=== PATIENT | female | born 1955 | race Caucasian/White ===

== ENCOUNTER 2019-02-05 15:05 | Inpatient (IN) | payer MEDICAID ==
[~2019-02-05] VITALS: Ht 157.5 cm; Wt 80.0 kg
[2019-02-05] MEDS ORDERED: DIPHENHYDRAMINE 50 MG INJ IV STA (15:07)
[2019-02-05] MEDS ORDERED: METOCLOPRAMIDE 10 MG INJ IV STA (15:07)
--- NOTE | 2019-02-05 15:13 | ERD ---
ER Documentation Chief Complaint Chief Complaint HPI This 63-year-old female with a history of hypertension who presents for evaluati on of headache. Patient had been seen in her primary clinic today, she has a past medical history of coronary artery disease, she had a drug-eluting stent placed to the left circumflex artery in 2014, when she was seen in clinic earlier today, she received nitroglycerin, and at that point she began having having emesis, and a severe headache. Subsequently 911 was called, and the patient was taken to the emergency department. ROS All systems reviewed and are negative except as per history of present illness. Allergies Allergies: Coded Allergies: iodine (Verified Allergy, Unknown, 02/05/19) PMhx/Soc History of Surgery: Yes Hx Cardiac Disorders: Yes FmHx Family History: diabetes Physical Exam Vitals Vital Signs Date Temp Pulse Resp B/P (MAP) Pulse Ox O2 O2 Flow FiO2 Time Delivery Rate 02/05/19 98.2 71 16 141/81 98 15:29 (101) Physical Exam Const: No acute distress Head: Atraumatic Eyes: Normal Conjunctiva ENT: Normal External Ears, Nose and Mouth. Neck: Full range of motion. No meningismus. Resp: Clear to auscultation bilaterally Cardio: Regular rate and rhythm, no murmurs Abd: Soft, non tender, non distended. Normal bowel sounds Skin: No petechiae or rashes Back: No midline or flank tenderness Ext: No cyanosis, or edema Neur: Awake and alert Psych: Normal Mood and Affect Result Diagram: 02/05/19 1530 02/05/19 1530 Results 24 hrs Laboratory Tests Test 02/05/19 15:30 White Blood Count 8.9 10^3/ul Red Blood Count 4.41 10^6/ul Hemoglobin 12.3 g/dl Hematocrit 36.5 % Mean Corpuscular Volume 82.8 fl Mean Corpuscular Hemoglobin 27.9 pg Mean Corpuscular Hemoglobin Concent 33.7 g/dl Red Cell Distribution Width 13.9 % Platelet Count 278 10^3/UL Mean Platelet Volume 10.1 fl Immature Granulocytes % 0.700 % Neutrophils % 56.6 % Lymphocytes % 31.9 % Monocytes % 6.4 % Eosinophils % 3.7 % Basophils % 0.7 % Nucleated Red Blood Cells % 0.0 /100WBC Immature Granulocytes # 0.060 10^3/ul Neutrophils # 5.0 10^3/ul Lymphocytes # 2.8 10^3/ul Monocytes # 0.6 10^3/ul Eosinophils # 0.3 10^3/ul Basophils # 0.1 10^3/ul Nucleated Red Blood Cells # 0.0 10^3/ul Prothrombin Time 12.8 Sec Prothrombin Time Ratio 1.0 INR International Normalized Ratio 0.95 Sodium Level 138 mmol/L Potassium Level 4.5 mmol/L Chloride Level 103 mmol/L Carbon Dioxide Level 21 mmol/L Anion Gap 14 Blood Urea Nitrogen 20 mg/dl Creatinine 1.11 mg/dl Est Glomerular Filtrat Rate mL/min 50 mL/min Glucose Level 165 mg/dl Calcium Level 9.0 mg/dl Total Bilirubin 0.3 mg/dl Direct Bilirubin 0.00 mg/dl Indirect Bilirubin 0.3 mg/dl Aspartate Amino Transf (AST/SGOT) 45 IU/L Alanine Aminotransferase (ALT/SGPT) 35 IU/L Alkaline Phosphatase 109 IU/L B-Type Natriuretic Peptide 339 PG/ML Total Protein 8.2 g/dl Albumin 4.5 g/dl Globulin 3.70 g/dl Albumin/Globulin Ratio 1.21 Current Medications Medications Dose Sig/Iman Start Time Status Last (Trade) Ordered Route PRN Stop Time Admin Dose Reason Admin 10 mg ONCE STAT 02/05/19 DC 02/05/19 Metoclopramid IV 15:07 02/05/19 15:42 e HCl 15:09 (Reglan) 12.5 mg ONCE STAT 02/05/19 DC 02/05/19 Diphenhydrami IV 15:07 02/05/19 15:42 ne HCl 15:09 (Benadryl) Procedures/MDM This is a 63-year-old female who presents for evaluation of chest pain and headache. #Headache. Patient's initial complaint in clinic has been chest pain, however she experience a headache after being given nitroglycerin, her blood pressure was also noted to be elevated at that time, she had no focal neurologic deficits, and I suspect that a ischemic stroke is much less likely, CT brain was ordered to evaluate for intracranial hemorrhage. #Chest pain. Patient has a strong history of coronary disease, in the field, there is no evidence of acute ischemia, cardiac work-up ordered, 4:41 PM: Patient's chest pain symptoms have improved, she is symptom-free from a headache standpoint, her CT brain was negative. Given his strong cardiac history, she will be admitted for further work-up for chest pain. Accepting Care Team: Current data and ongoing care discussed. Primary: [employer] Consulting: None Outstanding Data: none Departure Diagnosis: Primary Impression: Chest pain Chest pain type: unspecified Qualified Codes: R07.9 - Chest pain, unspecified Additional Impression: Headache Headache type: unspecified Headache chronicity pattern: unspecified pattern Intractability: not intractable Qualified Codes: R51 - Headache Condition: Serious GLORIAISABELA MD Feb 05, 2019 15:13
[2019-02-05] MEDS ORDERED: AMLO-147 PO ×2 (16:47→16:48)
[2019-02-05] MEDS ORDERED: HYDR25TA6 PO (16:47)
[2019-02-05] MEDS ORDERED: ISOS60TA PO (16:48)
[2019-02-05] MEDS ORDERED: ASPI-817 PO (16:48)
[2019-02-05] MEDS ORDERED: ATOR-2 PO (16:49)
[2019-02-05] MEDS ORDERED: LEVO75TA5 PO (16:50)
[2019-02-05] MEDS ORDERED: GABA300C16 PO (16:50)
[2019-02-05] MEDS ORDERED: CLOP75TA19 PO (16:50)
[2019-02-05] MEDS ORDERED: TRAZ-149 PO (16:51)
[2019-02-05] MEDS ORDERED: BENA10TA4 PO (16:51)
[2019-02-05] MEDS ORDERED: SERT-165 PO (16:52)
[2019-02-05] MEDS ORDERED: METO-448 PO (16:52)
[2019-02-05] MEDS ORDERED: DOCU-144 PO (16:52)
[2019-02-05] MEDS ORDERED: INSU100C SQ (16:53)
[2019-02-05] MEDS ORDERED: LANT3I SC (16:54)
[2019-02-05] MEDS ORDERED: NACL 0.9% 3 ML SYG IV SCH (17:00)
[2019-02-05] MEDS ORDERED: ACETAMINOPHEN 325 MG TAB PO PRN (17:00)
[2019-02-05] MEDS ORDERED: morphine 2 MG INJ IV PRN (17:00)
[2019-02-05] MEDS ORDERED: ONDANSETRON 4 MG INJ IV PRN ×2 (17:00)
--- NOTE | 2019-02-05 17:17 | HP ---
Date/Time of Note Date/Time of Note DATE: 02/05/19 TIME: 17:17 Assessment/Plan VTE Prophylaxis Pharmacological prophylaxis: other Assessment/Plan Hospital Course Patient is a female with a past medical history significant for coronary artery disease status post drug-eluting stent in 2014, diabetes mellitus, hypertension, mood disorder, hypothyroidism who presents to [facility] for chest pain. Patient developed chest pain this morning and went to her primary care doctor's office and complained of recurrent chest pain there. Patient was given aspirin, nitroglycerin at the doctor's office and she subsequently developed sudden onset headache. Currently patient is chest pain-free and has very mild headache symptoms but otherwise feels completely normal. Patient of denies any shortness of breath, nausea, vomiting, abdominal pain, bowel or bladder dysfunction, leg pain. Objective Physical exam General: Patient is laying in bed and answers questions appropriately Mentation: Patient is alert and oriented 4, Head: Normocephalic atraumatic Eyes: EOMI, pupils reactive to light Neck: Supple, nontender, midline Respiratory: Clear to auscultation bilaterally Cardiovascular: regular rate, no obvious murmurs Gastrointestinal: non-tender to palpation, bowel sounds heard. 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 Acute onset headache -Very likely secondary to nitroglycerin administration and she developed this shortly after nitroglycerin -PRN pain medication as needed -Very mild Hypertension -Continue home medications Mild acute kidney insufficiency -Very mild, monitor for now, consult nephrology if worsening -This may be patient's baseline Coronary artery disease -Continue home medications Mood disorder -Continue sertraline Hypothyroidism -Continue home medications Sore and itchy throat -Patient states this been going on for 2 weeks, come very mild -Sepsis that lozenges as needed -No overt signs of infection at this time, monitor closely -Chest x-ray negative -Follow-up with primary care physician Diabetes mellitus -Hold p.o. metformin -Insulin while in house Disposition -Continue to trend troponins, cardiology has been consulted for ACS rule out as patient does have significant cardiac history on aspirin and Plavix chronically. Result Diagram: 02/05/19 1530 02/05/19 1530 Results 24hrs Laboratory Tests Test 02/05/19 15:30 White Blood Count 8.9 Red Blood Count 4.41 Hemoglobin 12.3 Hematocrit 36.5 L Mean Corpuscular Volume 82.8 Mean Corpuscular Hemoglobin 27.9 L Mean Corpuscular Hemoglobin Concent 33.7 Red Cell Distribution Width 13.9 Platelet Count 278 Mean Platelet Volume 10.1 Immature Granulocytes % 0.700 H Neutrophils % 56.6 Lymphocytes % 31.9 Monocytes % 6.4 Eosinophils % 3.7 Basophils % 0.7 Nucleated Red Blood Cells % 0.0 Immature Granulocytes # 0.060 H Neutrophils # 5.0 Lymphocytes # 2.8 Monocytes # 0.6 Eosinophils # 0.3 Basophils # 0.1 Nucleated Red Blood Cells # 0.0 Prothrombin Time 12.8 Prothrombin Time Ratio 1.0 INR International Normalized Ratio 0.95 Sodium Level 138 Potassium Level 4.5 Chloride Level 103 Carbon Dioxide Level 21 Anion Gap 14 H Blood Urea Nitrogen 20 Creatinine 1.11 H Est Glomerular Filtrat Rate mL/min 50 L Glucose Level 165 Calcium Level 9.0 Total Bilirubin 0.3 Direct Bilirubin 0.00 Indirect Bilirubin 0.3 Aspartate Amino Transf (AST/SGOT) 45 Alanine Aminotransferase (ALT/SGPT) 35 Alkaline Phosphatase 109 Troponin I < 0.012 B-Type Natriuretic Peptide 339 H Total Protein 8.2 H Albumin 4.5 Globulin 3.70 H Albumin/Globulin Ratio 1.21 HPI/ROS Admit Date/Time Admit Date/Time PMH/Family/Social Past Medical History Medications Current Medications IV Flush (NS 3 ml) 3 ml PER PROTOCOL IV ; Start 02/05/19 at 17:00 Ondansetron HCl (Zofran Inj) 4 mg Q6H PRN IV NAUSEA/VOMITING; Start 02/05/19 at 17:00 Aspirin (Aspirin) 81 mg DAILY PO ; Start 02/06/19 at 09:00 Nitroglycerin (Nitroglycerin (Sl Tab) 0.4 Mg) 1 tab Q5M PRN SL .CHEST PAIN; Start 02/05/19 at 17:00 Acetaminophen (Tylenol Tab) 650 mg Q6H PRN PO .PAIN 1-3 OR TEMP; Start 02/05/19 at 17:00 Acetaminophen/ Hydrocodone Bitart ([place] (5/325)) 1 tab Q6H PRN PO .PAIN 4-6; Start 02/05/19 at 17:00 Morphine Sulfate (morphine) 2 mg Q4H PRN IV .PAIN 7-10; Start 02/05/19 at 17:00 Atorvastatin Calcium (Lipitor) 80 mg HS PO ; Start 02/05/19 at 21:00 Ondansetron HCl (Zofran Inj) 4 mg ER BRIDGE PRN IV NAUSEA/VOMITING; Start 02/05/19 at 17:00; Stop 02/06/19 at 16:59 Acetaminophen (Tylenol Tab) 650 mg ER BRIDGE PRN PO .MILD PAIN 1-3 OR TEMP; Start 02/05/19 at 17:00; Stop 02/06/19 at 16:59 Amlodipine Besylate (Norvasc) 10 mg DAILY PO ; Start 02/06/19 at 09:00; Status UNV Atorvastatin Calcium (Lipitor) 80 mg QHS PO ; Start 02/05/19 at 21:00; Status UNV Benazepril HCl (Lotensin) 10 mg DAILY PO ; Start 02/06/19 at 09:00; Status UNV Clopidogrel Bisulfate (plaVIX) 75 mg DAILY PO ; Start 02/06/19 at 09:00; Status UNV Docusate Sodium (Colace) 100 mg BID PO ; Start 02/05/19 at 21:00; Status UNV Gabapentin (Neurontin) 300 mg QHS PO ; Start 02/05/19 at 21:00; Status UNV Hydrochlorothiazide (Hydrochlorothiazide) 25 mg DAILY PO ; Start 02/06/19 at 09:00; Status UNV Insulin Glargine (Lantus) 17 units BID SC ; Start 02/05/19 at 21:00; Status UNV Isosorbide Mononitrate (Imdur) 60 mg DAILY PO ; Start 02/06/19 at 09:00; Status UNV Levothyroxine Sodium (Synthroid) 75 mcg BEFORE BREAKFAST PO ; Start 02/06/19 at 07:00; Status UNV Metoprolol Tartrate (Lopressor) 25 mg BID PO ; Start 02/05/19 at 21:00; Status UNV Sertraline HCl (Zoloft) 100 mg QAM PO ; Start 02/06/19 at 09:00; Status UNV Trazodone HCl (Desyrel) 50 mg QHS PRN PO insomnia; Start 02/05/19 at 17:30; Status UNV Miscellaneous Information (* Miscellaneous Pharmacy Order) Discontinue current oral sulfonylur... ONCE ONCE XX ; Start 02/05/19 at 17:30; Stop 02/05/19 at 17:31; Status UNV Diagnostic Test (Pha) (Accu-Chek) 1 ea XX ; Start 02/06/19 at 02:00; Status UNV Insulin Aspart (Novolog Insulin Pen) 3 unit WITH MEALS SC ; Start 02/05/19 at 18:00; Status UNV Miscellaneous Information (* Miscellaneous Pharmacy Order) HYPOGLYCEMIA PROTOCOL w... ONCE ONCE XX ; Start 02/05/19 at 17:30; Stop 02/05/19 at 17:31; Status UNV Insulin Aspart (Novolog Insulin Pen) NOVOLOG *MILD* ALGORITHM WITH MEALS BEDTIME SC ; Start 02/05/19 at 18:00; Status UNV Miscellaneous Information (* Miscellaneous Pharmacy Order) Discontinue all previ... ONCE ONCE XX ; Start 02/05/19 at 17:30; Stop 02/05/19 at 17:31; Status UNV Phenol (Cepastat Lozenge) 1 lozenge Q1H PRN MT sore throat; Start 02/05/19 at 17:30; Status UNV Phenol (Cepastat Lozenge) 1 lozenge ONCE ONCE MT ; Start 02/05/19 at 17:30; Stop 02/05/19 at 17:31; Status UNV Coded Allergies: iodine (Verified Allergy, Unknown, 02/05/19) Social History Smoking Status: Never smoker Exam/Review of Systems Vital Signs Vitals Vital Signs Date Temp Pulse Resp B/P (MAP) Pulse Ox O2 O2 Flow FiO2 Time Delivery Rate 02/05/19 98.2 71 16 141/81 98 15:29 (101) ISABELA TORIBIO Feb 05, 2019 17:17
[2019-02-05] MEDS ORDERED: GLUCOSE GEL 15 GRAM TUBE BUCCAL PRN (19:00)
[2019-02-05] MEDS ORDERED: GLUCOSE GEL 15 GRAM TUBE PO PRN ×2 (19:00)
[2019-02-05] MEDS ORDERED: GLUCAGON 1 MG INJ IM PRN (19:00)
[2019-02-05] MEDS ORDERED: DEXTROSE 50% 50 ML SYRINGE IV PRN ×2 (19:00)
[2019-02-05] MEDS: HYDROCODONE/APAP (5/325) TAB PO PRN (19:17)
[2019-02-05] MEDS ORDERED: GABAPENTIN 300 MG CAP PO SCH (21:00)
[2019-02-05] MEDS ORDERED: ATORVASTATIN 80 MG TAB PO SCH (21:00)
[2019-02-05] MEDS ORDERED: CEPASTAT LOZENGE MT ONE (21:00)
[2019-02-05 21:58] VITALS: BP 141/74; PULSE 62; RESP 18
[2019-02-05] MEDS: ATORVASTATIN 80 MG TAB PO SCH (22:30)
[2019-02-05] MEDS: DOCUSATE SODIUM 100 MG CAP PO SCH (22:30)
[2019-02-05] MEDS: METOPROLOL 25 MG TAB PO SCH (22:31)
[2019-02-05] MEDS: INSULIN GLARGINE [LANTus] (100 UNITS/ML) SYG SC SCH (22:40)
[2019-02-05] MEDS: INSULIN ASPART [NOVOLOG] 3 ML PEN SC SCH (22:40)
[2019-02-05 22:43] VITALS: Ht 157.5 cm; Wt 80.0 kg
[2019-02-05 22:45] VITALS: BP 136/63; PULSE 87; RESP 19
[2019-02-05 23:48] VITALS: BP 140/69; PULSE 67; RESP 19
[2019-02-06] MEDS: HYDROCODONE/APAP (5/325) TAB PO PRN ×2 (01:03→09:46)
[2019-02-06] MEDS: ACCU-CHEK XX SCH (02:00)
[2019-02-06 04:10] VITALS: BP 136/68; PULSE 60; RESP 18
[2019-02-06] MEDS: LEVOTHYROXINE 75 MCG TAB PO SCH (06:26)
[2019-02-06] MEDS: ACETAMINOPHEN 325 MG TAB PO PRN ×2 (06:56→20:40)
[2019-02-06 07:47] VITALS: BP 164/75; PULSE 54; RESP 18
[2019-02-06] MEDS: METOPROLOL 25 MG TAB PO SCH ×2 (09:00→20:40)
[2019-02-06] MEDS: INSULIN GLARGINE [LANTus] (100 UNITS/ML) SYG SC SCH ×2 (09:00→21:05)
[2019-02-06] MEDS: BENAZEPRIL 10 MG TAB PO SCH (09:45)
[2019-02-06] MEDS: ISOSORBIDE MONONITRATE(SR)60 MG TAB PO SCH (09:45)
[2019-02-06] MEDS: DOCUSATE SODIUM 100 MG CAP PO SCH ×2 (09:45→20:39)
[2019-02-06] MEDS: AMLODIPINE 10 MG TAB PO SCH (09:45)
[2019-02-06] MEDS: CLOPIDOGREL 75 MG TAB PO SCH (09:47)
[2019-02-06] MEDS: HYDROCHLOROTHIAZIDE 25 MG TAB PO SCH (09:47)
[2019-02-06] MEDS: ASPIRIN 81 MG TAB PO SCH (09:47)
[2019-02-06] MEDS: INSULIN ASPART [NOVOLOG] 3 ML PEN SC SCH ×7 (10:06→21:05)
[2019-02-06 11:20] VITALS: BP 126/70; PULSE 64; RESP 18
[2019-02-06] MEDS ORDERED: DIPHENHYDRAMINE 50 MG INJ IV ONE ×2 (12:08→12:30)
[2019-02-06] MEDS ORDERED: METOCLOPRAMIDE 10 MG INJ IV ONE ×2 (12:08→12:30)
--- NOTE | 2019-02-06 13:20 | RADRPT ---
Echocardiogram Report Patient Name: DANIELA LANEPatient ID: [id number] : 1955 (63y 2m)Study Date: 02/06/2019 7:29:52 AM Gender: FAccession #: [id number] Tech: Roberta Guerra NASH Location: [id number] Ref.Physician: ISABELA TORIBIO Height(Cm): BSA: Weight(Kg): Quality: AdequateOrder Physician: ISABELA TORIBIO Account #: Procedures: Echocardiographic Report: Transthoracic echocardiogram with complete 2D, M-Mode, and doppler examination. Indications: Coronary Artery Disease. Measurements: 2D/M Mode Doppler Measurement Value Normal Range Measurement Value Normal Range LVIDd 2D 3.8 [ 3.8 - 5.2 ] cm AV Peak Kenny 1.0 [ 100.0 - 170.0 ] cm/sec LVIDs 2D 2.4 [ 2.2 - 3.5 ] cm AV Peak PG 4.0 [ 2.0 - 9.0 ] mmHg LVPWd 2D 1.2 [ 0.6 - 0.9 ] cm LVOT Peak Kenny 0.8 [ 70.0 - 110.0 ] cm/sec IVSd 2D 1.3 [ 0.6 - 0.9 ] cm LVOT Peak PG 2.0 [ 2.0 - 6.0 ] mmHg AoR Diam 2D 3.2 [ 2.3 - 3.1 ] cm MV E Peak Kenny 0.4 [ 60.0 - 130.0 ] cm/sec EDV 2D 62.3 [ 46.0 - 106.0 ] ml MV A Peak Kenny 0.5 [ 100.0 - 120.0 ] cm/sec ESV 2D 19.7 [ 14.0 - 42.0 ] ml MV E/A 0.8 [ 0.8 - 1.5 ] ratio EF 2D 68.4 [ 54.0 - 74.0 ] percent MV Decel Time 165 [ 104 - 258 ] msec LA Dimen 2D 3.3 [ 2.7 - 3.8 ] cm MV E/A 0.8 [ 0.8 - 1.5 ] ratio TR Peak Kenny 1.4 [ 100.0 - 280.0 ] cm/sec TR Peak PG 8.0 mmHg RVSP 11.0 [ 10.0 - 36.0 ] mmHg RA Pressure 3.0 mmHg Findings: Left Ventricle: Overall, normal left ventricular systolic function. Not all segments visualized. Normal left ventricular cavity size. Mild concentric left ventricular hypertrophy. Ejection fraction is visually estimated at 60 %. Tissue Doppler/Mitral Doppler indices are consistent with impaired relaxation (Stage I diastolic dysfunction). Right Ventricle: Normal right ventricular size. Normal right ventricular systolic function. Left Atrium: The left atrium is normal in size. Right Atrium: The right atrium is normal in size. Mitral Valve: Normal appearance and function of the mitral valve with trace physiologic regurgitation. Aortic Valve: No significant aortic stenosis or insufficiency. Aortic cusps appear mildly calcified. Tricuspid Valve: Normal appearance and function of the tricuspid valve with trace physiologic regurgitation. Pulmonic Valve: Normal pulmonic valve appearance. Pericardium: Normal pericardium with no significant pericardial effusion. Aorta: Normal aortic root. IVC: Normal size and normal respiratory collapse consistent with normal right atrial pressure. Conclusions: Overall, normal left ventricular systolic function. Not all segments visualized. Normal left ventricular cavity size. Mild concentric left ventricular hypertrophy. Ejection fraction is visually estimated at 60 %. Tissue Doppler/Mitral Doppler indices are consistent with impaired relaxation (Stage I diastolic dysfunction). Normal right ventricular size. Normal right ventricular systolic function. The left atrium is normal in size. The right atrium is normal in size. No significant valvular stenosis or regurgitation seen. Normal pericardium with no significant pericardial effusion. Electronically Signed By: Philipp Mcdonnell 2019-02-06 13:19:52 PDT
--- NOTE | 2019-02-06 13:28 | CONS ---
Assessment/Plan Assessment/Plan Hospital Course (Demo Recall) Atypical chest discomfort CAD with history of PCI Preserved ejection fraction Diabetes Hypertension Dyslipidemia Patient presents with cough causing picking-like sensation in her chest. 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 Patient states that when she coughs, she gets a tingling and picking-like sensation in her chest. Is not chest pressure but feels like little pinches in her chest. With exertion, she denies chest pain but does get fatigue. She denies any shortness of breath. She went to go see her physician yesterday because of the symptoms and was told to come to the emergency room. She has been having a headache since yesterday evening. Review of medical chart, this appears after receiving nitroglycerin, she developed a headache. Denies any chest discomfort currently, shortness of breath, palpitations, chest pressure or dizziness. 12 point review of systems was performed with all pertinent positives and negatives mentioned above and all else is negative Past Medical History Medical History: coronary artery disease, diabetes, high cholesterol, hypertension Home Meds Reported Medications Insulin Glargine* (Lantus*) 100 Unit/Ml Soln, 17 UNIT SC BID, #1 VIAL 02/05/19 Insulin Lispro (Humalog) 100 Unit/1 Ml Cartridge, 5 UNIT SQ BEFORE MEALS, EA 02/05/19 Metoprolol Tartrate* (Lopressor*) 25 Mg Tab, 25 MG PO BID, #60 TAB 02/05/19 Docusate Sodium* (Colace*) 100 Mg Capsule, 100 MG PO BID, #60 CAP 02/05/19 Sertraline Hcl* (Sertraline Hcl*) 100 Mg Tablet, 100 MG PO QAM, #30 TAB 02/05/19 Trazodone Hcl* (Desyrel*) 50 Mg Tab, 50 MG PO QHS, #30 TAB 02/05/19 Benazepril Hcl* (Benazepril Hcl*) 10 Mg Tablet, 10 MG PO DAILY, #30 TAB 02/05/19 Clopidogrel Bisulfate* (Clopidogrel Bisulfate*) 75 Mg Tablet, 75 MG PO DAILY, #30 TAB 02/05/19 Gabapentin* (Gabapentin*) 300 Mg Capsule, 300 MG PO DAILY, #60 CAP 02/05/19 Levothyroxine Sodium* (Levothyroxine Sodium*) 75 Mcg Tablet, 75 MCG PO BEFORE BREAKFAST, #30 TAB 02/05/19 Atorvastatin* (Atorvastatin*) 80 Mg Tablet, 80 MG PO QHS, #30 TAB 02/05/19 Isosorbide Mononitrate* (Isosorbide Mononitrate*) 60 Mg Tab.er.24h, 60 MG PO DAILY, TAB 02/05/19 Aspirin* (Aspirin* EC) 81 Mg Tablet.dr, 81 MG PO DAILY, TAB 02/05/19 Amlodipine Besylate* (Amlodipine Besylate*) 10 Mg Tablet, 10 MG PO DAILY, #30 TAB 02/05/19 Hydrochlorothiazide* (Hydrochlorothiazide*) 25 Mg Tab, 25 MG PO DAILY, #30 TAB 02/05/19 Discontinued Reported Medications Amlodipine Besylate* (Amlodipine Besylate*) 10 Mg Tablet, 10 MG PO DAILY, #30 TAB 02/05/19 Medications Current Medications IV Flush (NS 3 ml) 3 ml PER PROTOCOL IV ; Start 02/05/19 at 17:00 Ondansetron HCl (Zofran Inj) 4 mg Q6H PRN IV NAUSEA/VOMITING; Start 02/05/19 at 17:00 Aspirin (Aspirin) 81 mg DAILY PO Last administered on 02/06/19at 09:47; Admin Dose 81 MG; Start 02/06/19 at 09:00 Nitroglycerin (Nitroglycerin (Sl Tab) 0.4 Mg) 1 tab Q5M PRN SL .CHEST PAIN; Start 02/05/19 at 17:00 Acetaminophen (Tylenol Tab) 650 mg Q6H PRN PO .PAIN 1-3 OR TEMP Last administered on 02/06/19at 06:56; Admin Dose 650 MG; Start 02/05/19 at 17:00 Ondansetron HCl (Zofran Inj) 4 mg ER BRIDGE PRN IV NAUSEA/VOMITING; Start 02/05/19 at 17:00; Stop 02/06/19 at 16:59 Acetaminophen (Tylenol Tab) 650 mg ER BRIDGE PRN PO .MILD PAIN 1-3 OR TEMP; Start 02/05/19 at 17:00; Stop 02/06/19 at 16:59 Amlodipine Besylate (Norvasc) 10 mg DAILY PO Last administered on 02/06/19 09:45; Admin Dose 10 MG; Start 02/06/19 at 09:00 Atorvastatin Calcium (Lipitor) 80 mg QHS PO Last administered on 02/05/19 22:30; Admin Dose 80 MG; Start 02/05/19 at 21:00 Benazepril HCl (Lotensin) 10 mg DAILY PO Last administered on 02/06/19 09:45; Admin Dose 10 MG; Start 02/06/19 at 09:00 Clopidogrel Bisulfate (plaVIX) 75 mg DAILY PO Last administered on 02/06/19 09:47; Admin Dose 75 MG; Start 02/06/19 at 09:00 Docusate Sodium (Colace) 100 mg BID PO Last administered on 02/06/19 09:45; Admin Dose 100 MG; Start 02/05/19 at 21:00 Gabapentin (Neurontin) 300 mg QHS PO Last administered on 02/05/19 22:31; Admin Dose 300 MG; Start 02/05/19 at 21:00 Hydrochlorothiazide (Hydrochlorothiazide) 25 mg DAILY PO Last administered on 02/06/19 09:47; Admin Dose 25 MG; Start 02/06/19 at 09:00 Insulin Glargine (Lantus) 17 units BID SC Last administered on 02/05/19 22:40; Admin Dose 17 UNITS; Start 02/05/19 at 21:00 Isosorbide Mononitrate (Imdur) 60 mg DAILY PO Last administered on 02/06/19 09:45; Admin Dose 60 MG; Start 02/06/19 at 09:00 Levothyroxine Sodium (Synthroid) 75 mcg BEFORE BREAKFAST PO Last administered on 02/06/19 06:26; Admin Dose 75 MCG; Start 02/06/19 at 07:00 Metoprolol Tartrate (Lopressor) 25 mg BID PO ; Start 02/05/19 at 21:00 Sertraline HCl (Zoloft) 100 mg QAM PO ; Start 02/06/19 at 09:00 Trazodone HCl (Desyrel) 50 mg QHS PRN PO insomnia; Start 02/05/19 at 17:30 Diagnostic Test (Pha) (Accu-Chek) 1 ea 02 XX Last administered on 02/06/19at 02:00; Admin Dose 1 EA; Start 02/06/19 at 02:00 Insulin Aspart (Novolog Insulin Pen) 3 unit WITH MEALS SC Last administered on 02/06/19at 10:07; Admin Dose 3 UNIT; Start 02/06/19 at 07:55 Insulin Aspart (Novolog Insulin Pen) NOVOLOG *MILD* ALGORITHM WITH MEALS BEDTIME SC Last administered on 02/06/19at 10:06; Admin Dose 1 UNIT; Start 02/05/19 at 21:00 Phenol (Cepastat Lozenge) 1 lozenge Q1H PRN MT sore throat; Start 02/05/19 at 17:30 Miscellaneous Information 1 ea NOTE XX ; Start 02/05/19 at 19:00 Glucose (Glutose) 15 gm Q15M PRN PO DECREASED GLUCOSE; Start 02/05/19 at 19:00 Glucose (Glutose) 22.5 gm Q15M PRN PO DECREASED GLUCOSE; Start 02/05/19 at 19:00 Dextrose (D50w Syringe) 25 ml Q15M PRN IV DECREASED GLUCOSE; Start 02/05/19 at 19:00 Dextrose (D50w Syringe) 50 ml Q15M PRN IV DECREASED GLUCOSE; Start 02/05/19 at 19:00 Glucagon (Glucagen) 1 mg Q15M PRN IM DECREASED GLUCOSE; Start 02/05/19 at 19:00 Glucose (Glutose) 15 gm Q15M PRN BUCCAL DECREASED GLUCOSE; Start 02/05/19 at 19:00 Acetaminophen/ Butalbital/ Caffeine (Fioricet) 1 tab Q6H PRN PO PAIN; Start 02/06/19 at 12:00 Allergies: Coded Allergies: iodine (Verified Allergy, Unknown, 02/05/19) Past Surgical History Past Surgical Hx: angioplasty, cholecystectomy Social History Smoking Status: Never smoker Exam/Review of Systems Vital Signs Vitals Vital Signs Date Temp Pulse Resp B/P (MAP) Pulse Ox O2 O2 Flow FiO2 Time Delivery Rate 02/06/19 98.7 64 18 126/70 98 Room Air 11:20 (88) Intake and Output 02/05/19 02/05/19 02/06/19 1414:59 22:59 06:59 IntakeIntake Total 2950 ml BalanceBalance 2950 ml Exam Constitutional: alert, oriented, well developed Head: normocephalic Neck: supple Respiratory: clear to auscultation, normal air movement Cardiovascular: regular rate and rhythm, other (S1-S2 heard) Gastrointestinal: soft, non-tender, bowel sounds Extremities: other (No significant edema) Labs Result Diagram: 02/06/19 0308 02/06/19 0308 Results 24hrs Laboratory Tests Test 02/05/19 15:30 02/05/19 21:22 02/05/19 22:27 02/06/19 03:05 White Blood Count 8.9 Red Blood Count 4.41 Hemoglobin 12.3 Hematocrit 36.5 L Mean Corpuscular Volume 82.8 Mean Corpuscular 27.9 L Hemoglobin Mean Corpuscular 33.7 Hemoglobin Concent Red Cell Distribution 13.9 Width Platelet Count 278 Mean Platelet Volume 10.1 Immature Granulocytes % 0.700 H Neutrophils % 56.6 Lymphocytes % 31.9 Monocytes % 6.4 Eosinophils % 3.7 Basophils % 0.7 Nucleated Red Blood 0.0 Cells % Immature Granulocytes # 0.060 H Neutrophils # 5.0 Lymphocytes # 2.8 Monocytes # 0.6 Eosinophils # 0.3 Basophils # 0.1 Nucleated Red Blood 0.0 Cells # Prothrombin Time 12.8 Prothrombin Time Ratio 1.0 INR International 0.95 Normalized Ratio Sodium Level 138 Potassium Level 4.5 Chloride Level 103 Carbon Dioxide Level 21 Anion Gap 14 H Blood Urea Nitrogen 20 Creatinine 1.11 H Est Glomerular Filtrat 50 L Rate mL/min Glucose Level 165 Calcium Level 9.0 Total Bilirubin 0.3 Direct Bilirubin 0.00 Indirect Bilirubin 0.3 Aspartate Amino 45 Transf (AST/SGOT) Alanine 35 Aminotransferase (ALT/SG PT) Alkaline Phosphatase 109 Troponin I < 0.012 < 0.012 B-Type Natriuretic 339 H Peptide Total Protein 8.2 H Albumin 4.5 Globulin 3.70 H Albumin/Globulin Ratio 1.21 Creatine Kinase 53 Creatine Kinase Index 0.8 Creatinine Kinase MB 0.42 (Mass) Bedside Glucose 272 H 187 Test 02/06/19 03:08 02/06/19 08:24 02/06/19 13:07 White Blood Count 7.8 Red Blood Count 4.15 L Hemoglobin 11.3 L Hematocrit 34.8 L Mean Corpuscular Volume 83.9 Mean Corpuscular 27.2 L Hemoglobin Mean Corpuscular 32.5 Hemoglobin Concent Red Cell Distribution 14.1 Width Platelet Count 243 Mean Platelet Volume 10.1 Immature Granulocytes % 0.600 H Neutrophils % 53.7 Lymphocytes % 32.0 Monocytes % 7.8 Eosinophils % 5.0 Basophils % 0.9 Nucleated Red Blood 0.0 Cells % Immature Granulocytes # 0.050 H Neutrophils # 4.2 Lymphocytes # 2.5 Monocytes # 0.6 Eosinophils # 0.4 Basophils # 0.1 Nucleated Red Blood 0.0 Cells # Sodium Level 139 Potassium Level 4.3 Chloride Level 104 Carbon Dioxide Level 25 Anion Gap 10 Blood Urea Nitrogen 19 Creatinine 1.25 H Est Glomerular Filtrat 43 L Rate mL/min Glucose Level 188 Hemoglobin A1c 8.4 H Calcium Level 8.8 Magnesium Level 2.0 Total Bilirubin 0.4 Direct Bilirubin 0.00 Indirect Bilirubin 0.4 Aspartate Amino 31 Transf (AST/SGOT) Alanine 37 Aminotransferase (ALT/SG PT) Alkaline Phosphatase 78 Creatine Kinase 42 Creatine Kinase Index 0.7 Creatinine Kinase MB 0.31 (Mass) Troponin I < 0.012 Total Protein 6.8 # Albumin 3.8 Globulin 3.00 Albumin/Globulin Ratio 1.26 Triglycerides Level 262 H Cholesterol Level 133 LDL Cholesterol, 52 Calculated HDL Cholesterol 29 L Cholesterol/HDL Ratio 4.5 Thyroid Stimulating 8.560 H Hormone (TSH) Bedside Glucose 168 182 Imaging Imaging ECG sinus rhythm at 64 bpm, QRS 96 ms, nonspecific T wave abnormalities ECG from outside facility dated 11/13/2018 also with nonspecific T wave abnormalities as well as ECG from 04/07/2018 Medications Medications Current Medications IV Flush (NS 3 ml) 3 ml PER PROTOCOL IV ; Start 02/05/19 at 17:00 Ondansetron HCl (Zofran Inj) 4 mg Q6H PRN IV NAUSEA/VOMITING; Start 02/05/19 at 17:00 Aspirin (Aspirin) 81 mg DAILY PO Last administered on 02/06/19at 09:47; Admin Dose 81 MG; Start 02/06/19 at 09:00 Nitroglycerin (Nitroglycerin (Sl Tab) 0.4 Mg) 1 tab Q5M PRN SL .CHEST PAIN; Start 02/05/19 at 17:00 Acetaminophen (Tylenol Tab) 650 mg Q6H PRN PO .PAIN 1-3 OR TEMP Last administered on 02/06/19 06:56; Admin Dose 650 MG; Start 02/05/19 at 17:00 Ondansetron HCl (Zofran Inj) 4 mg ER BRIDGE PRN IV NAUSEA/VOMITING; Start 02/05/19 at 17:00; Stop 02/06/19 at 16:59 Acetaminophen (Tylenol Tab) 650 mg ER BRIDGE PRN PO .MILD PAIN 1-3 OR TEMP; Start 02/05/19 at 17:00; Stop 02/06/19 at 16:59 Amlodipine Besylate (Norvasc) 10 mg DAILY PO Last administered on 02/06/19 09:45; Admin Dose 10 MG; Start 02/06/19 at 09:00 Atorvastatin Calcium (Lipitor) 80 mg QHS PO Last administered on 02/05/19 22:30; Admin Dose 80 MG; Start 02/05/19 at 21:00 Benazepril HCl (Lotensin) 10 mg DAILY PO Last administered on 02/06/19 09:45; Admin Dose 10 MG; Start 02/06/19 at 09:00 Clopidogrel Bisulfate (plaVIX) 75 mg DAILY PO Last administered on 02/06/19 09:47; Admin Dose 75 MG; Start 02/06/19 at 09:00 Docusate Sodium (Colace) 100 mg BID PO Last administered on 02/06/19 09:45; Admin Dose 100 MG; Start 02/05/19 at 21:00 Gabapentin (Neurontin) 300 mg QHS PO Last administered on 02/05/19 22:31; Admin Dose 300 MG; Start 02/05/19 at 21:00 Hydrochlorothiazide (Hydrochlorothiazide) 25 mg DAILY PO Last administered on 02/06/19 09:47; Admin Dose 25 MG; Start 02/06/19 at 09:00 Insulin Glargine (Lantus) 17 units BID SC Last administered on 02/05/19 22:40; Admin Dose 17 UNITS; Start 02/05/19 at 21:00 Isosorbide Mononitrate (Imdur) 60 mg DAILY PO Last administered on 02/06/19at 09:45; Admin Dose 60 MG; Start 02/06/19 at 09:00 Levothyroxine Sodium (Synthroid) 75 mcg BEFORE BREAKFAST PO Last administered on 02/06/19at 06:26; Admin Dose 75 MCG; Start 02/06/19 at 07:00 Metoprolol Tartrate (Lopressor) 25 mg BID PO ; Start 02/05/19 at 21:00 Sertraline HCl (Zoloft) 100 mg QAM PO ; Start 02/06/19 at 09:00 Trazodone HCl (Desyrel) 50 mg QHS PRN PO insomnia; Start 02/05/19 at 17:30 Diagnostic Test (Pha) (Accu-Chek) 1 ea 02 XX Last administered on 02/06/19at 02:00; Admin Dose 1 EA; Start 02/06/19 at 02:00 Insulin Aspart (Novolog Insulin Pen) 3 unit WITH MEALS SC Last administered on 02/06/19at 10:07; Admin Dose 3 UNIT; Start 02/06/19 at 07:55 Insulin Aspart (Novolog Insulin Pen) NOVOLOG *MILD* ALGORITHM WITH MEALS BEDTIME SC Last administered on 02/06/19at 10:06; Admin Dose 1 UNIT; Start 02/05 at 21:00 Phenol (Cepastat Lozenge) 1 lozenge Q1H PRN MT sore throat; Start 02/05/19 at 17:30 Miscellaneous Information 1 ea NOTE XX ; Start 02/05/19 at 19:00 Glucose (Glutose) 15 gm Q15M PRN PO DECREASED GLUCOSE; Start 02/05/19 at 19:00 Glucose (Glutose) 22.5 gm Q15M PRN PO DECREASED GLUCOSE; Start 02/05/19 at 19:00 Dextrose (D50w Syringe) 25 ml Q15M PRN IV DECREASED GLUCOSE; Start 02/05/19 at 19:00 Dextrose (D50w Syringe) 50 ml Q15M PRN IV DECREASED GLUCOSE; Start 02/05/19 at 19:00 Glucagon (Glucagen) 1 mg Q15M PRN IM DECREASED GLUCOSE; Start 02/05/19 at 19:00 Glucose (Glutose) 15 gm Q15M PRN BUCCAL DECREASED GLUCOSE; Start 02/05/19 at 19:00 Acetaminophen/ Butalbital/ Caffeine (Fioricet) 1 tab Q6H PRN PO PAIN; Start 02/06/19 at 12:00 Philipp Mcdonnell DO Feb 06, 2019 13:28
[2019-02-06] MEDS: ACET/BUTAL/CAFF TAB PO PRN (14:26)
[2019-02-06 15:31] VITALS: BP 118/65; PULSE 67; RESP 18
[2019-02-06] MEDS: SERTRALINE 100 MG TAB PO SCH (17:51)
[2019-02-06 19:46] VITALS: BP 112/56; PULSE 74; RESP 18
[2019-02-06] MEDS: ATORVASTATIN 80 MG TAB PO SCH (20:39)
[2019-02-06 23:39] VITALS: BP 136/64; PULSE 80; RESP 18
[2019-02-07] VITALS (7 sets, daily range): BP systolic 114–166; BP diastolic 68–90; PULSE 55–68; RESP 18–20
[2019-02-07] MEDS: ACET/BUTAL/CAFF TAB PO PRN ×2 (01:37→10:52)
[2019-02-07] MEDS: ACCU-CHEK XX SCH (02:00)
[2019-02-07] MEDS: LEVOTHYROXINE 75 MCG TAB PO SCH (06:02)
[2019-02-07] MEDS: ACETAMINOPHEN 325 MG TAB PO PRN (07:34)
[2019-02-07] MEDS: INSULIN ASPART [NOVOLOG] 3 ML PEN SC SCH ×7 (08:07→21:00)
[2019-02-07] MEDS: DOCUSATE SODIUM 100 MG CAP PO SCH ×2 (08:11→21:22)
[2019-02-07] MEDS: CLOPIDOGREL 75 MG TAB PO SCH (08:11)
[2019-02-07] MEDS: BENAZEPRIL 10 MG TAB PO SCH (08:11)
[2019-02-07] MEDS: ISOSORBIDE MONONITRATE(SR)60 MG TAB PO SCH (08:11)
[2019-02-07] MEDS: METOPROLOL 25 MG TAB PO SCH ×2 (08:11→21:00)
[2019-02-07] MEDS: SERTRALINE 100 MG TAB PO SCH (08:11)
[2019-02-07] MEDS: ASPIRIN 81 MG TAB PO SCH (08:12)
[2019-02-07] MEDS: AMLODIPINE 10 MG TAB PO SCH (08:12)
[2019-02-07] MEDS: HYDROCHLOROTHIAZIDE 25 MG TAB PO SCH (08:12)
[2019-02-07] MEDS: INSULIN GLARGINE [LANTus] (100 UNITS/ML) SYG SC SCH ×2 (08:19→21:37)
[2019-02-07] MEDS ORDERED: NAPROXEN 500 MG TAB PO SCH (10:00)
[2019-02-07] MEDS ORDERED: DIPHENHYDRAMINE 50 MG INJ IV ONE (11:00)
[2019-02-07] MEDS ORDERED: METOCLOPRAMIDE 10 MG INJ IV ONE (11:00)
[2019-02-07] MEDS: SOD CHLORIDE 0.9% 1,000 ML IV SCH (12:11)
--- NOTE | 2019-02-07 14:20 | PN ---
Date/Time of Note Date/Time of Note DATE: 02/07/19 TIME: 14:16 Objective Vitals Vital Signs Date Temp Pulse Resp B/P (MAP) Pulse Ox O2 O2 Flow FiO2 Time Delivery Rate 02/07/19 98.1 55 19 133/72 96 11:07 (92) 02/07/19 Room Air 03:16 Intake and Output 02/06/19 02/06/19 02/07/19 1515:00 23:00 07:00 IntakeIntake Total 500 ml 900 ml 450 ml BalanceBalance 500 ml 900 ml 450 ml Results Result Diagram: 02/07/19 1012 02/07/19 1012 Medications Medications Current Medications IV Flush (NS 3 ml) 3 ml PER PROTOCOL IV ; Start 02/05/19 at 17:00 Ondansetron HCl (Zofran Inj) 4 mg Q6H PRN IV NAUSEA/VOMITING; Start 02/05/19 at 17:00 Aspirin (Aspirin) 81 mg DAILY PO Last administered on 02/07/19at 08:12; Admin Dose 81 MG; Start 02/06/19 at 09:00 Nitroglycerin (Nitroglycerin (Sl Tab) 0.4 Mg) 1 tab Q5M PRN SL .CHEST PAIN; Start 02/05/19 at 17:00 Acetaminophen (Tylenol Tab) 650 mg Q6H PRN PO .PAIN 1-3 OR TEMP Last ad ministered on 02/07/19at 07:34; Admin Dose 650 MG; Start 02/05/19 at 17:00 Amlodipine Besylate (Norvasc) 10 mg DAILY PO Last administered on 02/07/19at 08:12; Admin Dose 10 MG; Start 02/06/19 at 09:00 Atorvastatin Calcium (Lipitor) 80 mg QHS PO Last administered on 02/06/19at 20:39; Admin Dose 80 MG; Start 02/05/19 at 21:00 Benazepril HCl (Lotensin) 10 mg DAILY PO Last administered on 02/07/19at 08:11; Admin Dose 10 MG; Start 02/06/19 at 09:00 Clopidogrel Bisulfate (plaVIX) 75 mg DAILY PO Last administered on 02/07/19at 08:11; Admin Dose 75 MG; Start 02/06/19 at 09:00 Docusate Sodium (Colace) 100 mg BID PO Last administered on 02/07/19 08:11; Admin Dose 100 MG; Start 02/05/19 at 21:00 Hydrochlorothiazide (Hydrochlorothiazide) 25 mg DAILY PO Last administered on 02/07/19 08:12; Admin Dose 25 MG; Start 02/06/19 at 09:00 Insulin Glargine (Lantus) 17 units BID SC Last administered on 02/07/19 08:19; Admin Dose 17 UNITS; Start 02/05/19 at 21:00 Isosorbide Mononitrate (Imdur) 60 mg DAILY PO Last administered on 02/07/19 08:11; Admin Dose 60 MG; Start 02/06/19 at 09:00 Levothyroxine Sodium (Synthroid) 75 mcg BEFORE BREAKFAST PO Last administered on 02/07/19 06:02; Admin Dose 75 MCG; Start 02/06/19 at 07:00 Metoprolol Tartrate (Lopressor) 25 mg BID PO Last administered on 02/07/19 08:11; Admin Dose 25 MG; Start 02/05/19 at 21:00 Sertraline HCl (Zoloft) 100 mg QAM PO Last administered on 02/07/19 08:11; Admin Dose 100 MG; Start 02/06/19 at 09:00 Trazodone HCl (Desyrel) 50 mg QHS PRN PO insomnia; Start 02/05/19 at 17:30 Diagnostic Test (Pha) (Accu-Chek) 1 ea 02 XX Last administered on 02/06/19 02:00; Admin Dose 1 EA; Start 02/06/19 at 02:00 Insulin Aspart (Novolog Insulin Pen) 3 unit WITH MEALS SC Last administered on 02/07/19 12:23; Admin Dose 3 UNIT; Start 02/06/19 at 07:55 Insulin Aspart (Novolog Insulin Pen) NOVOLOG *MILD* ALGORITHM WITH MEALS BEDTIME SC Last administered on 02/07/19 12:22; Admin Dose 1 UNIT; Start 02/05/19 at 21:00 Phenol (Cepastat Lozenge) 1 lozenge Q1H PRN MT sore throat; Start 02/05/19 at 17:30 Miscellaneous Information 1 ea NOTE XX ; Start 02/05/19 at 19:00 Glucose (Glutose) 15 gm Q15M PRN PO DECREASED GLUCOSE; Start 02/05/19 at 19:00 Glucose (Glutose) 22.5 gm Q15M PRN PO DECREASED GLUCOSE; Start 02/05/19 at 19:00 Dextrose (D50w Syringe) 25 ml Q15M PRN IV DECREASED GLUCOSE; Start 02/05/19 at 19:00 Dextrose (D50w Syringe) 50 ml Q15M PRN IV DECREASED GLUCOSE; Start 02/05/19 at 19:00 Glucagon (Glucagen) 1 mg Q15M PRN IM DECREASED GLUCOSE; Start 02/05/19 at 19:00 Glucose (Glutose) 15 gm Q15M PRN BUCCAL DECREASED GLUCOSE; Start 02/05/19 at 19:00 Acetaminophen/ Butalbital/ Caffeine (Fioricet) 1 tab Q6H PRN PO PAIN Last administered on 02/07/19at 10:52; Admin Dose 1 TAB; Start 02/06/19 at 12:00 Sodium Chloride 1,000 ml @ 50 mls/hr Q20H IV Last administered on 02/07/19at 12:11; Admin Dose 50 MLS/HR; Start 02/07/19 at 11:30; Stop 02/08/19 at 07:29 Morphine Sulfate (morphine) 2 mg Q4H PRN IV SEVERE PAIN LEVEL 7-10; Start 02/07/19 at 11:30 VTE Prophylaxis Risk score (from Nsg)>0 risk: 4 SCD applied (from Nsg): Yes Lines/Catheters IV Catheter Type: Jimenez in Place: No Assessment/Plan Hospital Course Subjective Patient still having intractable headaches Objective Physical exam General: Patient is laying in bed and answers questions appropriately Mentation: Patient is alert and oriented 4, Head: Normocephalic atraumatic Eyes: EOMI, pupils reactive to light Neck: Supple, nontender, midline Respiratory: Clear to auscultation bilaterally Cardiovascular: regular rate, no obvious murmurs Gastrointestinal: non-tender to palpation, bowel sounds heard. 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 Acute onset headache, intermittent -Very likely secondary to nitroglycerin administration and she developed this shortly after nitroglycerin, however patient states that this was actually the original reason she went to her primary care doctor's office and it comes and goes and is extremely severe -We will need to consult neurology as acute intervention has not resolved patient's headache which causing her to severe debilitation including not being able to walk correctly -PRN pain medication as needed Hypertension -Continue home medications Mild acute kidney insufficiency -Very mild, will start some fluids Coronary artery disease -Continue home medications Mood disorder -Continue sertraline Hypothyroidism -Continue home medications Sore and itchy throat -Patient states this been going on for 2 weeks, come very mild, turns out that this began when she started new medication, calling patient's pharmacies, new medication was only gabapentin and hydrochlorothiazide, patient off both medications currently while inpatient -Sepsis that lozenges as needed -No overt signs of infection at this time, monitor closely -Chest x-ray negative -Follow-up with primary care physician Diabetes mellitus -Hold p.o. metformin -Insulin while in house Disposition -Patient's severe headaches are causing severe debility, neurology has been consulted. SIABELA TORIBIO Feb 07, 2019 14:20
[2019-02-07] MEDS: morphine 2 MG INJ IV PRN (19:00)
--- NOTE | 2019-02-07 20:12 | CONSI ---
Assessment/Plan Assessment/Plan Assessment/Plan (Recall) 63 F c/ multiple comorbidities, presents for evaluation of chest pain and other Sx.. Now w/ severe headache, for which neurology is consulted.. The clinical picture is consistent w/ recurrent migraine.. Meningitis is unlikely. Head CT was without obvious acute intracranial pathology. P: Solumedrol 1g iv x 1 Medrol pack is the above is beneficial To consider iv Toradol cautiously, given renal failure Continue iv fluids Reglan prn nausea Other management and supportive care per primary Will follow Consultation Date/Type/Reason Admit Date/Time Type of Consult Neurology Reason for Consultation headache Requesting Provider: ISABELA TORIBIO Date/Time of Note DATE: 02/07/19 TIME: 20:12 Hx of Present Illness 63 F admitted for various medical complaints. Initially noted mild headache.. Then reported severe headache on subsequent hospital days. Currently 10/10, frontal, throbbing, nonradiating.. Headaches for decades...sometimes severe... Some nausea, dry-heaving. Some dizziness... No focal weakness, numbness, or other neuro sx per above Objective Exam Vitals Vital Signs Date Temp Pulse Resp B/P (MAP) Pulse Ox O2 O2 Flow FiO2 Time Delivery Rate 02/07/19 98.1 64 20 132/80 96 19:45 (97) 02/07/19 Room Air 03:16 Intake and Output 02/06/19 02/06/19 02/07/19 1515:00 23:00 07:00 IntakeIntake Total 500 ml 900 ml 450 ml BalanceBalance 500 ml 900 ml 450 ml Exam PE: Gen Appearance: No Apparent Distress HEENT: Normocephalic Cardiovascular: Regular rate Abdomen: Soft Extremities: Dry NE: The patient was alert and oriented. Language was normal. Fund of knowledge was normal. Pupils were equal and reactive to light. There was no afferent pupillary defect. Visual nobles were normal. Funduscopic examination was limited. Extra-ocular movements were full. Ptosis was absent. There was no nystagmus. Facial sensation was normal. Face was symmetric with normal strength. Hearing was intact. Palate movements were normal. Neck strength was normal. There was normal tongue bulk and speed of movement. Tone was normal. Muscle bulk was normal. I did not see fasciculations. Arms and legs were symmetric. Vibration sensation was normal. Temperature and pinprick sensation was normal. Rapid alternating movements were normal. There was no dysmetria. There was no intention tremor. Gait was deferred due to bedrest. Arm and leg reflexes were symmetric. Rao's sign was absent. Plantar responses were flexor. Results Result Diagram: 02/07/19 1012 02/07/19 1012 Results 24hrs Laboratory Tests Test 02/06/19 20:50 02/07/19 03:28 02/07/19 07:38 02/07/19 10:12 Bedside Glucose 197 294 H 168 White Blood Count 7.0 Red Blood Count 4.51 Hemoglobin 12.0 Hematocrit 37.8 Mean Corpuscular Volume 83.8 Mean Corpuscular 26.6 L Hemoglobin Mean Corpuscular 31.7 L Hemoglobin Concent Red Cell Distribution 13.9 Width Platelet Count 260 Mean Platelet Volume 10.5 H Immature Granulocytes % 1.000 H Neutrophils % 59.9 Lymphocytes % 25.0 Monocytes % 6.8 Eosinophils % 6.4 Basophils % 0.9 Nucleated Red Blood 0.0 Cells % Immature Granulocytes # 0.070 H Neutrophils # 4.2 Lymphocytes # 1.8 Monocytes # 0.5 Eosinophils # 0.5 Basophils # 0.1 Nucleated Red Blood 0.0 Cells # Sodium Level 137 Potassium Level 4.5 Chloride Level 101 Carbon Dioxide Level 28 Anion Gap 8 Blood Urea Nitrogen 21 H Creatinine 1.27 H Est Glomerular Filtrat 43 L Rate mL/min Glucose Level 302 H Calcium Level 8.7 Total Bilirubin 0.3 Direct Bilirubin 0.00 Indirect Bilirubin 0.3 Aspartate Amino 35 Transf (AST/SGOT) Alanine 37 Aminotransferase (ALT/SG PT) Alkaline Phosphatase 87 Total Protein 7.3 Albumin 3.9 Globulin 3.40 H Albumin/Globulin Ratio 1.14 Test 02/07/19 12:18 02/07/19 17:15 Bedside Glucose 175 189 Past Medical History reviewed Home Meds Reported Medications Insulin Glargine* (Lantus*) 100 Unit/Ml Soln, 17 UNIT SC BID, #1 VIAL 02/05/19 Insulin Lispro (Humalog) 100 Unit/1 Ml Cartridge, 5 UNIT SQ BEFORE MEALS, EA 02/05/19 Metoprolol Tartrate* (Lopressor*) 25 Mg Tab, 25 MG PO BID, #60 TAB 02/05/19 Docusate Sodium* (Colace*) 100 Mg Capsule, 100 MG PO BID, #60 CAP 02/05/19 Sertraline Hcl* (Sertraline Hcl*) 100 Mg Tablet, 100 MG PO QAM, #30 TAB 02/05/19 Trazodone Hcl* (Desyrel*) 50 Mg Tab, 50 MG PO QHS, #30 TAB 02/05/19 Benazepril Hcl* (Benazepril Hcl*) 10 Mg Tablet, 10 MG PO DAILY, #30 TAB 02/05/19 Clopidogrel Bisulfate* (Clopidogrel Bisulfate*) 75 Mg Tablet, 75 MG PO DAILY, #30 TAB 02/05/19 Gabapentin* (Gabapentin*) 300 Mg Capsule, 300 MG PO DAILY, #60 CAP 02/05/19 Levothyroxine Sodium* (Levothyroxine Sodium*) 75 Mcg Tablet, 75 MCG PO BEFORE BREAKFAST, #30 TAB 02/05/19 Atorvastatin* (Atorvastatin*) 80 Mg Tablet, 80 MG PO QHS, #30 TAB 02/05/19 Isosorbide Mononitrate* (Isosorbide Mononitrate*) 60 Mg Tab.er.24h, 60 MG PO DAILY, TAB 02/05/19 Aspirin* (Aspirin* EC) 81 Mg Tablet.dr, 81 MG PO DAILY, TAB 02/05/19 Amlodipine Besylate* (Amlodipine Besylate*) 10 Mg Tablet, 10 MG PO DAILY, #30 TAB 02/05/19 Hydrochlorothiazide* (Hydrochlorothiazide*) 25 Mg Tab, 25 MG PO DAILY, #30 TAB 02/05/19 Discontinued Reported Medications Amlodipine Besylate* (Amlodipine Besylate*) 10 Mg Tablet, 10 MG PO DAILY, #30 TAB 02/05/19 Medications Current Medications IV Flush (NS 3 ml) 3 ml PER PROTOCOL IV ; Start 02/05/19 at 17:00 Ondansetron HCl (Zofran Inj) 4 mg Q6H PRN IV NAUSEA/VOMITING; Start 02/05/19 at 17:00 Aspirin (Aspirin) 81 mg DAILY PO Last administered on 02/07/19at 08:12; Admin Do se 81 MG; Start 02/06/19 at 09:00 Nitroglycerin (Nitroglycerin (Sl Tab) 0.4 Mg) 1 tab Q5M PRN SL .CHEST PAIN; Start 02/05/19 at 17:00 Acetaminophen (Tylenol Tab) 650 mg Q6H PRN PO .PAIN 1-3 OR TEMP Last administered on 02/07/19 07:34; Admin Dose 650 MG; Start 02/05/19 at 17:00 Amlodipine Besylate (Norvasc) 10 mg DAILY PO Last administered on 02/07/19 08:12; Admin Dose 10 MG; Start 02/06/19 at 09:00 Atorvastatin Calcium (Lipitor) 80 mg QHS PO Last administered on 02/06/19 20:39; Admin Dose 80 MG; Start 02/05/19 at 21:00 Benazepril HCl (Lotensin) 10 mg DAILY PO Last administered on 02/07/19 08:11; Admin Dose 10 MG; Start 02/06/19 at 09:00 Clopidogrel Bisulfate (plaVIX) 75 mg DAILY PO Last administered on 02/07/19 08:11; Admin Dose 75 MG; Start 02/06/19 at 09:00 Docusate Sodium (Colace) 100 mg BID PO Last administered on 02/07/19 08:11; Admin Dose 100 MG; Start 02/05/19 at 21:00 Hydrochlorothiazide (Hydrochlorothiazide) 25 mg DAILY PO Last administered on 02/07/19 08:12; Admin Dose 25 MG; Start 02/06/19 at 09:00 Insulin Glargine (Lantus) 17 units BID SC Last administered on 02/07/19 08:19; Admin Dose 17 UNITS; Start 02/05/19 at 21:00 Isosorbide Mononitrate (Imdur) 60 mg DAILY PO Last administered on 02/07/19 08:11; Admin Dose 60 MG; Start 02/06/19 at 09:00 Levothyroxine Sodium (Synthroid) 75 mcg BEFORE BREAKFAST PO Last administered on 02/07/19 06:02; Admin Dose 75 MCG; Start 02/06/19 at 07:00 Metoprolol Tartrate (Lopressor) 25 mg BID PO Last administered on 02/07/19 08:11; Admin Dose 25 MG; Start 02/05/19 at 21:00 Sertraline HCl (Zoloft) 100 mg QAM PO Last administered on 02/07/19 08:11; Admin Dose 100 MG; Start 02/06/19 at 09:00 Trazodone HCl (Desyrel) 50 mg QHS PRN PO insomnia; Start 02/05/19 at 17:30 Diagnostic Test (Pha) (Accu-Chek) 1 ea 02 XX Last administered on 02/06/19at 02:00; Admin Dose 1 EA; Start 02/06/19 at 02:00 Insulin Aspart (Novolog Insulin Pen) 3 unit WITH MEALS SC Last administered on 02/07/19at 17:36; Admin Dose 3 UNIT; Start 02/06/19 at 07:55 Insulin Aspart (Novolog Insulin Pen) NOVOLOG *MILD* ALGORITHM WITH MEALS BEDTIME SC Last administered on 02/07/19at 17:36; Admin Dose 2 UNIT; Start 02/05/19 at 21:00 Phenol (Cepastat Lozenge) 1 lozenge Q1H PRN MT sore throat; Start 02/05/19 at 17:30 Miscellaneous Information 1 ea NOTE XX ; Start 02/05/19 at 19:00 Glucose (Glutose) 15 gm Q15M PRN PO DECREASED GLUCOSE; Start 02/05/19 at 19:00 Glucose (Glutose) 22.5 gm Q15M PRN PO DECREASED GLUCOSE; Start 02/05/19 at 19:00 Dextrose (D50w Syringe) 25 ml Q15M PRN IV DECREASED GLUCOSE; Start 02/05/19 at 19:00 Dextrose (D50w Syringe) 50 ml Q15M PRN IV DECREASED GLUCOSE; Start 02/05/19 at 19:00 Glucagon (Glucagen) 1 mg Q15M PRN IM DECREASED GLUCOSE; Start 02/05/19 at 19:00 Glucose (Glutose) 15 gm Q15M PRN BUCCAL DECREASED GLUCOSE; Start 02/05/19 at 19:00 Acetaminophen/ Butalbital/ Caffeine (Fioricet) 1 tab Q6H PRN PO PAIN Last administered on 02/07/19at 10:52; Admin Dose 1 TAB; Start 02/06/19 at 12:00 Sodium Chloride 1,000 ml @ 50 mls/hr Q20H IV Last administered on 02/07/19at 12:11; Admin Dose 50 MLS/HR; Start 02/07/19 at 11:30; Stop 02/08/19 at 07:29 Morphine Sulfate (morphine) 2 mg Q4H PRN IV SEVERE PAIN LEVEL 7-10 Last administered on 02/07/19at 19:00; Admin Dose 2 MG; Start 02/07/19 at 11:30 Allergies: Coded Allergies: iodine (Verified Allergy, Unknown, 02/05/19) Past Surgical History Past Surgical Hx: angioplasty, cholecystectomy Social History Smoking Status: Never smoker JOSE FUENTES Feb 07, 2019 20:12
[2019-02-07] MEDS: ATORVASTATIN 80 MG TAB PO SCH (21:22)
[2019-02-08] MEDS: ACCU-CHEK XX SCH (02:00)
[2019-02-08] MEDS: morphine 2 MG INJ IV PRN ×3 (03:23→20:31)
[2019-02-08 03:25] VITALS: BP 127/69; PULSE 66; RESP 21
[2019-02-08] MEDS: LEVOTHYROXINE 75 MCG TAB PO SCH (06:02)
[2019-02-08] MEDS: SOD CHLORIDE 0.9% 1,000 ML IV SCH (06:03)
[2019-02-08 07:16] VITALS: BP 122/80; PULSE 69; RESP 18
[2019-02-08] MEDS: INSULIN ASPART [NOVOLOG] 3 ML PEN SC SCH ×7 (07:55→21:31)
[2019-02-08] MEDS: DOCUSATE SODIUM 100 MG CAP PO SCH ×2 (08:50→21:17)
[2019-02-08] MEDS: SERTRALINE 100 MG TAB PO SCH (08:51)
[2019-02-08] MEDS: CLOPIDOGREL 75 MG TAB PO SCH (08:51)
[2019-02-08] MEDS: METOPROLOL 25 MG TAB PO SCH ×2 (08:51→21:00)
[2019-02-08] MEDS: ASPIRIN 81 MG TAB PO SCH (08:51)
[2019-02-08] MEDS: HYDROCHLOROTHIAZIDE 25 MG TAB PO SCH (08:51)
[2019-02-08] MEDS: AMLODIPINE 10 MG TAB PO SCH (08:51)
[2019-02-08] MEDS: BENAZEPRIL 10 MG TAB PO SCH (08:52)
[2019-02-08] MEDS: ISOSORBIDE MONONITRATE(SR)60 MG TAB PO SCH (08:52)
[2019-02-08] MEDS: INSULIN GLARGINE [LANTus] (100 UNITS/ML) SYG SC SCH ×2 (08:57→21:31)
[2019-02-08 11:01] VITALS: BP 125/63; PULSE 50; RESP 19
[2019-02-08] MEDS: ACETAMINOPHEN 325 MG TAB PO PRN (12:15)
--- NOTE | 2019-02-08 13:23 | PN ---
Date/Time of Note Date/Time of Note DATE: 02/08/19 TIME: 13:22 Objective Vitals Vital Signs Date Temp Pulse Resp B/P (MAP) Pulse Ox O2 O2 Flow FiO2 Time Delivery Rate 02/08/19 98.2 13:00 02/08/19 50 19 125/63 96 11:01 (83) 02/07/19 Room Air 03:16 Intake and Output 02/07/19 02/07/19 02/08/19 1515:00 23:00 07:00 IntakeIntake Total 720 ml 240 ml 960 ml BalanceBalance 720 ml 240 ml 960 ml Results Result Diagram: 02/08/19 0559 02/08/19 0559 Medications Medications Current Medications IV Flush (NS 3 ml) 3 ml PER PROTOCOL IV ; Start 02/05/19 at 17:00 Ondansetron HCl (Zofran Inj) 4 mg Q6H PRN IV NAUSEA/VOMITING; Start 02/05/19 at 17:00 Aspirin (Aspirin) 81 mg DAILY PO Last administered on 02/08/19at 08:51; Admin Dose 81 MG; Start 02/06/19 at 09:00 Nitroglycerin (Nitroglycerin (Sl Tab) 0.4 Mg) 1 tab Q5M PRN SL .CHEST PAIN; Start 02/05/19 at 17:00 Acetaminophen (Tylenol Tab) 650 mg Q6H PRN PO .PAIN 1-3 OR TEMP Last administered on 02/08/19at 12:15; Admin Dose 650 MG; Start 02/05/19 at 17:00 Amlodipine Besylate (Norvasc) 10 mg DAILY PO Last administered on 02/08/19at 08:51; Admin Dose 10 MG; Start 02/06/19 at 09:00 Atorvastatin Calcium (Lipitor) 80 mg QHS PO Last administered on 02/07/19 21:22; Admin Dose 80 MG; Start 02/05/19 at 21:00 Benazepril HCl (Lotensin) 10 mg DAILY PO Last administered on 02/08/19 08:52; Admin Dose 10 MG; Start 02/06/19 at 09:00 Clopidogrel Bisulfate (plaVIX) 75 mg DAILY PO Last administered on 02/08/19 08:51; Admin Dose 75 MG; Start 02/06/19 at 09:00 Docusate Sodium (Colace) 100 mg BID PO Last administered on 02/08/19 08:50; Admin Dose 100 MG; Start 02/05/19 at 21:00 Hydrochlorothiazide (Hydrochlorothiazide) 25 mg DAILY PO Last administered on 02/08/19 08:51; Admin Dose 25 MG; Start 02/06/19 at 09:00 Insulin Glargine (Lantus) 17 units BID SC Last administered on 02/08/19 08:57; Admin Dose 17 UNITS; Start 02/05/19 at 21:00 Isosorbide Mononitrate (Imdur) 60 mg DAILY PO Last administered on 02/08/19 08:52; Admin Dose 60 MG; Start 02/06/19 at 09:00 Levothyroxine Sodium (Synthroid) 75 mcg BEFORE BREAKFAST PO Last administered on 02/08/19 06:02; Admin Dose 75 MCG; Start 02/06/19 at 07:00 Metoprolol Tartrate (Lopressor) 25 mg BID PO Last administered on 02/08/19 08:51; Admin Dose 25 MG; Start 02/05/19 at 21:00 Sertraline HCl (Zoloft) 100 mg QAM PO Last administered on 02/08/19 08:51; Admin Dose 100 MG; Start 02/06/19 at 09:00 Trazodone HCl (Desyrel) 50 mg QHS PRN PO insomnia; Start 02/05/19 at 17:30 Diagnostic Test (Pha) (Accu-Chek) 1 ea 02 XX Last administered on 02/06/19 02:00; Admin Dose 1 EA; Start 02/06/19 at 02:00 Insulin Aspart (Novolog Insulin Pen) 3 unit WITH MEALS SC Last administered on 02/08/19 12:23; Admin Dose 3 UNIT; Start 02/06/19 at 07:55 Insulin Aspart (Novolog Insulin Pen) NOVOLOG *MILD* ALGORITHM WITH MEALS BEDTIME SC Last administered on 02/08/19 12:23; Admin Dose 4 UNIT; Start 02/05/19 at 21:00 Phenol (Cepastat Lozenge) 1 lozenge Q1H PRN MT sore throat; Start 02/05/19 at 17:30 Miscellaneous Information 1 ea NOTE XX ; Start 02/05/19 at 19:00 Glucose (Glutose) 15 gm Q15M PRN PO DECREASED GLUCOSE; Start 02/05/19 at 19:00 Glucose (Glutose) 22.5 gm Q15M PRN PO DECREASED GLUCOSE; Start 02/05/19 at 19:00 Dextrose (D50w Syringe) 25 ml Q15M PRN IV DECREASED GLUCOSE; Start 02/05/19 at 19:00 Dextrose (D50w Syringe) 50 ml Q15M PRN IV DECREASED GLUCOSE; Start 02/05/19 at 19:00 Glucagon (Glucagen) 1 mg Q15M PRN IM DECREASED GLUCOSE; Start 02/05/19 at 19:00 Glucose (Glutose) 15 gm Q15M PRN BUCCAL DECREASED GLUCOSE; Start 02/05/19 at 19:00 Acetaminophen/ Butalbital/ Caffeine (Fioricet) 1 tab Q6H PRN PO PAIN Last administered on 02/07/19at 10:52; Admin Dose 1 TAB; Start 02/06/19 at 12:00 Morphine Sulfate (morphine) 2 mg Q4H PRN IV SEVERE PAIN LEVEL 7-10 Last administered on 02/08/19at 03:23; Admin Dose 2 MG; Start 02/07/19 at 11:30 VTE Prophylaxis Risk score (from Ns)>0 risk: 3 SCD applied (from Ns): Yes Lines/Catheters IV Catheter Type: Jimenez in Place: No Assessment/Plan Hospital Course Subjective Patient still having intractable headaches, but slightly better with more pain medication Objective Physical exam General: Patient is laying in bed and answers questions appropriately Mentation: Patient is alert and oriented 4, Head: Normocephalic atraumatic Eyes: EOMI, pupils reactive to light Neck: Supple, nontender, midline Respiratory: Clear to auscultation bilaterally Cardiovascular: regular rate, no obvious murmurs Gastrointestinal: non-tender to palpation, bowel sounds heard. 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 Acute onset headache, intermittent -Very likely secondary to nitroglycerin administration and she developed this shortly after nitroglycerin, however patient states that this was actually the original reason she went to her primary care doctor's office and it comes and goes and is extremely severe -We will need to consult neurology as acute intervention has not resolved patient's headache which causing her to severe debilitation including not being able to walk correctly -PRN pain medication as needed Hypertension -Continue home medications Mild acute kidney insufficiency -Very mild, will start some fluids Coronary artery disease -Continue home medications Mood disorder -Continue sertraline Hypothyroidism -Continue home medications Sore and itchy throat -Patient states this been going on for 2 weeks, come very mild, turns out that this began when she started new medication, calling patient's pharmacies, new medication was only gabapentin and hydrochlorothiazide, patient off both medications currently while inpatient -Sepsis that lozenges as needed -No overt signs of infection at this time, monitor closely -Chest x-ray negative -Follow-up with primary care physician Diabetes mellitus -Hold p.o. metformin -Insulin while in house Disposition -Patient's severe headaches are causing severe debility, neurology has been consulted. ISABELA TORIBIO Feb 08, 2019 13:23
[2019-02-08 15:23] VITALS: BP 125/75; PULSE 89; RESP 18
[2019-02-08] MEDS ORDERED: METHYLPRED. NA SUCC 1,000 MG in DEXTROSE 5% 50 ML IVPB STA (17:13)
--- NOTE | 2019-02-08 17:56 | CONS ---
Assessment/Plan Assessment/Plan Assessment/Plan (Recall) 63 F c/ multiple comorbidities, presents for evaluation of chest pain and other Sx.. Now w/ severe headache, for which neurology is consulted.. The clinical picture is consistent w/ recurrent migraine.. Meningitis is unlikely. Head CT was without obvious acute intracranial pathology. P: Solumedrol 1g iv x 1 Medrol pack is the above is beneficial To consider iv Toradol cautiously, given renal failure Continue iv fluids Reglan prn nausea Other management and supportive care per primary Will follow Consultation Date/Type/Reason Admit Date/Time Feb 06, 2019 at 15:49 Type of Consult Neurology Reason for Consultation headache Requesting Provider: ISABELA TORIBIO Date/Time of Note DATE: 02/08/19 TIME: 17:55 24 HR Interval Summary Free Text/Dictation Continues acute care Exam/Review of Systems Exam Vitals Vital Signs Date Temp Pulse Resp B/P (MAP) Pulse Ox O2 O2 Flow FiO2 Time Delivery Rate 02/08/19 98.3 89 18 125/75 96 15:23 (92) 02/07/19 Room Air 03:16 Intake and Output 02/07/19 02/07/19 02/08/19 1515:00 23:00 07:00 IntakeIntake Total 720 ml 240 ml 960 ml BalanceBalance 720 ml 240 ml 960 ml Results Result Diagram: 02/08/19 0559 02/08/19 0559 Results 24hrs Laboratory Tests Test 02/07/19 21:20 02/08/19 05:59 02/08/19 07:46 02/08/19 12:11 Bedside Glucose 157 130 272 H White Blood Count 8.2 Red Blood Count 4.49 Hemoglobin 12.1 Hematocrit 37.1 Mean Corpuscular Volume 82.6 Mean Corpuscular 26.9 L Hemoglobin Mean Corpuscular 32.6 Hemoglobin Concent Red Cell Distribution 14.0 Width Platelet Count 244 Mean Platelet Volume 10.4 Immature Granulocytes % 1.100 H Neutrophils % 64.5 Lymphocytes % 22.3 Monocytes % 5.8 Eosinophils % 5.6 Basophils % 0.7 Nucleated Red Blood 0.0 Cells % Immature Granulocytes # 0.090 H Neutrophils # 5.3 Lymphocytes # 1.8 Monocytes # 0.5 Eosinophils # 0.5 Basophils # 0.1 Nucleated Red Blood 0.0 Cells # Sodium Level 141 Potassium Level 3.8 Chloride Level 105 Carbon Dioxide Level 27 Anion Gap 9 Blood Urea Nitrogen 22 H Creatinine 1.22 H Est Glomerular Filtrat 45 L Rate mL/min Glucose Level 143 # Calcium Level 8.6 Phosphorus Level 4.2 Magnesium Level 1.7 Test 02/08/19 17:17 Bedside Glucose 186 Medications Medication Current Medications IV Flush (NS 3 ml) 3 ml PER PROTOCOL IV ; Start 02/05/19 at 17:00 Aspirin (Aspirin) 81 mg DAILY PO Last administered on 02/08/19 08:51; Admin Dose 81 MG; Start 02/06/19 at 09:00 Nitroglycerin (Nitroglycerin (Sl Tab) 0.4 Mg) 1 tab Q5M PRN SL .CHEST PAIN; Start 02/05/19 at 17:00 Acetaminophen (Tylenol Tab) 650 mg Q6H PRN PO .PAIN 1-3 OR TEMP Last administered on 02/08/19 12:15; Admin Dose 650 MG; Start 02/05/19 at 17:00 Amlodipine Besylate (Norvasc) 10 mg DAILY PO Last administered on 02/08/19 08:51; Admin Dose 10 MG; Start 02/06/19 at 09:00 Atorvastatin Calcium (Lipitor) 80 mg QHS PO Last administered on 02/07/19 21:22; Admin Dose 80 MG; Start 02/05/19 at 21:00 Benazepril HCl (Lotensin) 10 mg DAILY PO Last administered on 02/08/19 08:52; Admin Dose 10 MG; Start 02/06/19 at 09:00 Clopidogrel Bisulfate (plaVIX) 75 mg DAILY PO Last administered on 02/08/19 08:51; Admin Dose 75 MG; Start 02/06/19 at 09:00 Docusate Sodium (Colace) 100 mg BID PO Last administered on 02/08/19 08:50; Admin Dose 100 MG; Start 02/05/19 at 21:00 Hydrochlorothiazide (Hydrochlorothiazide) 25 mg DAILY PO Last administered on 02/08/19 08:51; Admin Dose 25 MG; Start 02/06/19 at 09:00 Insulin Glargine (Lantus) 17 units BID SC Last administered on 02/08/19 08:57; Admin Dose 17 UNITS; Start 02/05/19 at 21:00 Isosorbide Mononitrate (Imdur) 60 mg DAILY PO Last administered on 02/08/19 08:52; Admin Dose 60 MG; Start 02/06/19 at 09:00 Levothyroxine Sodium (Synthroid) 75 mcg BEFORE BREAKFAST PO Last administered on 02/08/19 06:02; Admin Dose 75 MCG; Start 02/06/19 at 07:00 Metoprolol Tartrate (Lopressor) 25 mg BID PO Last administered on 02/08/19 08:51; Admin Dose 25 MG; Start 02/05/19 at 21:00 Sertraline HCl (Zoloft) 100 mg QAM PO Last administered on 02/08/19 08:51; Admin Dose 100 MG; Start 02/06/19 at 09:00 Trazodone HCl (Desyrel) 50 mg QHS PRN PO insomnia; Start 02/05/19 at 17:30 Diagnostic Test (Pha) (Accu-Chek) 1 ea 02 XX Last administered on 02/06/19at 02:00; Admin Dose 1 EA; Start 02/06/19 at 02:00 Insulin Aspart (Novolog Insulin Pen) 3 unit WITH MEALS SC Last administered on 02/08/19 17:37; Admin Dose 3 UNIT; Start 02/06/19 at 07:55 Insulin Aspart (Novolog Insulin Pen) NOVOLOG *MILD* ALGORITHM WITH MEALS BEDTIME SC Last administered on 02/08/19 17:37; Admin Dose 2 UNIT; Start 02/05/19 at 21:00 Phenol (Cepastat Lozenge) 1 lozenge Q1H PRN MT sore throat; Start 02/05/19 at 17:30 Miscellaneous Information 1 ea NOTE XX ; Start 02/05/19 at 19:00 Glucose (Glutose) 15 gm Q15M PRN PO DECREASED GLUCOSE; Start 02/05/19 at 19:00 Glucose (Glutose) 22.5 gm Q15M PRN PO DECREASED GLUCOSE; Start 02/05/19 at 19:00 Dextrose (D50w Syringe) 25 ml Q15M PRN IV DECREASED GLUCOSE; Start 02/05/19 at 19:00 Dextrose (D50w Syringe) 50 ml Q15M PRN IV DECREASED GLUCOSE; Start 02/05/19 at 19:00 Glucagon (Glucagen) 1 mg Q15M PRN IM DECREASED GLUCOSE; Start 02/05/19 at 19:00 Glucose (Glutose) 15 gm Q15M PRN BUCCAL DECREASED GLUCOSE; Start 02/05/19 at 19:00 Acetaminophen/ Butalbital/ Caffeine (Fioricet) 1 tab Q6H PRN PO PAIN Last administered on 02/07/19at 10:52; Admin Dose 1 TAB; Start 02/06/19 at 12:00 Morphine Sulfate (morphine) 2 mg Q4H PRN IV SEVERE PAIN LEVEL 7-10 Last administered on 02/08/19at 15:40; Admin Dose 2 MG; Start 02/07/19 at 11:30 Metoclopramide HCl (Reglan) 5 mg Q6 IV ; Start 02/08/19 at 18:00 JOSE FUENTES Feb 08, 2019 17:55
[2019-02-08] MEDS: METOCLOPRAMIDE 10 MG INJ IV SCH (18:00)
--- NOTE | 2019-02-08 18:16 | CONS ---
DATE OF ADMISSION: 02/06/2019 DATE OF CONSULTATION: 02/08/2019 TYPE OF CONSULTATION: Nephrology. REASON FOR CONSULTATION: Acute kidney injury. REQUESTING PHYSICIAN: Dr. Toriboi. HISTORY OF PRESENT ILLNESS: This is a 63-year-old female with a past medical history of cor onary artery disease, history of diabetes, hypertension, history of hypothyroidism, presents to [facility] for chest pain. The patient developed chest pain in the a.m., was brought to [facility] Emergency Room by her primary care physician. The patient was then subsequently admitted for acute coronary syndrome. The patient was admitted to telemetry, was seen by cardiology . The patient had serial troponins which were negative. The patient's chest pain has also improved. In terms of patient's renal history, on admission, the patient had a creatinine of 1.11 . The p atient's creatinine has been fluctuated during hospital course. The patient does admit to having und erlying renal insufficiency, has been told by her primary care physician. She denies any hemoptysis, hematemesis, hematochezia. PAST MEDICAL HISTORY: History of coronary artery disease, history of diabetes, hypertension, hypothy roidism, questionable history of CKD. FAMILY HISTORY: No family history of kidney disease. SOCIAL HISTORY: Does not drink, smoke, or do drugs. MEDICATIONS: The patient's medications have been reviewed, please see list. REVIEW OF SYSTEMS: A 14-point review of systems was conducted. Pertinent positives as stated in HPI , otherwise negative. PHYSICAL EXAMINATION: VITAL SIGNS: Blood pressure is 125/75, respiration 18, pulse 89, temperature 98.3. HEENT: Head is normocephalic. NECK: Supple. HEART: Regular rate. LUNGS: Show diminished breath sounds at the base. ABDOMEN: Soft, nontender to palpation without guarding. EXTREMITIES: Negative for clubbing or cyanosis, no edema. DERMATOLOGIC: No rashes. MUSCULOSKELETAL: No joint effusions. NEUROLOGIC: No focal deficits. MEDICATIONS: The patient's medications have been reviewed. LABORATORY DATA: Have been reviewed. IMAGING STUDIES: Have been reviewed. ASSESSMENT AND PLAN: 1. Nonoliguric acute kidney injury on top of possible chronic kidney disease with unknown baseline c reatinine. Etiology of acute kidney injury is secondary to hemodynamics. Other possibilities such a s tubular injury or interstitial nephritis are considerations. Plan at this point is to do a full ev aluation. We will check UA with microanalysis, check urine electrolytes, calculate FENa, fraction ex cretion of urea. We will check renal ultrasound to evaluate renal parenchyma. We would otherwise co ntinue supportive care, renally dose all meds. 2. Mineral bone disorder, monitor calcium and phosphorus levels. 3. Diabetes. Continue current insulin regimen. 4. Hypertension. Blood pressure is controlled. Defer any XAVI inhibitor or ARB at this time. 5. Chest pain, resolved. Continue to monitor. 6. Headaches, intermittent. Etiology is unclear. Continue to monitor. Follow up with neurology. 7. History of coronary artery disease. Continue medical management. 8. Hypothyroidism. Continue Synthroid. Thank you, Dr. Toribio, for this interesting consult. It will be a pleasure to follow the patient with luis f mason throughout the hospital course. Dictated By: JUAN RUDOLPH DO NR/NTS Conf#: [id number] DID#: [id number] CC: ISABELA TORIBIO MD;*EndCC*
[2019-02-08 19:38] VITALS: BP 127/71; PULSE 56; RESP 21
[2019-02-08] MEDS: ATORVASTATIN 80 MG TAB PO SCH (21:17)
[2019-02-08 23:35] VITALS: BP 131/73; PULSE 57; RESP 22
[2019-02-09] MEDS: METOCLOPRAMIDE 10 MG INJ IV SCH ×4 (00:08→17:04)
[2019-02-09] MEDS: ACCU-CHEK XX SCH (02:00)
[2019-02-09] MEDS ORDERED: INSULIN ASPART [NOVOLOG] 3 ML PEN SC ONE (03:00)
[2019-02-09 03:30] VITALS: BP 121/71; PULSE 59; RESP 18
[2019-02-09] MEDS ORDERED: ACCU-CHEK XX ONE (05:00)
[2019-02-09] MEDS: LEVOTHYROXINE 75 MCG TAB PO SCH (06:12)
[2019-02-09 07:39] VITALS: BP 134/76; PULSE 81; RESP 18
[2019-02-09] MEDS: INSULIN ASPART [NOVOLOG] 3 ML PEN SC SCH ×7 (08:14→20:34)
[2019-02-09] MEDS: INSULIN GLARGINE [LANTus] (100 UNITS/ML) SYG SC SCH ×2 (08:14→20:33)
[2019-02-09] MEDS: ISOSORBIDE MONONITRATE(SR)60 MG TAB PO SCH (08:42)
[2019-02-09] MEDS: ASPIRIN 81 MG TAB PO SCH (08:43)
[2019-02-09] MEDS: BENAZEPRIL 10 MG TAB PO SCH (08:43)
[2019-02-09] MEDS: DOCUSATE SODIUM 100 MG CAP PO SCH ×2 (08:43→20:16)
[2019-02-09] MEDS: SERTRALINE 100 MG TAB PO SCH (08:43)
[2019-02-09] MEDS: AMLODIPINE 10 MG TAB PO SCH (08:43)
[2019-02-09] MEDS: CLOPIDOGREL 75 MG TAB PO SCH (08:43)
[2019-02-09] MEDS: HYDROCHLOROTHIAZIDE 25 MG TAB PO SCH (08:43)
[2019-02-09] MEDS: METOPROLOL 25 MG TAB PO SCH ×2 (08:44→20:16)
--- NOTE | 2019-02-09 09:12 | PN ---
DATE: 02/09/2019 SUBJECTIVE: The patient is stable, no events overnight. No fevers, chills. OBJECTIVE: VITAL SIGNS: Blood pressure is 134/76, pulse 81, respiration 18, temperature 98.4. HEENT: Head is normocephalic. NECK: Supple. HEART: Regular rate. LUNGS: Show diminished breath sounds at the base. ABDOMEN: Soft, nontender to palpation without rebound or guarding. EXTREMITIES: Negative for clubbing, cyanosis, no edema. DERMATOLOGIC: No rashes. MUSCULOSKELETAL: No joint effusion. NEUROLOGIC: No change in exam. MEDICATIONS: The patient's medications have been reviewed. LABORATORY DATA: Has been reviewed. IMAGING STUDIES: Have been reviewed. ASSESSMENT AND PLAN: 1. Nonoliguric acute kidney injury on top of chronic kidney disease with unknown baseline creatinine . Etiology of ROSS is secondary to hemodynamics, XAVI inhibitor effect, diuretics. The patient's maría elena l function continues to slowly decline. Plan at this point is to follow up urinalysis. We will hold XAVI inhibitor, hydrochlorothiazide, and diuretics. Patient's renal ultrasound was reviewed, no evid ence of obstruction. Otherwise, continue supportive care, renally dose all meds, avoid nephrotoxins. 2. Mineral bone disorder. Monitor calcium and phosphorus levels. 3. Diabetes. Continue current insulin regimen. 4. Hypertension. Continue blood pressure regimen. We will hold XAVI inhibitor at this time. 5. Chest pain, resolved. 6. Headache, monitor. Follow up with neurology. 7. History of coronary artery disease. Continue medical management. 8. Hypothyroidism. Continue Synthroid. Dictated By: JUAN SHAFFER/PETR Conf#: [id number] DID#: [id number] CC: ISABELA TORIBIO MD;*EndCC*
[2019-02-09] MEDS: ACET/BUTAL/CAFF TAB PO PRN (10:35)
--- NOTE | 2019-02-09 10:53 | CONS ---
Assessment/Plan Assessment/Plan Assessment/Plan (Daily) Atypical chest discomfort CAD with history of PCI Preserved ejection fraction Diabetes Hypertension Dyslipidemia Patient presents with cough causing picking-like sensation in her chest. 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 at [facility] Consultation Date/Type/Reason Admit Date/Time Feb 06, 2019 at 15:49 Initial Consult Date Type of Consult Cardiology Requesting Provider: ISABELA TORIBIO Date/Time of Note DATE: 02/09/19 TIME: 10:53 24 HR Interval Summary Free Text/Dictation The patient with no cahnge Exam/Review of Systems Vital Signs Vitals Vital Signs Date Temp Pulse Resp B/P (MAP) Pulse Ox O2 O2 Flow FiO2 Time Delivery Rate 02/09/19 98.4 81 18 134/76 97 07:39 (95) 02/07/19 Room Air 03:16 Intake and Output 02/08/19 02/08/19 02/09/19 1515:00 23:00 07:00 IntakeIntake Total 1060 ml 120 ml OutputOutput Total 900 ml BalanceBalance 1060 ml -780 ml Labs Result Diagram: 02/09/19 0648 02/09/19 0648 Results 24hrs Laboratory Tests Test 02/08/19 12:11 02/08/19 17:17 02/08/19 21:12 02/09/19 02:01 Bedside Glucose 272 H 186 226 H 368 H Test 02/09/19 05:02 02/09/19 05:03 02/09/19 06:48 02/09/19 08:05 Bedside Glucose 387 H 352 H 298 H White Blood Count 10.0 # Red Blood Count 4.65 Hemoglobin 12.6 Hematocrit 38.6 Mean Corpuscular Volume 83.0 Mean Corpuscular 27.1 L Hemoglobin Mean Corpuscular 32.6 Hemoglobin Concent Red Cell Distribution 13.8 Width Platelet Count 247 Mean Platelet Volume 10.5 H Immature Granulocytes % 1.600 H Neutrophils % 87.7 H Lymphocytes % 9.8 L Monocytes % 0.6 Eosinophils % 0.1 Basophils % 0.2 Nucleated Red Blood 0.0 Cells % Immature Granulocytes # 0.160 H Neutrophils # 8.7 H Lymphocytes # 1.0 Monocytes # 0.1 L Eosinophils # 0.0 Basophils # 0.0 Nucleated Red Blood 0.0 Cells # Sodium Level 138 Potassium Level 4.2 Chloride Level 104 Carbon Dioxide Level 21 Anion Gap 13 Blood Urea Nitrogen 29 H Creatinine 1.34 H Est Glomerular Filtrat 40 L Rate mL/min Glucose Level 335 #H Calcium Level 8.6 Phosphorus Level 3.9 Magnesium Level 1.8 Medications Medications Current Medications IV Flush (NS 3 ml) 3 ml PER PROTOCOL IV ; Start 02/05/19 at 17:00 Aspirin (Aspirin) 81 mg DAILY PO Last administered on 02/09/19 08:43; Admin Dose 81 MG; Start 02/06/19 at 09:00 Nitroglycerin (Nitroglycerin (Sl Tab) 0.4 Mg) 1 tab Q5M PRN SL .CHEST PAIN; Start 02/05/19 at 17:00 Acetaminophen (Tylenol Tab) 650 mg Q6H PRN PO .PAIN 1-3 OR TEMP Last administered on 02/08/19 12:15; Admin Dose 650 MG; Start 02/05/19 at 17:00 Amlodipine Besylate (Norvasc) 10 mg DAILY PO Last administered on 02/09/19 08:43; Admin Dose 10 MG; Start 02/06/19 at 09:00 Atorvastatin Calcium (Lipitor) 80 mg QHS PO Last administered on 02/08/19 21:17; Admin Dose 80 MG; Start 02/05/19 at 21:00 Benazepril HCl (Lotensin) 10 mg DAILY PO Last administered on 02/09/19 08:43; Admin Dose 10 MG; Start 02/06/19 at 09:00; Status Hold Clopidogrel Bisulfate (plaVIX) 75 mg DAILY PO Last administered on 02/09/19 08 :43; Admin Dose 75 MG; Start 02/06/19 at 09:00 Docusate Sodium (Colace) 100 mg BID PO Last administered on 02/09/19 08:43; Admin Dose 100 MG; Start 02/05/19 at 21:00 Hydrochlorothiazide (Hydrochlorothiazide) 25 mg DAILY PO Last administered on 02/09/19 08:43; Admin Dose 25 MG; Start 02/06/19 at 09:00; Status Hold Insulin Glargine (Lantus) 17 units BID SC Last administered on 02/09/19 08:14; Admin Dose 17 UNITS; Start 02/05/19 at 21:00 Isosorbide Mononitrate (Imdur) 60 mg DAILY PO Last administered on 02/09/19 08:42; Admin Dose 60 MG; Start 02/06/19 at 09:00 Levothyroxine Sodium (Synthroid) 75 mcg BEFORE BREAKFAST PO Last administered on 02/09/19 06:12; Admin Dose 75 MCG; Start 02/06/19 at 07:00 Metoprolol Tartrate (Lopressor) 25 mg BID PO Last administered on 02/09/19 08:44; Admin Dose 25 MG; Start 02/05/19 at 21:00 Sertraline HCl (Zoloft) 100 mg QAM PO Last administered on 02/09/19 08:43; Admin Dose 100 MG; Start 02/06/19 at 09:00 Trazodone HCl (Desyrel) 50 mg QHS PRN PO insomnia; Start 02/05/19 at 17:30 Diagnostic Test (Pha) (Accu-Chek) 1 ea 02 XX Last administered on 02/06/19at 02 :00; Admin Dose 1 EA; Start 02/06/19 at 02:00 Insulin Aspart (Novolog Insulin Pen) 3 unit WITH MEALS SC Last administered on 02/09/19 08:14; Admin Dose 3 UNIT; Start 02/06/19 at 07:55 Insulin Aspart (Novolog Insulin Pen) NOVOLOG *MILD* ALGORITHM WITH MEALS BEDTIME SC Last administered on 02/09/19 08:14; Admin Dose 4 UNIT; Start 02/05/19 at 21:00 Phenol (Cepastat Lozenge) 1 lozenge Q1H PRN MT sore throat; Start 02/05/19 at 17:30 Miscellaneous Information 1 ea NOTE XX ; Start 02/05/19 at 19:00 Glucose (Glutose) 15 gm Q15M PRN PO DECREASED GLUCOSE; Start 02/05/19 at 19:00 Glucose (Glutose) 22.5 gm Q15M PRN PO DECREASED GLUCOSE; Start 02/05/19 at 19:00 Dextrose (D50w Syringe) 25 ml Q15M PRN IV DECREASED GLUCOSE; Start 02/05/19 at 19:00 Dextrose (D50w Syringe) 50 ml Q15M PRN IV DECREASED GLUCOSE; Start 02/05/19 at 19:00 Glucagon (Glucagen) 1 mg Q15M PRN IM DECREASED GLUCOSE; Start 02/05/19 at 19:00 Glucose (Glutose) 15 gm Q15M PRN BUCCAL DECREASED GLUCOSE; Start 02/05/19 at 19:00 Acetaminophen/ Butalbital/ Caffeine (Fioricet) 1 tab Q6H PRN PO PAIN Last administered on 02/09/19at 10:35; Admin Dose 1 TAB; Start 02/06/19 at 12:00 Morphine Sulfate (morphine) 2 mg Q4H PRN IV SEVERE PAIN LEVEL 7-10 Last administered on 02/08/19at 20:31; Admin Dose 2 MG; Start 02/07/19 at 11:30 Metoclopramide HCl (Reglan) 5 mg Q6 IV Last administered on 02/09/19at 06:11; Admin Dose 5 MG; Start 02/08/19 at 18:00 YUE HERNÁNDEZ MD Feb 09, 2019 10:53
[2019-02-09 11:20] VITALS: BP 123/70; PULSE 82; RESP 18
[2019-02-09] MEDS: NITROGLYCERIN (SL) 0.4 MG TAB SL PRN ×2 (11:29→11:35)
--- NOTE | 2019-02-09 12:01 | PN ---
Date/Time of Note Date/Time of Note DATE: 02/09/19 TIME: 11:59 Objective Vitals Vital Signs Date Temp Pulse Resp B/P (MAP) Pulse Ox O2 O2 Flow FiO2 Time Delivery Rate 02/09/19 98.1 82 18 123/70 96 11:20 (87) 02/07/19 Room Air 03:16 Intake and Output 02/08/19 02/08/19 02/09/19 1515:00 23:00 07:00 IntakeIntake Total 1060 ml 120 ml OutputOutput Total 900 ml BalanceBalance 1060 ml -780 ml Results Result Diagram: 02/09/1948 02/09/19 0648 Medications Medications Current Medications IV Flush (NS 3 ml) 3 ml PER PROTOCOL IV ; Start 02/05/19 at 17:00 Aspirin (Aspirin) 81 mg DAILY PO Last administered on 02/09/19 08:43; Admin Dose 81 MG; Start 02/06/19 at 09:00 Nitroglycerin (Nitroglycerin (Sl Tab) 0.4 Mg) 1 tab Q5M PRN SL .CHEST PAIN Last administered on 02/09/19 11:35; Admin Dose 1 TAB; Start 02/05/19 at 17:00 Acetaminophen (Tylenol Tab) 650 mg Q6H PRN PO .PAIN 1-3 OR TEMP Last administered on 02/08/19 12:15; Admin Dose 650 MG; Start 02/05/19 at 17:00 Amlodipine Besylate (Norvasc) 10 mg DAILY PO Last administered on 02/09/19 08:43; Admin Dose 10 MG; Start 02/06/19 at 09:00 Atorvastatin Calcium (Lipitor) 80 mg QHS PO Last administered on 02/08/19 21:17; Admin Dose 80 MG; Start 02/05/19 at 21:00 Benazepril HCl (Lotensin) 10 mg DAILY PO Last administered on 02/09/19 08:43; Admin Dose 10 MG; Start 02/06/19 at 09:00; Status Hold Clopidogrel Bisulfate (plaVIX) 75 mg DAILY PO Last administered on 02/09/19 08:43; Admin Dose 75 MG; Start 02/06/19 at 09:00 Docusate Sodium (Colace) 100 mg BID PO Last administered on 02/09/19 08:43; Admin Dose 100 MG; Start 02/05/19 at 21:00 Hydrochlorothiazide (Hydrochlorothiazide) 25 mg DAILY PO Last administered on 02/09/19 08:43; Admin Dose 25 MG; Start 02/06/19 at 09:00; Status Hold Insulin Glargine (Lantus) 17 units BID SC Last administered on 02/09/19 08:14; Admin Dose 17 UNITS; Start 02/05/19 at 21:00 Isosorbide Mononitrate (Imdur) 60 mg DAILY PO Last administered on 02/09/19 08:42; Admin Dose 60 MG; Start 02/06/19 at 09:00 Levothyroxine Sodium (Synthroid) 75 mcg BEFORE BREAKFAST PO Last administered on 02/09/19 06:12; Admin Dose 75 MCG; Start 02/06/19 at 07:00 Metoprolol Tartrate (Lopressor) 25 mg BID PO Last administered on 02/09/19 08:4 4; Admin Dose 25 MG; Start 02/05/19 at 21:00 Sertraline HCl (Zoloft) 100 mg QAM PO Last administered on 02/09/19 08:43; Admin Dose 100 MG; Start 02/06/19 at 09:00 Trazodone HCl (Desyrel) 50 mg QHS PRN PO insomnia; Start 02/05/19 at 17:30 Diagnostic Test (Pha) (Accu-Chek) 1 ea 02 XX Last administered on 02/06/19at 02:00; Admin Dose 1 EA; Start 02/06/19 at 02:00 Insulin Aspart (Novolog Insulin Pen) 3 unit WITH MEALS SC Last administered on 02/09/19 08:14; Admin Dose 3 UNIT; Start 02/06/19 at 07:55 Insulin Aspart (Novolog Insulin Pen) NOVOLOG *MILD* ALGORITHM WITH MEALS BEDTIME SC Last administered on 02/09/19 08:14; Admin Dose 4 UNIT; Start 02/05/19 at 21:00 Phenol (Cepastat Lozenge) 1 lozenge Q1H PRN MT sore throat; Start 02/05/19 at 17:30 Miscellaneous Information 1 ea NOTE XX ; Start 02/05/19 at 19:00 Glucose (Glutose) 15 gm Q15M PRN PO DECREASED GLUCOSE; Start 02/05/19 at 19:00 Glucose (Glutose) 22.5 gm Q15M PRN PO DECREASED GLUCOSE; Start 02/05/19 at 19:00 Dextrose (D50w Syringe) 25 ml Q15M PRN IV DECREASED GLUCOSE; Start 02/05/19 at 19:00 Dextrose (D50w Syringe) 50 ml Q15M PRN IV DECREASED GLUCOSE; Start 02/05/19 at 19:00 Glucagon (Glucagen) 1 mg Q15M PRN IM DECREASED GLUCOSE; Start 02/05/19 at 19:00 Glucose (Glutose) 15 gm Q15M PRN BUCCAL DECREASED GLUCOSE; Start 02/05/19 at 1 9:00 Acetaminophen/ Butalbital/ Caffeine (Fioricet) 1 tab Q6H PRN PO PAIN Last administered on 02/09/19at 10:35; Admin Dose 1 TAB; Start 02/06/19 at 12:00 Morphine Sulfate (morphine) 2 mg Q4H PRN IV SEVERE PAIN LEVEL 7-10 Last administered on 02/08/19at 20:31; Admin Dose 2 MG; Start 02/07/19 at 11:30 Metoclopramide HCl (Reglan) 5 mg Q6 IV Last administered on 02/09/19at 06:11; Admin Dose 5 MG; Start 02/08/19 at 18:00 VTE Prophylaxis Risk score (from Nsg)>0 risk: 3 SCD applied (from Nsg): Yes Lines/Catheters IV Catheter Type: Jimenez in Place: No Assessment/Plan Hospital Course Subjective Patient still having intermittent intractable headaches, but slightly better with more pain medication. Patient also complaining of the same chest prickling sensation when she was admitted again. Objective Physical exam General: Patient is laying in bed and answers questions appropriately Mentation: Patient is alert and oriented 4, Head: Normocephalic atraumatic Eyes: EOMI, pupils reactive to light Neck: Supple, nontender, midline Respiratory: Clear to auscultation bilaterally Cardiovascular: regular rate, no obvious murmurs Gastrointestinal: non-tender to palpation, bowel sounds heard. Neurological: Moves all extremities spontaneously Skin: No new skin lesions Assessment and plan Chest pain, intermittent, resolving -Cardiology has been consulted, patient does not remember the name of her card cutter helper -Atorvastatin -Continue baby aspirin -Troponin negative -Echocardiogram noted per card cutter helper -EKG noted -Chest pain has resolved -Continue patient's home coronary artery disease medications. -Does not appear to be ischemic in nature Acute onset headache, intermittent -We will need to consult neurology as acute intervention has not resolved patient's headache which causing her to severe debilitation including not being able to walk correctly -1 g Solu-Medrol dose given yesterday, also scheduled Reglan -PRN pain medication as needed Hypertension -Continue home medications Mild acute kidney insufficiency -Very mild, will continue fluids -Nephrology on board, continues to slowly increase Coronary artery disease -Continue home medications Mood disorder -Continue sertraline Hypothyroidism -Continue home medications Sore and itchy throat, resolving -Patient states this been going on for 2 weeks, come very mild, turns out that this began when she started new medication, calling patient's pharmacies, new medication was only gabapentin and hydrochlorothiazide, patient off both medications currently while inpatient -Sepsis that lozenges as needed -No overt signs of infection at this time, monitor closely -Chest x-ray negative -Follow-up with primary care physician Diabetes mellitus -Hold p.o. metformin -Insulin while in house Disposition -Patient's severe headaches are causing severe debility, neurology recommendations appreciated -Nephrology on board to monitor creatinine -Cardiology on board to continue to monitor chest prickling sensation. ISABELA TORIBIO Feb 09, 2019 12:01
[2019-02-09] MEDS: morphine 2 MG INJ IV PRN ×2 (12:17→20:17)
[2019-02-09 14:00] VITALS: BP 133/69; PULSE 79; RESP 18
[2019-02-09 15:55] VITALS: BP 133/69; PULSE 79; RESP 18
[2019-02-09 20:00] VITALS: BP 134/70; PULSE 83; RESP 19
[2019-02-09] MEDS: ATORVASTATIN 80 MG TAB PO SCH (20:16)
[2019-02-10] VITALS (7 sets, daily range): BP systolic 121–148; BP diastolic 58–82; PULSE 52–69; RESP 16–20
[2019-02-10] MEDS: morphine 2 MG INJ IV PRN (00:36)
[2019-02-10] MEDS: METOCLOPRAMIDE 10 MG INJ IV SCH ×2 (01:52→05:50)
[2019-02-10] MEDS: ACCU-CHEK XX SCH (02:00)
[2019-02-10] MEDS: LEVOTHYROXINE 75 MCG TAB PO SCH (05:50)
[2019-02-10] MEDS: INSULIN ASPART [NOVOLOG] 3 ML PEN SC SCH ×7 (07:46→21:39)
--- NOTE | 2019-02-10 07:55 | CONS ---
Assessment/Plan Assessment/Plan Assessment/Plan (Recall) 63 F c/ multiple comorbidities, presents for evaluation of chest pain and other Sx.. Now w/ severe headache, for which neurology is consulted.. The clinical picture is consistent w/ recurrent migraine.. Meningitis is unlikely. Head CT was without obvious acute intracranial pathology. s/p Solumedrol 1vg iv x1, with clinical improvement P: Medrol pack Reglan to prn Other management and supportive care per primary Will follow Consultation Date/Type/Reason Admit Date/Time Feb 06, 2019 at 15:49 Type of Consult Neurology Reason for Consultation headache Requesting Provider: ISABELA TORIBIO Date/Time of Note DATE: 02/10/19 TIME: 07:53 24 HR Interval Summary Free Text/Dictation Headache improving, now 11/14 Exam/Review of Systems Exam Vitals Vital Signs Date Temp Pulse Resp B/P (MAP) Pulse Ox O2 O2 Flow FiO2 Time Delivery Rate 02/10/19 98.2 54 20 143/82 98 Room Air 07:27 (102) Intake and Output 02/09/19 02/09/19 02/10/19 1515:00 23:00 07:00 IntakeIntake Total 240 ml 240 ml 800 ml BalanceBalance 240 ml 240 ml 800 ml Results Result Diagram: 02/09/19 0648 02/09/19 0648 Results 24hrs Laboratory Tests Test 02/09/19 08:05 02/09/19 12:07 02/09/19 12:08 02/09/19 16:52 Bedside Glucose 298 H 391 H 289 H Troponin I < 0.012 Test 02/09/19 20:21 02/10/19 07:39 Bedside Glucose 359 H 288 H Medications Medication Current Medications IV Flush (NS 3 ml) 3 ml PER PROTOCOL IV ; Start 02/05/19 at 17:00 Aspirin (Aspirin) 81 mg DAILY PO Last administered on 02/09/19at 08:43; Admin Dose 81 MG; Start 02/06/19 at 09:00 Nitroglycerin (Nitroglycerin (Sl Tab) 0.4 Mg) 1 tab Q5M PRN SL .CHEST PAIN Last administered on 02/09/19at 11:35; Admin Dose 1 TAB; Start 02/05/19 at 17:00 Acetaminophen (Tylenol Tab) 650 mg Q6H PRN PO .PAIN 1-3 OR TEMP Last administered on 02/08/19 12:15; Admin Dose 650 MG; Start 02/05/19 at 17:00 Amlodipine Besylate (Norvasc) 10 mg DAILY PO Last administered on 02/09/19 08:43; Admin Dose 10 MG; Start 02/06/19 at 09:00 Atorvastatin Calcium (Lipitor) 80 mg QHS PO Last administered on 02/09/19 20:16; Admin Dose 80 MG; Start 02/05/19 at 21:00 Benazepril HCl (Lotensin) 10 mg DAILY PO Last administered on 02/09/19 08:43; Admin Dose 10 MG; Start 02/06/19 at 09:00; Status Hold Clopidogrel Bisulfate (plaVIX) 75 mg DAILY PO Last administered on 02/09/19 08:43; Admin Dose 75 MG; Start 02/06/19 at 09:00 Docusate Sodium (Colace) 100 mg BID PO Last administered on 02/09/19 20:16; Admin Dose 100 MG; Start 02/05/19 at 21:00 Hydrochlorothiazide (Hydrochlorothiazide) 25 mg DAILY PO Last administered on 02/09/19 08:43; Admin Dose 25 MG; Start 02/06/19 at 09:00; Status Hold Insulin Glargine (Lantus) 17 units BID SC Last administered on 02/09/19 20:33; Admin Dose 17 UNITS; Start 02/05/19 at 21:00 Isosorbide Mononitrate (Imdur) 60 mg DAILY PO Last administered on 02/09/19 08:42; Admin Dose 60 MG; Start 02/06/19 at 09:00 Levothyroxine Sodium (Synthroid) 75 mcg BEFORE BREAKFAST PO Last administered on 02/10/19 05:50; Admin Dose 75 MCG; Start 02/06/19 at 07:00 Metoprolol Tartrate (Lopressor) 25 mg BID PO Last administered on 02/09/19 20:16; Admin Dose 25 MG; Start 02/05/19 at 21:00 Sertraline HCl (Zoloft) 100 mg QAM PO Last administered on 02/09/19 08:43; Admin Dose 100 MG; Start 02/06/19 at 09:00 Trazodone HCl (Desyrel) 50 mg QHS PRN PO insomnia; Start 02/05/19 at 17:30 Diagnostic Test (Pha) (Accu-Chek) 1 ea 02 XX Last administered on 02/06/19at 02:00; Admin Dose 1 EA; Start 02/06/19 at 02:00 Insulin Aspart (Novolog Insulin Pen) 3 unit WITH MEALS SC Last administered on 02/10/19at 07:47; Admin Dose 3 UNIT; Start 02/06/19 at 07:55 Insulin Aspart (Novolog Insulin Pen) NOVOLOG *MILD* ALGORITHM WITH MEALS BEDTIME SC Last administered on 02/10/19at 07:46; Admin Dose 4 UNIT; Start 02/05/19 at 21:00 Phenol (Cepastat Lozenge) 1 lozenge Q1H PRN MT sore throat; Start 02/05/19 at 17:30 Miscellaneous Information 1 ea NOTE XX ; Start 02/05/19 at 19:00 Glucose (Glutose) 15 gm Q15M PRN PO DECREASED GLUCOSE; Start 02/05/19 at 19:00 Glucose (Glutose) 22.5 gm Q15M PRN PO DECREASED GLUCOSE; Start 02/05/19 at 19:00 Dextrose (D50w Syringe) 25 ml Q15M PRN IV DECREASED GLUCOSE; Start 02/05/19 at 19:00 Dextrose (D50w Syringe) 50 ml Q15M PRN IV DECREASED GLUCOSE; Start 02/05/19 at 19:00 Glucagon (Glucagen) 1 mg Q15M PRN IM DECREASED GLUCOSE; Start 02/05/19 at 19:00 Glucose (Glutose) 15 gm Q15M PRN BUCCAL DECREASED GLUCOSE; Start 02/05/19 at 19:00 Acetaminophen/ Butalbital/ Caffeine (Fioricet) 1 tab Q6H PRN PO PAIN Last administered on 02/09/19at 10:35; Admin Dose 1 TAB; Start 02/06/19 at 12:00 Morphine Sulfate (morphine) 2 mg Q4H PRN IV SEVERE PAIN LEVEL 7-10 Last administered on 02/10/19at 00:36; Admin Dose 2 MG; Start 02/07/19 at 11:30 Metoclopramide HCl (Reglan) 5 mg Q6 IV Last administered on 02/10/19at 05:50; Admin Dose 5 MG; Start 02/08/19 at 18:00 JOSE FUENTES 7, 2019 07:55
[2019-02-10] MEDS ORDERED: METHYLPREDNISOLONE (MEDROL) DOSE PACK PO SCH (08:00)
[2019-02-10] MEDS ORDERED: METHYLPREDNISOLONE 4 MG TAB PO SCH (08:30)
[2019-02-10] MEDS: INSULIN GLARGINE [LANTus] (100 UNITS/ML) SYG SC SCH ×2 (08:38→21:39)
[2019-02-10] MEDS: DOCUSATE SODIUM 100 MG CAP PO SCH ×2 (08:45→21:00)
[2019-02-10] MEDS: ISOSORBIDE MONONITRATE(SR)60 MG TAB PO SCH (08:46)
[2019-02-10] MEDS: SERTRALINE 100 MG TAB PO SCH (08:46)
[2019-02-10] MEDS: ASPIRIN 81 MG TAB PO SCH (08:46)
[2019-02-10] MEDS: AMLODIPINE 10 MG TAB PO SCH (08:47)
[2019-02-10] MEDS: METOPROLOL 25 MG TAB PO SCH ×2 (08:47→21:23)
[2019-02-10] MEDS: CLOPIDOGREL 75 MG TAB PO SCH (08:47)
--- NOTE | 2019-02-10 08:52 | PN ---
DATE: 02/10/2019 SUBJECTIVE: The patient is stable. No events overnight. OBJECTIVE: VITAL SIGNS: Blood pressure is 143/82, pulse 54, respirations 20, temperature 98.2. HEENT: Head is normocephalic. NECK: Supple. HEART: Regular rate. LUNGS: Show diminished breath sounds at the base. ABDOMEN: Soft, nontender to palpation without rebound or guarding. EXTREMITIES: Negative for clubbing, cyanosis, no edema. DERMATOLOGIC: No rashes. MUSCULOSKELETAL: No joint effusion. NEUROLOGIC: No change in exam. MEDICATIONS: The patient's medications have been reviewed. LABORATORY DATA: Has been reviewed. IMAGING STUDIES: Have been reviewed. ASSESSMENT AND PLAN: 1. Nonoliguric acute kidney injury on top of chronic kidney disease with unknown baseline creatinine . Etiology of ROSS is secondary to hemodynamics. The patient's renal function has been fluctuating. At this point, continue current treatment plan and supportive care and renally dose all meds. Abel nue to hold XAVI inhibitor, hydrochlorothiazide. Monitor renal function closely. 2. Mineral bone disorder. Monitor calcium and phosphorus levels. 3. Hypertension. Continue current blood pressure regimen. Defer holding XAVI inhibitor at this time . 4. Diabetes. Continue current insulin regimen. 5. Chest pain. Continue to monitor. Follow up with Cardiology. 6. Headaches. Continue to monitor. Follow up with neurology. 7. Coronary artery disease. Continue medical management. 8. History of hypothyroidism. Continue Synthroid. Dictated By: JUAN RUDOLPH DO NR/NTS Conf#: [id number] DID#: [id number] CC: ISABELA TORIBIO MD;*End*
--- NOTE | 2019-02-10 13:18 | PN ---
Date/Time of Note Date/Time of Note DATE: 02/10/19 TIME: 13:16 Objective Vitals Vital Signs Date Temp Pulse Resp B/P (MAP) Pulse Ox O2 O2 Flow FiO2 Time Delivery Rate 02/10/19 97.5 60 20 132/72 96 Room Air 11:09 (92) Intake and Output 02/09/19 02/09/19 02/10/19 1515:00 23:00 07:00 IntakeIntake Total 240 ml 240 ml 800 ml BalanceBalance 240 ml 240 ml 800 ml Results Result Diagram: 02/10/19 0752 02/10/19 0752 Medications Medications Current Medications IV Flush (NS 3 ml) 3 ml PER PROTOCOL IV ; Start 02/05/19 at 17:00 Aspirin (Aspirin) 81 mg DAILY PO Last administered on 02/10/19 08:46; Admin Dose 81 MG; Start 02/06/19 at 09:00 Nitroglycerin (Nitroglycerin (Sl Tab) 0.4 Mg) 1 tab Q5M PRN SL .CHEST PAIN Last administered on 02/09/19 11:35; Admin Dose 1 TAB; Start 02/05/19 at 17:00 Acetaminophen (Tylenol Tab) 650 mg Q6H PRN PO .PAIN 1-3 OR TEMP Last administered on 02/08/19 12:15; Admin Dose 650 MG; Start 02/05/19 at 17:00 Amlodipine Besylate (Norvasc) 10 mg DAILY PO Last administered on 02/10/19 08:47; Admin Dose 10 MG; Start 02/06/19 at 09:00 Atorvastatin Calcium (Lipitor) 80 mg QHS PO Last administered on 02/09/19 20:16; Admin Dose 80 MG; Start 02/05/19 at 21:00 Benazepril HCl (Lotensin) 10 mg DAILY PO Last administered on 02/09/19 08:43; Admin Dose 10 MG; Start 02/06/19 at 09:00; Status Hold Clopidogrel Bisulfate (plaVIX) 75 mg DAILY PO Last administered on 02/10/19 08:47; Admin Dose 75 MG; Start 02/06/19 at 09:00 Docusate Sodium (Colace) 100 mg BID PO Last administered on 02/10/19 08:45; Admin Dose 100 MG; Start 02/05/19 at 21:00 Hydrochlorothiazide (Hydrochlorothiazide) 25 mg DAILY PO Last administered on 02/09/19 08:43; Admin Dose 25 MG; Start 02/06/19 at 09:00; Status Hold Isosorbide Mononitrate (Imdur) 60 mg DAILY PO Last administered on 02/10/19 08:46; Admin Dose 60 MG; Start 02/06/19 at 09:00 Levothyroxine Sodium (Synthroid) 75 mcg BEFORE BREAKFAST PO Last administered on 02/10/19at 05:50; Admin Dose 75 MCG; Start 02/06/19 at 07:00 Metoprolol Tartrate (Lopressor) 25 mg BID PO Last administered on 02/10/19 08:47; Admin Dose 25 MG; Start 02/05/19 at 21:00 Sertraline HCl (Zoloft) 100 mg QAM PO Last administered on 02/10/19 08:46; Admin Dose 100 MG; Start 02/06/19 at 09:00 Trazodone HCl (Desyrel) 50 mg QHS PRN PO insomnia; Start 02/05/19 at 17:30 Diagnostic Test (Pha) (Accu-Chek) 1 ea 02 XX Last administered on 02/06/19at 02:00; Admin Dose 1 EA; Start 02/06/19 at 02:00 Phenol (Cepastat Lozenge) 1 lozenge Q1H PRN MT sore throat; Start 02/05/19 at 17:30 Miscellaneous Information 1 ea NOTE XX ; Start 02/05/19 at 19:00 Glucose (Glutose) 15 gm Q15M PRN PO DECREASED GLUCOSE; Start 02/05/19 at 19:00 Glucose (Glutose) 22.5 gm Q15M PRN PO DECREASED GLUCOSE; Start 02/05/19 at 19:00 Dextrose (D50w Syringe) 25 ml Q15M PRN IV DECREASED GLUCOSE; Start 02/05/19 at 19:00 Dextrose (D50w Syringe) 50 ml Q15M PRN IV DECREASED GLUCOSE; Start 02/05/19 at 19:00 Glucagon (Glucagen) 1 mg Q15M PRN IM DECREASED GLUCOSE; Start 02/05/19 at 19:00 Glucose (Glutose) 15 gm Q15M PRN BUCCAL DECREASED GLUCOSE; Start 02/05/19 at 19:00 Acetaminophen/ Butalbital/ Caffeine (Fioricet) 1 tab Q6H PRN PO PAIN Last administered on 02/09/19at 10:35; Admin Dose 1 TAB; Start 02/06/19 at 12:00 Morphine Sulfate (morphine) 2 mg Q4H PRN IV SEVERE PAIN LEVEL 7-10 Last administered on 02/10/19at 00:36; Admin Dose 2 MG; Start 02/07/19 at 11:30 Metoclopramide HCl (Reglan) 5 mg Q6H PRN IV nausea; Start 02/10/19 at 08:00 Methylprednisolone (Medrol Dose Pack) 1 ea STD DOSE PACK PO ; Start 02/10/19 at 08:00 Methylprednisolone (Medrol) 4 mg AC BREAKFAST PO ; Start 02/11/19 at 07:25; Stop 02/15/19 at 07:26 Methylprednisolone (Medrol) 4 mg PC LUNCH PO ; Start 02/11/19 at 12:50; Stop 02/13/19 at 12:51 Methylprednisolone (Medrol) 4 mg PC DINNER PO ; Start 02/11/19 at 18:55; Stop 02/12/19 at 18:56 Methylprednisolone (Medrol) 8 mg HS PO ; Start 02/11/19 at 21:00; Stop 02/11/19 at 21:01 Methylprednisolone (Medrol) 4 mg HS PO ; Start 02/12/19 at 21:00; Stop 02/14/19 at 21:01 Methylprednisolone (Medrol) 24 mg ONCE PO Last administered on 02/10/19at 08:50; Admin Dose 24 MG; Start 02/10/19 at 08:30; Stop 02/10/19 at 23:45 Insulin Aspart (Novolog Insulin Pen) 6 unit WITH MEALS SC ; Start 02/10/19 at 17:55 Insulin Glargine (Lantus) 25 units BID SC ; Start 02/10/19 at 21:00 Insulin Aspart (Novolog Insulin Pen) NOVOLOG *MODERATE* ALGORITHM WITH MEALS BEDTIME SC ; Start 02/10/19 at 17:55 VTE Prophylaxis Risk score (from Nsg)>0 risk: 3 SCD applied (from Nsg): Yes Lines/Catheters IV Catheter Type: Jimenez in Place: No Assessment/Plan Hospital Course Subjective Patient's headache Are improving with steroids however now patient complaining of generalized abdominal pain as well as right upper quadrant pain. Objective Physical exam General: Patient is laying in bed and answers questions appropriately Mentation: Patient is alert and oriented 4, Head: Normocephalic atraumatic Eyes: EOMI, pupils reactive to light Neck: Supple, nontender, midline Respiratory: Clear to auscultation bilaterally Cardiovascular: regular rate, no obvious murmurs Gastrointestinal: non-tender to palpation, bowel sounds heard. Neurological: Moves all extremities spontaneously Skin: No new skin lesions Assessment and plan Generalized abdominal pain with right upper quadrant pain -Possible constipation, patient has not had a bowel movement in a few days, will give laxative -CT abdomen pelvis ordered for right upper quadrant pain, rule out cholecystitis Chest pain, intermittent, resolving -Cardiology has been consulted, patient does not remember the name of her service [employer] caf[employer]ia -Atorvastatin -Continue baby aspirin -Troponin negative -Echocardiogram noted per service attendant caf[employer] -EKG noted -Chest pain has resolved -Continue patient's home coronary artery disease medications. -Does not appear to be ischemic in nature Acute onset headache, intermittent -We will need to consult neurology as acute intervention has not resolved patient's headache which causing her to severe debilitation including not being able to walk correctly -1 g Solu-Medrol dose given, neurology started patient on Medrol Dosepak -PRN pain medication as needed Hypertension -Continue home medications Mild acute kidney insufficiency -Very mild, will continue fluids as needed -Nephrology on board, continues to slowly increase Coronary artery disease -Continue home medications Mood disorder -Continue sertraline Hypothyroidism -Continue home medications Sore and itchy throat, resolving -Patient states this been going on for 2 weeks, come very mild, turns out that this began when she started new medication, calling patient's pharmacies, new medication was only gabapentin and hydrochlorothiazide, patient off both medications currently while inpatient -Sepsis that lozenges as needed -No overt signs of infection at this time, monitor closely -Chest x-ray negative -Follow-up with primary care physician Diabetes mellitus -Hold p.o. metformin -Insulin while in house -Patient extremely hyperglycemic due to 1 g of Solu-Medrol given the other day for headache and will continue to be likely due to Medrol Dosepak, will adjust insulin as appropriate Disposition -Patient's severe headaches are improving, neurology recommendations appreciated -Nephrology on board to monitor creatinine -Follow-up CT abdomen pelvis ISABELA TORIBIO Feb 10, 2019 13:18
[2019-02-10] MEDS ORDERED: SENNA/DOCUSATE NA (8.6MG/50MG) TAB PO PRN (13:30)
[2019-02-10] MEDS ORDERED: POLYETHYLENE GLYCOL 17 GM PACKET PO PRN (13:30)
[2019-02-10] MEDS ORDERED: MAGNESIUM CITRATE 300 ML BTL PO ONE (14:30)
--- NOTE | 2019-02-10 16:03 | RADRPT ---
Vent Rate: 79 bpm RR Interval: 760 msec FL Interval: 219 msec QRS Duration: 100 msec QT Interval: 392 msec QTC Interval: 450 msec P-R-T [place]: 43 - 238 - 6 degrees Sinus rhythm...normal P axis, V-rate 50- 99 Borderline prolonged FL interval...FL >212, V-rate 50- 90 Nonspecific T abnrm, anterolateral leads...T <-0.10mV, I aVL V2-V6 Electronically Signed By: Philipp Mcdonnell
[2019-02-10] MEDS: ATORVASTATIN 80 MG TAB PO SCH (21:23)
[2019-02-10] MEDS: METOCLOPRAMIDE 10 MG INJ IV PRN (21:23)
[2019-02-10] MEDS: CEPASTAT LOZENGE MT PRN (21:23)
[2019-02-10] MEDS: ACET/BUTAL/CAFF TAB PO PRN (21:24)
[2019-02-11] MEDS: ACCU-CHEK XX SCH (02:49)
[2019-02-11 04:34] VITALS: BP 135/79; PULSE 51; RESP 18
[2019-02-11] MEDS: LEVOTHYROXINE 75 MCG TAB PO SCH (06:17)
[2019-02-11 07:23] VITALS: BP 156/82; PULSE 50; RESP 16
[2019-02-11] MEDS: INSULIN ASPART [NOVOLOG] 3 ML PEN SC SCH ×7 (07:55→21:12)
[2019-02-11] MEDS: METHYLPREDNISOLONE 4 MG TAB PO SCH ×3 (07:57→18:08)
[2019-02-11] MEDS: INSULIN GLARGINE [LANTus] (100 UNITS/ML) SYG SC SCH ×2 (08:02→20:49)
[2019-02-11] MEDS: morphine 2 MG INJ IV PRN ×2 (08:09→20:52)
[2019-02-11] MEDS: DOCUSATE SODIUM 100 MG CAP PO SCH ×2 (09:00→20:43)
--- NOTE | 2019-02-11 09:11 | PN ---
DATE: 02/11/2019 SUBJECTIVE: The patient is stable, no events overnight. The patient continues to have headaches. OBJECTIVE: VITAL SIGNS: Blood pressure is 156/82, pulse 50, respirations 15, temperature 97.5. HEENT: Head is normocephalic. NECK: Supple. HEART: Regular rate. LUNGS: Show diminished breath sounds at the base. ABDOMEN: Soft, nontender to palpation without rebound or guarding. EXTREMITIES: Negative for clubbing or cyanosis. No edema. DERMATOLOGIC: No rashes. MUSCULOSKELETAL: No joint effusion. NEUROLOGIC: No change in exam. MEDICATIONS: The patient's medication have been reviewed. LABORATORY DATA: Has been reviewed. IMAGING STUDIES: Have been reviewed. ASSESSMENT AND PLAN: 1. Nonoliguric acute kidney injury on top of chronic kidney disease with unknown baseline creatinine . Etiology of acute kidney injury is secondary to hemodynamics, XAVI inhibitor, diuretics. The patien t's renal function has improved after discontinuing hydrochlorothiazide . Continue to monitor c losely. 2. Mineral bone disorder. Monitor calcium and phosphorus levels. 3. Hypertension. Continue current blood pressure regimen. Continue to hold XAVI inhibitor. 4. Diabetes. Continue current insulin regimen. 5. Chest pain, improved. Follow up with cardiology. 6. Headaches, migraines. Continue to monitor. Follow up with neurology. 7. Coronary artery disease. Continue medical management. 8. History of hypothyroidism. Dictated By: JUAN RUDOLPH DO NR/NTS Conf#: [id number] DID#: [id number] CC: ISABELA TORIBIO MD; ERICK BROWN MD;*End*
[2019-02-11] MEDS: ISOSORBIDE MONONITRATE(SR)60 MG TAB PO SCH (09:22)
[2019-02-11] MEDS: SERTRALINE 100 MG TAB PO SCH (09:22)
[2019-02-11] MEDS: CLOPIDOGREL 75 MG TAB PO SCH (09:22)
[2019-02-11] MEDS: ASPIRIN 81 MG TAB PO SCH (09:22)
[2019-02-11] MEDS: AMLODIPINE 10 MG TAB PO SCH (09:22)
--- NOTE | 2019-02-11 11:18 | CONS ---
Assessment/Plan Assessment/Plan Assessment/Plan (Recall) 63 F c/ multiple comorbidities, presents for evaluation of chest pain and other Sx.. Now w/ severe headache, for which neurology is consulted.. The clinical picture is consistent w/ recurrent migraine.. Meningitis is unlikely. Head CT was without obvious acute intracranial pathology. s/p Solumedrol 1vg iv x1, with clinical improvement P: Medrol pack Continue Reglan prn Other management and supportive care per primary Will follow clinically Consultation Date/Type/Reason Admit Date/Time Feb 06, 2019 at 15:49 Type of Consult Neurology Reason for Consultation headache Requesting Provider: ISABELA TORIBIO Date/Time of Note DATE: 02/11/19 TIME: 11:17 24 HR Interval Summary Free Text/Dictation Continues acute care Exam/Review of Systems Exam Vitals Vital Signs Date Temp Pulse Resp B/P (MAP) Pulse Ox O2 O2 Flow FiO2 Time Delivery Rate 02/11/19 97.5 50 16 156/82 97 Room Air 07:23 (106) Intake and Output 02/10/19 02/10/19 02/11/19 1515:00 23:00 07:00 IntakeIntake Total 240 ml 240 ml 800 ml OutputOutput Total 100 ml BalanceBalance 240 ml 140 ml 800 ml Results Result Diagram: 02/11/1962702/11/19627 Results 24hrs Laboratory Tests Test 02/10/19 12:04 02/10/19 17:35 02/10/19 18:45 02/10/19 21:29 Bedside Glucose 327 H 294 H 195 Urine Color YELLOW Urine Clarity SLIGHTLY CLOUDY A Urine pH 5.0 Urine Specific 1.007 [place] Urine Ketones NEGATIVE Urine Nitrite NEGATIVE Urine Bilirubin NEGATIVE Urine Urobilinogen NEGATIVE Urine Leukocyte TRACE A Esterase Urine Microscopic 0 RBC Urine Microscopic 9 H WBC Urine Squamous FEW Epithelial Cells Urine Bacteria FEW A Urine Hemoglobin NEGATIVE Urine Glucose 3+ H Urine Total NEGATIVE Protein Test 02/11/19 02:46 02/11/19 06:28 02/11/19 07:56 Bedside Glucose 74 81 White Blood Count 12.0 H Red Blood Count 4.56 Hemoglobin 12.3 Hematocrit 38.1 Mean Corpuscular 83.6 Volume Mean Corpuscular 27.0 L Hemoglobin Mean Corpuscular 32.3 Hemoglobin Concent Red Cell 13.7 Distribution Width Platelet Count 276 Mean Platelet 9.9 Volume Immature 1.300 H Granulocytes % Neutrophils % 64.1 Lymphocytes % 26.7 Monocytes % 6.4 Eosinophils % 0.9 Basophils % 0.6 Nucleated Red 0.0 Blood Cells % Immature 0.160 H Granulocytes # Neutrophils # 7.7 H Lymphocytes # 3.2 H Monocytes # 0.8 Eosinophils # 0.1 Basophils # 0.1 Nucleated Red 0.0 Blood Cells # Sodium Level 143 Potassium Level 3.6 Chloride Level 105 Carbon Dioxide 29 Level Anion Gap 9 Blood Urea 30 H Nitrogen Creatinine 0.97 Est Glomerular 58 L Filtrat Rate mL/min Glucose Level 78 # Calcium Level 9.0 Phosphorus Level 3.8 Magnesium Level 2.3 Medications Medication Current Medications IV Flush (NS 3 ml) 3 ml PER PROTOCOL IV ; Start 02/05/19 at 17:00 Aspirin (Aspirin) 81 mg DAILY PO Last administered on 02/11/19 09:22; Admin Dose 81 MG; Start 02/06/19 at 09:00 Nitroglycerin (Nitroglycerin (Sl Tab) 0.4 Mg) 1 tab Q5M PRN SL .CHEST PAIN Last administered on 02/09/19 11:35; Admin Dose 1 TAB; Start 02/05/19 at 17:00 Acetaminophen (Tylenol Tab) 650 mg Q6H PRN PO .PAIN 1-3 OR TEMP Last administered on 02/08/19 12:15; Admin Dose 650 MG; Start 02/05/19 at 17:00 Amlodipine Besylate (Norvasc) 10 mg DAILY PO Last administered on 02/11/19 09:22; Admin Dose 10 MG; Start 02/06/19 at 09:00 Atorvastatin Calcium (Lipitor) 80 mg QHS PO Last administered on 02/10/19 21:23; Admin Dose 80 MG; Start 02/05/19 at 21:00 Benazepril HCl (Lotensin) 10 mg DAILY PO Last administered on 02/09/19 08:43; Admin Dose 10 MG; Start 02/06/19 at 09:00; Status Hold Clopidogrel Bisulfate (plaVIX) 75 mg DAILY PO Last administered on 02/11/19 09:22; Admin Dose 75 MG; Start 02/06/19 at 09:00 Docusate Sodium (Colace) 100 mg BID PO Last administered on 02/10/19 08:45; Admin Dose 100 MG; Start 02/05/19 at 21:00 Hydrochlorothiazide (Hydrochlorothiazide) 25 mg DAILY PO Last administered on 02/09/19 08:43; Admin Dose 25 MG; Start 02/06/19 at 09:00; Status Hold Isosorbide Mononitrate (Imdur) 60 mg DAILY PO Last administered on 02/11/19 09:22; Admin Dose 60 MG; Start 02/06/19 at 09:00 Levothyroxine Sodium (Synthroid) 75 mcg BEFORE BREAKFAST PO Last administered on 02/11/19 06:17; Admin Dose 75 MCG; Start 02/06/19 at 07:00 Metoprolol Tartrate (Lopressor) 25 mg BID PO Last administered on 02/10/19 21:23; Admin Dose 25 MG; Start 02/05/19 at 21:00 Sertraline HCl (Zoloft) 100 mg QAM PO Last administered on 02/11/19 09:22; Admin Dose 100 MG; Start 02/06/19 at 09:00 Trazodone HCl (Desyrel) 50 mg QHS PRN PO insomnia; Start 02/05/19 at 17:30 Diagnostic Test (Pha) (Accu-Chek) 1 ea 02 XX Last administered on 02/11/19 02:49; Admin Dose 1 EA; Start 02/06/19 at 02:00 Phenol (Cepastat Lozenge) 1 lozenge Q1H PRN MT sore throat Last administered on 02/10/19 21:23; Admin Dose 1 LOZENGE; Start 02/05/19 at 17:30 Miscellaneous Information 1 ea NOTE XX ; Start 02/05/19 at 19:00 Glucose (Glutose) 15 gm Q15M PRN PO DECREASED GLUCOSE; Start 02/05/19 at 19:00 Glucose (Glutose) 22.5 gm Q15M PRN PO DECREASED GLUCOSE; Start 02/05/19 at 19:00 Dextrose (D50w Syringe) 25 ml Q15M PRN IV DECREASED GLUCOSE; Start 02/05/19 at 19:00 Dextrose (D50w Syringe) 50 ml Q15M PRN IV DECREASED GLUCOSE; Start 02/05/19 at 19:00 Glucagon (Glucagen) 1 mg Q15M PRN IM DECREASED GLUCOSE; Start 02/05/19 at 19:00 Glucose (Glutose) 15 gm Q15M PRN BUCCAL DECREASED GLUCOSE; Start 02/05/19 at 19:00 Acetaminophen/ Butalbital/ Caffeine (Fioricet) 1 tab Q6H PRN PO PAIN Last administered on 02/10/19 21:24; Admin Dose 1 TAB; Start 02/06/19 at 12:00 Morphine Sulfate (morphine) 2 mg Q4H PRN IV SEVERE PAIN LEVEL 7-10 Last adminis tered on 02/11/19 08:09; Admin Dose 2 MG; Start 02/07/19 at 11:30 Metoclopramide HCl (Reglan) 5 mg Q6H PRN IV nausea Last administered on 02/10/19 21:23; Admin Dose 5 MG; Start 02/10/19 at 08:00 Methylprednisolone (Medrol Dose Pack) 1 ea STD DOSE PACK PO ; Start 02/10/19 at 08:00 Methylprednisolone (Medrol) 4 mg AC BREAKFAST PO Last administered on 02/11/19 07:57; Admin Dose 4 MG; Start 02/11/19 at 07:25; Stop 02/15/19 at 07:26 Methylprednisolone (Medrol) 4 mg PC LUNCH PO ; Start 02/11/19 at 12:50; Stop 02/13/19 at 12:51 Methylprednisolone (Medrol) 4 mg PC DINNER PO ; Start 02/11/19 at 18:55; Stop 02/12/19 at 18:56 Methylprednisolone (Medrol) 8 mg HS PO ; Start 02/11/19 at 21:00; Stop 02/11/19 at 21:01 Methylprednisolone (Medrol) 4 mg HS PO ; Start 02/12/19 at 21:00; Stop 02/14/19 at 21:01 Insulin Aspart (Novolog Insulin Pen) 6 unit WITH MEALS SC Last administered on 02/11/19 08:02; Admin Dose 6 UNIT; Start 02/10/19 at 17:55 Insulin Glargine (Lantus) 25 units BID SC Last administered on 02/11/19 08:02; Admin Dose 25 UNITS; Start 02/10/19 at 21:00 Insulin Aspart (Novolog Insulin Pen) NOVOLOG *MODERATE* ALGORITHM WITH MEALS BEDTIME SC Last administered on 02/10/19at 21:39; Admin Dose 1 UNIT; Start 02/10/19 at 17:55 Senna/Docusate Sodium (Senokot-S) 1 tab DAILY PRN PO constipation; Start 02/10/19 at 13:30 Polyethylene Glycol (Miralax) 17 gm DAILY PRN PO CONSTIPATION; Start 02/10/19 at 13:30 JOSE FUENTES Feb 11, 2019 11:18
[2019-02-11] MEDS: METOPROLOL 25 MG TAB PO SCH ×2 (12:44→20:50)
[2019-02-11 12:53] VITALS: BP 139/75; PULSE 55; RESP 18
[2019-02-11 16:17] VITALS: BP 133/73; PULSE 75; RESP 18
--- NOTE | 2019-02-11 16:23 | PN ---
Date/Time of Note Date/Time of Note DATE: 02/11/19 TIME: 16:16 Assessment/Plan VTE Prophylaxis Risk score (from [facility] [place]0 risk: 3 SCD applied (from [facility] [place]): No SCD contraindicated: other Pharmacological prophylaxis: other Lines/Catheters IV Catheter Type (from [facility]): [place] Urinary Cath still in place: No Assessment/Plan Assessment/Plan 1. Acute chest pain- resolved - Cardiology on board and appreciate recommendations - continue on aspirin and statin - Serial trops negative 2. Acute onset headache, intermittent - Most likely migraine and neurology on board for recommendations - Will continue on Medrol pack and monitor for improvement - PRN reglan 3. Hypertension - Continue home medications 4. Mild acute kidney insufficiency - Resolved - Nephrology on board and appreciate recommendations 5. h/o Coronary artery disease - Continue home medications 6. Mood disorder - Continue sertraline 7. Hypothyroidism - Continue home medications 8. Diabetes mellitus - Hold p.o. metformin - Insulin while in house 9. Disposition - Monitor for improvement in headache and continue medrol dose pack per Neurology recommendations Result Diagram: 02/11/1962702/11/19627 Results 24hrs Laboratory Tests Test 02/10/19 17:35 02/10/19 18:45 02/10/19 21:29 02/11/19 02:46 Bedside Glucose 294 H 195 74 Urine Color YELLOW Urine Clarity SLIGHTLY CLOUDY A Urine pH 5.0 Urine Specific 1.007 [place] Urine Ketones NEGATIVE Urine Nitrite NEGATIVE Urine Bilirubin NEGATIVE Urine Urobilinogen NEGATIVE Urine Leukocyte TRACE A Esterase Urine Microscopic 0 RBC Urine Microscopic 9 H WBC Urine Squamous FEW Epithelial Cells Urine Bacteria FEW A Urine Hemoglobin NEGATIVE Urine Glucose 3+ H Urine Total NEGATIVE Protein Test 02/11/19 06:28 02/11/19 07:56 02/11/19 11:36 White Blood Count 12.0 H Red Blood Count 4.56 Hemoglobin 12.3 Hematocrit 38.1 Mean Corpuscular 83.6 Volume Mean Corpuscular 27.0 L Hemoglobin Mean Corpuscular 32.3 Hemoglobin Concent Red Cell 13.7 Distribution Width Platelet Count 276 Mean Platelet 9.9 Volume Immature 1.300 H Granulocytes % Neutrophils % 64.1 Lymphocytes % 26.7 Monocytes % 6.4 Eosinophils % 0.9 Basophils % 0.6 Nucleated Red 0.0 Blood Cells % Immature 0.160 H Granulocytes # Neutrophils # 7.7 H Lymphocytes # 3.2 H Monocytes # 0.8 Eosinophils # 0.1 Basophils # 0.1 Nucleated Red 0.0 Blood Cells # Sodium Level 143 Potassium Level 3.6 Chloride Level 105 Carbon Dioxide 29 Level Anion Gap 9 Blood Urea 30 H Nitrogen Creatinine 0.97 Est Glomerular 58 L Filtrat Rate mL/min Glucose Level 78 # Calcium Level 9.0 Phosphorus Level 3.8 Magnesium Level 2.3 Bedside Glucose 81 283 H Subjective 24 Hr Interval Summary Free Text/Dictation Patient still with headaches and nausea. Admits to associated photophobia. Also c/o joint pain in LE. Exam/Review of Systems Exam Vitals Vital Signs Date Temp Pulse Resp B/P (MAP) Pulse Ox O2 O2 Flow FiO2 Time Delivery Rate 02/11/19 98.0 55 18 139/75 98 12:53 (96) 02/11/19 Room Air 07:23 Intake and Output 02/10/19 02/10/19 02/11/19 1515:00 23:00 07:00 IntakeIntake Total 240 ml 240 ml 800 ml OutputOutput Total 100 ml BalanceBalance 240 ml 140 ml 800 ml Exam General: Patient is laying in bed and answers questions appropriately. distress due to headache Neck: Supple Respiratory: Clear to auscultation bilaterally. no wheezing or rhonchi Cardiovascular: regular rate and rhythm, no obvious murmurs Gastrointestinal: soft, non-tender to palpation, nondistended, bowel sounds heard. Ext: Moves all extremities spontaneously Skin: No new skin lesions Results Results 24hrs Laboratory Tests Test 02/10/19 17:35 02/10/19 18:45 02/10/19 21:29 02/11/19 02:46 Bedside Glucose 294 H 195 74 Urine Color YELLOW Urine Clarity SLIGHTLY CLOUDY A Urine pH 5.0 Urine Specific 1.007 [place] Urine Ketones NEGATIVE Urine Nitrite NEGATIVE Urine Bilirubin NEGATIVE Urine Urobilinogen NEGATIVE Urine Leukocyte TRACE A Esterase Urine Microscopic 0 RBC Urine Microscopic 9 H WBC Urine Squamous FEW Epithelial Cells Urine Bacteria FEW A Urine Hemoglobin NEGATIVE Urine Glucose 3+ H Urine Total NEGATIVE Protein Test 02/11/19 06:28 02/11/19 07:56 02/11/19 11:36 White Blood Count 12.0 H Red Blood Count 4.56 Hemoglobin 12.3 Hematocrit 38.1 Mean Corpuscular 83.6 Volume Mean Corpuscular 27.0 L Hemoglobin Mean Corpuscular 32.3 Hemoglobin Concent Red Cell 13.7 Distribution Width Platelet Count 276 Mean Platelet 9.9 Volume Immature 1.300 H Granulocytes % Neutrophils % 64.1 Lymphocytes % 26.7 Monocytes % 6.4 Eosinophils % 0.9 Basophils % 0.6 Nucleated Red 0.0 Blood Cells % Immature 0.160 H Granulocytes # Neutrophils # 7.7 H Lymphocytes # 3.2 H Monocytes # 0.8 Eosinophils # 0.1 Basophils # 0.1 Nucleated Red 0.0 Blood Cells # Sodium Level 143 Potassium Level 3.6 Chloride Level 105 Carbon Dioxide 29 Level Anion Gap 9 Blood Urea 30 H Nitrogen Creatinine 0.97 Est Glomerular 58 L Filtrat Rate mL/min Glucose Level 78 # Calcium Level 9.0 Phosphorus Level 3.8 Magnesium Level 2.3 Bedside Glucose 81 283 H Medications Medication Current Medications IV Flush (NS 3 ml) 3 ml PER PROTOCOL IV ; Start 02/05/19 at 17:00 Aspirin (Aspirin) 81 mg DAILY PO Last administered on 02/11/19 09:22; Admin Dose 81 MG; Start 02/06/19 at 09:00 Nitroglycerin (Nitroglycerin (Sl Tab) 0.4 Mg) 1 tab Q5M PRN SL .CHEST PAIN Last administered on 02/09/19 11:35; Admin Dose 1 TAB; Start 02/05/19 at 17:00 Acetaminophen (Tylenol Tab) 650 mg Q6H PRN PO .PAIN 1-3 OR TEMP Last administered on 02/08/19 12:15; Admin Dose 650 MG; Start 02/05/19 at 17:00 Amlodipine Besylate (Norvasc) 10 mg DAILY PO Last administered on 02/11/19 09:22; Admin Dose 10 MG; Start 02/06/19 at 09:00 Atorvastatin Calcium (Lipitor) 80 mg QHS PO Last administered on 02/10/19 21: 23; Admin Dose 80 MG; Start 02/05/19 at 21:00 Benazepril HCl (Lotensin) 10 mg DAILY PO Last administered on 02/09/19 08:43; Admin Dose 10 MG; Start 02/06/19 at 09:00; Status Hold Clopidogrel Bisulfate (plaVIX) 75 mg DAILY PO Last administered on 02/11/19 09:22; Admin Dose 75 MG; Start 02/06/19 at 09:00 Docusate Sodium (Colace) 100 mg BID PO Last administered on 02/10/19 08:45; Admin Dose 100 MG; Start 02/05/19 at 21:00 Hydrochlorothiazide (Hydrochlorothiazide) 25 mg DAILY PO Last administered on 02/09/19 08:43; Admin Dose 25 MG; Start 02/06/19 at 09:00; Status Hold Isosorbide Mononitrate (Imdur) 60 mg DAILY PO Last administered on 02/11/19 09:22; Admin Dose 60 MG; Start 02/06/19 at 09:00 Levothyroxine Sodium (Synthroid) 75 mcg BEFORE BREAKFAST PO Last administered on 02/11/19 06:17; Admin Dose 75 MCG; Start 02/06/19 at 07:00 Metoprolol Tartrate (Lopressor) 25 mg BID PO Last administered on 02/11/19 12:44; Admin Dose 25 MG; Start 02/05/19 at 21:00 Sertraline HCl (Zoloft) 100 mg QAM PO Last administered on 02/11/19 09:22; Admin Dose 100 MG; Start 02/06/19 at 09:00 Trazodone HCl (Desyrel) 50 mg QHS PRN PO insomnia; Start 02/05/19 at 17:30 Diagnostic Test (Pha) (Accu-Chek) 1 ea 02 XX Last administered on 02/11/19 02:49; Admin Dose 1 EA; Start 02/06/19 at 02:00 Phenol (Cepastat Lozenge) 1 lozenge Q1H PRN MT sore throat Last administered on 02/10/19 21:23; Admin Dose 1 LOZENGE; Start 02/05/19 at 17:30 Miscellaneous Information 1 ea NOTE XX ; Start 02/05/19 at 19:00 Glucose (Glutose) 15 gm Q15M PRN PO DECREASED GLUCOSE; Start 02/05/19 at 19:00 Glucose (Glutose) 22.5 gm Q15M PRN PO DECREASED GLUCOSE; Start 02/05/19 at 19:00 Dextrose (D50w Syringe) 25 ml Q15M PRN IV DECREASED GLUCOSE; Start 02/05/19 at 19:00 Dextrose (D50w Syringe) 50 ml Q15M PRN IV DECREASED GLUCOSE; Start 02/05/19 at 19:00 Glucagon (Glucagen) 1 mg Q15M PRN IM DECREASED GLUCOSE; Start 02/05/19 at 19:00 Glucose (Glutose) 15 gm Q15M PRN BUCCAL DECREASED GLUCOSE; Start 02/05/19 at 19:00 Acetaminophen/ Butalbital/ Caffeine (Fioricet) 1 tab Q6H PRN PO PAIN Last administered on 02/10/19 21:24; Admin Dose 1 TAB; Start 02/06/19 at 12:00 Morphine Sulfate (morphine) 2 mg Q4H PRN IV SEVERE PAIN LEVEL 7-10 Last a dministered on 02/11/19 08:09; Admin Dose 2 MG; Start 02/07/19 at 11:30 Metoclopramide HCl (Reglan) 5 mg Q6H PRN IV nausea Last administered on 02/10/19 21:23; Admin Dose 5 MG; Start 02/10/19 at 08:00 Methylprednisolone (Medrol Dose Pack) 1 ea STD DOSE PACK PO ; Start 02/10/19 at 08:00 Methylprednisolone (Medrol) 4 mg AC BREAKFAST PO Last administered on 02/11/19 07:57; Admin Dose 4 MG; Start 02/11/19 at 07:25; Stop 02/15/19 at 07:26 Methylprednisolone (Medrol) 4 mg PC LUNCH PO Last administered on 02/11/19at 12:43; Admin Dose 4 MG; Start 02/11/19 at 12:50; Stop 02/13/19 at 12:51 Methylprednisolone (Medrol) 4 mg PC DINNER PO ; Start 02/11/19 at 18:55; Stop 02/12/19 at 18:56 Methylprednisolone (Medrol) 8 mg HS PO ; Start 02/11/19 at 21:00; Stop 02/11/19 at 21:01 Methylprednisolone (Medrol) 4 mg HS PO ; Start 02/12/19 at 21:00; Stop 02/14/19 at 21:01 Insulin Aspart (Novolog Insulin Pen) 6 unit WITH MEALS SC Last administered on 02/11/19 11:41; Admin Dose 6 UNIT; Start 02/10/19 at 17:55 Insulin Glargine (Lantus) 25 units BID SC Last administered on 02/11/19 08:02; Admin Dose 25 UNITS; Start 02/10/19 at 21:00 Insulin Aspart (Novolog Insulin Pen) NOVOLOG *MODERATE* ALGORITHM WITH MEALS BEDTIME SC Last administered on 02/11/19at 11:41; Admin Dose 8 UNIT; Start 02/10/19 at 17:55 Senna/Docusate Sodium (Senokot-S) 1 tab DAILY PRN PO constipation; Start 02/10/19 at 13:30 Polyethylene Glycol (Miralax) 17 gm DAILY PRN PO CONSTIPATION; Start 02/10/19 at 13:30 ERICK BROWN MD Feb 11, 2019 16:23
[2019-02-11 20:00] VITALS: BP 141/75; PULSE 55; RESP 16
[2019-02-11] MEDS: ATORVASTATIN 80 MG TAB PO SCH (20:43)
[2019-02-11] MEDS ORDERED: METHYLPREDNISOLONE 4 MG TAB PO SCH (21:00)
[2019-02-12] VITALS (7 sets, daily range): BP systolic 142–195; BP diastolic 68–91; PULSE 55–73; RESP 17–23
[2019-02-12] MEDS: morphine 2 MG INJ IV PRN ×4 (00:44→19:40)
[2019-02-12] MEDS: ACCU-CHEK XX SCH (02:00)
[2019-02-12] MEDS: LEVOTHYROXINE 75 MCG TAB PO SCH (06:53)
[2019-02-12] MEDS: METHYLPREDNISOLONE 4 MG TAB PO SCH ×4 (08:21→21:43)
[2019-02-12] MEDS: METOPROLOL 25 MG TAB PO SCH ×2 (08:22→21:44)
--- NOTE | 2019-02-12 08:29 | PN ---
DATE: 02/12/2019 SUBJECTIVE: The patient is stable. Continues to complain about headaches. No other events noted. OBJECTIVE: VITAL SIGNS: Blood pressure is 195/90, respirations 23, pulse 59, temperature 98.0. HEENT: Head is normocephalic. NECK: Supple. HEART: Regular rate. LUNGS: Show diminished breath sounds at the base. ABDOMEN: Soft, nontender to palpation without rebound or guarding. EXTREMITIES: Negative for clubbing, cyanosis, no edema. DERMATOLOGIC: No rashes. MUSCULOSKELETAL: No joint effusion. NEUROLOGIC: No change in exam. MEDICATIONS: Reviewed. LABORATORY DATA: Has been reviewed. ASSESSMENT AND PLAN: 1. Nonoliguric acute kidney injury on top of chronic kidney disease with unknown baseline creatinine . Etiology of acute kidney injury is secondary to hemodynamics. Renal function is improved after ho lding XAVI inhibitor and diuretics. Continue to monitor. 2. Mineral bone disorder. Monitor calcium and phosphorus levels. 3. Hypertension. Blood pressure remains elevated. Continue to control underlying pain. We will st art the patient on a calcium channel carlos. 4. History of coronary artery disease. Continue medical management. 5. Hypothyroidism. Continue Synthroid. 6. Diabetes. Continue current insulin regimen. 7. Migraine headaches. Continue to monitor. Etiology may be secondary to Imdur. Will discuss with primary team about the possibility of discontinuing. Dictated By: JUAN SHAFFER/NTS Conf#: [id number] DID#: [id number] CC: ISABELA TORIBIO MD;*EndCC*
[2019-02-12] MEDS: ASPIRIN 81 MG TAB PO SCH (08:33)
[2019-02-12] MEDS: DOCUSATE SODIUM 100 MG CAP PO SCH ×2 (08:33→21:43)
[2019-02-12] MEDS: CLOPIDOGREL 75 MG TAB PO SCH (08:34)
[2019-02-12] MEDS: AMLODIPINE 10 MG TAB PO SCH (08:34)
[2019-02-12] MEDS: SERTRALINE 100 MG TAB PO SCH (08:34)
[2019-02-12] MEDS: ISOSORBIDE MONONITRATE(SR)60 MG TAB PO SCH (08:34)
[2019-02-12] MEDS: INSULIN ASPART [NOVOLOG] 3 ML PEN SC SCH ×7 (08:37→22:37)
[2019-02-12] MEDS: INSULIN GLARGINE [LANTus] (100 UNITS/ML) SYG SC SCH ×2 (08:39→21:49)
[2019-02-12] MEDS ORDERED: NIFEdipine (XL) 30 MG TAB PO SCH (09:00)
--- NOTE | 2019-02-12 09:27 | CONS ---
Assessment/Plan Assessment/Plan Assessment/Plan (Recall) 63 F c/ multiple comorbidities, presents for evaluation of chest pain and other Sx.. Now w/ severe headache, for which neurology is consulted.. The clinical picture is consistent w/ recurrent migraine.. Meningitis is unlikely. Head CT was without obvious acute intracranial pathology. s/p Solumedrol 1vg iv x1, with clinical improvement P: Medrol pack Continue Reglan prn Limit Fioricet where possible given potential for superimposed medication overuse headaches.. Other management and supportive care per primary Will follow clinically Consultation Date/Type/Reason Admit Date/Time Feb 06, 2019 at 15:49 Type of Consult Neurology Reason for Consultation headache Requesting Provider: ISABELA TORIBIO Date/Time of Note DATE: 02/12/19 TIME: 09:27 24 HR Interval Summary Free Text/Dictation Continues acute care Exam/Review of Systems Exam Vitals Vital Signs Date Temp Pulse Resp B/P (MAP) Pulse Ox O2 O2 Flow FiO2 Time Delivery Rate 02/12/19 98.0 59 23 195/90 96 Room Air 07:36 (125) Intake and Output 02/11/19 02/11/19 02/12/19 1515:00 23:00 07:00 IntakeIntake Total 600 ml 240 ml 550 ml BalanceBalance 600 ml 240 ml 550 ml Results Result Diagram: 02/11/1962702/11/19 0628 Results 24hrs Laboratory Tests Test 02/11/19 11:36 02/11/19 17:23 02/11/19 20:40 02/12/19 03:18 Bedside Glucose 283 H 131 246 H 218 Test 02/12/19 08:18 Bedside Glucose 148 Medications Medication Current Medications IV Flush (NS 3 ml) 3 ml PER PROTOCOL IV ; Start 02/05/19 at 17:00 Aspirin (Aspirin) 81 mg DAILY PO Last administered on 02/12/19at 08:33; Admin Dose 81 MG; Start 02/06/19 at 09:00 Nitroglycerin (Nitroglycerin (Sl Tab) 0.4 Mg) 1 tab Q5M PRN SL .CHEST PAIN Last administered on 02/09/19at 11:35; Admin Dose 1 TAB; Start 02/05/19 at 17:00 Acetaminophen (Tylenol Tab) 650 mg Q6H PRN PO .PAIN 1-3 OR TEMP Last administered on 02/08/19 12:15; Admin Dose 650 MG; Start 02/05/19 at 17:00 Amlodipine Besylate (Norvasc) 10 mg DAILY PO Last administered on 02/12/19 08:34; Admin Dose 10 MG; Start 02/06/19 at 09:00 Atorvastatin Calcium (Lipitor) 80 mg QHS PO Last administered on 02/11/19 20:43; Admin Dose 80 MG; Start 02/05/19 at 21:00 Benazepril HCl (Lotensin) 10 mg DAILY PO Last administered on 02/09/19 08:43; Admin Dose 10 MG; Start 02/06/19 at 09:00; Status Hold Clopidogrel Bisulfate (plaVIX) 75 mg DAILY PO Last administered on 02/12/19 08:34; Admin Dose 75 MG; Start 02/06/19 at 09:00 Docusate Sodium (Colace) 100 mg BID PO Last administered on 02/12/19 08:33; Admin Dose 100 MG; Start 02/05/19 at 21:00 Hydrochlorothiazide (Hydrochlorothiazide) 25 mg DAILY PO Last administered on 02/09/19 08:43; Admin Dose 25 MG; Start 02/06/19 at 09:00; Status Hold Isosorbide Mononitrate (Imdur) 60 mg DAILY PO Last administered on 02/12/19 08:34; Admin Dose 60 MG; Start 02/06/19 at 09:00 Levothyroxine Sodium (Synthroid) 75 mcg BEFORE BREAKFAST PO Last administered on 02/12/19 06:53; Admin Dose 75 MCG; Start 02/06/19 at 07:00 Metoprolol Tartrate (Lopressor) 25 mg BID PO Last administered on 02/11/19 12:44; Admin Dose 25 MG; Start 02/05/19 at 21:00 Sertraline HCl (Zoloft) 100 mg QAM PO Last administered on 02/12/19 08:34; Admin Dose 100 MG; Start 02/06/19 at 09:00 Trazodone HCl (Desyrel) 50 mg QHS PRN PO insomnia; Start 02/05/19 at 17:30 Diagnostic Test (Pha) (Accu-Chek) 1 ea 02 XX Last administered on 02/11/19 02:49; Admin Dose 1 EA; Start 02/06/19 at 02:00 Phenol (Cepastat Lozenge) 1 lozenge Q1H PRN MT sore throat Last administered on 02/10/19at 21:23; Admin Dose 1 LOZENGE; Start 02/05/19 at 17:30 Miscellaneous Information 1 ea NOTE XX ; Start 02/05/19 at 19:00 Glucose (Glutose) 15 gm Q15M PRN PO DECREASED GLUCOSE; Start 02/05/19 at 19:00 Glucose (Glutose) 22.5 gm Q15M PRN PO DECREASED GLUCOSE; Start 02/05/19 at 19:00 Dextrose (D50w Syringe) 25 ml Q15M PRN IV DECREASED GLUCOSE; Start 02/05/19 at 19:00 Dextrose (D50w Syringe) 50 ml Q15M PRN IV DECREASED GLUCOSE; Start 02/05/19 at 19:00 Glucagon (Glucagen) 1 mg Q15M PRN IM DECREASED GLUCOSE; Start 02/05/19 at 19:00 Glucose (Glutose) 15 gm Q15M PRN BUCCAL DECREASED GLUCOSE; Start 02/05/19 at 19:00 Acetaminophen/ Butalbital/ Caffeine (Fioricet) 1 tab Q6H PRN PO PAIN Last administered on 02/10/19at 21:24; Admin Dose 1 TAB; Start 02/06/19 at 12:00 Morphine Sulfate (morphine) 2 mg Q4H PRN IV SEVERE PAIN LEVEL 7-10 Last administered on 02/12/19at 06:55; Admin Dose 2 MG; Start 02/07/19 at 11:30 Metoclopramide HCl (Reglan) 5 mg Q6H PRN IV nausea Last administered on at 21:23; Admin Dose 5 MG; Start 02/10/19 at 08:00 Methylprednisolone (Medrol Dose Pack) 1 ea STD DOSE PACK PO ; Start 02/10/19 at 08:00 Methylprednisolone (Medrol) 4 mg AC BREAKFAST PO Last administered on 02/12/19at 08:21; Admin Dose 4 MG; Start 02/11/19 at 07:25; Stop 02/15/19 at 07:26 Methylprednisolone (Medrol) 4 mg PC LUNCH PO Last administered on 02/11/19at 12:43; Admin Dose 4 MG; Start 02/11/19 at 12:50; Stop 02/13/19 at 12:51 Methylprednisolone (Medrol) 4 mg PC DINNER PO Last administered on 02/11/19 18:08; Admin Dose 4 MG; Start 02/11/19 at 18:55; Stop 02/12/19 at 18:56 Methylprednisolone (Medrol) 4 mg HS PO ; Start 02/12/19 at 21:00; Stop 02/14/19 at 21:01 Insulin Aspart (Novolog Insulin Pen) 6 unit WITH MEALS SC Last administered on 02/12/19at 08:37; Admin Dose 6 UNIT; Start 02/10/19 at 17:55 Insulin Glargine (Lantus) 25 units BID SC Last administered on 02/12/19 08:39; Admin Dose 25 UNITS; Start 02/10/19 at 21:00 Insulin Aspart (Novolog Insulin Pen) NOVOLOG *MODERATE* ALGORITHM WITH MEALS BEDTIME SC Last administered on 02/12/19at 08:43; Admin Dose 2 UNIT; Start 02/10/19 at 17:55 Senna/Docusate Sodium (Senokot-S) 1 tab DAILY PRN PO constipation; Start 02/10/19 at 13:30 Polyethylene Glycol (Miralax) 17 gm DAILY PRN PO CONSTIPATION; Start 02/10/19 at 13:30 Nifedipine (Procardia Xl) 30 mg DAILY PO ; Start 02/12/19 at 09:00 JOSE FUENTES Feb 12, 2019 09:27
[2019-02-12] MEDS ORDERED: LIDOCAINE/MYLANTA 40 ML BTL PO ONE (10:00)
--- NOTE | 2019-02-12 10:44 | PN ---
Date/Time of Note Date/Time of Note DATE: 02/12/19 TIME: 10:43 Assessment/Plan VTE Prophylaxis Risk score (from Nsg)>0 risk: 3 SCD applied (from Ns): No SCD contraindicated: low risk/ambulating Pharmacological prophylaxis: other Lines/Catheters IV Catheter Type (from Nrsg): Saline Lock Urinary Cath still in place: No Assessment/Plan Assessment/Plan 1. Acute chest pain - more GI etiology given describes reflux sx. Will give GI cocktail and added PPI - Cardiology on board and appreciate consultation - continue on aspirin and statin - Serial trops negative 2. Acute onset headache, intermittent - Neurology on board for recommendations and appreciate consultation. Continue Medrol pack and limit Fioricet - may be associated with abdominal pain causing low PO intake - PRN reglan 3. Hypertension - Continue home medications 4. Mild acute kidney insufficiency - Resolved - Nephrology on board and appreciate recommendations 5. h/o Coronary artery disease - Continue home medications 6. Mood disorder - Continue sertraline 7. Hypothyroidism - Continue home medications 8. Diabetes mellitus - Hold p.o. metformin - Insulin while in house 9. GERD - GI cocktail - PPI 10. Disposition - GI medications added for abdominal discomfort. bowel regime given constipation - will downgrade to med/surg - once headache resolves, will d/c home Result Diagram: 02/11/19 0628 02/11/19 0628 Results 24hrs Laboratory Tests Test 02/11/19 11:36 02/11/19 17:23 02/11/19 20:40 02/12/19 03:18 Bedside Glucose 283 H 131 246 H 218 Test 02/12/19 08:18 Bedside Glucose 148 Subjective 24 Hr Interval Summary Free Text/Dictation Patient still with chest discomfort but describing as more reflux symptoms. Also complaining of constipation. Complaining of headaches and wondering if associated with abdominal discomfort. Exam/Review of Systems Exam Vitals Vital Signs Date Temp Pulse Resp B/P (MAP) Pulse Ox O2 O2 Flow FiO2 Time Delivery Rate 02/12/19 55 174/86 09:37 (115) 02/12/19 98.0 23 96 Room Air 07:36 Intake and Output 02/11/19 02/11/19 02/12/19 1515:00 23:00 07:00 IntakeIntake Total 600 ml 240 ml 550 ml BalanceBalance 600 ml 240 ml 550 ml Exam General: Patient is laying in bed and answers questions appropriately. distress due to headache and reflux Neck: Supple Respiratory: Clear to auscultation bilaterally. no wheezing or rhonchi Cardiovascular: regular rate and rhythm, no obvious murmurs Gastrointestinal: soft, non-tender to palpation epigastric area, nondistended, bowel sounds heard. Ext: Moves all extremities spontaneously Skin: No new skin lesions Results Results 24hrs Laboratory Tests Test 02/11/19 11:36 02/11/19 17:23 02/11/19 20:40 02/12/19 03:18 Bedside Glucose 283 H 131 246 H 218 Test 02/12/19 08:18 Bedside Glucose 148 Medications Medication Current Medications IV Flush (NS 3 ml) 3 ml PER PROTOCOL IV ; Start 02/05/19 at 17:00 Aspirin (Aspirin) 81 mg DAILY PO Last administered on 02/12/19 08:33; Admin Dose 81 MG; Start 02/06/19 at 09:00 Nitroglycerin (Nitroglycerin (Sl Tab) 0.4 Mg) 1 tab Q5M PRN SL .CHEST PAIN Last administered on 02/09/19 11:35; Admin Dose 1 TAB; Start 02/05/19 at 17:00 Acetaminophen (Tylenol Tab) 650 mg Q6H PRN PO .PAIN 1-3 OR TEMP Last administered on 02/08/19 12:15; Admin Dose 650 MG; Start 02/05/19 at 17:00 Amlodipine Besylate (Norvasc) 10 mg DAILY PO Last administered on 02/12/19 08:34; Admin Dose 10 MG; Start 02/06/19 at 09:00 Atorvastatin Calcium (Lipitor) 80 mg QHS PO Last administered on 02/11/19 20:43; Admin Dose 80 MG; Start 02/05/19 at 21:00 Benazepril HCl (Lotensin) 10 mg DAILY PO Last administered on 02/09/19 08:43; Admin Dose 10 MG; Start 02/06/19 at 09:00; Status Hold Clopidogrel Bisulfate (plaVIX) 75 mg DAILY PO Last administered on 02/12/19 08:34; Admin Dose 75 MG; Start 02/06/19 at 09:00 Docusate Sodium (Colace) 100 mg BID PO Last administered on 02/12/19 08:33; Admin Dose 100 MG; Start 02/05/19 at 21:00 Hydrochlorothiazide (Hydrochlorothiazide) 25 mg DAILY PO Last administered on 02/09/19 08:43; Admin Dose 25 MG; Start 02/06/19 at 09:00; Status Hold Isosorbide Mononitrate (Imdur) 60 mg DAILY PO Last administered on 02/12/19 08:34; Admin Dose 60 MG; Start 02/06/19 at 09:00 Levothyroxine Sodium (Synthroid) 75 mcg BEFORE BREAKFAST PO Last administered on 02/12/19 06:53; Admin Dose 75 MCG; Start 02/06/19 at 07:00 Metoprolol Tartrate (Lopressor) 25 mg BID PO Last administered on 02/11/19 12:44; Admin Dose 25 MG; Start 02/05/19 at 21:00 Sertraline HCl (Zoloft) 100 mg QAM PO Last administered on 02/12/19 08:34; Admin Dose 100 MG; Start 02/06/19 at 09:00 Trazodone HCl (Desyrel) 50 mg QHS PRN PO insomnia; Start 02/05/19 at 17:30 Diagnostic Test (Pha) (Accu-Chek) 1 ea 02 XX Last administered on 02/11/19 02:49; Admin Dose 1 EA; Start 02/06/19 at 02:00 Phenol (Cepastat Lozenge) 1 lozenge Q1H PRN MT sore throat Last administered on 02/10/19at 21:23; Admin Dose 1 LOZENGE; Start 02/05/19 at 17:30 Miscellaneous Information 1 ea NOTE XX ; Start 02/05/19 at 19:00 Glucose (Glutose) 15 gm Q15M PRN PO DECREASED GLUCOSE; Start 02/05/19 at 19:00 Glucose (Glutose) 22.5 gm Q15M PRN PO DECREASED GLUCOSE; Start 02/05/19 at 19:00 Dextrose (D50w Syringe) 25 ml Q15M PRN IV DECREASED GLUCOSE; Start 02/05/19 at 19:00 Dextrose (D50w Syringe) 50 ml Q15M PRN IV DECREASED GLUCOSE; Start 02/05/19 at 19:00 Glucagon (Glucagen) 1 mg Q15M PRN IM DECREASED GLUCOSE; Start 02/05/19 at 19:00 Glucose (Glutose) 15 gm Q15M PRN BUCCAL DECREASED GLUCOSE; Start 02/05/19 at 19:00 Acetaminophen/ Butalbital/ Caffeine (Fioricet) 1 tab Q6H PRN PO PAIN Last administered on 02/10/19 21:24; Admin Dose 1 TAB; Start 02/06/19 at 12:00 Morphine Sulfate (morphine) 2 mg Q4H PRN IV SEVERE PAIN LEVEL 7-10 Last administered on 02/12/19 06:55; Admin Dose 2 MG; Start 02/07/19 at 11:30 Metoclopramide HCl (Reglan) 5 mg Q6H PRN IV nausea Last administered on 02/10/19 21:23; Admin Dose 5 MG; Start 02/10/19 at 08:00 Methylprednisolone (Medrol Dose Pack) 1 ea STD DOSE PACK PO ; Start 02/10/19 at 08:00 Methylprednisolone (Medrol) 4 mg AC BREAKFAST PO Last administered on 02/12/19 08:21; Admin Dose 4 MG; Start 02/11/19 at 07:25; Stop 02/15/19 at 07:26 Methylprednisolone (Medrol) 4 mg PC LUNCH PO Last administered on 02/11/19 12:43; Admin Dose 4 MG; Start 02/11/19 at 12:50; Stop 02/13/19 at 12:51 Methylprednisolone (Medrol) 4 mg PC DINNER PO Last administered on 02/11/19 18:08; Admin Dose 4 MG; Start 02/11/19 at 18:55; Stop 02/12/19 at 18:56 Methylprednisolone (Medrol) 4 mg HS PO ; Start 02/12/19 at 21:00; Stop 02/14/19 at 21:01 Insulin Aspart (Novolog Insulin Pen) 6 unit WITH MEALS SC Last administered on 02/12/19 08:37; Admin Dose 6 UNIT; Start 02/10/19 at 17:55 Insulin Glargine (Lantus) 25 units BID SC Last administered on 02/12/19 08:39; Admin Dose 25 UNITS; Start 02/10/19 at 21:00 Insulin Aspart (Novolog Insulin Pen) NOVOLOG *MODERATE* ALGORITHM WITH MEALS BEDTIME SC Last administered on 02/12/19 08:43; Admin Dose 2 UNIT; Start 02/10/19 at 17:55 Senna/Docusate Sodium (Senokot-S) 1 tab DAILY PRN PO constipation; Start 02/10/19 at 13:30 Polyethylene Glycol (Miralax) 17 gm DAILY PRN PO CONSTIPATION; Start 02/10/19 at 13:30 Nifedipine (Procardia Xl) 30 mg DAILY PO Last administered on 02/12/19at 09:37; Admin Dose 30 MG; Start 02/12/19 at 09:00 Pantoprazole (Protonix Tab) 40 mg DAILY@06 PO ; Start 02/13/19 at 06:00 Polyethylene Glycol (Miralax) 17 gm DAILY PO ; Start 02/12/19 at 10:00 ERICK BROWN MD Feb 12, 2019 10:43
[2019-02-12] MEDS: POLYETHYLENE GLYCOL 17 GM PACKET PO SCH (11:00)
[2019-02-12] MEDS: ATORVASTATIN 80 MG TAB PO SCH (21:43)
[2019-02-12] MEDS ORDERED: AL HYDROX/MG HYDROX/SIMETH 30 ML CUP PO PRN (22:30)
[2019-02-12] MEDS ORDERED: KETOROLAC 15 MG INJ IV STA (22:38)
[2019-02-12] MEDS: FAMOTIDINE 20 MG TAB PO SCH (23:03)
[2019-02-13] VITALS (7 sets, daily range): BP systolic 126–186; BP diastolic 71–96; PULSE 48–71; RESP 15–20
[2019-02-13] MEDS: LEVOTHYROXINE 75 MCG TAB PO SCH (06:16)
[2019-02-13] MEDS: PANTOPRAZOLE (EC) 40 MG TAB PO SCH (06:16)
[2019-02-13] MEDS: morphine 2 MG INJ IV PRN ×3 (06:17→21:55)
[2019-02-13] MEDS: INSULIN ASPART [NOVOLOG] 3 ML PEN SC SCH ×7 (07:55→21:40)
--- NOTE | 2019-02-13 07:55 | PN ---
DATE: 02/13/2019 SUBJECTIVE: The patient is stable, no events overnight. The patient continues to have headaches. OBJECTIVE: VITAL SIGNS: Blood pressure is 186/96, pulse 48, respirations 16, temperature 97.6. HEENT: Head is normocephalic. NECK: Supple. HEART: Regular rate. LUNGS: Show diminished breath sounds at the base. ABDOMEN: Soft, nontender to palpation without rebound or guarding. EXTREMITIES: Negative for clubbing, cyanosis, no edema. DERMATOLOGIC: No rashes. MUSCULOSKELETAL: No joint effusion. NEUROLOGIC: No change in exam. MEDICATIONS: Reviewed. LABORATORY DATA: Has been reviewed. IMAGING STUDIES: Have been reviewed. ASSESSMENT AND PLAN: 1. Nonoliguric acute kidney injury on top of chronic kidney disease with unknown baseline creatinine . Etiology is secondary to hemodynamics. Renal function is improved. Continue to monitor. 2. Mineral bone disorder. Monitor calcium and phosphorus levels. 3. Hypertension. Blood pressure remains elevated, may be due to underlying pain. Continue current medical management. Patient was started on calcium channel carlos. We will up titrate dose. 4. Hypothyroidism. Continue Synthroid. 5. Migraine headaches. Continue to monitor. May consider discontinuing Imdur as a side effect is h eamondacandido. We will follow up with primary team. 6. Diabetes. Continue current insulin regimen. Dictated By: JUAN SHAFFER/PETR Conf#: [id number] DID#: [id number]
[2019-02-13] MEDS: METHYLPREDNISOLONE 4 MG TAB PO SCH ×3 (08:09→21:26)
[2019-02-13] MEDS: CLOPIDOGREL 75 MG TAB PO SCH (08:10)
[2019-02-13] MEDS: SERTRALINE 100 MG TAB PO SCH (08:10)
[2019-02-13] MEDS: DOCUSATE SODIUM 100 MG CAP PO SCH ×2 (08:11→21:27)
[2019-02-13] MEDS: ISOSORBIDE MONONITRATE(SR)60 MG TAB PO SCH (08:11)
[2019-02-13] MEDS: ASPIRIN 81 MG TAB PO SCH (08:11)
[2019-02-13] MEDS: FAMOTIDINE 20 MG TAB PO SCH (08:11)
[2019-02-13] MEDS: METOPROLOL 25 MG TAB PO SCH ×2 (08:12→21:27)
[2019-02-13] MEDS: INSULIN GLARGINE [LANTus] (100 UNITS/ML) SYG SC SCH ×2 (08:30→21:40)
[2019-02-13] MEDS: POLYETHYLENE GLYCOL 17 GM PACKET PO SCH (08:39)
[2019-02-13] MEDS: NIFEdipine (XL) 30 MG TAB PO SCH ×2 (08:39→21:27)
[2019-02-13] MEDS ORDERED: BISACODYL (EC) 5 MG TAB PO ONE (10:00)
[2019-02-13] MEDS: ACET/BUTAL/CAFF TAB PO PRN (14:00)
--- NOTE | 2019-02-13 15:17 | PN ---
Date/Time of Note Date/Time of Note DATE: 02/06/19 TIME: 15:16 Objective Vitals Vital Signs Date Temp Pulse Resp B/P (MAP) Pulse Ox O2 O2 Flow FiO2 Time Delivery Rate 02/13/19 98.5 66 15 126/71 100 Room Air 13:00 (89) Intake and Output 02/12/19 02/12/19 02/13/19 1515:00 23:00 07:00 IntakeIntake Total 530 ml 120 ml 350 ml OutputOutput Total 800 ml 3 ml BalanceBalance -270 ml 117 ml 350 ml Results Result Diagram: 02/13/1961802/13/19618 Medications Medications Current Medications IV Flush (NS 3 ml) 3 ml PER PROTOCOL IV ; Start 02/05/19 at 17:00 Aspirin (Aspirin) 81 mg DAILY PO Last administered on 02/13/19 08:11; Admin Dose 81 MG; Start 02/06/19 at 09:00 Nitroglycerin (Nitroglycerin (Sl Tab) 0.4 Mg) 1 tab Q5M PRN SL .CHEST PAIN Last administered on 02/09/19 11:35; Admin Dose 1 TAB; Start 02/05/19 at 17:00 Acetaminophen (Tylenol Tab) 650 mg Q6H PRN PO .PAIN 1-3 OR TEMP Last administered on 02/08/19 12:15; Admin Dose 650 MG; Start 02/05/19 at 17:00 Atorvastatin Calcium (Lipitor) 80 mg QHS PO Last administered on 02/12/19 21:43; Admin Dose 80 MG; Start 02/05/19 at 21:00 Benazepril HCl (Lotensin) 10 mg DAILY PO Last administered on 02/09/19 08:43; Admin Dose 10 MG; Start 02/06/19 at 09:00; Status Hold Clopidogrel Bisulfate (plaVIX) 75 mg DAILY PO Last administered on 02/13/19 08:10; Admin Dose 75 MG; Start 02/06/19 at 09:00 Docusate Sodium (Colace) 100 mg BID PO Last administered on 02/13/19 08:11; Admin Dose 100 MG; Start 02/05/19 at 21:00 Hydrochlorothiazide (Hydrochlorothiazide) 25 mg DAILY PO Last administered on 02/09/19 08:43; Admin Dose 25 MG; Start 02/06/19 at 09:00; Status Hold Levothyroxine Sodium (Synthroid) 75 mcg BEFORE BREAKFAST PO Last administered on 02/13/19 06:16; Admin Dose 75 MCG; Start 02/06/19 at 07:00 Metoprolol Tartrate (Lopressor) 25 mg BID PO Last administered on 02/12/19at 21:44; Admin Dose 25 MG; Start 02/05/19 at 21:00 Sertraline HCl (Zoloft) 100 mg QAM PO Last administered on 02/13/19at 08:10; Admin Dose 100 MG; Start 02/06/19 at 09:00 Trazodone HCl (Desyrel) 50 mg QHS PRN PO insomnia; Start 02/05/19 at 17:30 Phenol (Cepastat Lozenge) 1 lozenge Q1H PRN MT sore throat Last administered on 02/10/19 21:23; Admin Dose 1 LOZENGE; Start 02/05/19 at 17:30 Miscellaneous Information 1 ea NOTE XX ; Start 02/05/19 at 19:00 Glucose (Glutose) 15 gm Q15M PRN PO DECREASED GLUCOSE; Start 02/05/19 at 19:00 Glucose (Glutose) 22.5 gm Q15M PRN PO DECREASED GLUCOSE; Start 02/05/19 at 19:00 Dextrose (D50w Syringe) 25 ml Q15M PRN IV DECREASED GLUCOSE; Start 02/05/19 at 19:00 Dextrose (D50w Syringe) 50 ml Q15M PRN IV DECREASED GLUCOSE; Start 02/05/19 at 19:00 Glucagon (Glucagen) 1 mg Q15M PRN IM DECREASED GLUCOSE; Start 02/05/19 at 19:00 Glucose (Glutose) 15 gm Q15M PRN BUCCAL DECREASED GLUCOSE; Start 02/05/19 at 19:00 Acetaminophen/ Butalbital/ Caffeine (Fioricet) 1 tab Q6H PRN PO PAIN Last administered on 02/13/19at 14:00; Admin Dose 1 TAB; Start 02/06/19 at 12:00 Morphine Sulfate (morphine) 2 mg Q4H PRN IV SEVERE PAIN LEVEL 7-10 Last administered on 02/13/19at 11:57; Admin Dose 2 MG; Start 02/07/19 at 11:30 Metoclopramide HCl (Reglan) 5 mg Q6H PRN IV nausea Last administered on 02/10/19 21:23; Admin Dose 5 MG; Start 02/10/19 at 08:00 Methylprednisolone (Medrol Dose Pack) 1 ea STD DOSE PACK PO ; Start 02/10/19 at 08:00 Methylprednisolone (Medrol) 4 mg AC BREAKFAST PO Last administered on 02/13/19 08:09; Admin Dose 4 MG; Start 02/11/19 at 07:25; Stop 02/15/19 at 07:26 Methylprednisolone (Medrol) 4 mg HS PO Last administered on 02/12/19 21:43; Admin Dose 4 MG; Start 02/12/19 at 21:00; Stop 02/14/19 at 21:01 Insulin Aspart (Novolog Insulin Pen) 6 unit WITH MEALS SC Last administered on 02/13/19 12:29; Admin Dose 6 UNIT; Start 02/10/19 at 17:55 Insulin Glargine (Lantus) 25 units BID SC Last administered on 02/13/19 08:30; Admin Dose 25 UNITS; Start 02/10/19 at 21:00 Insulin Aspart (Novolog Insulin Pen) NOVOLOG *MODERATE* ALGORITHM WITH MEALS BEDTIME SC Last administered on 02/13/19 12:26; Admin Dose 2 UNIT; Start 02/10/19 at 17:55 Senna/Docusate Sodium (Senokot-S) 1 tab DAILY PRN PO constipation Last administered on 02/13/19 06:16; Admin Dose 1 TAB; Start 02/10/19 at 13:30 Pantoprazole (Protonix Tab) 40 mg DAILY@06 PO Last administered on 02/13/19 06:16; Admin Dose 40 MG; Start 02/13/19 at 06:00 Polyethylene Glycol (Miralax) 17 gm DAILY PO Last administered on 02/13/19 08:39; Admin Dose 17 GM; Start 02/12/19 at 10:00 Famotidine (Pepcid) 20 mg DAILY PO Last administered on 02/13/19 08:11; Admin Dose 20 MG; Start 02/12/19 at 22:30 Al Hydrox/Mg Hydrox/Simethicone (Mag-Al Plus) 30 ml Q6H PRN PO GASTROINTESTINAL UPSET; Start 7/9/19 at 22:30 Hydralazine HCl (Apresoline) 10 mg Q4H PRN PO ELEVATED BLOOD PRESSURE Last administered on 02/13/19at 04:58; Admin Dose 10 MG; Start 02/13/19 at 04:30 Nifedipine (Procardia Xl) 60 mg BID PO Last administered on 02/13/19at 08:39; Admin Dose 60 MG; Start 02/13/19 at 09:00 VTE Prophylaxis Risk score (from [facility] [place])>0 risk: 3 SCD applied (from [facility] [place]): No SCD contraindication: other Lines/Catheters IV Catheter Type: Jimenez in Place: No Assessment/Plan Hospital Course Subjective Patient still having intractable headaches Objective Physical exam General: Patient is laying in bed and answers questions appropriately Mentation: Patient is alert and oriented 4, Head: Normocephalic atraumatic Eyes: EOMI, pupils reactive to light Neck: Supple, nontender, midline Respiratory: Clear to auscultation bilaterally Cardiovascular: regular rate, no obvious murmurs Gastrointestinal: non-tender to palpation, bowel sounds heard. 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 Acute onset headache, intermittent -Very likely secondary to nitroglycerin administration and she developed this shortly after nitroglycerin, however patient states that this was actually the original reason she went to her primary care doctor's office and it comes and goes and is extremely severe -We will need to consult neurology as acute intervention has not resolved patient's headache which causing her to severe debilitation including not being able to walk correctly -PRN pain medication as needed Hypertension -Continue home medications Mild acute kidney insufficiency -Very mild, will start some fluids Coronary artery disease -Continue home medications Mood disorder -Continue sertraline Hypothyroidism -Continue home medications Sore and itchy throat -Patient states this been going on for 2 weeks, come very mild, turns out that this began when she started new medication, calling patient's pharmacies, new medication was only gabapentin and hydrochlorothiazide, patient off both medications currently while inpatient -Sepsis that lozenges as needed -No overt signs of infection at this time, monitor closely -Chest x-ray negative -Follow-up with primary care physician Diabetes mellitus -Hold p.o. metformin -Insulin while in house Disposition -monitor headache ISABELA TORIBIO Feb 13, 2019 15:17
--- NOTE | 2019-02-13 16:41 | PN ---
Date/Time of Note Date/Time of Note DATE: 02/13/19 TIME: 16:37 Assessment/Plan VTE Prophylaxis Risk score (from Ns)>0 risk: 3 [place] [facility] [place] contraindicated: other Pharmacological prophylaxis: NA/contraindicated Pharm contraindication: low risk/ambulating Lines/Catheters IV C[facility]ter Type (from [facility] Urinary Cath still in place: No Assessment/Plan Assessment/Plan 1. Acute chest pain - ACS ruled out by Cardiology. Most likely more GI related - continue PPI and bowel regime for constipation - Cardiology on board and appreciate consultation - continue on aspirin and statin - Serial trops negative 2. Acute onset headache, intermittent - Will d/c imdur given may cause headache and monitor - Neurology on board for recommendations and appreciate consultation. Continue Medrol pack and limit Fioricet - PRN reglan 3. Hypertension - Continue home medications 4. Mild acute kidney insufficiency - Resolved - Nephrology on board and appreciate recommendations 5. h/o Coronary artery disease - Continue home medications 6. Mood disorder - Continue sertraline 7. Hypothyroidism - Continue home medications 8. Diabetes mellitus - Hold p.o. metformin - Insulin while in house 9. GERD - GI cocktail - PPI 10. Constipation - bowel regime 11. Disposition - Will hold Imdur to determine if contributing to headaches. Patient hesitant to go home if not feeling well since lives alone and afraid of falling Result Diagram: 02/13/1961802/13/19618 Results 24hrs Laboratory Tests Test 02/12/19 17:17 02/12/19 21:42 02/13/19 06:19 02/13/19 08:07 Bedside Glucose 208 332 H 126 White Blood Count 13.1 H Red Blood Count 5.07 Hemoglobin 13.7 Hematocrit 42.7 Mean Corpuscular 84.2 Volume Mean Corpuscular 27.0 L Hemoglobin Mean Corpuscular 32.1 Hemoglobin Concent Red Cell 13.9 Distribution Width Platelet Count 320 Mean Platelet 10.4 Volume Immature 2.000 H Granulocytes % Neutrophils % 69.7 Lymphocytes % 22.6 Monocytes % 4.7 Eosinophils % 0.5 Basophils % 0.5 Nucleated Red 0.0 Blood Cells % Immature 0.260 H Granulocytes # Neutrophils # 9.1 H Lymphocytes # 3.0 H Monocytes # 0.6 Eosinophils # 0.1 Basophils # 0.1 Nucleated Red 0.0 Blood Cells # Sodium Level 140 Potassium Level 4.5 Chloride Level 103 Carbon Dioxide 27 Level Anion Gap 10 Blood Urea 29 H Nitrogen Creatinine 1.08 H Est Glomerular 51 L Filtrat Rate mL/min Glucose Level 146 # Calcium Level 9.0 Phosphorus Level 4.6 Magnesium Level 2.1 Test 02/13/19 08:45 02/13/19 12:19 Lab Scanned Report REFERENCE LAB Bedside Glucose 151 Subjective 24 Hr Interval Summary Free Text/Dictation Patient complaining of chest pressure which she associates with constipation. Did have a BM but states was small. Denies worsening headache this am. Exam/Review of Systems Exam Vitals Vital Signs Date Temp Pulse Resp B/P (MAP) Pulse Ox O2 O2 Flow FiO2 Time Delivery Rate 02/13/19 98.5 66 15 126/71 100 Room Air 13:00 (89) Intake and Output 02/12/19 02/12/19 02/13/19 1515:00 23:00 07:00 IntakeIntake Total 530 ml 120 ml 350 ml OutputOutput Total 800 ml 3 ml BalanceBalance -270 ml 117 ml 350 ml Exam General: Patient is laying in bed and answers questions appropriately. Neck: Supple Respiratory: Clear to auscultation bilaterally. no wheezing or rhonchi Cardiovascular: regular rate and rhythm, no obvious murmurs Gastrointestinal: soft, non-tender to palpation epigastric area, nondistended, bowel sounds heard. Ext: Moves all extremities spontaneously Skin: No new skin lesions Results Results 24hrs Laboratory Tests Test 02/12/19 17:17 02/12/19 21:42 02/13/19 06:19 02/13/19 08:07 Bedside Glucose 208 332 H 126 White Blood Count 13.1 H Red Blood Count 5.07 Hemoglobin 13.7 Hematocrit 42.7 Mean Corpuscular 84.2 Volume Mean Corpuscular 27.0 L Hemoglobin Mean Corpuscular 32.1 Hemoglobin Concent Red Cell 13.9 Distribution Width Platelet Count 320 Mean Platelet 10.4 Volume Immature 2.000 H Granulocytes % Neutrophils % 69.7 Lymphocytes % 22.6 Monocytes % 4.7 Eosinophils % 0.5 Basophils % 0.5 Nucleated Red 0.0 Blood Cells % Immature 0.260 H Granulocytes # Neutrophils # 9.1 H Lymphocytes # 3.0 H Monocytes # 0.6 Eosinophils # 0.1 Basophils # 0.1 Nucleated Red 0.0 Blood Cells # Sodium Level 140 Potassium Level 4.5 Chloride Level 103 Carbon Dioxide 27 Level Anion Gap 10 Blood Urea 29 H Nitrogen Creatinine 1.08 H Est Glomerular 51 L Filtrat Rate mL/min Glucose Level 146 # Calcium Level 9.0 Phosphorus Level 4.6 Magnesium Level 2.1 Test 02/13/19 08:45 02/13/19 12:19 Lab Scanned Report REFERENCE LAB Bedside Glucose 151 Medications Medication Current Medications IV Flush (NS 3 ml) 3 ml PER PROTOCOL IV ; Start 02/05/19 at 17:00 Aspirin (Aspirin) 81 mg DAILY PO Last administered on 02/13/19 08:11; Admin Dose 81 MG; Start 02/06/19 at 09:00 Nitroglycerin (Nitroglycerin (Sl Tab) 0.4 Mg) 1 tab Q5M PRN SL .CHEST PAIN Last administered on 02/09/19 11:35; Admin Dose 1 TAB; Start 02/05/19 at 17:00 Acetaminophen (Tylenol Tab) 650 mg Q6H PRN PO .PAIN 1-3 OR TEMP Last administered on 02/08/19 12:15; Admin Dose 650 MG; Start 02/05/19 at 17:00 Atorvastatin Calcium (Lipitor) 80 mg QHS PO Last administered on 02/12/19 21:43; Admin Dose 80 MG; Start 02/05/19 at 21:00 Benazepril HCl (Lotensin) 10 mg DAILY PO Last administered on 02/09/19 08:43; Admin Dose 10 MG; Start 02/06/19 at 09:00; Status Hold Clopidogrel Bisulfate (plaVIX) 75 mg DAILY PO Last administered on 02/13/19 08:10; Admin Dose 75 MG; Start 02/06/19 at 09:00 Docusate Sodium (Colace) 100 mg BID PO Last administered on 02/13/19 08:11; Admin Dose 100 MG; Start 02/05/19 at 21:00 Hydrochlorothiazide (Hydrochlorothiazide) 25 mg DAILY PO Last administered on 02/09/19 08:43; Admin Dose 25 MG; Start 02/06/19 at 09:00; Status Hold Levothyroxine Sodium (Synthroid) 75 mcg BEFORE BREAKFAST PO Last administered on 02/13/19 06:16; Admin Dose 75 MCG; Start 02/06/19 at 07:00 Metoprolol Tartrate (Lopressor) 25 mg BID PO Last administered on 02/12/19at 21:44; Admin Dose 25 MG; Start 02/05/19 at 21:00 Sertraline HCl (Zoloft) 100 mg QAM PO Last administered on 02/13/19 08:10; Admin Dose 100 MG; Start 02/06/19 at 09:00 Trazodone HCl (Desyrel) 50 mg QHS PRN PO insomnia; Start 02/05/19 at 17:30 Phenol (Cepastat Lozenge) 1 lozenge Q1H PRN MT sore throat Last administered on 02/10/19at 21:23; Admin Dose 1 LOZENGE; Start 02/05/19 at 17:30 Miscellaneous Information 1 ea NOTE XX ; Start 02/05/19 at 19:00 Glucose (Glutose) 15 gm Q15M PRN PO DECREASED GLUCOSE; Start 02/05/19 at 19:00 Glucose (Glutose) 22.5 gm Q15M PRN PO DECREASED GLUCOSE; Start 02/05/19 at 19:00 Dextrose (D50w Syringe) 25 ml Q15M PRN IV DECREASED GLUCOSE; Start 02/05/19 at 19:00 Dextrose (D50w Syringe) 50 ml Q15M PRN IV DECREASED GLUCOSE; Start 02/05/19 at 19:00 Glucagon (Glucagen) 1 mg Q15M PRN IM DECREASED GLUCOSE; Start 02/05/19 at 19:00 Glucose (Glutose) 15 gm Q15M PRN BUCCAL DECREASED GLUCOSE; Start 02/05/19 at 19:00 Acetaminophen/ Butalbital/ Caffeine (Fioricet) 1 tab Q6H PRN PO PAIN Last administered on 02/13/19at 14:00; Admin Dose 1 TAB; Start 02/06/19 at 12:00 Morphine Sulfate (morphine) 2 mg Q4H PRN IV SEVERE PAIN LEVEL 7-10 Last administered on 02/13/19at 11:57; Admin Dose 2 MG; Start 02/07/19 at 11:30 Metoclopramide HCl (Reglan) 5 mg Q6H PRN IV nausea Last administered on 02/10/19at 21:23; Admin Dose 5 MG; Start 02/10/19 at 08:00 Methylprednisolone (Medrol Dose Pack) 1 ea STD DOSE PACK PO ; Start 02/10/19 at 08:00 Methylprednisolone (Medrol) 4 mg AC BREAKFAST PO Last administered on 02/13/19 08:09; Admin Dose 4 MG; Start 02/11/19 at 07:25; Stop 02/15/19 at 07:26 Methylprednisolone (Medrol) 4 mg HS PO Last administered on 02/12/19at 21:43; Admin Dose 4 MG; Start 02/12/19 at 21:00; Stop 02/14/19 at 21:01 Insulin Aspart (Novolog Insulin Pen) 6 unit WITH MEALS SC Last administered on 02/13/19 12:29; Admin Dose 6 UNIT; Start 02/10/19 at 17:55 Insulin Glargine (Lantus) 25 units BID SC Last administered on 02/13/19 08:30; Admin Dose 25 UNITS; Start 02/10/19 at 21:00 Insulin Aspart (Novolog Insulin Pen) NOVOLOG *MODERATE* ALGORITHM WITH MEALS BEDTIME SC Last administered on 02/13/19 12:26; Admin Dose 2 UNIT; Start 02/10/19 at 17:55 Senna/Docusate Sodium (Senokot-S) 1 tab DAILY PRN PO constipation Last administered on 02/13/19 06:16; Admin Dose 1 TAB; Start 02/10/19 at 13:30 Pantoprazole (Protonix Tab) 40 mg DAILY@06 PO Last administered on 02/13/19 06:16; Admin Dose 40 MG; Start 02/13/19 at 06:00 Polyethylene Glycol (Miralax) 17 gm DAILY PO Last administered on 02/13/19 08:39; Admin Dose 17 GM; Start 02/12/19 at 10:00 Famotidine (Pepcid) 20 mg DAILY PO Last administered on 02/13/19 08:11; Admin Dose 20 MG; Start 02/12/19 at 22:30 Al Hydrox/Mg Hydrox/Simethicone (Mag-Al Plus) 30 ml Q6H PRN PO GASTROINTESTINAL UPSET; Start 02/12/19 at 22:30 Hydralazine HCl (Apresoline) 10 mg Q4H PRN PO ELEVATED BLOOD PRESSURE Last administered on 02/13/19 04:58; Admin Dose 10 MG; Start 02/13/19 at 04:30 Nifedipine (Procardia Xl) 60 mg BID PO Last administered on 02/13/19at 08:39; Admin Dose 60 MG; Start 02/13/19 at 09:00 ERICK BROWN MD Feb 13, 2019 16:41
[2019-02-13] MEDS: ATORVASTATIN 80 MG TAB PO SCH (21:26)
[2019-02-13] MEDS: traZODone 50 MG TAB PO PRN (22:15)
[2019-02-14] VITALS (14 sets, daily range): BP systolic 119–188; BP diastolic 70–93; PULSE 52–70; RESP 17–21
[2019-02-14] MEDS: METHYLPREDNISOLONE 4 MG TAB PO SCH ×2 (06:26→21:01)
[2019-02-14] MEDS: LEVOTHYROXINE 75 MCG TAB PO SCH (06:26)
[2019-02-14] MEDS: PANTOPRAZOLE (EC) 40 MG TAB PO SCH (06:26)
[2019-02-14] MEDS: INSULIN ASPART [NOVOLOG] 3 ML PEN SC SCH ×7 (07:55→21:00)
[2019-02-14] MEDS: DOCUSATE SODIUM 100 MG CAP PO SCH (08:11)
[2019-02-14] MEDS: CLOPIDOGREL 75 MG TAB PO SCH (08:11)
[2019-02-14] MEDS: ASPIRIN 81 MG TAB PO SCH (08:11)
[2019-02-14] MEDS: SERTRALINE 100 MG TAB PO SCH (08:11)
[2019-02-14] MEDS: POLYETHYLENE GLYCOL 17 GM PACKET PO SCH (08:11)
[2019-02-14] MEDS: FAMOTIDINE 20 MG TAB PO SCH (08:11)
[2019-02-14] MEDS: METOPROLOL 25 MG TAB PO SCH ×3 (08:12→21:02)
[2019-02-14] MEDS: NIFEdipine (XL) 30 MG TAB PO SCH ×2 (08:12→21:02)
[2019-02-14] MEDS: INSULIN GLARGINE [LANTus] (100 UNITS/ML) SYG SC SCH ×2 (08:23→21:10)
[2019-02-14] MEDS ORDERED: PHENAZOPYRIDINE 100 MG TAB PO PRN (08:30)
[2019-02-14] MEDS: ACET/BUTAL/CAFF TAB PO PRN (08:44)
--- NOTE | 2019-02-14 08:54 | PN ---
DATE: 02/14/2019 SUBJECTIVE: The patient remains stable. No events overnight. OBJECTIVE: VITAL SIGNS: Blood pressure is 141/87, pulse 52, respiration 18, temperature 98.4. HEENT: Head is normocephalic. NECK: Supple. HEART: Regular rate. LUNGS: Show diminished breath sounds at the base. ABDOMEN: Soft, nontender to palpation without rebound or guarding. EXTREMITIES: Negative for clubbing, cyanosis, no edema. DERMATOLOGIC: No rashes. MUSCULOSKELETAL: No joint effusion. NEUROLOGIC: No change in exam. MEDICATIONS: Have been reviewed. LABORATORY DATA: Has been reviewed. IMAGING STUDIES: Have been reviewed. ASSESSMENT AND PLAN: 1. Nonoliguric acute kidney injury on top of chronic kidney disease with unknown baseline creatinine . Etiology is secondary to hemodynamics. Renal function is improved. Continue to monitor. 2. Mineral bone disorder. Monitor calcium and phosphorus levels. 3. Hypertension. Blood pressure is improving. Continue current blood pressure regimen. Continue P rocardia 30 mg b.i.d. Agree with discontinuing Imdur. 4. Migraine headaches. Etiology may be secondary to medication. Continue to monitor. 5. Diabetes. Continue current insulin regimen. Dictated By: JUAN RUDOLPH DO NR/NTS Conf#: [id number] DID#: [id number] CC: ISABELA TORIBIO MD;*End*
[2019-02-14] MEDS: CEFTRIAXONE 1 GM/50 ML (PMX) 50 ML IVPB SCH (09:03)
[2019-02-14] MEDS: morphine 2 MG INJ IV PRN ×2 (09:20→20:39)
[2019-02-14] MEDS: NITROGLYCERIN (SL) 0.4 MG TAB SL PRN ×7 (10:08→20:38)
--- NOTE | 2019-02-14 11:12 | PN ---
Date/Time of Note Date/Time of Note DATE: 02/14/19 TIME: 11:07 Assessment/Plan VTE Prophylaxis Risk score (from Nsg)>0 risk: 3 SCD applied (from Nsg): Yes Pharmacological prophylaxis: other Lines/Catheters IV Catheter Type (from Nrsg): Saline Lock Urinary Cath still in place: No Assessment/Plan Assessment/Plan 1. Acute chest pain - patient still with chest pain this am which may be from holding her Imdur given most probable cause for her headache. Repeat EKG shows no acute changes and trop pending - Cardiology reconsulted for assistance given patient seems to have an intolerance to medications that are assisting with her angina. May possibly need to be started on Ranexa? - continue on aspirin and statin - initial Serial trops negative 2. Acute onset headache, intermittent - improved after imdur d/c but worsened after given Nitro from chest pain - Neurology on board for recommendations and appreciate consultation. Continue Medrol pack and limit Fioricet - PRN reglan 3. Hypertension - Continue home medications. adjusting for better BP control. HR has been running low 4. Mild acute kidney insufficiency - Nephrology on board and appreciate recommendations 5. h/o Coronary artery disease - Continue home medications 6. Mood disorder - Continue sertraline 7. Hypothyroidism - Continue home medications 8. Diabetes mellitus - Hold p.o. metformin - Insulin while in house 9. GERD - PPI 10. Disposition - Cardiology reconsulted for assistance with fpc angina treatment given intolerance to Imdur. Will check trop and monitor for improvement in chest discomfort - hold off on med/surg transfer at this time Result Diagram: 02/14/19 0722 02/14/19 0723 Results 24hrs Laboratory Tests Test 02/13/19 12:19 02/13/19 17:17 02/13/19 21:24 02/13/19 23:46 Bedside Glucose 151 222 H 194 Urine Color STRAW Urine Clarity CLEAR Urine pH 7.0 Urine Specific 1.003 Emerson Urine Ketones NEGATIVE Urine Nitrite NEGATIVE Urine Bilirubin NEGATIVE Urine Urobilinogen NEGATIVE Urine Leukocyte 1+ H Esterase Urine Microscopic 0 RBC Urine Microscopic 7 H WBC Urine Bacteria MODERATE Urine Hemoglobin NEGATIVE Urine Glucose NEGATIVE Urine Total Protein NEGATIVE Test 02/14/19 01:38 02/14/19 07:22 02/14/19 07:23 02/14/19 08:09 Bedside Glucose 129 112 White Blood Count 11.2 H Red Blood Count 4.49 Hemoglobin 12.5 Hematocrit 37.9 Mean Corpuscular 84.4 Volume Mean Corpuscular 27.8 L Hemoglobin Mean Corpuscular 33.0 Hemoglobin Concent Red Cell 13.9 Distribution Width Platelet Count 256 Mean Platelet Volume 10.4 Immature 2.400 H Granulocytes % Neutrophils % 61.6 Lymphocytes % 26.5 Monocytes % 6.4 Eosinophils % 2.2 Basophils % 0.9 Nucleated Red Blood 0.0 Cells % Immature 0.270 H Granulocytes # Neutrophils # 6.9 Lymphocytes # 3.0 H Monocytes # 0.7 Eosinophils # 0.2 Basophils # 0.1 Nucleated Red Blood 0.0 Cells # Sodium Level 142 Potassium Level 4.4 Chloride Level 105 Carbon Dioxide Level 28 Anion Gap 9 Blood Urea Nitrogen 29 H Creatinine 1.13 H Glucose Level 148 Calcium Level 8.6 Phosphorus Level 4.7 Magnesium Level 2.2 Albumin 3.6 Subjective 24 Hr Interval Summary Free Text/Dictation Patient is complaining of left chest discomfort that is radiating to her left shoulder. States has a mild headache and associated shortness of breath. was Ambulating around the room this am without issues. Given nitro which improved her pain but caused headache. Exam/Review of Systems Exam Vitals Vital Signs Date Temp Pulse Resp B/P (MAP) Pulse Ox O2 O2 Flow FiO2 Time Delivery Rate 02/14/19 98.4 52 18 141/87 98 07:16 (105) 02/13/19 Room Air 16:50 Intake and Output 02/13/19 02/13/19 02/14/19 1515:00 23:00 07:00 IntakeIntake Total 300 ml 1180 ml 200 ml BalanceBalance 300 ml 1180 ml 200 ml Exam General: Patient is laying in bed, distress secondary to chest discomfort Neck: Supple Respiratory: Clear to auscultation bilaterally. no wheezing or rhonchi Cardiovascular: regular rate and rhythm, no obvious murmurs Gastrointestinal: soft, non-tender to palpation epigastric area, nondistended, bowel sounds heard. Ext: Moves all extremities spontaneously Skin: No new skin lesions Results Results 24hrs Laboratory Tests Test 02/13/19 12:19 02/13/19 17:17 02/13/19 21:24 02/13/19 23:46 Bedside Glucose 151 222 H 194 Urine Color STRAW Urine Clarity CLEAR Urine pH 7.0 Urine Specific 1.003 Emerson Urine Ketones NEGATIVE Urine Nitrite NEGATIVE Urine Bilirubin NEGATIVE Urine Urobilinogen NEGATIVE Urine Leukocyte 1+ H Esterase Urine Microscopic 0 RBC Urine Microscopic 7 H WBC Urine Bacteria MODERATE Urine Hemoglobin NEGATIVE Urine Glucose NEGATIVE Urine Total Protein NEGATIVE Test 02/14/19 01:38 02/14/19 07:22 02/14/19 07:23 02/14/19 08:09 Bedside Glucose 129 112 White Blood Count 11.2 H Red Blood Count 4.49 Hemoglobin 12.5 Hematocrit 37.9 Mean Corpuscular 84.4 Volume Mean Corpuscular 27.8 L Hemoglobin Mean Corpuscular 33.0 Hemoglobin Concent Red Cell 13.9 Distribution Width Platelet Count 256 Mean Platelet Volume 10.4 Immature 2.400 H Granulocytes % Neutrophils % 61.6 Lymphocytes % 26.5 Monocytes % 6.4 Eosinophils % 2.2 Basophils % 0.9 Nucleated Red Blood 0.0 Cells % Immature 0.270 H Granulocytes # Neutrophils # 6.9 Lymphocytes # 3.0 H Monocytes # 0.7 Eosinophils # 0.2 Basophils # 0.1 Nucleated Red Blood 0.0 Cells # Sodium Level 142 Potassium Level 4.4 Chloride Level 105 Carbon Dioxide Level 28 Anion Gap 9 Blood Urea Nitrogen 29 H Creatinine 1.13 H Glucose Level 148 Calcium Level 8.6 Phosphorus Level 4.7 Magnesium Level 2.2 Albumin 3.6 Medications Medication Current Medications IV Flush (NS 3 ml) 3 ml PER PROTOCOL IV ; Start 02/05/19 at 17:00 Aspirin (Aspirin) 81 mg DAILY PO Last administered on 02/14/19at 08:11; Admin Dose 81 MG; Start 02/06/19 at 09:00 Nitroglycerin (Nitroglycerin (Sl Tab) 0.4 Mg) 1 tab Q5M PRN SL .CHEST PAIN Last administered on 02/14/19at 10:19; Admin Dose 1 TAB; Start 02/05/19 at 17:00 Acetaminophen (Tylenol Tab) 650 mg Q6H PRN PO .PAIN 1-3 OR TEMP Last administered on 02/08/19at 12:15; Admin Dose 650 MG; Start 02/05/19 at 17:00 Atorvastatin Calcium (Lipitor) 80 mg QHS PO Last administered on 02/13/19at 21:26; Admin Dose 80 MG; Start 02/05/19 at 21:00 Benazepril HCl (Lotensin) 10 mg DAILY PO Last administered on 02/09/19 08:43; Admin Dose 10 MG; Start 02/06/19 at 09:00; Status Hold Clopidogrel Bisulfate (plaVIX) 75 mg DAILY PO Last administered on 02/14/19 08:11; Admin Dose 75 MG; Start 02/06/19 at 09:00 Docusate Sodium (Colace) 100 mg BID PO Last administered on 02/14/19 08:11; Admin Dose 100 MG; Start 02/05/19 at 21:00 Hydrochlorothiazide (Hydrochlorothiazide) 25 mg DAILY PO Last administered on 02/09/19 08:43; Admin Dose 25 MG; Start 02/06/19 at 09:00; Status Hold Levothyroxine Sodium (Synthroid) 75 mcg BEFORE BREAKFAST PO Last administered on 02/14/19 06:26; Admin Dose 75 MCG; Start 02/06/19 at 07:00 Sertraline HCl (Zoloft) 100 mg QAM PO Last administered on 02/14/19 08:11; Admin Dose 100 MG; Start 02/06/19 at 09:00 Trazodone HCl (Desyrel) 50 mg QHS PRN PO insomnia Last administered on 02/13/19 22:15; Admin Dose 50 MG; Start 02/05/19 at 17:30 Phenol (Cepastat Lozenge) 1 lozenge Q1H PRN MT sore throat Last administered on 02/10/19 21:23; Admin Dose 1 LOZENGE; Start 02/05/19 at 17:30 Miscellaneous Information 1 ea NOTE XX ; Start 02/05/19 at 19:00 Glucose (Glutose) 15 gm Q15M PRN PO DECREASED GLUCOSE; Start 02/05/19 at 19:00 Glucose (Glutose) 22.5 gm Q15M PRN PO DECREASED GLUCOSE; Start 02/05/19 at 19:00 Dextrose (D50w Syringe) 25 ml Q15M PRN IV DECREASED GLUCOSE; Start 02/05/19 at 19:00 Dextrose (D50w Syringe) 50 ml Q15M PRN IV DECREASED GLUCOSE; Start 02/05/19 at 19:00 Glucagon (Glucagen) 1 mg Q15M PRN IM DECREASED GLUCOSE; Start 02/05/19 at 19:00 Glucose (Glutose) 15 gm Q15M PRN BUCCAL DECREASED GLUCOSE; Start 02/05/19 at 19:00 Acetaminophen/ Butalbital/ Caffeine (Fioricet) 1 tab Q6H PRN PO PAIN Last administered on 02/14/19 08:44; Admin Dose 1 TAB; Start 02/06/19 at 12:00 Morphine Sulfate (morphine) 2 mg Q4H PRN IV SEVERE PAIN LEVEL 7-10 Last administered on 02/14/19 09:20; Admin Dose 2 MG; Start 02/07/19 at 11:30 Metoclopramide HCl (Reglan) 5 mg Q6H PRN IV nausea Last administered on 02/10/19 21:23; Admin Dose 5 MG; Start 02/10/19 at 08:00 Methylprednisolone (Medrol Dose Pack) 1 ea STD DOSE PACK PO ; Start 02/10/19 at 08:00 Methylprednisolone (Medrol) 4 mg AC BREAKFAST PO Last administered on 02/14/19 06:26; Admin Dose 4 MG; Start 02/11/19 at 07:25; Stop 02/15/19 at 07:26 Methylprednisolone (Medrol) 4 mg HS PO Last administered on 02/13/19 21:26; Admin Dose 4 MG; Start 02/12/19 at 21:00; Stop 02/14/19 at 21:01 Insulin Aspart (Novolog Insulin Pen) 6 unit WITH MEALS SC Last administered on 02/14/19 08:23; Admin Dose 6 UNIT; Start 02/10/19 at 17:55 Insulin Glargine (Lantus) 25 units BID SC Last administered on 02/14/19 08:23; Admin Dose 25 UNITS; Start 02/10/19 at 21:00 Insulin Aspart (Novolog Insulin Pen) NOVOLOG *MODERATE* ALGORITHM WITH MEALS BEDTIME SC Last administered on 02/13/19 21:40; Admin Dose 1 UNIT; Start 02/10/19 at 17:55 Senna/Docusate Sodium (Senokot-S) 1 tab DAILY PRN PO constipation Last administered on 02/13/19 06:16; Admin Dose 1 TAB; Start 02/10/19 at 13:30 Pantoprazole (Protonix Tab) 40 mg DAILY@06 PO Last administered on 02/14/19 0 6:26; Admin Dose 40 MG; Start 02/13/19 at 06:00 Polyethylene Glycol (Miralax) 17 gm DAILY PO Last administered on 02/14/19at 08:11; Admin Dose 17 GM; Start 02/12/19 at 10:00 Famotidine (Pepcid) 20 mg DAILY PO Last administered on 02/14/19at 08:11; Admin Dose 20 MG; Start 02/12/19 at 22:30 Al Hydrox/Mg Hydrox/Simethicone (Mag-Al Plus) 30 ml Q6H PRN PO GASTROINTESTINAL UPSET; Start 02/12/19 at 22:30 Hydralazine HCl (Apresoline) 10 mg Q4H PRN PO ELEVATED BLOOD PRESSURE Last administered on 02/13/19at 04:58; Admin Dose 10 MG; Start 02/13/19 at 04:30 Nifedipine (Procardia Xl) 60 mg BID PO Last administered on 02/14/19at 08:12; Admin Dose 60 MG; Start 02/13/19 at 09:00 Diagnostic Test (Pha) (Accu-Chek) 1 ea 02 XX ; Start 02/15/19 at 02:00 Ceftriaxone Sodium 50 ml @ 100 mls/hr Q24H IVPB Last administered on 02/14/19at 09:03; Admin Dose 100 MLS/HR; Start 02/14/19 at 08:30 Phenazopyridine HCl (Pyridium) 100 mg TID PRN PO dysuria; Start 02/14/19 at 08:30 Metoprolol Tartrate (Lopressor) 12.5 mg BID PO ; Start 02/14/19 at 09:00 ERICK BROWN MD Feb 14, 2019 11:12
--- NOTE | 2019-02-14 15:42 | CONS ---
Assessment/Plan Assessment/Plan Assessment/Plan (Recall) 63 F c/ multiple comorbidities, presents for evaluation of chest pain and other Sx.. Now w/ severe headache, for which neurology is consulted.. The clinical picture is consistent w/ recurrent migraine.. Meningitis is unlikely. Head CT was without obvious acute intracranial pathology. s/p Solumedrol 1vg iv x1, with clinical improvement P: Medrol pack Continue Reglan prn Limit Fioricet where possible given potential for superimposed medication overuse headaches.. Other management and supportive care per primary Will follow clinically Consultation Date/Type/Reason Admit Date/Time Feb 06, 2019 at 15:49 Type of Consult Neurology Reason for Consultation headache Requesting Provider: ISABELA TORIBIO Date/Time of Note DATE: 02/14/19 TIME: 15:41 24 HR Interval Summary Free Text/Dictation Continues acute care Notes a "little" headache Exam/Review of Systems Exam Vitals Vital Signs Date Temp Pulse Resp B/P (MAP) Pulse Ox O2 O2 Flow FiO2 Time Delivery Rate 02/14/19 98.3 56 18 139/76 100 11:09 (97) 02/13/19 Room Air 16:50 Intake and Output 02/13/19 02/13/19 02/14/19 1515:00 23:00 07:00 IntakeIntake Total 300 ml 1180 ml 200 ml BalanceBalance 300 ml 1180 ml 200 ml Results Result Diagram: 02/14/19 0722 02/14/19 0723 Results 24hrs Laboratory Tests Test 02/13/19 17:17 02/13/19 21:24 02/13/19 23:46 02/14/19 01:38 Bedside Glucose 222 H 194 129 Urine Color STRAW Urine Clarity CLEAR Urine pH 7.0 Urine Specific 1.003 [place] Urine Ketones NEGATIVE Urine Nitrite NEGATIVE Urine Bilirubin NEGATIVE Urine Urobilinogen NEGATIVE Urine Leukocyte 1+ H Esterase Urine Microscopic 0 RBC Urine Microscopic 7 H WBC Urine Bacteria MODERATE Urine Hemoglobin NEGATIVE Urine Glucose NEGATIVE Urine Total Protein NEGATIVE Test 02/14/19 07:22 02/14/19 07:23 02/14/19 08:09 02/14/19 10:07 White Blood Count 11.2 H Red Blood Count 4.49 Hemoglobin 12.5 Hematocrit 37.9 Mean Corpuscular 84.4 Volume Mean Corpuscular 27.8 L Hemoglobin Mean Corpuscular 33.0 Hemoglobin Concent Red Cell 13.9 Distribution Width Platelet Count 256 Mean Platelet Volume 10.4 Immature 2.400 H Granulocytes % Neutrophils % 61.6 Lymphocytes % 26.5 Monocytes % 6.4 Eosinophils % 2.2 Basophils % 0.9 Nucleated Red Blood 0.0 Cells % Immature 0.270 H Granulocytes # Neutrophils # 6.9 Lymphocytes # 3.0 H Monocytes # 0.7 Eosinophils # 0.2 Basophils # 0.1 Nucleated Red Blood 0.0 Cells # Sodium Level 142 Potassium Level 4.4 Chloride Level 105 Carbon Dioxide Level 28 Anion Gap 9 Blood Urea Nitrogen 29 H Creatinine 1.13 H Glucose Level 148 Calcium Level 8.6 Phosphorus Level 4.7 Magnesium Level 2.2 Albumin 3.6 Bedside Glucose 112 Troponin I < 0.012 Test 02/14/19 12:35 Bedside Glucose 110 Medications Medication Current Medications IV Flush (NS 3 ml) 3 ml PER PROTOCOL IV ; Start 02/05/19 at 17:00 Aspirin (Aspirin) 81 mg DAILY PO Last administered on 02/14/19 08:11; Admin Do se 81 MG; Start 02/06/19 at 09:00 Nitroglycerin (Nitroglycerin (Sl Tab) 0.4 Mg) 1 tab Q5M PRN SL .CHEST PAIN Last administered on 02/14/19 10:19; Admin Dose 1 TAB; Start 02/05/19 at 17:00 Acetaminophen (Tylenol Tab) 650 mg Q6H PRN PO .PAIN 1-3 OR TEMP Last administered on 02/08/19 12:15; Admin Dose 650 MG; Start 02/05/19 at 17:00 Atorvastatin Calcium (Lipitor) 80 mg QHS PO Last administered on 02/13/19 21:26; Admin Dose 80 MG; Start 02/05/19 at 21:00 Benazepril HCl (Lotensin) 10 mg DAILY PO Last administered on 02/09/19 08:43; Admin Dose 10 MG; Start 02/06/19 at 09:00; Status Hold Clopidogrel Bisulfate (plaVIX) 75 mg DAILY PO Last administered on 02/14/19 08:11; Admin Dose 75 MG; Start 02/06/19 at 09:00 Docusate Sodium (Colace) 100 mg BID PO Last administered on 02/14/19 08:11; Admin Dose 100 MG; Start 02/05/19 at 21:00 Hydrochlorothiazide (Hydrochlorothiazide) 25 mg DAILY PO Last administered on 02/09/19 08:43; Admin Dose 25 MG; Start 02/06/19 at 09:00; Status Hold Levothyroxine Sodium (Synthroid) 75 mcg BEFORE BREAKFAST PO Last administered on 02/14/19 06:26; Admin Dose 75 MCG; Start 02/06/19 at 07:00 Sertraline HCl (Zoloft) 100 mg QAM PO Last administered on 02/14/19 08:11; Admin Dose 100 MG; Start 02/06/19 at 09:00 Trazodone HCl (Desyrel) 50 mg QHS PRN PO insomnia Last administered on 02/13/19 22:15; Admin Dose 50 MG; Start 02/05/19 at 17:30 Phenol (Cepastat Lozenge) 1 lozenge Q1H PRN MT sore throat Last administered on 02/10/19 21:23; Admin Dose 1 LOZENGE; Start 02/05/19 at 17:30 Miscellaneous Information 1 ea NOTE XX ; Start 02/05/19 at 19:00 Glucose (Glutose) 15 gm Q15M PRN PO DECREASED GLUCOSE; Start 02/05/19 at 19:00 Glucose (Glutose) 22.5 gm Q15M PRN PO DECREASED GLUCOSE; Start 02/05/19 at 19:00 Dextrose (D50w Syringe) 25 ml Q15M PRN IV DECREASED GLUCOSE; Start 02/05/19 at 19:00 Dextrose (D50w Syringe) 50 ml Q15M PRN IV DECREASED GLUCOSE; Start 02/05/19 at 19:00 Glucagon (Glucagen) 1 mg Q15M PRN IM DECREASED GLUCOSE; Start 02/05/19 at 19:00 Glucose (Glutose) 15 gm Q15M PRN BUCCAL DECREASED GLUCOSE; Start 02/05/19 at 19:00 Acetaminophen/ Butalbital/ Caffeine (Fioricet) 1 tab Q6H PRN PO PAIN Last administered on 02/14/19 08:44; Admin Dose 1 TAB; Start 02/06/19 at 12:00 Morphine Sulfate (morphine) 2 mg Q4H PRN IV SEVERE PAIN LEVEL 7-10 Last ad ministered on 02/14/19 09:20; Admin Dose 2 MG; Start 02/07/19 at 11:30 Metoclopramide HCl (Reglan) 5 mg Q6H PRN IV nausea Last administered on 02/10/19 21:23; Admin Dose 5 MG; Start 02/10/19 at 08:00 Methylprednisolone (Medrol Dose Pack) 1 ea STD DOSE PACK PO ; Start 02/10/19 at 08:00 Methylprednisolone (Medrol) 4 mg AC BREAKFAST PO Last administered on 02/14/19 06:26; Admin Dose 4 MG; Start 02/11/19 at 07:25; Stop 02/15/19 at 07:26 Methylprednisolone (Medrol) 4 mg HS PO Last administered on 02/13/19 21:26; Admin Dose 4 MG; Start 02/12/19 at 21:00; Stop 02/14/19 at 21:01 Insulin Aspart (Novolog Insulin Pen) 6 unit WITH MEALS SC Last administered on 02/14/19 12:45; Admin Dose 6 UNIT; Start 02/10/19 at 17:55 Insulin Glargine (Lantus) 25 units BID SC Last administered on 02/14/19 08:23; Admin Dose 25 UNITS; Start 02/10/19 at 21:00 Insulin Aspart (Novolog Insulin Pen) NOVOLOG *MODERATE* ALGORITHM WITH MEALS BEDTIME SC Last administered on 02/13/19 21:40; Admin Dose 1 UNIT; Start at 17:55 Senna/Docusate Sodium (Senokot-S) 1 tab DAILY PRN PO constipation Last administered on 02/13/19 06:16; Admin Dose 1 TAB; Start 02/10/19 at 13:30 Pantoprazole (Protonix Tab) 40 mg DAILY@06 PO Last administered on 02/14/19 06:26; Admin Dose 40 MG; Start 02/13/19 at 06:00 Polyethylene Glycol (Miralax) 17 gm DAILY PO Last administered on 02/14/19 08:11; Admin Dose 17 GM; Start 02/12/19 at 10:00 Famotidine (Pepcid) 20 mg DAILY PO Last administered on 02/14/19 08:11; Admin Dose 20 MG; Start 02/12/19 at 22:30 Al Hydrox/Mg Hydrox/Simethicone (Mag-Al Plus) 30 ml Q6H PRN PO GASTROINTESTINAL UPSET; Start 02/12/19 at 22:30 Hydralazine HCl (Apresoline) 10 mg Q4H PRN PO ELEVATED BLOOD PRESSURE Last administered on 02/13/19at 04:58; Admin Dose 10 MG; Start 02/13/19 at 04:30 Nifedipine (Procardia Xl) 60 mg BID PO Last administered on 02/14/19at 08:12; Admin Dose 60 MG; Start 02/13/19 at 09:00 Ceftriaxone Sodium 50 ml @ 100 mls/hr Q24H IVPB Last administered on 02/14/19at 09:03; Admin Dose 100 MLS/HR; Start 02/14/19 at 08:30 Phenazopyridine HCl (Pyridium) 100 mg TID PRN PO dysuria; Start 02/14/19 at 08:30 Metoprolol Tartrate (Lopressor) 12.5 mg BID PO ; Start 02/14/19 at 09:00 JOSE FUENTES Feb 14, 2019 15:42
--- NOTE | 2019-02-14 16:10 | CONS ---
Assessment/Plan Assessment/Plan Hospital Course (Demo Recall) Chest discomfort CAD with history of PCI Preserved ejection fraction Diabetes Hypertension Dyslipidemia Patient with chest discomfort this morning, pinching-like, needle and burning. No shortness of breath Initial cardiac enzymes are negative today, will check serial cardiac enzymes Consultation Date/Type/Reason Admit Date/Time Feb 06, 2019 at 15:49 Initial Consult Date Type of Consult Cardiology Requesting Provider: ISABELA TORIBIO Date/Time of Note DATE: 02/14/19 TIME: 16:08 24 HR Interval Summary Free Text/Dictation Patient complains of chest pain today. Pinching-like in sensation, needlelike and sharp and in her shoulder. No shortness of breath. Exam/Review of Systems Vital Signs Vitals Vital Signs Date Temp Pulse Resp B/P (MAP) Pulse Ox O2 O2 Flow FiO2 Time Delivery Rate 02/14/19 98.2 60 18 155/79 95 15:42 (104) 02/13/19 Room Air 16:50 Intake and Output 02/13/19 02/13/19 02/14/19 1515:00 23:00 07:00 IntakeIntake Total 300 ml 1180 ml 200 ml BalanceBalance 300 ml 1180 ml 200 ml Exam Constitutional: alert, oriented (No apparent distress) Head: normocephalic Respiratory: other (Coarse breath sounds bilaterally, no wheezing) Cardiovascular: regular rate and rhythm (S1-S2 heard) Gastrointestinal: soft, non-tender, bowel sounds Extremities: other (No significant edema) Labs Result Diagram: 02/14/19 0722 02/14/19 0723 Results 24hrs Laboratory Tests Test 02/13/19 17:17 02/13/19 21:24 02/13/19 23:46 02/14/19 01:38 Bedside Glucose 222 H 194 129 Urine Color STRAW Urine Clarity CLEAR Urine pH 7.0 Urine Specific 1.003 [place] Urine Ketones NEGATIVE Urine Nitrite NEGATIVE Urine Bilirubin NEGATIVE Urine Urobilinogen NEGATIVE Urine Leukocyte 1+ H Esterase Urine Microscopic 0 RBC Urine Microscopic 7 H WBC Urine Bacteria MODERATE Urine Hemoglobin NEGATIVE Urine Glucose NEGATIVE Urine Total Protein NEGATIVE Test 02/14/19 07:22 02/14/19 07:23 02/14/19 08:09 02/14/19 10:07 White Blood Count 11.2 H Red Blood Count 4.49 Hemoglobin 12.5 Hematocrit 37.9 Mean Corpuscular 84.4 Volume Mean Corpuscular 27.8 L Hemoglobin Mean Corpuscular 33.0 Hemoglobin Concent Red Cell 13.9 Distribution Width Platelet Count 256 Mean Platelet Volume 10.4 Immature 2.400 H Granulocytes % Neutrophils % 61.6 Lymphocytes % 26.5 Monocytes % 6.4 Eosinophils % 2.2 Basophils % 0.9 Nucleated Red Blood 0.0 Cells % Immature 0.270 H Granulocytes # Neutrophils # 6.9 Lymphocytes # 3.0 H Monocytes # 0.7 Eosinophils # 0.2 Basophils # 0.1 Nucleated Red Blood 0.0 Cells # Sodium Level 142 Potassium Level 4.4 Chloride Level 105 Carbon Dioxide Level 28 Anion Gap 9 Blood Urea Nitrogen 29 H Creatinine 1.13 H Glucose Level 148 Calcium Level 8.6 Phosphorus Level 4.7 Magnesium Level 2.2 Albumin 3.6 Bedside Glucose 112 Troponin I < 0.012 Test 02/14/19 12:35 Bedside Glucose 110 Medications Medications Current Medications IV Flush (NS 3 ml) 3 ml PER PROTOCOL IV ; Start 02/05/19 at 17:00 Aspirin (Aspirin) 81 mg DAILY PO Last administered on 02/14/19 08:11; Admin Dose 81 MG; Start 02/06/19 at 09:00 Nitroglycerin (Nitroglycerin (Sl Tab) 0.4 Mg) 1 tab Q5M PRN SL .CHEST PAIN Last administered on 02/14/19 10:19; Admin Dose 1 TAB; Start 02/05/19 at 17:00 Acetaminophen (Tylenol Tab) 650 mg Q6H PRN PO .PAIN 1-3 OR TEMP Last administered on 02/08/19 12:15; Admin Dose 650 MG; Start 02/05/19 at 17:00 Atorvastatin Calcium (Lipitor) 80 mg QHS PO Last administered on 02/13/19 21:26; Admin Dose 80 MG; Start 02/05/19 at 21:00 Benazepril HCl (Lotensin) 10 mg DAILY PO Last administered on 02/09/19 08:43; A dmin Dose 10 MG; Start 02/06/19 at 09:00; Status Hold Clopidogrel Bisulfate (plaVIX) 75 mg DAILY PO Last administered on 02/14/19 08:11; Admin Dose 75 MG; Start 02/06/19 at 09:00 Docusate Sodium (Colace) 100 mg BID PO Last administered on 02/14/19 08:11; Admin Dose 100 MG; Start 02/05/19 at 21:00 Hydrochlorothiazide (Hydrochlorothiazide) 25 mg DAILY PO Last administered on 02/09/19 08:43; Admin Dose 25 MG; Start 02/06/19 at 09:00; Status Hold Levothyroxine Sodium (Synthroid) 75 mcg BEFORE BREAKFAST PO Last administered on 02/14/19 06:26; Admin Dose 75 MCG; Start 02/06/19 at 07:00 Sertraline HCl (Zoloft) 100 mg QAM PO Last administered on 02/14/19 08:11; Admin Dose 100 MG; Start 02/06/19 at 09:00 Trazodone HCl (Desyrel) 50 mg QHS PRN PO insomnia Last administered on 02/13/19 22:15; Admin Dose 50 MG; Start 02/05/19 at 17:30 Phenol (Cepastat Lozenge) 1 lozenge Q1H PRN MT sore throat Last administered on 02/10/19 21:23; Admin Dose 1 LOZENGE; Start 02/05/19 at 17:30 Miscellaneous Information 1 ea NOTE XX ; Start 02/05/19 at 19:00 Glucose (Glutose) 15 gm Q15M PRN PO DECREASED GLUCOSE; Start 02/05/19 at 19:00 Glucose (Glutose) 22.5 gm Q15M PRN PO DECREASED GLUCOSE; Start 02/05/19 at 19:00 Dextrose (D50w Syringe) 25 ml Q15M PRN IV DECREASED GLUCOSE; Start 02/05/19 at 19:00 Dextrose (D50w Syringe) 50 ml Q15M PRN IV DECREASED GLUCOSE; Start 02/05/19 at 19:00 Glucagon (Glucagen) 1 mg Q15M PRN IM DECREASED GLUCOSE; Start 02/05/19 at 19:00 Glucose (Glutose) 15 gm Q15M PRN BUCCAL DECREASED GLUCOSE; Start 02/05/19 at 19:00 Acetaminophen/ Butalbital/ Caffeine (Fioricet) 1 tab Q6H PRN PO PAIN Last administered on 02/14/19 08:44; Admin Dose 1 TAB; Start 02/06/19 at 12:00 Morphine Sulfate (morphine) 2 mg Q4H PRN IV SEVERE PAIN LEVEL 7-10 Last administered on 02/14/19 09:20; Admin Dose 2 MG; Start 02/07/19 at 11:30 Metoclopramide HCl (Reglan) 5 mg Q6H PRN IV nausea Last administered on 02/10/19 21:23; Admin Dose 5 MG; Start 02/10/19 at 08:00 Methylprednisolone (Medrol Dose Pack) 1 ea STD DOSE PACK PO ; Start 02/10/19 at 08:00 Methylprednisolone (Medrol) 4 mg AC BREAKFAST PO Last administered on 02/14/19 06:26; Admin Dose 4 MG; Start 02/11/19 at 07:25; Stop 02/15/19 at 07:26 Methylprednisolone (Medrol) 4 mg HS PO Last administered on 02/13/19 21:26; Admin Dose 4 MG; Start 02/12/19 at 21:00; Stop 02/14/19 at 21:01 Insulin Aspart (Novolog Insulin Pen) 6 unit WITH MEALS SC Last administered on 02/14/19 12:45; Admin Dose 6 UNIT; Start 02/10/19 at 17:55 Insulin Glargine (Lantus) 25 units BID SC Last administered on 02/14/19 08:23; Admin Dose 25 UNITS; Start 02/10/19 at 21:00 Insulin Aspart (Novolog Insulin Pen) NOVOLOG *MODERATE* ALGORITHM WITH MEALS BEDTIME SC Last administered on 02/13/19 21:40; Admin Dose 1 UNIT; Start 02/10/19 at 17:55 Senna/Docusate Sodium (Senokot-S) 1 tab DAILY PRN PO constipation Last administered on 02/13/19 06:16; Admin Dose 1 TAB; Start 02/10/19 at 13:30 Pantoprazole (Protonix Tab) 40 mg DAILY@06 PO Last administered on 02/14/19 06:26; Admin Dose 40 MG; Start 02/13/19 at 06:00 Polyethylene Glycol (Miralax) 17 gm DAILY PO Last administered on 02/14/19 08:11; Admin Dose 17 GM; Start 02/12/19 at 10:00 Famotidine (Pepcid) 20 mg DAILY PO Last administered on 02/14/19 08:11; Admin Dose 20 MG; Start 02/12/19 at 22:30 Al Hydrox/Mg Hydrox/Simethicone (Mag-Al Plus) 30 ml Q6H PRN PO GASTROINTESTINAL UPSET; Start 02/12/19 at 22:30 Hydralazine HCl (Apresoline) 10 mg Q4H PRN PO ELEVATED BLOOD PRESSURE Last administered on 02/13/19at 04:58; Admin Dose 10 MG; Start 02/13/19 at 04:30 Nifedipine (Procardia Xl) 60 mg BID PO Last administered on 02/14/19at 08:12; Admin Dose 60 MG; Start 02/13/19 at 09:00 Ceftriaxone Sodium 50 ml @ 100 mls/hr Q24H IVPB Last administered on 02/14/19at 09:03; Admin Dose 100 MLS/HR; Start 02/14/19 at 08:30 Phenazopyridine HCl (Pyridium) 100 mg TID PRN PO dysuria; Start 02/14/19 at 08:30 Metoprolol Tartrate (Lopressor) 12.5 mg BID PO ; Start 02/14/19 at 09:00 Philipp Mcdonnell DO Feb 14, 2019 16:10
--- NOTE | 2019-02-14 19:14 | RADRPT ---
Vent Rate: 58 bpm RR Interval: 1036 msec MD Interval: 202 msec QRS Duration: 97 msec QT Interval: 437 msec QTC Interval: 429 msec P-R-T [place]: 44 - -59 - 98 degrees Sinus rhythm...normal P axis, V-rate 50- 99 LAD, consider left anterior fascicular block...axis(240,-40), S>R II III aVF Nonspecific T abnrm, anterolateral leads...T <-0.10mV, I aVL V2-V6 Electronically Signed By: Mihir Payne
[2019-02-14] MEDS: ATORVASTATIN 80 MG TAB PO SCH (21:02)
[2019-02-14] MEDS: SENNA/DOCUSATE NA (8.6MG/50MG) TAB PO SCH (21:03)
[2019-02-14] MEDS: traZODone 50 MG TAB PO PRN (22:26)
[2019-02-15] MEDS ORDERED: ACCU-CHEK XX SCH (02:00)
[2019-02-15 03:44] VITALS: BP 140/87; PULSE 57; RESP 18
[2019-02-15] MEDS: METHYLPREDNISOLONE 4 MG TAB PO SCH (06:27)
[2019-02-15] MEDS: LEVOTHYROXINE 75 MCG TAB PO SCH (06:28)
[2019-02-15] MEDS: PANTOPRAZOLE (EC) 40 MG TAB PO SCH ×2 (06:28→17:08)
[2019-02-15 07:13] VITALS: BP 133/77; PULSE 59; RESP 18
[2019-02-15] MEDS: INSULIN ASPART [NOVOLOG] 3 ML PEN SC SCH ×3 (07:40→17:24)
[2019-02-15] MEDS: Insulin NOVOLOG SS MODERATE Algorithm(NPO/TPN/ENTERAL FEEDS) SC SCH ×4 (07:41→20:28)
[2019-02-15] MEDS: SERTRALINE 100 MG TAB PO SCH (08:07)
[2019-02-15] MEDS: ASPIRIN 81 MG TAB PO SCH (08:07)
[2019-02-15] MEDS: CLOPIDOGREL 75 MG TAB PO SCH (08:07)
[2019-02-15] MEDS: NIFEdipine (XL) 30 MG TAB PO SCH ×2 (08:08→20:28)
[2019-02-15] MEDS: METOPROLOL 25 MG TAB PO SCH ×2 (08:08→20:28)
[2019-02-15] MEDS: FAMOTIDINE 20 MG TAB PO SCH (08:09)
[2019-02-15] MEDS: POLYETHYLENE GLYCOL 17 GM PACKET PO SCH (08:09)
[2019-02-15] MEDS: SENNA/DOCUSATE NA (8.6MG/50MG) TAB PO SCH ×2 (08:09→20:27)
[2019-02-15] MEDS: INSULIN GLARGINE [LANTus] (100 UNITS/ML) SYG SC SCH ×2 (08:10→21:18)
[2019-02-15] MEDS: CEFTRIAXONE 1 GM/50 ML (PMX) 50 ML IVPB SCH (08:11)
[2019-02-15] MEDS ORDERED: INSULIN ASPART [NOVOLOG] 3 ML PEN SC SCH (09:00)
[2019-02-15] MEDS ORDERED: REGADENOSON 0.4 MG/5 ML SYG ONE (09:39)
--- NOTE | 2019-02-15 10:09 | PN ---
DATE: 02/15/2019 SUBJECTIVE: The patient is complaining about chest pain. The patient's headaches have improved. Th e patient is pending stress test this morning. No other events noted. OBJECTIVE: VITAL SIGNS: Blood pressure is 133/77, respiration 18, pulse 59, temperature 98.2. HEENT: Head is normocephalic. NECK: Supple. HEART: Regular rate. LUNGS: Show diminished breath sounds at the base. ABDOMEN: Soft, nontender to palpation without rebound or guarding. EXTREMITIES: Negative for clubbing, cyanosis, no edema. DERMATOLOGIC: No rashes. MUSCULOSKELETAL: No joint effusion. NEUROLOGIC: No change in exam. MEDICATIONS: Reviewed. LABORATORY DATA: Have been reviewed. IMAGING STUDIES: Have been reviewed. ASSESSMENT AND PLAN: 1. Nonoliguric acute kidney injury on top of chronic kidney disease, unknown baseline creatinine. E tiology is secondary to hemodynamics. Renal function is improving. Continue current treatment plans , supportive care, renally dose all medicines. 2. Mineral bone disorder. Monitor calcium and phosphorus levels. 3. Hypertension. Continue current blood pressure regimen. 4. Chest pain. The patient is pending stress test per cardiology. Continue morphine. Two nitrogly cerin as needed. 5. Migraine headaches, improved, possibly due to underlying Imdur. 6. Diabetes. Continue current insulin regimen. Dictated By: JUAN RUDOLPH DO NR/NTS Conf#: [id number] DID#: [id number] CC: ISABELA TORIBIO MD;*EndCC*
[2019-02-15 11:11] VITALS: BP 130/65; PULSE 61; RESP 18
--- NOTE | 2019-02-15 12:36 | CONS ---
Assessment/Plan Assessment/Plan Hospital Course (Demo Recall) Atypical chest discomfort Normal nuclear cardiac perfusion study 02/15/2019 CAD with history of PCI Preserved ejection fraction Diabetes Hypertension Dyslipidemia Patient with intermittent chest discomfort which is tingling-like, burning and at times pinching-like. Given her history of CAD, she underwent nuclear cardiac perfusion study today with no evidence of ischemia. Serial cardiac enzymes remain negative. Her symptoms do not appear cardiac in etiology. No further inpatient cardiac work-up needed at the current time. DC planning Consultation Date/Type/Reason Admit Date/Time Feb 06, 2019 at 15:49 Initial Consult Date Type of Consult Cardiology Requesting Provider: ISBAELA TORIBIO Date/Time of Note DATE: 02/15/19 TIME: 12:34 24 HR Interval Summary Free Text/Dictation Intermittent chest pain with arm movements, tingling-like sensation and burning. Very anxious Exam/Review of Systems Vital Signs Vitals Vital Signs Date Temp Pulse Resp B/P (MAP) Pulse Ox O2 O2 Flow FiO2 Time Delivery Rate 02/15/19 98.2 61 18 130/65 97 Room Air 11:11 (86) 02/14/19 2.0 16:45 Intake and Output 02/14/19 02/14/19 02/15/19 1515:00 23:00 07:00 IntakeIntake Total 50 ml 800 ml 300 ml BalanceBalance 50 ml 800 ml 300 ml Exam Constitutional: alert, oriented (Anxious) Head: normocephalic Respiratory: clear to auscultation, normal air movement Cardiovascular: regular rate and rhythm (S1-S2 heard) Gastrointestinal: soft, non-tender, bowel sounds Extremities: other (No edema) Labs Result Diagram: 02/15/19 0737 02/15/19 0737 Results 24hrs Laboratory Tests Test 02/14/19 12:35 02/14/19 17:51 02/14/19 18:11 02/14/19 21:04 Bedside Glucose 110 115 150 Creatine Kinase 21 L Creatine Kinase 1.0 Index Creatinine Kinase MB < 0.22 (Mass) Troponin I < 0.012 Test 02/15/19 06:06 02/15/19 07:37 02/15/19 07:38 02/15/19 09:20 Bedside Glucose 170 135 119 White Blood Count 10.3 Red Blood Count 4.82 Hemoglobin 13.0 Hematocrit 40.7 Mean Corpuscular 84.4 Volume Mean Corpuscular 27.0 L Hemoglobin Mean Corpuscular 31.9 L Hemoglobin Concent Red Cell 14.1 Distribution Width Platelet Count 259 Mean Platelet Volume 10.4 Immature 2.700 H Granulocytes % Neutrophils % 61.8 Lymphocytes % 23.8 Monocytes % 6.7 Eosinophils % 4.2 Basophils % 0.8 Nucleated Red Blood 0.0 Cells % Immature 0.280 H Granulocytes # Neutrophils # 6.4 Lymphocytes # 2.5 Monocytes # 0.7 Eosinophils # 0.4 Basophils # 0.1 Nucleated Red Blood 0.0 Cells # Sodium Level 141 Potassium Level 4.5 Chloride Level 103 Carbon Dioxide Level 27 Anion Gap 11 Blood Urea Nitrogen 26 H Creatinine 1.03 H Glucose Level 136 Calcium Level 8.3 L Phosphorus Level 5.0 H Magnesium Level 2.0 Albumin 3.7 Test 02/15/19 11:31 Bedside Glucose 127 Medications Medications Current Medications IV Flush (NS 3 ml) 3 ml PER PROTOCOL IV ; Start 02/05/19 at 17:00 Aspirin (Aspirin) 81 mg DAILY PO Last administered on 02/15/19 08:07; Admin Dose 81 MG; Start 02/06/19 at 09:00 Nitroglycerin (Nitroglycerin (Sl Tab) 0.4 Mg) 1 tab Q5M PRN SL .CHEST PAIN Last administered on 02/14/19 20:38; Admin Dose 1 TAB; Start 02/05/19 at 17:00 Acetaminophen (Tylenol Tab) 650 mg Q6H PRN PO .PAIN 1-3 OR TEMP Last administered on 02/08/19 12:15; Admin Dose 650 MG; Start 02/05/19 at 17:00 Atorvastatin Calcium (Lipitor) 80 mg QHS PO Last administered on 02/14/19 21:02; Admin Dose 80 MG; Start 02/05/19 at 21:00 Benazepril HCl (Lotensin) 10 mg DAILY PO Last administered on 02/09/19 08:43; Admin Dose 10 MG; Start 02/06/19 at 09:00; Status Hold Clopidogrel Bisulfate (plaVIX) 75 mg DAILY PO Last administered on 02/15/19 08:07; Admin Dose 75 MG; Start 02/06/19 at 09:00 Hydrochlorothiazide (Hydrochlorothiazide) 25 mg DAILY PO Last administered on 02/09/19 08:43; Admin Dose 25 MG; Start 02/06/19 at 09:00; Status Hold Levothyroxine Sodium (Synthroid) 75 mcg BEFORE BREAKFAST PO Last administered on 02/15/19 06:28; Admin Dose 75 MCG; Start 02/06/19 at 07:00 Sertraline HCl (Zoloft) 100 mg QAM PO Last administered on 02/15/19 08:07; Admin Dose 100 MG; Start 02/06/19 at 09:00 Trazodone HCl (Desyrel) 50 mg QHS PRN PO insomnia Last administered on 02/14/19 t 22:26; Admin Dose 50 MG; Start 02/05/19 at 17:30 Phenol (Cepastat Lozenge) 1 lozenge Q1H PRN MT sore throat Last administered on 02/10/19 21:23; Admin Dose 1 LOZENGE; Start 02/05/19 at 17:30 Miscellaneous Information 1 ea NOTE XX ; Start 02/05/19 at 19:00 Glucose (Glutose) 15 gm Q15M PRN PO DECREASED GLUCOSE; Start 02/05/19 at 19:00 Glucose (Glutose) 22.5 gm Q15M PRN PO DECREASED GLUCOSE; Start 02/05/19 at 19:00 Dextrose (D50w Syringe) 25 ml Q15M PRN IV DECREASED GLUCOSE; Start 02/05/19 at 19:00 Dextrose (D50w Syringe) 50 ml Q15M PRN IV DECREASED GLUCOSE; Start 02/05/19 at 19:00 Glucagon (Glucagen) 1 mg Q15M PRN IM DECREASED GLUCOSE; Start 02/05/19 at 19:00 Glucose (Glutose) 15 gm Q15M PRN BUCCAL DECREASED GLUCOSE; Start 02/05/19 at 19:00 Acetaminophen/ Butalbital/ Caffeine (Fioricet) 1 tab Q6H PRN PO PAIN Last administered on 02/14/19 08:44; Admin Dose 1 TAB; Start 02/06/19 at 12:00 Morphine Sulfate (morphine) 2 mg Q4H PRN IV SEVERE PAIN LEVEL 7-10 Last administered on 02/14/19 20:39; Admin Dose 2 MG; Start 02/07/19 at 11:30 Metoclopramide HCl (Reglan) 5 mg Q6H PRN IV nausea Last administered on 02/10/19 21:23; Admin Dose 5 MG; Start 02/10/19 at 08:00 Methylprednisolone (Medrol Dose Pack) 1 ea STD DOSE PACK PO ; Start 02/10/19 at 08:00 Insulin Aspart (Novolog Insulin Pen) 6 unit WITH MEALS SC Last administered on 02/14/19 18:05; Admin Dose 6 UNIT; Start 02/10/19 at 17:55 Insulin Glargine (Lantus) 25 units BID SC Last administered on 02/15/19 08:10; Admin Dose 25 UNITS; Start 02/10/19 at 21:00 Pantoprazole (Protonix Tab) 40 mg DAILY@06 PO Last administered on 02/15/19 06:28; Admin Dose 40 MG; Start 02/13/19 at 06:00 Polyethylene Glycol (Miralax) 17 gm DAILY PO Last administered on 02/15/19 08:09; Admin Dose 17 GM; Start 02/12/19 at 10:00 Famotidine (Pepcid) 20 mg DAILY PO Last administered on 02/15/19 08:09; Admin Dose 20 MG; Start 02/12/19 at 22:30 Al Hydrox/Mg Hydrox/Simethicone (Mag-Al Plus) 30 ml Q6H PRN PO GASTROINTESTINAL UPSET; Start 02/12/19 at 22:30 Hydralazine HCl (Apresoline) 10 mg Q4H PRN PO ELEVATED BLOOD PRESSURE Last administered on 02/13/19 04:58; Admin Dose 10 MG; Start 02/13/19 at 04:30 Nifedipine (Procardia Xl) 60 mg BID PO Last administered on 02/14/19 21:02; Admin Dose 60 MG; Start 02/13/19 at 09:00 Ceftriaxone Sodium 50 ml @ 100 mls/hr Q24H IVPB Last administered on 02/15/19 08:11; Admin Dose 100 MLS/HR; Start 02/14/19 at 08:30 Phenazopyridine HCl (Pyridium) 100 mg TID PRN PO dysuria; Start 02/14/19 at 08:30 Metoprolol Tartrate (Lopressor) 12.5 mg BID PO Last administered on 02/14/19 21:02; Admin Dose 12.5 MG; Start 02/14/19 at 09:00 Senna/Docusate Sodium (Senokot-S) 1 tab BID PO Last administered on 02/15/19at 0 8:09; Admin Dose 1 TAB; Start 02/14/19 at 21:00 Insulin Aspart (Novolog Insulin Pen) (Adult SC Insulin - Moder... Q4 SC ; Start 02/15/19 at 09:00 Philipp Mcdonnell DO Feb 15, 2019 12:36
[2019-02-15] MEDS ORDERED: MEROPENEM 500MG/50 ML (PMX) 50 ML IVPB SCH (13:00)
--- NOTE | 2019-02-15 13:40 | PN ---
Date/Time of Note Date/Time of Note DATE: 02/15/19 TIME: 13:32 Assessment/Plan VTE Prophylaxis Risk score (from Ns)>0 risk: 4 SCD applied (from [facility]): No SCD contraindicated: low risk/ambulating Pharmacological prophylaxis: NA/contraindicated, other Pharm contraindication: low risk/ambulating Lines/Catheters IV C[facility]ter Type (from [facility] Saline Lock Urinary Cath still in place: No Assessment/Plan Assessment/Plan 1. Acute chest pain - Stress test this am is negative for acute ischemia - Cardiology consulted and appreciate recommendations. ACS ruled out and most likely GI etiology - continue on aspirin and statin - Serial trops negative 2. ESBL UTI - ID consulted for antibiotic recommendations - Meropenem started and Rocephin d/c 3. Acute onset headache, intermittent- improved - Neurology on board for recommendations and appreciate consultation. Continue Medrol pack and limit Fioricet - PRN reglan 4. Hypertension - Continue home medications. adjusting for better BP control 5. Mild acute kidney insufficiency- improving - Nephrology on board and appreciate recommendations 6. Mood disorder - Continue sertraline 7. Hypothyroidism - Continue home medications 8. Diabetes mellitus - Hold p.o. metformin - Insulin while in house 9. GERD - PPI 10. Disposition - ID consulted given patient has ESBL UTI. Will isolate and start on Meropenem. Discussed with patient she will need to continue 7 days of IV antibiotics Result Diagram: 02/15/19 0737 02/15/19 0737 Results 24hrs Laboratory Tests Test 02/14/19 17:51 02/14/19 18:11 02/14/19 21:04 02/15/19 06:06 Bedside Glucose 115 150 170 Creatine Kinase 21 L Creatine Kinase 1.0 Index Creatinine Kinase MB < 0.22 (Mass) Troponin I < 0.012 Test 02/15/19 07:37 02/15/19 07:38 02/15/19 09:20 02/15/19 11:31 White Blood Count 10.3 Red Blood Count 4.82 Hemoglobin 13.0 Hematocrit 40.7 Mean Corpuscular 84.4 Volume Mean Corpuscular 27.0 L Hemoglobin Mean Corpuscular 31.9 L Hemoglobin Concent Red Cell 14.1 Distribution Width Platelet Count 259 Mean Platelet Volume 10.4 Immature 2.700 H Granulocytes % Neutrophils % 61.8 Lymphocytes % 23.8 Monocytes % 6.7 Eosinophils % 4.2 Basophils % 0.8 Nucleated Red Blood 0.0 Cells % Immature 0.280 H Granulocytes # Neutrophils # 6.4 Lymphocytes # 2.5 Monocytes # 0.7 Eosinophils # 0.4 Basophils # 0.1 Nucleated Red Blood 0.0 Cells # Sodium Level 141 Potassium Level 4.5 Chloride Level 103 Carbon Dioxide Level 27 Anion Gap 11 Blood Urea Nitrogen 26 H Creatinine 1.03 H Glucose Level 136 Calcium Level 8.3 L Phosphorus Level 5.0 H Magnesium Level 2.0 Albumin 3.7 Bedside Glucose 135 119 127 Subjective 24 Hr Interval Summary Free Text/Dictation Patient still with chest discomfort and states she is concerned. Discussed stress test was negative. She is complaining of dysuria as well. Exam/Review of Systems Exam Vitals Vital Signs Date Temp Pulse Resp B/P (MAP) Pulse Ox O2 O2 Flow FiO2 Time Delivery Rate 02/15/19 98.2 61 18 130/65 97 Room Air 11:11 (86) 02/14/19 2.0 16:45 Intake and Output 02/14/19 02/14/19 02/15/19 1515:00 23:00 07:00 IntakeIntake Total 50 ml 800 ml 300 ml BalanceBalance 50 ml 800 ml 300 ml Exam General: Patient is laying in bed, concerned over pain in chest and bladder Neck: Supple Respiratory: Clear to auscultation bilaterally. no wheezing or rhonchi Cardiovascular: regular rate and rhythm, no obvious murmurs Gastrointestinal: soft, non-tender to palpation epigastric area, nondistended, bowel sounds heard. Ext: Moves all extremities spontaneously Skin: No new skin lesions Results Results 24hrs Laboratory Tests Test 02/14/19 17:51 02/14/19 18:11 02/14/19 21:04 02/15/19 06:06 Bedside Glucose 115 150 170 Creatine Kinase 21 L Creatine Kinase 1.0 Index Creatinine Kinase MB < 0.22 (Mass) Troponin I < 0.012 Test 02/15/19 07:37 02/15/19 07:38 02/15/19 09:20 02/15/19 11:31 White Blood Count 10.3 Red Blood Count 4.82 Hemoglobin 13.0 Hematocrit 40.7 Mean Corpuscular 84.4 Volume Mean Corpuscular 27.0 L Hemoglobin Mean Corpuscular 31.9 L Hemoglobin Concent Red Cell 14.1 Distribution Width Platelet Count 259 Mean Platelet Volume 10.4 Immature 2.700 H Granulocytes % Neutrophils % 61.8 Lymphocytes % 23.8 Monocytes % 6.7 Eosinophils % 4.2 Basophils % 0.8 Nucleated Red Blood 0.0 Cells % Immature 0.280 H Granulocytes # Neutrophils # 6.4 Lymphocytes # 2.5 Monocytes # 0.7 Eosinophils # 0.4 Basophils # 0.1 Nucleated Red Blood 0.0 Cells # Sodium Level 141 Potassium Level 4.5 Chloride Level 103 Carbon Dioxide Level 27 Anion Gap 11 Blood Urea Nitrogen 26 H Creatinine 1.03 H Glucose Level 136 Calcium Level 8.3 L Phosphorus Level 5.0 H Magnesium Level 2.0 Albumin 3.7 Bedside Glucose 135 119 127 Medications Medication Current Medications IV Flush (NS 3 ml) 3 ml PER PROTOCOL IV ; Start 02/05/19 at 17:00 Aspirin (Aspirin) 81 mg DAILY PO Last administered on 02/15/19 08:07; Admin Dose 81 MG; Start 02/06/19 at 09:00 Nitroglycerin (Nitroglycerin (Sl Tab) 0.4 Mg) 1 tab Q5M PRN SL .CHEST PAIN Last administered on 02/14/19 20:38; Admin Dose 1 TAB; Start 02/05/19 at 17:00 Acetaminophen (Tylenol Tab) 650 mg Q6H PRN PO .PAIN 1-3 OR TEMP Last administered on 02/08/19 12:15; Admin Dose 650 MG; Start 02/05/19 at 17:00 Atorvastatin Calcium (Lipitor) 80 mg QHS PO Last administered on 02/14/19 21:02; Admin Dose 80 MG; Start 02/05/19 at 21:00 Benazepril HCl (Lotensin) 10 mg DAILY PO Last administered on 02/09/19 08:43; Admin Dose 10 MG; Start 02/06/19 at 09:00; Status Hold Clopidogrel Bisulfate (plaVIX) 75 mg DAILY PO Last administered on 02/15/19 08:07; Admin Dose 75 MG; Start 02/06/19 at 09:00 Hydrochlorothiazide (Hydrochlorothiazide) 25 mg DAILY PO Last administered on 02/09/19 08:43; Admin Dose 25 MG; Start 02/06/19 at 09:00; Status Hold Levothyroxine Sodium (Synthroid) 75 mcg BEFORE BREAKFAST PO Last administered on 02/15/19 06:28; Admin Dose 75 MCG; Start 02/06/19 at 07:00 Sertraline HCl (Zoloft) 100 mg QAM PO Last administered on 02/15/19 08:07; Admin Dose 100 MG; Start 02/06/19 at 09:00 Trazodone HCl (Desyrel) 50 mg QHS PRN PO insomnia Last administered on 02/14/19 22:26; Admin Dose 50 MG; Start 02/05/19 at 17:30 Phenol (Cepastat Lozenge) 1 lozenge Q1H PRN MT sore throat Last administered on 02/10/19 21:23; Admin Dose 1 LOZENGE; Start 02/05/19 at 17:30 Miscellaneous Information 1 ea NOTE XX ; Start 02/05/19 at 19:00 Glucose (Glutose) 15 gm Q15M PRN PO DECREASED GLUCOSE; Start 02/05/19 at 19:00 Glucose (Glutose) 22.5 gm Q15M PRN PO DECREASED GLUCOSE; Start 02/05/19 at 19:00 Dextrose (D50w Syringe) 25 ml Q15M PRN IV DECREASED GLUCOSE; Start 02/05/19 at 19:00 Dextrose (D50w Syringe) 50 ml Q15M PRN IV DECREASED GLUCOSE; Start 02/05/19 at 19:00 Glucagon (Glucagen) 1 mg Q15M PRN IM DECREASED GLUCOSE; Start 02/05/19 at 19:00 Glucose (Glutose) 15 gm Q15M PRN BUCCAL DECREASED GLUCOSE; Start 02/05/19 at 19:00 Acetaminophen/ Butalbital/ Caffeine (Fioricet) 1 tab Q6H PRN PO PAIN Last administered on 02/14/19 08:44; Admin Dose 1 TAB; Start 02/06/19 at 12:00 Morphine Sulfate (morphine) 2 mg Q4H PRN IV SEVERE PAIN LEVEL 7-10 Last adm inistered on 02/14/19 20:39; Admin Dose 2 MG; Start 02/07/19 at 11:30 Metoclopramide HCl (Reglan) 5 mg Q6H PRN IV nausea Last administered on 02/10/19 21:23; Admin Dose 5 MG; Start 02/10/19 at 08:00 Methylprednisolone (Medrol Dose Pack) 1 ea STD DOSE PACK PO ; Start 02/10/19 at 08:00 Insulin Aspart (Novolog Insulin Pen) 6 unit WITH MEALS SC Last administered on 02/14/19at 18:05; Admin Dose 6 UNIT; Start 02/10/19 at 17:55 Insulin Glargine (Lantus) 25 units BID SC Last administered on 02/15/19at 08:10; Admin Dose 25 UNITS; Start 02/10/19 at 21:00 Polyethylene Glycol (Miralax) 17 gm DAILY PO Last administered on 02/15/19at 08:09; Admin Dose 17 GM; Start 02/12/19 at 10:00 Al Hydrox/Mg Hydrox/Simethicone (Mag-Al Plus) 30 ml Q6H PRN PO GASTROINTESTINAL UPSET; Start 02/12/19 at 22:30 Hydralazine HCl (Apresoline) 10 mg Q4H PRN PO ELEVATED BLOOD PRESSURE Last administered on 02/13/19at 04:58; Admin Dose 10 MG; Start 02/13/19 at 04:30 Nifedipine (Procardia Xl) 60 mg BID PO Last administered on 02/14/19at 21:02; Admin Dose 60 MG; Start 02/13/19 at 09:00 Phenazopyridine HCl (Pyridium) 100 mg TID PRN PO dysuria; Start 02/14/19 at 08:30 Metoprolol Tartrate (Lopressor) 12.5 mg BID PO Last administered on 02/14/19at 21:02; Admin Dose 12.5 MG; Start 02/14/19 at 09:00 Senna/Docusate Sodium (Senokot-S) 1 tab BID PO Last administered on 02/15/19at 08:09; Admin Dose 1 TAB; Start 02/14/19 at 21:00 Insulin Aspart (Novolog Insulin Pen) (Adult SC Insulin - Moder... Q4 SC ; Start 02/15/19 at 09:00 Meropenem/Sodium Chloride 50 ml @ 100 mls/hr Q12H IVPB ; Start 02/15/19 at 13:00 Pantoprazole (Protonix Tab) 40 mg BID PO ; Start 02/15/19 at 21:00; Status UNV Phenazopyridine HCl (Pyridium) 100 mg TID PO ; Start 02/15/19 at 13:30; Status UNV Sucralfate (Carafate) 1 gm Q6 PO ; Start 02/15/19 at 13:30; Status UNV ERICK BROWN MD Feb 15, 2019 13:39
[2019-02-15] MEDS: SUCRALFATE 1 GM TAB PO SCH ×2 (13:59→17:08)
[2019-02-15] MEDS: PHENAZOPYRIDINE 100 MG TAB PO SCH ×2 (13:59→17:08)
[2019-02-15] MEDS: MEROPENEM 1 GM/50ML(PMX) 50 ML IVPB SCH (14:00)
[2019-02-15 15:09] VITALS: BP 159/78; PULSE 58
[2019-02-15] MEDS: morphine 2 MG INJ IV PRN ×2 (15:28→20:27)
[2019-02-15 19:56] VITALS: BP 155/86; PULSE 75; RESP 16
[2019-02-15] MEDS: ATORVASTATIN 80 MG TAB PO SCH (20:27)
--- NOTE | 2019-02-15 21:50 | CONS ---
DATE OF ADMISSION: 02/06/2019 DATE OF CONSULTATION: 02/15/2019 TYPE OF CONSULTATION: Infectious disease REASON FOR CONSULTATION: Antibiotic management. HISTORY OF PRESENT ILLNESS: Aliza Martin is a 63-year-old female, admitted on 02/05/2019 with a his tory of hypertension and complaints of headaches. She has a history of coronary artery disease and h as had a drug-eluting stent placed to the left circumflex artery in 2014. She was seen in clinic [facility]. She received nitroglycerin and began having emesis and severe headaches, 911 was called, and she was taken to the emergency room. PAST MEDICAL HISTORY: Positive for cardiac disorders. FAMILY HISTORY: Positive for diabetes. SOCIAL HISTORY: She does not smoke, drink or abuse drugs. ALLERGIES: IODINE. MEDICATIONS: Per chart. REVIEW OF SYSTEMS: Noncontributory. PHYSICAL EXAMINATION: GENERAL: The patient is a well-developed, well-nourished female in no acute distress. VITAL SIGNS: Stable. She is afebrile. SKIN: Without generalized rash. HEENT: Within normal limits. NECK: Supple. LYMPH NODES: None palpable. CHEST: Decreased breath sounds at the bases. HEART: Without murmur or gallop. ABDOMEN: Soft, nontender, nondistended, without organosplenomegaly or masses. EXTREMITIES: Without cyanosis, clubbing, or edema. RECTAL AND GENITAL: Deferred. NEUROLOGIC: No focal neurological abnormalities. ANCILLARY LABORATORY DATA: White count 8.9, H and H of 12.3 and 36.5, platelet count 278,000. BUN a nd creatinine 20/1.1. Glucose of 165. She had 57% neutrophils along with a white count of 8.[address] scan of the brain was negative. She was admitted for further workup of chest pain. A chest x-ra y was negative, no acute pulmonary infiltrates. CT scan of the brain as noted, no acute changes. Re nal ultrasound unremarkable. CT scan of the abdomen and pelvis: No mass, adenopathy, or acute infla mmatory process, status post cholecystectomy, mild dilatation of the common bile duct measuring 8 mm, likely due to post-cholecystectomy state, atrophic bilateral kidneys, nonspecific bilateral perineph lakeisha fat stranding, likely chronic, no hydronephrosis, normal appendix, mild lower lung bronchiectasis . She had a SPECT CT scan on the which was negative and her ejection fraction was 75%. HOSPITAL COURSE: The patient was seen by Dr. Mcdonnell for cardiology and Dr. Gaspar for neurology. The re were no significant neurological deficits that were entertained. She has had headaches for decade s, sometimes severe. Her urine on the grew out E. coli ESBL, intermediate to cefepime, sensitiv e to Zosyn and to meropenem. She was begun on meropenem 1 gram q.12. Rocephin was discontinued. Cu rrently stable. I will dictate my findings to the hospitalist. Dictated By: ANDREINA SUMMERS MD, JD/NTS Conf#: [id number] DID#: [id number]
[2019-02-15] MEDS: traZODone 50 MG TAB PO PRN (22:34)
[2019-02-16 00:03] VITALS: BP 126/69; PULSE 53; RESP 18
[2019-02-16] MEDS: MEROPENEM 1 GM/50ML(PMX) 50 ML IVPB SCH ×2 (00:22→13:12)
[2019-02-16] MEDS: SUCRALFATE 1 GM TAB PO SCH ×5 (00:22→23:22)
[2019-02-16 04:38] VITALS: BP 136/68; PULSE 56; RESP 16
[2019-02-16] MEDS: LEVOTHYROXINE 75 MCG TAB PO SCH (06:21)
[2019-02-16] MEDS: PANTOPRAZOLE (EC) 40 MG TAB PO SCH ×2 (06:21→18:00)
[2019-02-16] MEDS: morphine 2 MG INJ IV PRN ×4 (06:25→23:22)
--- NOTE | 2019-02-16 06:39 | CONS ---
Consult Date/Type/Reason Admit Date/Time Feb 06, 2019 at 15:49 Initial Consult Date Requesting Provider: ISABELA TORIBIO Date/Time of Note DATE: 02/16/19 TIME: 06:26 Subjective continues good uo. The patient's headaches have improved. The patient is sp stress test OBJECTIVE: HEENT: Head is normocephalic. NECK: Supple. HEART: Regular rate. LUNGS: Show diminished breath sounds at the base. ABDOMEN: Soft, nontender to palpation without rebound or guarding. EXTREMITIES: Negative for clubbing, cyanosis, no edema. DERMATOLOGIC: No rashes. MUSCULOSKELETAL: No joint effusion. NEUROLOGIC: No change in exam. MEDICATIONS: Reviewed. Objective Vitals Vital Signs Date Temp Pulse Resp B/P (MAP) Pulse Ox O2 O2 Flow FiO2 Time Delivery Rate 02/16/19 97.9 56 16 136/68 93 Room Air 04:38 (90) 02/14/19 2.0 16:45 Intake and Output 02/15/19 02/15/19 02/16/19 1414:59 22:59 06:59 IntakeIntake Total 410 ml 340 ml 530 ml BalanceBalance 410 ml 340 ml 530 ml Results/Medications Result Diagram: 02/15/19 0737 02/15/19 0737 Results 24 hrs Laboratory Tests Test 02/15/19 07:37 02/15/19 07:38 02/15/19 09:20 02/15/19 11:31 White Blood Count 10.3 Red Blood Count 4.82 Hemoglobin 13.0 Hematocrit 40.7 Mean Corpuscular 84.4 Volume Mean Corpuscular 27.0 L Hemoglobin Mean Corpuscular 31.9 L Hemoglobin Concent Red Cell 14.1 Distribution Width Platelet Count 259 Mean Platelet Volume 10.4 Immature 2.700 H Granulocytes % Neutrophils % 61.8 Lymphocytes % 23.8 Monocytes % 6.7 Eosinophils % 4.2 Basophils % 0.8 Nucleated Red Blood 0.0 Cells % Immature 0.280 H Granulocytes # Neutrophils # 6.4 Lymphocytes # 2.5 Monocytes # 0.7 Eosinophils # 0.4 Basophils # 0.1 Nucleated Red Blood 0.0 Cells # Sodium Level 141 Potassium Level 4.5 Chloride Level 103 Carbon Dioxide Level 27 Anion Gap 11 Blood Urea Nitrogen 26 H Creatinine 1.03 H Glucose Level 136 Calcium Level 8.3 L Phosphorus Level 5.0 H Magnesium Level 2.0 Albumin 3.7 Bedside Glucose 135 119 127 Home Meds Reported Medications Insulin Glargine* (Lantus*) 100 Unit/Ml Soln, 17 UNIT SC BID, #1 VIAL 02/05/19 Insulin Lispro (Humalog) 100 Unit/1 Ml Cartridge, 5 UNIT SQ BEFORE MEALS, EA 02/05/19 Metoprolol Tartrate* (Lopressor*) 25 Mg Tab, 25 MG PO BID, #60 TAB 02/05/19 Docusate Sodium* (Colace*) 100 Mg Capsule, 100 MG PO BID, #60 CAP 02/05/19 Sertraline Hcl* (Sertraline Hcl*) 100 Mg Tablet, 100 MG PO QAM, #30 TAB 02/05/19 Trazodone Hcl* (Desyrel*) 50 Mg Tab, 50 MG PO QHS, #30 TAB 02/05/19 Benazepril Hcl* (Benazepril Hcl*) 10 Mg Tablet, 10 MG PO DAILY, #30 TAB 02/05/19 Clopidogrel Bisulfate* (Clopidogrel Bisulfate*) 75 Mg Tablet, 75 MG PO DAILY, #30 TAB 02/05/19 Gabapentin* (Gabapentin*) 300 Mg Capsule, 300 MG PO DAILY, #60 CAP 02/05/19 Levothyroxine Sodium* (Levothyroxine Sodium*) 75 Mcg Tablet, 75 MCG PO BEFORE BREAKFAST, #30 TAB 02/05/19 Atorvastatin* (Atorvastatin*) 80 Mg Tablet, 80 MG PO QHS, #30 TAB 02/05/19 Isosorbide Mononitrate* (Isosorbide Mononitrate*) 60 Mg Tab.er.24h, 60 MG PO DAILY, TAB 02/05/19 Aspirin* (Aspirin* EC) 81 Mg Tablet.dr, 81 MG PO DAILY, TAB 02/05/19 Amlodipine Besylate* (Amlodipine Besylate*) 10 Mg Tablet, 10 MG PO DAILY, #30 TAB 02/05/19 Hydrochlorothiazide* (Hydrochlorothiazide*) 25 Mg Tab, 25 MG PO DAILY, #30 TAB 02/05/19 Medications Current Medications IV Flush (NS 3 ml) 3 ml PER PROTOCOL IV ; Start 02/05/19 at 17:00 Aspirin (Aspirin) 81 mg DAILY PO Last administered on 02/15/19at 08:07; Admin Dose 81 MG; Start 02/06/19 at 09:00 Nitroglycerin (Nitroglycerin (Sl Tab) 0.4 Mg) 1 tab Q5M PRN SL .CHEST PAIN Last administered on 02/14/19 20:38; Admin Dose 1 TAB; Start 02/05/19 at 17:00 Acetaminophen (Tylenol Tab) 650 mg Q6H PRN PO .PAIN 1-3 OR TEMP Last administered on 02/08/19 12:15; Admin Dose 650 MG; Start 02/05/19 at 17:00 Atorvastatin Calcium (Lipitor) 80 mg QHS PO Last administered on 02/15/19 20:27; Admin Dose 80 MG; Start 02/05/19 at 21:00 Benazepril HCl (Lotensin) 10 mg DAILY PO Last administered on 02/09/19 08:43; Admin Dose 10 MG; Start 02/06/19 at 09:00; Status Hold Clopidogrel Bisulfate (plaVIX) 75 mg DAILY PO Last administered on 02/15/19 08:07; Admin Dose 75 MG; Start 02/06/19 at 09:00 Hydrochlorothiazide (Hydrochlorothiazide) 25 mg DAILY PO Last administered on 02/09/19 08:43; Admin Dose 25 MG; Start 02/06/19 at 09:00; Status Hold Levothyroxine Sodium (Synthroid) 75 mcg BEFORE BREAKFAST PO Last administered on 02/16/19 06:21; Admin Dose 75 MCG; Start 02/06/19 at 07:00 Sertraline HCl (Zoloft) 100 mg QAM PO Last administered on 02/15/19 08:07; Admin Dose 100 MG; Start 02/06/19 at 09:00 Trazodone HCl (Desyrel) 50 mg QHS PRN PO insomnia Last administered on 02/15/19 22:34; Admin Dose 50 MG; Start 02/05/19 at 17:30 Phenol (Cepastat Lozenge) 1 lozenge Q1H PRN MT sore throat Last administered on 02/10/19 21:23; Admin Dose 1 LOZENGE; Start 02/05/19 at 17:30 Miscellaneous Information 1 ea NOTE XX ; Start 02/05/19 at 19:00 Glucose (Glutose) 15 gm Q15M PRN PO DECREASED GLUCOSE; Start 02/05/19 at 19:00 Glucose (Glutose) 22.5 gm Q15M PRN PO DECREASED GLUCOSE; Start 02/05/19 at 19:00 Dextrose (D50w Syringe) 25 ml Q15M PRN IV DECREASED GLUCOSE; Start 02/05/19 at 19:00 Dextrose (D50w Syringe) 50 ml Q15M PRN IV DECREASED GLUCOSE; Start 02/05/19 at 19:00 Glucagon (Glucagen) 1 mg Q15M PRN IM DECREASED GLUCOSE; Start 02/05/19 at 19:00 Glucose (Glutose) 15 gm Q15M PRN BUCCAL DECREASED GLUCOSE; Start 02/05/19 at 19:00 Acetaminophen/ Butalbital/ Caffeine (Fioricet) 1 tab Q6H PRN PO PAIN Last ad ministered on 02/14/19at 08:44; Admin Dose 1 TAB; Start 02/06/19 at 12:00 Morphine Sulfate (morphine) 2 mg Q4H PRN IV SEVERE PAIN LEVEL 7-10 Last administered on 02/16/19at 06:25; Admin Dose 2 MG; Start 02/07/19 at 11:30 Metoclopramide HCl (Reglan) 5 mg Q6H PRN IV nausea Last administered on 02/10/19at 21:23; Admin Dose 5 MG; Start 02/10/19 at 08:00 Methylprednisolone (Medrol Dose Pack) 1 ea STD DOSE PACK PO ; Start 02/10/19 at 08:00 Insulin Aspart (Novolog Insulin Pen) 6 unit WITH MEALS SC Last administered on 02/15/19at 17:24; Admin Dose 6 UNIT; Start 02/10/19 at 17:55 Insulin Glargine (Lantus) 25 units BID SC Last administered on 02/15/19at 21:18; Admin Dose 25 UNITS; Start 02/10/19 at 21:00 Polyethylene Glycol (Miralax) 17 gm DAILY PO Last administered on 02/15/19 08:09; Admin Dose 17 GM; Start 02/12/19 at 10:00 Al Hydrox/Mg Hydrox/Simethicone (Mag-Al Plus) 30 ml Q6H PRN PO GASTROINTESTINAL UPSET; Start 02/12/19 at 22:30 Hydralazine HCl (Apresoline) 10 mg Q4H PRN PO ELEVATED BLOOD PRESSURE Last administered on 02/13/19at 04:58; Admin Dose 10 MG; Start 02/13/19 at 04:30 Nifedipine (Procardia Xl) 60 mg BID PO Last administered on 02/15/19 20:28; Admin Dose 60 MG; Start 02/13/19 at 09:00 Metoprolol Tartrate (Lopressor) 12.5 mg BID PO Last administered on 02/15/19 20:28; Admin Dose 12.5 MG; Start 02/14/19 at 09:00 Senna/Docusate Sodium (Senokot-S) 1 tab BID PO Last administered on 02/15/19 20:27; Admin Dose 1 TAB; Start 02/14/19 at 21:00 Meropenem/Sodium Chloride 50 ml @ 100 mls/hr Q12H IVPB Last administered on 02/16/19 00:22; Admin Dose 100 MLS/HR; Start 02/15/19 at 13:00 Pantoprazole (Protonix Tab) 40 mg BID@0600,1800 PO Last administered on 02/16/19 06:21; Admin Dose 40 MG; Start 02/15/19 at 18:00 Phenazopyridine HCl (Pyridium) 100 mg WITH MEALS PO Last administered on 02/15/19 17:08; Admin Dose 100 MG; Start 02/15/19 at 13:30 Sucralfate (Carafate) 1 gm Q6 PO Last administered on 02/16/19 06:21; Admin Dose 1 GM; Start 02/15/19 at 13:30 Insulin Aspart (Novolog Insulin Pen) (Adult SC Insulin - Moder... WITH MEALS BEDTIME SC ; Start 02/16/19 at 07:55 Assessment/Plan Hospital Course (Demo Recall) 1. Nonoliguric acute kidney injury on top of chronic kidney disease, unknown baseline creatinine. Etiology is secondary to hemodynamics. Renal function is improving. Continue current treatment plans, supportive care, renally dose all medicines. 2. Mineral bone disorder. Monitor calcium and phosphorus levels. 3. Hypertension. Continue current blood pressure regimen. 4. Chest pain. The patient is sp stress test per cardiology. Continue morphine. 5. Migraine headaches, improved, possibly due to underlying Imdur. 6. Diabetes. Continue current insulin regimen. JUAN RUDOLPH DO Feb 16, 2019 06:36
[2019-02-16] MEDS ORDERED: INSULIN ASPART [NOVOLOG] 3 ML PEN SC SCH (07:25)
[2019-02-16 07:35] VITALS: BP 146/81; PULSE 55; RESP 18
[2019-02-16] MEDS: INSULIN ASPART [NOVOLOG] 3 ML PEN SC SCH ×3 (07:55→17:55)
[2019-02-16] MEDS: Insulin NOVOLOG SS MODERATE Algorithm (SS with meals and bedtime) SC SCH ×4 (07:55→20:22)
[2019-02-16] MEDS: POLYETHYLENE GLYCOL 17 GM PACKET PO SCH (09:00)
[2019-02-16] MEDS: CLOPIDOGREL 75 MG TAB PO SCH (09:00)
[2019-02-16] MEDS: NIFEdipine (XL) 30 MG TAB PO SCH ×2 (10:29→20:21)
[2019-02-16] MEDS: SERTRALINE 100 MG TAB PO SCH (10:30)
[2019-02-16] MEDS: PHENAZOPYRIDINE 100 MG TAB PO SCH ×3 (10:30→17:52)
[2019-02-16] MEDS: ASPIRIN 81 MG TAB PO SCH (10:30)
[2019-02-16] MEDS: SENNA/DOCUSATE NA (8.6MG/50MG) TAB PO SCH ×2 (10:30→20:20)
[2019-02-16] MEDS: METOPROLOL 25 MG TAB PO SCH ×2 (10:31→20:21)
[2019-02-16] MEDS: INSULIN GLARGINE [LANTus] (100 UNITS/ML) SYG SC SCH ×2 (10:33→20:34)
[2019-02-16 11:41] VITALS: BP 132/71; PULSE 60; RESP 18
[2019-02-16] MEDS: APIXABAN 5 MG TABLET PO SCH ×2 (13:00→20:19)
--- NOTE | 2019-02-16 14:06 | CONS ---
Assessment/Plan Assessment/Plan Hospital Course (Demo Recall) Patient is alert looks comfortable complaining of dysuria and bilateral flank pain no fevers WBC 10.7 platelets 238 no shift no bands BUN 25 creatinine 1.32 Microbiology: Urine culture grew E. coli ESBL Antimicrobials: Patient remains on meropenem Physical examination: Well-developed obese elderly woman who is alert in no distress. Head atraumatic normocephalic sclera nonicteric vehicle mucosa dry neck is supple chest rise symmetrical breath sounds clear heart: S1-S2 abdomen obese soft patient has tenderness over suprapubic area on palpation and bilateral CVA tenderness. Bowel sounds present. Extremities without cyanosis Assessment: 1. E. coli ESBL UTI 2. Diabetes 3. Hypertension 4. Obesity 5. Acute kidney insufficiency Plan: Patient remains stable, continue present care and antibiotics, await for clinical improvement Consultation Date/Type/Reason Admit Date/Time Feb 06, 2019 at 15:49 Initial Consult Date Type of Consult id Requesting Provider: ISABELA TORIBIO Date/Time of Note DATE: 02/16/19 TIME: 14:05 Exam/Review of Systems Exam Vitals Vital Signs Date Temp Pulse Resp B/P (MAP) Pulse Ox O2 O2 Flow FiO2 Time Delivery Rate 02/16/19 98.0 60 18 132/71 97 Room Air 11:41 (91) 02/14/19 2.0 16:45 Intake and Output 02/15/19 02/15/19 02/16/19 1515:00 23:00 07:00 IntakeIntake Total 410 ml 340 ml 530 ml BalanceBalance 410 ml 340 ml 530 ml Results Result Diagram: 02/16/19 0617 02/16/19 0617 Results 24hrs Laboratory Tests Test 02/16/19 06:17 02/16/19 08:03 02/16/19 13:04 White Blood Count 10.7 Red Blood Count 4.56 Hemoglobin 12.6 Hematocrit 38.6 Mean Corpuscular Volume 84.6 Mean Corpuscular Hemoglobin 27.6 L Mean Corpuscular Hemoglobin Concent 32.6 Red Cell Distribution Width 14.0 Platelet Count 238 Mean Platelet Volume 10.0 Immature Granulocytes % 3.300 H Neutrophils % 58.9 Lymphocytes % 25.9 Monocytes % 6.4 Eosinophils % 4.7 Basophils % 0.8 Nucleated Red Blood Cells % 0.0 Immature Granulocytes # 0.350 H Neutrophils # 6.3 Lymphocytes # 2.8 Monocytes # 0.7 Eosinophils # 0.5 Basophils # 0.1 Nucleated Red Blood Cells # 0.0 Sodium Level 140 Potassium Level 4.1 Chloride Level 103 Carbon Dioxide Level 30 Anion Gap 7 Blood Urea Nitrogen 25 H Creatinine 1.32 H Glucose Level 111 Calcium Level 8.7 Phosphorus Level 4.7 Magnesium Level 1.9 Albumin 3.6 Bedside Glucose 81 182 Medications Medication Current Medications IV Flush (NS 3 ml) 3 ml PER PROTOCOL IV ; Start 02/05/19 at 17:00 Aspirin (Aspirin) 81 mg DAILY PO Last administered on 02/16/19 10:30; Admin Dose 81 MG; Start 02/06/19 at 09:00 Nitroglycerin (Nitroglycerin (Sl Tab) 0.4 Mg) 1 tab Q5M PRN SL .CHEST PAIN Last administered on 02/14/19 20:38; Admin Dose 1 TAB; Start 02/05/19 at 17:00 Acetaminophen (Tylenol Tab) 650 mg Q6H PRN PO .PAIN 1-3 OR TEMP Last administered on 02/08/19 12:15; Admin Dose 650 MG; Start 02/05/19 at 17:00 Atorvastatin Calcium (Lipitor) 80 mg QHS PO Last administered on 02/15/19 20:27; Admin Dose 80 MG; Start 02/05/19 at 21:00 Benazepril HCl (Lotensin) 10 mg DAILY PO Last administered on 02/09/19 08:43; Admin Dose 10 MG; Start 02/06/19 at 09:00; Status Hold Clopidogrel Bisulfate (plaVIX) 75 mg DAILY PO Last administered on 02/16/19 09:00; Admin Dose 75 MG; Start 02/06/19 at 09:00 Hydrochlorothiazide (Hydrochlorothiazide) 25 mg DAILY PO Last administered on 02/09/19 08:43; Admin Dose 25 MG; Start 02/06/19 at 09:00; Status Hold Levothyroxine Sodium (Synthroid) 75 mcg BEFORE BREAKFAST PO Last administered on 02/16/19 06:21; Admin Dose 75 MCG; Start 02/06/19 at 07:00 Sertraline HCl (Zoloft) 100 mg QAM PO Last administered on 02/16/19 10:30; Admin Dose 100 MG; Start 02/06/19 at 09:00 Trazodone HCl (Desyrel) 50 mg QHS PRN PO insomnia Last administered on 02/15/19at 22:34; Admin Dose 50 MG; Start 02/05/19 at 17:30 Phenol (Cepastat Lozenge) 1 lozenge Q1H PRN MT sore throat Last administered on 02/10/19at 21:23; Admin Dose 1 LOZENGE; Start 02/05/19 at 17:30 Miscellaneous Information 1 ea NOTE XX ; Start 02/05/19 at 19:00 Glucose (Glutose) 15 gm Q15M PRN PO DECREASED GLUCOSE; Start 02/05/19 at 19:00 Glucose (Glutose) 22.5 gm Q15M PRN PO DECREASED GLUCOSE; Start 02/05/19 at 19:00 Dextrose (D50w Syringe) 25 ml Q15M PRN IV DECREASED GLUCOSE; Start 02/05/19 at 19:00 Dextrose (D50w Syringe) 50 ml Q15M PRN IV DECREASED GLUCOSE; Start 02/05/19 at 19:00 Glucagon (Glucagen) 1 mg Q15M PRN IM DECREASED GLUCOSE; Start 02/05/19 at 19:00 Glucose (Glutose) 15 gm Q15M PRN BUCCAL DECREASED GLUCOSE; Start 02/05/19 at 19:00 Acetaminophen/ Butalbital/ Caffeine (Fioricet) 1 tab Q6H PRN PO PAIN Last administered on 02/14/19at 08:44; Admin Dose 1 TAB; Start 02/06/19 at 12:00 Morphine Sulfate (morphine) 2 mg Q4H PRN IV SEVERE PAIN LEVEL 7-10 Last administered on 02/16/19at 10:40; Admin Dose 2 MG; Start 02/07/19 at 11:30 Metoclopramide HCl (Reglan) 5 mg Q6H PRN IV nausea Last administered on 02/10/19 at 21:23; Admin Dose 5 MG; Start 02/10/19 at 08:00 Methylprednisolone (Medrol Dose Pack) 1 ea STD DOSE PACK PO ; Start 02/10/19 at 08:00 Insulin Aspart (Novolog Insulin Pen) 6 unit WITH MEALS SC Last administered on 02/15/19at 17:24; Admin Dose 6 UNIT; Start 02/10/19 at 17:55 Insulin Glargine (Lantus) 25 units BID SC Last administered on 02/16/19 10:33; Admin Dose 25 UNITS; Start 02/10/19 at 21:00 Polyethylene Glycol (Miralax) 17 gm DAILY PO Last administered on 02/16/19 09:00; Admin Dose 17 GM; Start 02/12/19 at 10:00 Al Hydrox/Mg Hydrox/Simethicone (Mag-Al Plus) 30 ml Q6H PRN PO GASTROINTESTINAL UPSET; Start 02/12/19 at 22:30 Hydralazine HCl (Apresoline) 10 mg Q4H PRN PO ELEVATED BLOOD PRESSURE Last administered on 02/13/19 04:58; Admin Dose 10 MG; Start 02/13/19 at 04:30 Nifedipine (Procardia Xl) 60 mg BID PO Last administered on 02/16/19 10:29; Admin Dose 30 MG; Start 02/13/19 at 09:00 Metoprolol Tartrate (Lopressor) 12.5 mg BID PO Last administered on 02/16/19 10:31; Admin Dose 12.5 MG; Start 02/14/19 at 09:00 Senna/Docusate Sodium (Senokot-S) 1 tab BID PO Last administered on 02/16/19 10:30; Admin Dose 1 TAB; Start 02/14/19 at 21:00 Meropenem/Sodium Chloride 50 ml @ 100 mls/hr Q12H IVPB Last administered on 02/16/19 13:12; Admin Dose 100 MLS/HR; Start 02/15/19 at 13:00 Pantoprazole (Protonix Tab) 40 mg BID@0600,1800 PO Last administered on 02/16/19 06:21; Admin Dose 40 MG; Start 02/15/19 at 18:00 Phenazopyridine HCl (Pyridium) 100 mg WITH MEALS PO Last administered on 02/16/19 13:13; Admin Dose 100 MG; Start 02/15/19 at 13:30 Sucralfate (Carafate) 1 gm Q6 PO Last administered on 02/16/19 13:13; Admin Dose 1 GM; Start 02/15/19 at 13:30 Insulin Aspart (Novolog Insulin Pen) (Adult SC Insulin - Moder... WITH MEALS BEDTIME SC ; Start 02/16/19 at 07:55 Apixaban (Eliquis) 10 mg BID PO ; Start 02/16/19 at 13:00; Stop 02/23/19 at 12:59 Apixaban (Eliquis) 5 mg BID PO ; Start 02/23/19 at 21:00 MARY MUÑOZ NP Feb 16, 2019 14:06
[2019-02-16 15:12] VITALS: BP 135/74; PULSE 51; PULSE 78; RESP 18
--- NOTE | 2019-02-16 16:27 | PN ---
Date/Time of Note Date/Time of Note DATE: 02/16/19 TIME: 16:19 Assessment/Plan VTE Prophylaxis Risk score (from Ns)>0 risk: 4 SCD applied (from Ns): Yes Pharmacological prophylaxis: NA/contraindicated Pharm contraindication: low risk/ambulating Lines/Catheters IV [facility]from [facility] Urinary Cath still in place: No Assessment/Plan Assessment/Plan 1. Acute chest pain- stable - noncardiac. stress test, EKG, and negative trops - Cardiology consulted and appreciate recommendations. - continue on aspirin and statin 2. ESBL UTI - ID consultation appreciated and will continue on current antibiotics - pyridium on board for dysuria 3. Acute onset headache, intermittent- improved - Neurology on board for recommendations and appreciate consultation. - PRN reglan 4. Acute DVT - will start on Eliquis - seen on US 5. Mild acute kidney insufficiency- - Nephrology on board and appreciate recommendations 6. Mood disorder - Continue sertraline 7. Hypothyroidism - Continue home medications 8. Diabetes mellitus - Hold p.o. metformin - Insulin while in house 9. GERD - PPI 10. Hypertension - Continue home medications. adjusting for better BP control 11. Disposition - Eliquis started for DVT LLE. continue IV antibiotics and monitor for improvement of dysuria Result Diagram: 02/16/19 0617 02/16/19 0617 Results 24hrs Laboratory Tests Test 02/16/19 06:17 02/16/19 08:03 02/16/19 13:04 White Blood Count 10.7 Red Blood Count 4.56 Hemoglobin 12.6 Hematocrit 38.6 Mean Corpuscular Volume 84.6 Mean Corpuscular Hemoglobin 27.6 L Mean Corpuscular Hemoglobin Concent 32.6 Red Cell Distribution Width 14.0 Platelet Count 238 Mean Platelet Volume 10.0 Immature Granulocytes % 3.300 H Neutrophils % 58.9 Lymphocytes % 25.9 Monocytes % 6.4 Eosinophils % 4.7 Basophils % 0.8 Nucleated Red Blood Cells % 0.0 Immature Granulocytes # 0.350 H Neutrophils # 6.3 Lymphocytes # 2.8 Monocytes # 0.7 Eosinophils # 0.5 Basophils # 0.1 Nucleated Red Blood Cells # 0.0 Sodium Level 140 Potassium Level 4.1 Chloride Level 103 Carbon Dioxide Level 30 Anion Gap 7 Blood Urea Nitrogen 25 H Creatinine 1.32 H Glucose Level 111 Calcium Level 8.7 Phosphorus Level 4.7 Magnesium Level 1.9 Albumin 3.6 Bedside Glucose 81 182 Subjective 24 Hr Interval Summary Free Text/Dictation Patient still with dysuria and states chest pain and headache are present but stable. Exam/Review of Systems Exam Vitals Vital Signs Date Temp Pulse Resp B/P (MAP) Pulse Ox O2 O2 Flow FiO2 Time Delivery Rate 02/16/19 98.2 51 18 135/74 97 Room Air 15:12 (94) 02/14/19 2.0 16:45 Intake and Output 02/15/19 02/15/19 02/16/19 1515:00 23:00 07:00 IntakeIntake Total 410 ml 340 ml 530 ml BalanceBalance 410 ml 340 ml 530 ml Exam General: Patient is laying in bed, distress secondary to suprapubic pain Neck: Supple Respiratory: Clear to auscultation bilaterally. no wheezing or rhonchi Cardiovascular: regular rate and rhythm, no obvious murmurs Gastrointestinal: soft, non-tender to palpation epigastric area, tenderness suprapubic area, nondistended, bowel sounds heard. Ext: Moves all extremities spontaneously Skin: No new skin lesions Results Results 24hrs Laboratory Tests Test 02/16/19 06:17 02/16/19 08:03 02/16/19 13:04 White Blood Count 10.7 Red Blood Count 4.56 Hemoglobin 12.6 Hematocrit 38.6 Mean Corpuscular Volume 84.6 Mean Corpuscular Hemoglobin 27.6 L Mean Corpuscular Hemoglobin Concent 32.6 Red Cell Distribution Width 14.0 Platelet Count 238 Mean Platelet Volume 10.0 Immature Granulocytes % 3.300 H Neutrophils % 58.9 Lymphocytes % 25.9 Monocytes % 6.4 Eosinophils % 4.7 Basophils % 0.8 Nucleated Red Blood Cells % 0.0 Immature Granulocytes # 0.350 H Neutrophils # 6.3 Lymphocytes # 2.8 Monocytes # 0.7 Eosinophils # 0.5 Basophils # 0.1 Nucleated Red Blood Cells # 0.0 Sodium Level 140 Potassium Level 4.1 Chloride Level 103 Carbon Dioxide Level 30 Anion Gap 7 Blood Urea Nitrogen 25 H Creatinine 1.32 H Glucose Level 111 Calcium Level 8.7 Phosphorus Level 4.7 Magnesium Level 1.9 Albumin 3.6 Bedside Glucose 81 182 Medications Medication Current Medications IV Flush (NS 3 ml) 3 ml PER PROTOCOL IV ; Start 02/05/19 at 17:00 Aspirin (Aspirin) 81 mg DAILY PO Last administered on 02/16/19 10:30; Admin Dose 81 MG; Start 02/06/19 at 09:00 Nitroglycerin (Nitroglycerin (Sl Tab) 0.4 Mg) 1 tab Q5M PRN SL .CHEST PAIN Last administered on 02/14/19 20:38; Admin Dose 1 TAB; Start 02/05/19 at 17:00 Acetaminophen (Tylenol Tab) 650 mg Q6H PRN PO .PAIN 1-3 OR TEMP Last administered on 02/08/19 12:15; Admin Dose 650 MG; Start 02/05/19 at 17:00 Atorvastatin Calcium (Lipitor) 80 mg QHS PO Last administered on 02/15/19 20:27; Admin Dose 80 MG; Start 02/05/19 at 21:00 Benazepril HCl (Lotensin) 10 mg DAILY PO Last administered on 02/09/19 08:43; Admin Dose 10 MG; Start 02/06/19 at 09:00; Status Hold Clopidogrel Bisulfate (plaVIX) 75 mg DAILY PO Last administered on 02/16/19 09:00; Admin Dose 75 MG; Start 02/06/19 at 09:00 Hydrochlorothiazide (Hydrochlorothiazide) 25 mg DAILY PO Last administered on 02/09/19 08:43; Admin Dose 25 MG; Start 02/06/19 at 09:00; Status Hold Levothyroxine Sodium (Synthroid) 75 mcg BEFORE BREAKFAST PO Last administered on 02/16/19 06:21; Admin Dose 75 MCG; Start 02/06/19 at 07:00 Sertraline HCl (Zoloft) 100 mg QAM PO Last administered on 02/16/19 10:30; Admin Dose 100 MG; Start 02/06/19 at 09:00 Trazodone HCl (Desyrel) 50 mg QHS PRN PO insomnia Last administered on 02/15/19 22:34; Admin Dose 50 MG; Start 02/05/19 at 17:30 Phenol (Cepastat Lozenge) 1 lozenge Q1H PRN MT sore throat Last administered on 02/10/19 21:23; Admin Dose 1 LOZENGE; Start 02/05/19 at 17:30 Miscellaneous Information 1 ea NOTE XX ; Start 02/05/19 at 19:00 Glucose (Glutose) 15 gm Q15M PRN PO DECREASED GLUCOSE; Start 02/05/19 at 19:00 Glucose (Glutose) 22.5 gm Q15M PRN PO DECREASED GLUCOSE; Start 02/05/19 at 19:00 Dextrose (D50w Syringe) 25 ml Q15M PRN IV DECREASED GLUCOSE; Start 02/05/19 at 19:00 Dextrose (D50w Syringe) 50 ml Q15M PRN IV DECREASED GLUCOSE; Start 02/05/19 at 19:00 Glucagon (Glucagen) 1 mg Q15M PRN IM DECREASED GLUCOSE; Start 02/05/19 at 19:00 Glucose (Glutose) 15 gm Q15M PRN BUCCAL DECREASED GLUCOSE; Start 02/05/19 at 19:00 Acetaminophen/ Butalbital/ Caffeine (Fioricet) 1 tab Q6H PRN PO PAIN Last administered on 02/14/19at 08:44; Admin Dose 1 TAB; Start 02/06/19 at 12:00 Morphine Sulfate (morphine) 2 mg Q4H PRN IV SEVERE PAIN LEVEL 7-10 Last administered on 02/16/19at 10:40; Admin Dose 2 MG; Start 02/07/19 at 11:30 Metoclopramide HCl (Reglan) 5 mg Q6H PRN IV nausea Last administered on 02/10/19at 21:23; Admin Dose 5 MG; Start 02/10/19 at 08:00 Methylprednisolone (Medrol Dose Pack) 1 ea STD DOSE PACK PO ; Start 02/10/19 at 08:00 Insulin Aspart (Novolog Insulin Pen) 6 unit WITH MEALS SC Last administered on 02/15/19at 17:24; Admin Dose 6 UNIT; Start 02/10/19 at 17:55 Insulin Glargine (Lantus) 25 units BID SC Last administered on 02/16/19at 10:33; Admin Dose 25 UNITS; Start 02/10/19 at 21:00 Polyethylene Glycol (Miralax) 17 gm DAILY PO Last administered on 02/16/19at 09:00; Admin Dose 17 GM; Start 02/12/19 at 10:00 Al Hydrox/Mg Hydrox/Simethicone (Mag-Al Plus) 30 ml Q6H PRN PO GASTROINTESTINAL UPSET; Start 02/12/19 at 22:30 Hydralazine HCl (Apresoline) 10 mg Q4H PRN PO ELEVATED BLOOD PRESSURE Last administered on 02/13/19 04:58; Admin Dose 10 MG; Start 02/13/19 at 04:30 Nifedipine (Procardia Xl) 60 mg BID PO Last administered on 02/16/19 10:29; Admin Dose 30 MG; Start 02/13/19 at 09:00 Metoprolol Tartrate (Lopressor) 12.5 mg BID PO Last administered on 02/16/19 10:31; Admin Dose 12.5 MG; Start 02/14/19 at 09:00 Senna/Docusate Sodium (Senokot-S) 1 tab BID PO Last administered on 02/16/19 10:30; Admin Dose 1 TAB; Start 02/14/19 at 21:00 Meropenem/Sodium Chloride 50 ml @ 100 mls/hr Q12H IVPB Last administered on 02/16/19 13:12; Admin Dose 100 MLS/HR; Start 02/15/19 at 13:00 Pantoprazole (Protonix Tab) 40 mg BID@0600,1800 PO Last administered on 02/16/19 06:21; Admin Dose 40 MG; Start 02/15/19 at 18:00 Phenazopyridine HCl (Pyridium) 100 mg WITH MEALS PO Last administered on 02/16/19 13:13; Admin Dose 100 MG; Start 02/15/19 at 13:30 Sucralfate (Carafate) 1 gm Q6 PO Last administered on 02/16/19 13:13; Admin Dose 1 GM; Start 02/15/19 at 13:30 Insulin Aspart (Novolog Insulin Pen) (Adult SC Insulin - Moder... WITH MEALS BEDTIME SC ; Start 02/16/19 at 07:55 Apixaban (Eliquis) 10 mg BID PO Last administered on 02/16/19 13:00; Admin Dose 10 MG; Start 02/16/19 at 13:00; Stop 02/23/19 at 12:59 Apixaban (Eliquis) 5 mg BID PO ; Start 02/23/19 at 21:00 ERICK BROWN MD Feb 16, 2019 16:26
[2019-02-16 20:00] VITALS: BP 136/66; PULSE 63; RESP 18
[2019-02-16] MEDS: ATORVASTATIN 80 MG TAB PO SCH (20:19)
[2019-02-17] VITALS: BP 132/68; PULSE 56; RESP 18
[2019-02-17] MEDS: MEROPENEM 1 GM/50ML(PMX) 50 ML IVPB SCH ×2 (01:38→12:22)
[2019-02-17 04:00] VITALS: BP 134/69; PULSE 66; RESP 18
[2019-02-17] MEDS: NITROGLYCERIN (SL) 0.4 MG TAB SL PRN ×2 (05:56→06:02)
[2019-02-17] MEDS: morphine 2 MG INJ IV PRN ×2 (06:11→16:00)
[2019-02-17] MEDS: PANTOPRAZOLE (EC) 40 MG TAB PO SCH ×2 (06:32→17:22)
[2019-02-17] MEDS: SUCRALFATE 1 GM TAB PO SCH ×3 (06:32→17:21)
[2019-02-17] MEDS: LEVOTHYROXINE 75 MCG TAB PO SCH (06:32)
--- NOTE | 2019-02-17 06:50 | CONS ---
Consult Date/Type/Reason Admit Date/Time Feb 06, 2019 at 15:49 Initial Consult Date Requesting Provider: ISABELA TORIBIO Date/Time of Note DATE: 02/17/19 TIME: 06:46 Subjective continues good uo. The patient's headaches are manageable. OBJECTIVE: HEENT: Head is normocephalic. NECK: Supple. HEART: Regular rate. LUNGS: Show diminished breath sounds at the base. ABDOMEN: Soft, nontender to palpation without rebound or guarding. EXTREMITIES: Negative for clubbing, cyanosis, no edema. DERMATOLOGIC: No rashes. MUSCULOSKELETAL: No joint effusion. NEUROLOGIC: No change in exam. MEDICATIONS: Reviewed. Objective Vitals Vital Signs Date Temp Pulse Resp B/P (MAP) Pulse Ox O2 O2 Flow FiO2 Time Delivery Rate 02/17/19 98.0 66 18 134/69 96 04:00 (90) 02/16/19 Room Air 15:12 02/14/19 2.0 16:45 Intake and Output 02/16/19 02/16/19 02/17/19 1515:00 23:00 07:00 IntakeIntake Total 1560 ml 830 ml OutputOutput Total 1380 ml 200 ml BalanceBalance 1560 ml -550 ml -200 ml Results/Medications Result Diagram: 02/16/19 0617 02/16/19 0617 Results 24 hrs Laboratory Tests Test 02/16/19 08:03 02/16/19 13:04 02/16/19 17:45 02/16/19 20:16 Bedside Glucose 81 182 125 163 Home Meds Reported Medications Insulin Glargine* (Lantus*) 100 Unit/Ml Soln, 17 UNIT SC BID, #1 VIAL 02/05/19 Insulin Lispro (Humalog) 100 Unit/1 Ml Cartridge, 5 UNIT SQ BEFORE MEALS, EA 02/05/19 Metoprolol Tartrate* (Lopressor*) 25 Mg Tab, 25 MG PO BID, #60 TAB 02/05/19 Docusate Sodium* (Colace*) 100 Mg Capsule, 100 MG PO BID, #60 CAP 02/05/19 Sertraline Hcl* (Sertraline Hcl*) 100 Mg Tablet, 100 MG PO QAM, #30 TAB 02/05/19 Trazodone Hcl* (Desyrel*) 50 Mg Tab, 50 MG PO QHS, #30 TAB 02/05/19 Benazepril Hcl* (Benazepril Hcl*) 10 Mg Tablet, 10 MG PO DAILY, #30 TAB 02/05/19 Clopidogrel Bisulfate* (Clopidogrel Bisulfate*) 75 Mg Tablet, 75 MG PO DAILY, #30 TAB 02/05/19 Gabapentin* (Gabapentin*) 300 Mg Capsule, 300 MG PO DAILY, #60 CAP 02/05/19 Levothyroxine Sodium* (Levothyroxine Sodium*) 75 Mcg Tablet, 75 MCG PO BEFORE BREAKFAST, #30 TAB 02/05/19 Atorvastatin* (Atorvastatin*) 80 Mg Tablet, 80 MG PO QHS, #30 TAB 02/05/19 Isosorbide Mononitrate* (Isosorbide Mononitrate*) 60 Mg Tab.er.24h, 60 MG PO DAILY, TAB 02/05/19 Aspirin* (Aspirin* EC) 81 Mg Tablet.dr, 81 MG PO DAILY, TAB 02/05/19 Amlodipine Besylate* (Amlodipine Besylate*) 10 Mg Tablet, 10 MG PO DAILY, #30 TAB 02/05/19 Hydrochlorothiazide* (Hydrochlorothiazide*) 25 Mg Tab, 25 MG PO DAILY, #30 TAB 02/05/19 Medications Current Medications IV Flush (NS 3 ml) 3 ml PER PROTOCOL IV ; Start 02/05/19 at 17:00 Aspirin (Aspirin) 81 mg DAILY PO Last administered on 02/16/19at 10:30; Admin Dose 81 MG; Start 02/06/19 at 09:00 Nitroglycerin (Nitroglycerin (Sl Tab) 0.4 Mg) 1 tab Q5M PRN SL .CHEST PAIN Last administered on 02/17/19at 06:02; Admin Dose 1 TAB; Start 02/05/19 at 17:00 Acetaminophen (Tylenol Tab) 650 mg Q6H PRN PO .PAIN 1-3 OR TEMP Last administered on 02/08/19at 12:15; Admin Dose 650 MG; Start 02/05/19 at 17:00 Atorvastatin Calcium (Lipitor) 80 mg QHS PO Last administered on 02/16/19at 20:19; Admin Dose 80 MG; Start 02/05/19 at 21:00 Benazepril HCl (Lotensin) 10 mg DAILY PO Last administered on 02/09/19at 08:43; Admin Dose 10 MG; Start 02/06/19 at 09:00; Status Hold Clopidogrel Bisulfate (plaVIX) 75 mg DAILY PO Last administered on 02/16/19 09:00; Admin Dose 75 MG; Start 02/06/19 at 09:00 Hydrochlorothiazide (Hydrochlorothiazide) 25 mg DAILY PO Last administered on 02/09/19 08:43; Admin Dose 25 MG; Start 02/06/19 at 09:00; Status Hold Levothyroxine Sodium (Synthroid) 75 mcg BEFORE BREAKFAST PO Last administered on 02/17/19 06:32; Admin Dose 75 MCG; Start 02/06/19 at 07:00 Sertraline HCl (Zoloft) 100 mg QAM PO Last administered on 02/16/19 10:30; Admin Dose 100 MG; Start 02/06/19 at 09:00 Trazodone HCl (Desyrel) 50 mg QHS PRN PO insomnia Last administered on 02/15/19 22:34; Admin Dose 50 MG; Start 02/05/19 at 17:30 Phenol (Cepastat Lozenge) 1 lozenge Q1H PRN MT sore throat Last administered on 02/10/19 21:23; Admin Dose 1 LOZENGE; Start 02/05/19 at 17:30 Miscellaneous Information 1 ea NOTE XX ; Start 02/05/19 at 19:00 Glucose (Glutose) 15 gm Q15M PRN PO DECREASED GLUCOSE; Start 02/05/19 at 19:00 Glucose (Glutose) 22.5 gm Q15M PRN PO DECREASED GLUCOSE; Start 02/05/19 at 19:00 Dextrose (D50w Syringe) 25 ml Q15M PRN IV DECREASED GLUCOSE; Start 02/05/19 at 19:00 Dextrose (D50w Syringe) 50 ml Q15M PRN IV DECREASED GLUCOSE; Start 02/05/19 at 19:00 Glucagon (Glucagen) 1 mg Q15M PRN IM DECREASED GLUCOSE; Start 02/05/19 at 19:00 Glucose (Glutose) 15 gm Q15M PRN BUCCAL DECREASED GLUCOSE; Start 02/05/19 at 19:00 Acetaminophen/ Butalbital/ Caffeine (Fioricet) 1 tab Q6H PRN PO PAIN Last administered on 02/14/19 08:44; Admin Dose 1 TAB; Start 02/06/19 at 12:00 Morphine Sulfate (morphine) 2 mg Q4H PRN IV SEVERE PAIN LEVEL 7-10 Last administered on 02/17/19 06:11; Admin Dose 2 MG; Start 02/07/19 at 11:30 Metoclopramide HCl (Reglan) 5 mg Q6H PRN IV nausea Last administered on 02/10/19 21:23; Admin Dose 5 MG; Start 02/10/19 at 08:00 Methylprednisolone (Medrol Dose Pack) 1 ea STD DOSE PACK PO ; Start 02/10/19 at 08:00 Insulin Aspart (Novolog Insulin Pen) 6 unit WITH MEALS SC Last administered on 02/15/19 17:24; Admin Dose 6 UNIT; Start 02/10/19 at 17:55 Insulin Glargine (Lantus) 25 units BID SC Last administered on 02/16/19 20:34; Admin Dose 25 UNITS; Start 02/10/19 at 21:00 Polyethylene Glycol (Miralax) 17 gm DAILY PO Last administered on 02/16/19 09:00; Admin Dose 17 GM; Start 02/12/19 at 10:00 Al Hydrox/Mg Hydrox/Simethicone (Mag-Al Plus) 30 ml Q6H PRN PO GASTROINTESTINAL UPSET; Start 02/12/19 at 22:30 Hydralazine HCl (Apresoline) 10 mg Q4H PRN PO ELEVATED BLOOD PRESSURE Last admi nistered on 02/13/19 04:58; Admin Dose 10 MG; Start 02/13/19 at 04:30 Nifedipine (Procardia Xl) 60 mg BID PO Last administered on 02/16/19 20:21; Admin Dose 60 MG; Start 02/13/19 at 09:00 Metoprolol Tartrate (Lopressor) 12.5 mg BID PO Last administered on 02/16/19 10:31; Admin Dose 12.5 MG; Start 02/14/19 at 09:00 Senna/Docusate Sodium (Senokot-S) 1 tab BID PO Last administered on 02/16/19 20:20; Admin Dose 1 TAB; Start 02/14/19 at 21:00 Meropenem/Sodium Chloride 50 ml @ 100 mls/hr Q12H IVPB Last administered on 02/17/19 01:38; Admin Dose 100 MLS/HR; Start 02/15/19 at 13:00 Pantoprazole (Protonix Tab) 40 mg BID@0600,1800 PO Last administered on 02/17/19at 06:32; Admin Dose 40 MG; Start 02/15/19 at 18:00 Phenazopyridine HCl (Pyridium) 100 mg WITH MEALS PO Last administered on at 17:52; Admin Dose 100 MG; Start 02/15/19 at 13:30 Sucralfate (Carafate) 1 gm Q6 PO Last administered on 02/17/19at 06:32; Admin Dose 1 GM; Start 02/15/19 at 13:30 Insulin Aspart (Novolog Insulin Pen) (Adult SC Insulin - Moder... WITH MEALS BEDTIME SC ; Start 02/16/19 at 07:55 Apixaban (Eliquis) 10 mg BID PO Last administered on 02/16/19at 20:19; Admin Dose 10 MG; Start 02/16/19 at 13:00; Stop 02/23/19 at 12:59 Apixaban (Eliquis) 5 mg BID PO ; Start 02/23/19 at 21:00 Assessment/Plan Hospital Course (Demo Recall) 1. Nonoliguric acute kidney injury on top of chronic kidney disease, unknown baseline creatinine. Etiology is secondary to hemodynamics. Renal function is worsening today with unknown significance. continue monitoring. Continue current treatment plans, supportive care, renally dose all medicines. 2. Mineral bone disorder. Monitor calcium and phosphorus levels. 3. Hypertension. Continue current blood pressure regimen.If cr worsens, may need to hold benazepril. 4. Chest pain. The patient is sp stress test per cardiology. Continue morphine. 5. Migraine headaches, stab;e. possibly due to underlying Imdur. 6. Diabetes. Continue current insulin regimen. 7. ESBL Ecoli UTI- on abx. JUAN RUDOLPH DO Feb 17, 2019 06:50
[2019-02-17 07:27] VITALS: BP 125/72; PULSE 70; RESP 18
[2019-02-17] MEDS: Insulin NOVOLOG SS MODERATE Algorithm (SS with meals and bedtime) SC SCH ×4 (07:48→21:00)
[2019-02-17] MEDS: PHENAZOPYRIDINE 100 MG TAB PO SCH ×3 (07:51→17:21)
[2019-02-17] MEDS: CLOPIDOGREL 75 MG TAB PO SCH (08:10)
[2019-02-17] MEDS: SENNA/DOCUSATE NA (8.6MG/50MG) TAB PO SCH ×2 (08:10→21:33)
[2019-02-17] MEDS: ASPIRIN 81 MG TAB PO SCH (08:10)
[2019-02-17] MEDS: METOPROLOL 25 MG TAB PO SCH ×2 (08:12→21:35)
[2019-02-17] MEDS: SERTRALINE 100 MG TAB PO SCH (08:27)
[2019-02-17] MEDS: APIXABAN 5 MG TABLET PO SCH ×2 (08:27→21:34)
[2019-02-17] MEDS: POLYETHYLENE GLYCOL 17 GM PACKET PO SCH (08:28)
[2019-02-17] MEDS: INSULIN GLARGINE [LANTus] (100 UNITS/ML) SYG SC SCH ×2 (08:52→21:33)
[2019-02-17] MEDS: INSULIN ASPART [NOVOLOG] 3 ML PEN SC SCH ×3 (08:52→18:02)
[2019-02-17] MEDS: NIFEdipine (XL) 60 MG TAB PO SCH ×2 (09:52→21:34)
[2019-02-17 11:10] VITALS: BP 134/70; PULSE 61; RESP 18
--- NOTE | 2019-02-17 11:28 | PN ---
Date/Time of Note Date/Time of Note DATE: 02/17/19 TIME: 11:24 Assessment/Plan VTE Prophylaxis Risk score (from Nsg)>0 risk: 4 SCD applied (from Ns): No SCD contraindicated: DVT Pharmacological prophylaxis: apixaban Lines/Catheters IV Catheter Type (from Nrsg): Saline Lock Urinary Cath still in place: No Assessment/Plan Assessment/Plan 1. Acute chest pain- stable - still with epigastric pressure but non cardiac - negative stress test, EKG, and negative trops - Cardiology consultation appreciated - continue on aspirin and statin 2. ESBL UTI - ID consultation appreciated and will continue on current antibiotics - pyridium on board for dysuria 3. Acute onset headache, intermittent- improved - Neurology on board for recommendations and appreciate consultation. - PRN reglan 4. Acute DVT - on Eliquis and will ask CM regarding coverage - seen on US 5. Mild acute kidney insufficiency - Nephrology on board and appreciate recommendations 6. Mood disorder - Continue sertraline 7. Hypothyroidism - Continue home medications 8. Diabetes mellitus - Hold p.o. metformin - Insulin while in house 9. GERD - PPI 10. Hypertension - Continue home medications. adjusting for better BP control 11. Disposition - When dysuria and LLE pain improves, will d/c home - Will consult CM to determine cost for Eliquis Result Diagram: 02/16/19 0617 02/16/19 0617 Results 24hrs Laboratory Tests Test 02/16/19 13:04 02/16/19 17:45 02/16/19 20:16 02/17/19 07:46 Bedside Glucose 182 125 163 83 Subjective 24 Hr Interval Summary Free Text/Dictation Patient still with dysuria but states feeling better. Pain in left calf is improving as well. Requesting to shower. Exam/Review of Systems Exam Vitals Vital Signs Date Temp Pulse Resp B/P (MAP) Pulse Ox O2 O2 Flow FiO2 Time Delivery Rate 02/17/19 98.2 61 18 134/70 98 Room Air 11:10 (91) 02/14/19 2.0 16:45 Intake and Output 02/16/19 02/16/19 02/17/19 1515:00 23:00 07:00 IntakeIntake Total 1560 ml 830 ml 500 ml OutputOutput Total 1380 ml 1200 ml BalanceBalance 1560 ml -550 ml -700 ml Exam General: Patient is laying in bed, mild distress due to bladder discomfort Neck: Supple Respiratory: Clear to auscultation bilaterally. no wheezing or rhonchi Cardiovascular: regular rate and rhythm, no obvious murmurs Gastrointestinal: soft, non-tender to palpation epigastric area, mild tenderness suprapubic area, nondistended, bowel sounds heard. Ext: Moves all extremities spontaneously Skin: No new skin lesions Results Results 24hrs Laboratory Tests Test 02/16/19 13:04 02/16/19 17:45 02/16/19 20:16 02/17/19 07:46 Bedside Glucose 182 125 163 83 Medications Medication Current Medications IV Flush (NS 3 ml) 3 ml PER PROTOCOL IV ; Start 02/05/19 at 17:00 Aspirin (Aspirin) 81 mg DAILY PO Last administered on 02/17/19 08:10; Admin Dose 81 MG; Start 02/06/19 at 09:00 Nitroglycerin (Nitroglycerin (Sl Tab) 0.4 Mg) 1 tab Q5M PRN SL .CHEST PAIN Last administered on 02/17/19 06:02; Admin Dose 1 TAB; Start 02/05/19 at 17:00 Acetaminophen (Tylenol Tab) 650 mg Q6H PRN PO .PAIN 1-3 OR TEMP Last administered on 02/08/19 12:15; Admin Dose 650 MG; Start 02/05/19 at 17:00 Atorvastatin Calcium (Lipitor) 80 mg QHS PO Last administered on 02/16/19 20:19; Admin Dose 80 MG; Start 02/05/19 at 21:00 Benazepril HCl (Lotensin) 10 mg DAILY PO Last administered on 02/09/19 08:43; Admin Dose 10 MG; Start 02/06/19 at 09:00; Status Hold Clopidogrel Bisulfate (plaVIX) 75 mg DAILY PO Last administered on 02/17/19 08:10; Admin Dose 75 MG; Start 02/06/19 at 09:00 Hydrochlorothiazide (Hydrochlorothiazide) 25 mg DAILY PO Last administered on 02/09/19 08:43; Admin Dose 25 MG; Start 02/06/19 at 09:00; Status Hold Levothyroxine Sodium (Synthroid) 75 mcg BEFORE BREAKFAST PO Last administered on 02/17/19 06:32; Admin Dose 75 MCG; Start 02/06/19 at 07:00 Sertraline HCl (Zoloft) 100 mg QAM PO Last administered on 02/17/19 08:27; Admin Dose 100 MG; Start 02/06/19 at 09:00 Trazodone HCl (Desyrel) 50 mg QHS PRN PO insomnia Last administered on 22:34; Admin Dose 50 MG; Start 02/05/19 at 17:30 Phenol (Cepastat Lozenge) 1 lozenge Q1H PRN MT sore throat Last administered on 02/10/19 21:23; Admin Dose 1 LOZENGE; Start 02/05/19 at 17:30 Miscellaneous Information 1 ea NOTE XX ; Start 02/05/19 at 19:00 Glucose (Glutose) 15 gm Q15M PRN PO DECREASED GLUCOSE; Start 02/05/19 at 19:00 Glucose (Glutose) 22.5 gm Q15M PRN PO DECREASED GLUCOSE; Start 02/05/19 at 19:00 Dextrose (D50w Syringe) 25 ml Q15M PRN IV DECREASED GLUCOSE; Start 02/05/19 at 19:00 Dextrose (D50w Syringe) 50 ml Q15M PRN IV DECREASED GLUCOSE; Start 02/05/19 at 19:00 Glucagon (Glucagen) 1 mg Q15M PRN IM DECREASED GLUCOSE; Start 02/05/19 at 19:00 Glucose (Glutose) 15 gm Q15M PRN BUCCAL DECREASED GLUCOSE; Start 02/05/19 at 19:00 Acetaminophen/ Butalbital/ Caffeine (Fioricet) 1 tab Q6H PRN PO PAIN Last administered on 02/14/19at 08:44; Admin Dose 1 TAB; Start 02/06/19 at 12:00 Morphine Sulfate (morphine) 2 mg Q4H PRN IV SEVERE PAIN LEVEL 7-10 Last administered on 02/17/19 06:11; Admin Dose 2 MG; Start 02/07/19 at 11:30 Metoclopramide HCl (Reglan) 5 mg Q6H PRN IV nausea Last administered on 02/10/19 21:23; Admin Dose 5 MG; Start 02/10/19 at 08:00 Methylprednisolone (Medrol Dose Pack) 1 ea STD DOSE PACK PO ; Start 02/10/19 at 08:00 Insulin Aspart (Novolog Insulin Pen) 6 unit WITH MEALS SC Last administered on 02/17/19 08:52; Admin Dose 6 UNIT; Start 02/10/19 at 17:55 Insulin Glargine (Lantus) 25 units BID SC Last administered on 02/17/19 08:52; Admin Dose 25 UNITS; Start 02/10/19 at 21:00 Polyethylene Glycol (Miralax) 17 gm DAILY PO Last administered on 02/17/19 08:28; Admin Dose 17 GM; Start 02/12/19 at 10:00 Al Hydrox/Mg Hydrox/Simethicone (Mag-Al Plus) 30 ml Q6H PRN PO GASTROINTESTINAL UPSET; Start 02/12/19 at 22:30 Hydralazine HCl (Apresoline) 10 mg Q4H PRN PO ELEVATED BLOOD PRESSURE Last administered on 02/13/19 04:58; Admin Dose 10 MG; Start 02/13/19 at 04:30 Metoprolol Tartrate (Lopressor) 12.5 mg BID PO Last administered on 02/17/19 08:12; Admin Dose 12.5 MG; Start 02/14/19 at 09:00 Senna/Docusate Sodium (Senokot-S) 1 tab BID PO Last administered on 02/17/19 08:10; Admin Dose 1 TAB; Start 02/14/19 at 21:00 Meropenem/Sodium Chloride 50 ml @ 100 mls/hr Q12H IVPB Last administered on 02/17/19 01:38; Admin Dose 100 MLS/HR; Start 02/15/19 at 13:00 Pantoprazole (Protonix Tab) 40 mg BID@0600,1800 PO Last administered on 02/17/19 06:32; Admin Dose 40 MG; Start 02/15/19 at 18:00 Phenazopyridine HCl (Pyridium) 100 mg WITH MEALS PO Last administered on 02/17/19 07:51; Admin Dose 100 MG; Start 02/15/19 at 13:30 Sucralfate (Carafate) 1 gm Q6 PO Last administered on 02/17/19 06:32; Admin Dose 1 GM; Start 02/15/19 at 13:30 Insulin Aspart (Novolog Insulin Pen) (Adult SC Insulin - Moder... WITH MEALS BEDTIME SC ; Start 02/16/19 at 07:55 Apixaban (Eliquis) 10 mg BID PO Last administered on 02/17/19at 08:27; Admin Dose 10 MG; Start 02/16/19 at 13:00; Stop 02/23/19 at 12:59 Apixaban (Eliquis) 5 mg BID PO ; Start 02/23/19 at 21:00 Nifedipine (Procardia Xl) 60 mg BID PO Last administered on 02/17/19at 09:52; Admin Dose 60 MG; Start 02/17/19 at 09:00 ERICK BROWN MD Feb 17, 2019 11:28
[2019-02-17] MEDS ORDERED: APIX5TAB PO (11:31)
--- NOTE | 2019-02-17 13:35 | CONS ---
Consultation Date/Type/Reason Admit Date/Time Feb 06, 2019 at 15:49 Initial Consult Date Type of Consult SUBJECTIVE: Patient is awake,alert, looks comfortable. Still complaining of dysuria and bilateral flank pain, but getting better. No fevers VS: stable T: 98.2 LABS: Reviewed. Microbiology: Urine culture grew E. coli ESBL Antimicrobials: Patient remains on meropenem Physical examination: GEN: Well-developed obese elderly woman who is alert in no distress. HENT: Head atraumatic normocephalic sclera nonicteric vehicle mucosa dry ;neck is supple PULM: chest rise symmetrical breath sounds clear Heart: S1-S2 Abdomen: obese, soft, patient has tenderness over suprapubic area on palpation and bilateral CVA tenderness. Bowel sounds present. Extremities without cyanosis Assessment: 1. E. coli ESBL UTI 2. Diabetes 3. Hypertension 4. Obesity 5. Acute kidney insufficiency Plan: Patient remains stable. Continue current antibiotics and anticoagulation therapy. Requesting Provider: ISABELA TORIBIO Date/Time of Note DATE: 02/17/19 TIME: 13:32 Exam/Review of Systems Exam Vitals Vital Signs Date Temp Pulse Resp B/P (MAP) Pulse Ox O2 O2 Flow FiO2 Time Delivery Rate 02/17/19 98.2 61 18 134/70 98 Room Air 11:10 (91) 02/14/19 2.0 16:45 Intake and Output 02/16/19 02/16/19 02/17/19 1515:00 23:00 07:00 IntakeIntake Total 1560 ml 830 ml 500 ml OutputOutput Total 1380 ml 1200 ml BalanceBalance 1560 ml -550 ml -700 ml Results Result Diagram: 02/16/19 0617 02/16/19 0617 Results 24hrs Laboratory Tests Test 02/16/19 17:45 02/16/19 20:16 02/17/19 07:46 02/17/19 11:28 Bedside Glucose 125 163 83 142 Medications Medication Current Medications IV Flush (NS 3 ml) 3 ml PER PROTOCOL IV ; Start 02/05/19 at 17:00 Aspirin (Aspirin) 81 mg DAILY PO Last administered on 02/17/19at 08:10; Admin Dose 81 MG; Start 02/06/19 at 09:00 Nitroglycerin (Nitroglycerin (Sl Tab) 0.4 Mg) 1 tab Q5M PRN SL .CHEST PAIN Last administered on 02/17/19 06:02; Admin Dose 1 TAB; Start 02/05/19 at 17:00 Acetaminophen (Tylenol Tab) 650 mg Q6H PRN PO .PAIN 1-3 OR TEMP Last administered on 02/08/19 12:15; Admin Dose 650 MG; Start 02/05/19 at 17:00 Atorvastatin Calcium (Lipitor) 80 mg QHS PO Last administered on 02/16/19 20:19; Admin Dose 80 MG; Start 02/05/19 at 21:00 Benazepril HCl (Lotensin) 10 mg DAILY PO Last administered on 02/09/19 08:43; Admin Dose 10 MG; Start 02/06/19 at 09:00; Status Hold Clopidogrel Bisulfate (plaVIX) 75 mg DAILY PO Last administered on 02/17/19 08:10; Admin Dose 75 MG; Start 02/06/19 at 09:00 Hydrochlorothiazide (Hydrochlorothiazide) 25 mg DAILY PO Last administered on 02/09/19 08:43; Admin Dose 25 MG; Start 02/06/19 at 09:00; Status Hold Levothyroxine Sodium (Synthroid) 75 mcg BEFORE BREAKFAST PO Last administered on 02/17/19 06:32; Admin Dose 75 MCG; Start 02/06/19 at 07:00 Sertraline HCl (Zoloft) 100 mg QAM PO Last administered on 02/17/19 08:27; Admin Dose 100 MG; Start 02/06/19 at 09:00 Trazodone HCl (Desyrel) 50 mg QHS PRN PO insomnia Last administered on 02/15/19 22:34; Admin Dose 50 MG; Start 02/05/19 at 17:30 Phenol (Cepastat Lozenge) 1 lozenge Q1H PRN MT sore throat Last administered on 02/10/19 21:23; Admin Dose 1 LOZENGE; Start 02/05/19 at 17:30 Miscellaneous Information 1 ea NOTE XX ; Start 02/05/19 at 19:00 Glucose (Glutose) 15 gm Q15M PRN PO DECREASED GLUCOSE; Start 02/05/19 at 19:00 Glucose (Glutose) 22.5 gm Q15M PRN PO DECREASED GLUCOSE; Start 02/05/19 at 19:00 Dextrose (D50w Syringe) 25 ml Q15M PRN IV DECREASED GLUCOSE; Start 02/05/19 at 19:00 Dextrose (D50w Syringe) 50 ml Q15M PRN IV DECREASED GLUCOSE; Start 02/05/19 at 19:00 Glucagon (Glucagen) 1 mg Q15M PRN IM DECREASED GLUCOSE; Start 02/05/19 at 19:00 Glucose (Glutose) 15 gm Q15M PRN BUCCAL DECREASED GLUCOSE; Start 02/05/19 at 19:00 Acetaminophen/ Butalbital/ Caffeine (Fioricet) 1 tab Q6H PRN PO PAIN Last administered on 02/14/19at 08:44; Admin Dose 1 TAB; Start 02/06/19 at 12:00 Morphine Sulfate (morphine) 2 mg Q4H PRN IV SEVERE PAIN LEVEL 7-10 Last administered on 02/17/19at 06:11; Admin Dose 2 MG; Start 02/07/19 at 11:30 Metoclopramide HCl (Reglan) 5 mg Q6H PRN IV nausea Last administered on 02/10/19at 21:23; Admin Dose 5 MG; Start 02/10/19 at 08:00 Methylprednisolone (Medrol Dose Pack) 1 ea STD DOSE PACK PO ; Start 02/10/19 at 08:00 Insulin Aspart (Novolog Insulin Pen) 6 unit WITH MEALS SC Last administered on 02/17/19at 12:07; Admin Dose 6 UNIT; Start 02/10/19 at 17:55 Insulin Glargine (Lantus) 25 units BID SC Last administered on 02/17/19 08:52; Admin Dose 25 UNITS; Start 02/10/19 at 21:00 Polyethylene Glycol (Miralax) 17 gm DAILY PO Last administered on 02/17/19 08:28; Admin Dose 17 GM; Start 02/12/19 at 10:00 Al Hydrox/Mg Hydrox/Simethicone (Mag-Al Plus) 30 ml Q6H PRN PO GASTROINTESTINAL UPSET; Start 02/12/19 at 22:30 Hydralazine HCl (Apresoline) 10 mg Q4H PRN PO ELEVATED BLOOD PRESSURE Last a dministered on 02/13/19at 04:58; Admin Dose 10 MG; Start 02/13/19 at 04:30 Metoprolol Tartrate (Lopressor) 12.5 mg BID PO Last administered on 02/17/19 08:12; Admin Dose 12.5 MG; Start 02/14/19 at 09:00 Senna/Docusate Sodium (Senokot-S) 1 tab BID PO Last administered on 02/17/19 08:10; Admin Dose 1 TAB; Start 02/14/19 at 21:00 Meropenem/Sodium Chloride 50 ml @ 100 mls/hr Q12H IVPB Last administered on 02/17/19 12:22; Admin Dose 100 MLS/HR; Start 02/15/19 at 13:00 Pantoprazole (Protonix Tab) 40 mg BID@0600,1800 PO Last administered on 02/17/19 06:32; Admin Dose 40 MG; Start 02/15/19 at 18:00 Phenazopyridine HCl (Pyridium) 100 mg WITH MEALS PO Last administered on 02/17/19 12:22; Admin Dose 100 MG; Start 02/15/19 at 13:30 Sucralfate (Carafate) 1 gm Q6 PO Last administered on 02/17/19 12:22; Admin Dose 1 GM; Start 02/15/19 at 13:30 Insulin Aspart (Novolog Insulin Pen) (Adult SC Insulin - Moder... WITH MEALS BEDTIME SC Last administered on 02/17/19 12:08; Admin Dose 2 UNIT; Start 02/16/19 at 07:55 Apixaban (Eliquis) 10 mg BID PO Last administered on 02/17/19 08:27; Admin Dose 10 MG; Start 02/16/19 at 13:00; Stop 02/23/19 at 12:59 Apixaban (Eliquis) 5 mg BID PO ; Start 02/23/19 at 21:00 Nifedipine (Procardia Xl) 60 mg BID PO Last administered on 02/17/19 09:52; Admin Dose 60 MG; Start 02/17/19 at 09:00 JENNIFER ROLAND Feb 17, 2019 13:35
--- NOTE | 2019-02-17 13:53 | CONS ---
Assessment/Plan Assessment/Plan Assessment/Plan (Recall) 63 F c/ multiple comorbidities, presents for evaluation of chest pain and other Sx.. Now w/ severe headache, for which neurology is consulted.. The clinical picture is consistent w/ recurrent migraine.. Meningitis is unlikely. Head CT was without obvious acute intracranial pathology. s/p Solumedrol 1vg iv x1 and medrol pack, with some clinical improvement Hospital course since complicated by acute DVT P: Limit Fioricet where possible given potential for superimposed medication overuse headaches.. Other management and supportive care per primary Will sign off for now; please call w/ adnl ?s Consultation Date/Type/Reason Admit Date/Time Feb 06, 2019 at 15:49 Type of Consult Neurology Reason for Consultation headache Requesting Provider: ISABELA TORIBIO Date/Time of Note DATE: 02/17/19 TIME: 13:52 24 HR Interval Summary Free Text/Dictation s/p venous duplex Exam/Review of Systems Exam Vitals Vital Signs Date Temp Pulse Resp B/P (MAP) Pulse Ox O2 O2 Flow FiO2 Time Delivery Rate 02/17/19 98.2 61 18 134/70 98 Room Air 11:10 (91) 02/14/19 2.0 16:45 Intake and Output 02/16/19 02/16/19 02/17/19 1515:00 23:00 07:00 IntakeIntake Total 1560 ml 830 ml 500 ml OutputOutput Total 1380 ml 1200 ml BalanceBalance 1560 ml -550 ml -700 ml Results Result Diagram: 02/16/19 0617 02/16/19 0617 Results 24hrs Laboratory Tests Test 02/16/19 17:45 02/16/19 20:16 02/17/19 07:46 02/17/19 11:28 Bedside Glucose 125 163 83 142 Medications Medication Current Medications IV Flush (NS 3 ml) 3 ml PER PROTOCOL IV ; Start 02/05/19 at 17:00 Aspirin (Aspirin) 81 mg DAILY PO Last administered on 02/17/19at 08:10; Admin Dose 81 MG; Start 02/06/19 at 09:00 Nitroglycerin (Nitroglycerin (Sl Tab) 0.4 Mg) 1 tab Q5M PRN SL .CHEST PAIN Last administered on 02/17/19at 06:02; Admin Dose 1 TAB; Start 02/05/19 at 17:00 Acetaminophen (Tylenol Tab) 650 mg Q6H PRN PO .PAIN 1-3 OR TEMP Last administered on 02/08/19 12:15; Admin Dose 650 MG; Start 02/05/19 at 17:00 Atorvastatin Calcium (Lipitor) 80 mg QHS PO Last administered on 02/16/19 20:19; Admin Dose 80 MG; Start 02/05/19 at 21:00 Benazepril HCl (Lotensin) 10 mg DAILY PO Last administered on 02/09/19 08:43; Admin Dose 10 MG; Start 02/06/19 at 09:00; Status Hold Clopidogrel Bisulfate (plaVIX) 75 mg DAILY PO Last administered on 02/17/19 08:10; Admin Dose 75 MG; Start 02/06/19 at 09:00 Hydrochlorothiazide (Hydrochlorothiazide) 25 mg DAILY PO Last administered on 02/09/19 08:43; Admin Dose 25 MG; Start 02/06/19 at 09:00; Status Hold Levothyroxine Sodium (Synthroid) 75 mcg BEFORE BREAKFAST PO Last administered on 02/17/19 06:32; Admin Dose 75 MCG; Start 02/06/19 at 07:00 Sertraline HCl (Zoloft) 100 mg QAM PO Last administered on 02/17/19 08:27; Admin Dose 100 MG; Start 02/06/19 at 09:00 Trazodone HCl (Desyrel) 50 mg QHS PRN PO insomnia Last administered on 02/15/19 at 22:34; Admin Dose 50 MG; Start 02/05/19 at 17:30 Phenol (Cepastat Lozenge) 1 lozenge Q1H PRN MT sore throat Last administered on 02/10/19at 21:23; Admin Dose 1 LOZENGE; Start 02/05/19 at 17:30 Miscellaneous Information 1 ea NOTE XX ; Start 02/05/19 at 19:00 Glucose (Glutose) 15 gm Q15M PRN PO DECREASED GLUCOSE; Start 02/05/19 at 19:00 Glucose (Glutose) 22.5 gm Q15M PRN PO DECREASED GLUCOSE; Start 02/05/19 at 19:00 Dextrose (D50w Syringe) 25 ml Q15M PRN IV DECREASED GLUCOSE; Start 02/05/19 at 19:00 Dextrose (D50w Syringe) 50 ml Q15M PRN IV DECREASED GLUCOSE; Start 02/05/19 at 19:00 Glucagon (Glucagen) 1 mg Q15M PRN IM DECREASED GLUCOSE; Start 02/05/19 at 19:00 Glucose (Glutose) 15 gm Q15M PRN BUCCAL DECREASED GLUCOSE; Start 02/05/19 at 19:00 Acetaminophen/ Butalbital/ Caffeine (Fioricet) 1 tab Q6H PRN PO PAIN Last administered on 02/14/19at 08:44; Admin Dose 1 TAB; Start 02/06/19 at 12:00 Morphine Sulfate (morphine) 2 mg Q4H PRN IV SEVERE PAIN LEVEL 7-10 Last administered on 02/17/19 06:11; Admin Dose 2 MG; Start 02/07/19 at 11:30 Metoclopramide HCl (Reglan) 5 mg Q6H PRN IV nausea Last administered on 02/10/19 21:23; Admin Dose 5 MG; Start 02/10/19 at 08:00 Methylprednisolone (Medrol Dose Pack) 1 ea STD DOSE PACK PO ; Start 02/10/19 at 08:00 Insulin Aspart (Novolog Insulin Pen) 6 unit WITH MEALS SC Last administered on 02/17/19 12:07; Admin Dose 6 UNIT; Start 02/10/19 at 17:55 Insulin Glargine (Lantus) 25 units BID SC Last administered on 02/17/19 08:52; Admin Dose 25 UNITS; Start 02/10/19 at 21:00 Polyethylene Glycol (Miralax) 17 gm DAILY PO Last administered on 02/17/19 08:28; Admin Dose 17 GM; Start 02/12/19 at 10:00 Al Hydrox/Mg Hydrox/Simethicone (Mag-Al Plus) 30 ml Q6H PRN PO GASTROINTESTINAL UPSET; Start 02/12/19 at 22:30 Hydralazine HCl (Apresoline) 10 mg Q4H PRN PO ELEVATED BLOOD PRESSURE Last administered on 02/13/19 04:58; Admin Dose 10 MG; Start 02/13/19 at 04:30 Metoprolol Tartrate (Lopressor) 12.5 mg BID PO Last administered on 02/17/19 08:12; Admin Dose 12.5 MG; Start 02/14/19 at 09:00 Senna/Docusate Sodium (Senokot-S) 1 tab BID PO Last administered on 02/17/19 08:10; Admin Dose 1 TAB; Start 02/14/19 at 21:00 Meropenem/Sodium Chloride 50 ml @ 100 mls/hr Q12H IVPB Last administered on 02/17/19 12:22; Admin Dose 100 MLS/HR; Start 02/15/19 at 13:00 Pantoprazole (Protonix Tab) 40 mg BID@0600,1800 PO Last administered on 02/17/19 06:32; Admin Dose 40 MG; Start 02/15/19 at 18:00 Phenazopyridine HCl (Pyridium) 100 mg WITH MEALS PO Last administered on 02/17/19 12:22; Admin Dose 100 MG; Start 02/15/19 at 13:30 Sucralfate (Carafate) 1 gm Q6 PO Last administered on 02/17/19 12:22; Admin Dose 1 GM; Start 02/15/19 at 13:30 Insulin Aspart (Novolog Insulin Pen) (Adult SC Insulin - Moder... WITH MEALS BEDTIME SC Last administered on 02/17/19 12:08; Admin Dose 2 UNIT; Start 02/16/19 at 07:55 Apixaban (Eliquis) 10 mg BID PO Last administered on 02/17/19 08:27; Admin Dose 10 MG; Start 02/16/19 at 13:00; Stop 02/23/19 at 12:59 Apixaban (Eliquis) 5 mg BID PO ; Start 02/23/19 at 21:00 Nifedipine (Procardia Xl) 60 mg BID PO Last administered on 02/17/19 09:52; Admin Dose 60 MG; Start 02/17/19 at 09:00 JOSE FUENTES Feb 17, 2019 13:53
[2019-02-17 15:30] VITALS: BP 142/68; PULSE 60; RESP 20
[2019-02-17 20:15] VITALS: BP 137/80; PULSE 67; RESP 19
[2019-02-17] MEDS: ATORVASTATIN 80 MG TAB PO SCH (21:33)
[2019-02-18] MEDS: MEROPENEM 1 GM/50ML(PMX) 50 ML IVPB SCH ×2 (00:36→12:18)
[2019-02-18] MEDS: CEPASTAT LOZENGE MT PRN (00:36)
[2019-02-18] MEDS: METOCLOPRAMIDE 10 MG INJ IV PRN (00:36)
[2019-02-18] MEDS: SUCRALFATE 1 GM TAB PO SCH ×4 (00:39→17:13)
[2019-02-18] MEDS: morphine 2 MG INJ IV PRN ×4 (00:42→19:13)
[2019-02-18 01:52] VITALS: BP 112/68; PULSE 60; RESP 20
[2019-02-18] MEDS: traZODone 50 MG TAB PO PRN (02:51)
[2019-02-18] MEDS: LEVOTHYROXINE 75 MCG TAB PO SCH (06:17)
[2019-02-18] MEDS: PANTOPRAZOLE (EC) 40 MG TAB PO SCH ×2 (06:17→17:13)
[2019-02-18] MEDS: Insulin NOVOLOG SS MODERATE Algorithm (SS with meals and bedtime) SC SCH ×4 (07:59→21:00)
[2019-02-18 08:00] VITALS: BP 141/80; PULSE 57; RESP 18
[2019-02-18] MEDS: INSULIN ASPART [NOVOLOG] 3 ML PEN SC SCH ×3 (08:03→17:14)
[2019-02-18] MEDS: INSULIN GLARGINE [LANTus] (100 UNITS/ML) SYG SC SCH ×2 (08:04→21:27)
[2019-02-18] MEDS: PHENAZOPYRIDINE 100 MG TAB PO SCH ×3 (08:05→17:13)
[2019-02-18] MEDS: APIXABAN 5 MG TABLET PO SCH ×2 (08:05→21:22)
[2019-02-18] MEDS: SERTRALINE 100 MG TAB PO SCH (08:05)
[2019-02-18] MEDS: NIFEdipine (XL) 60 MG TAB PO SCH ×2 (08:06→21:23)
[2019-02-18] MEDS: CLOPIDOGREL 75 MG TAB PO SCH (08:06)
[2019-02-18] MEDS: POLYETHYLENE GLYCOL 17 GM PACKET PO SCH (08:07)
[2019-02-18] MEDS: SENNA/DOCUSATE NA (8.6MG/50MG) TAB PO SCH ×2 (08:07→21:22)
[2019-02-18] MEDS: METOPROLOL 25 MG TAB PO SCH ×2 (08:07→21:22)
[2019-02-18] MEDS: ASPIRIN 81 MG TAB PO SCH (08:41)
--- NOTE | 2019-02-18 12:30 | PN ---
Date/Time of Note Date/Time of Note DATE: 02/18/19 TIME: 12:16 Assessment/Plan VTE Prophylaxis Risk score (from Ns)>0 risk: 6 SCD applied (from Ns): No SCD contraindicated: DVT, other Pharmacological prophylaxis: apixaban Lines/Catheters IV Catheter Type (from [facility]): [facility] Urinary Cath still in place: No Assessment/Plan Assessment/Plan 1. ESBL UTI, on meropenem started on 02/15/2019 2. Acute left LE DVT, on eliquis 3. Chest pain, muscular with tenderness, negative for ischemia per stress thallium test 4. CAD, s/p PCI/stent in 2014, on aspirin, plavix, statin and metoprolol 5. Headache, steroid per neurology 6. Mood disorder, stable on sertraline 7. Hypothyroidism, on synthroid 8. Diabetes mellitus, on insulins 9. GERD, PPI 10. 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 eliquis and meropenem is covered Result Diagram: 02/18/19 0530 02/18/19 0530 Results 24hrs Laboratory Tests Test 02/17/19 17:23 02/17/19 21:32 02/18/19 05:30 02/18/19 07:56 Bedside Glucose 87 123 77 White Blood Count 9.6 Red Blood Count 4.61 Hemoglobin 12.5 Hematocrit 39.8 Mean Corpuscular 86.3 Volume Mean Corpuscular 27.1 L Hemoglobin Mean Corpuscular 31.4 L Hemoglobin Concent Red Cell 13.8 Distribution Width Platelet Count 244 Mean Platelet Volume 10.0 Immature 1.500 H Granulocytes % Neutrophils % 71.7 Lymphocytes % 16.3 Monocytes % 6.6 Eosinophils % 3.5 Basophils % 0.4 Nucleated Red Blood 0.0 Cells % Immature 0.140 H Granulocytes # Neutrophils # 6.9 Lymphocytes # 1.6 Monocytes # 0.6 Eosinophils # 0.3 Basophils # 0.0 Nucleated Red Blood 0.0 Cells # Sodium Level 142 Potassium Level 4.0 Chloride Level 104 Carbon Dioxide Level 30 Anion Gap 8 Blood Urea Nitrogen 21 H Creatinine 1.14 H Est Glomerular 48 L Filtrat Rate mL/min Glucose Level 97 Calcium Level 8.5 Phosphorus Level 4.3 Magnesium Level 2.0 Subjective 24 Hr Interval Summary Free Text/Dictation headache, left upper chest pain, left upper and lower back pain Exam/Review of Systems Exam Vitals Vital Signs Date Temp Pulse Resp B/P (MAP) Pulse Ox O2 O2 Flow FiO2 Time Delivery Rate 02/18/19 98.3 57 18 141/80 97 Room Air 08:00 (100) 02/14/19 2.0 16:45 Intake and Output 02/17/19 02/17/19 02/18/19 1515:00 23:00 07:00 IntakeIntake Total 400 ml 1120 ml 400 ml OutputOutput Total 800 ml BalanceBalance 400 ml 320 ml 400 ml Constitutional: alert, oriented, well developed, obese Head: normocephalic, atraumatic Eyes: nl conjunctiva, EOMI, nl lids ENMT: nl external ears & nose, nl lips & teeth, nl nasal mucosa & septum Neck: supple, non-tender Respiratory: clear to auscultation, normal air movement; No congested cough, No crackles/rales, No diminished breath sounds, No intercostal retraction, No labored breathing, No respirations, No tactile fremitus, No wheezing, No other Cardiovascular: regular rate and rhythm, nl pulses; No bruits, No diastolic murmur, No edema, No gallop, No irregular rhythm, No jugular venous distention (JVD), No murmurs/extra sounds, No rub, No systolic murmur, No S3, No S4, No other Gastrointestinal: soft, nl liver, spleen, non-tender Musculoskeletal: nl extremities to inspection Extremities: normal pulses; No calf tenderness, No cyanosis, No clubbing, No edema, No pitting pedal edema, No palpable cord, No tenderness, No other 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, nl mental status, nl speech, nl strength Results Results 24hrs Laboratory Tests Test 02/17/19 17:23 02/17/19 21:32 02/18/19 05:30 02/18/19 07:56 Bedside Glucose 87 123 77 White Blood Count 9.6 Red Blood Count 4.61 Hemoglobin 12.5 Hematocrit 39.8 Mean Corpuscular 86.3 Volume Mean Corpuscular 27.1 L Hemoglobin Mean Corpuscular 31.4 L Hemoglobin Concent Red Cell 13.8 Distribution Width Platelet Count 244 Mean Platelet Volume 10.0 Immature 1.500 H Granulocytes % Neutrophils % 71.7 Lymphocytes % 16.3 Monocytes % 6.6 Eosinophils % 3.5 Basophils % 0.4 Nucleated Red Blood 0.0 Cells % Immature 0.140 H Granulocytes # Neutrophils # 6.9 Lymphocytes # 1.6 Monocytes # 0.6 Eosinophils # 0.3 Basophils # 0.0 Nucleated Red Blood 0.0 Cells # Sodium Level 142 Potassium Level 4.0 Chloride Level 104 Carbon Dioxide Level 30 Anion Gap 8 Blood Urea Nitrogen 21 H Creatinine 1.14 H Est Glomerular 48 L Filtrat Rate mL/min Glucose Level 97 Calcium Level 8.5 Phosphorus Level 4.3 Magnesium Level 2.0 Medications Medication Current Medications IV Flush (NS 3 ml) 3 ml PER PROTOCOL IV ; Start 02/05/19 at 17:00 Aspirin (Aspirin) 81 mg DAILY PO Last administered on 02/18/19 08:41; Admin Dose 81 MG; Start 02/06/19 at 09:00 Nitroglycerin (Nitroglycerin (Sl Tab) 0.4 Mg) 1 tab Q5M PRN SL .CHEST PAIN Last administered on 02/17/19 06:02; Admin Dose 1 TAB; Start 02/05/19 at 17:00 Acetaminophen (Tylenol Tab) 650 mg Q6H PRN PO .PAIN 1-3 OR TEMP Last administered on 02/08/19 12:15; Admin Dose 650 MG; Start 02/05/19 at 17:00 Atorvastatin Calcium (Lipitor) 80 mg QHS PO Last administered on 02/17/19 21:33; Admin Dose 80 MG; Start 02/05/19 at 21:00 Benazepril HCl (Lotensin) 10 mg DAILY PO Last administered on 02/09/19 08:43; Admin Dose 10 MG; Start 02/06/19 at 09:00; Status Hold Clopidogrel Bisulfate (plaVIX) 75 mg DAILY PO Last administered on 02/18/19 08:06; Admin Dose 75 MG; Start 02/06/19 at 09:00 Hydrochlorothiazide (Hydrochlorothiazide) 25 mg DAILY PO Last administered on 02/09/19 08:43; Admin Dose 25 MG; Start 02/06/19 at 09:00; Status Hold Levothyroxine Sodium (Synthroid) 75 mcg BEFORE BREAKFAST PO Last administered on 02/18/19 06:17; Admin Dose 75 MCG; Start 02/06/19 at 07:00 Sertraline HCl (Zoloft) 100 mg QAM PO Last administered on 02/18/19 08:05; Admin Dose 100 MG; Start 02/06/19 at 09:00 Trazodone HCl (Desyrel) 50 mg QHS PRN PO insomnia Last administered on 02/18/19 02:51; Admin Dose 50 MG; Start 02/05/19 at 17:30 Phenol (Cepastat Lozenge) 1 lozenge Q1H PRN MT sore throat Last administered on 02/18/19 00:36; Admin Dose 1 LOZENGE; Start 02/05/19 at 17:30 Miscellaneous Information 1 ea NOTE XX ; Start 02/05/19 at 19:00 Glucose (Glutose) 15 gm Q15M PRN PO DECREASED GLUCOSE; Start 02/05/19 at 19:00 Glucose (Glutose) 22.5 gm Q15M PRN PO DECREASED GLUCOSE; Start 02/05/19 at 19:00 Dextrose (D50w Syringe) 25 ml Q15M PRN IV DECREASED GLUCOSE; Start 02/05/19 at 19:00 Dextrose (D50w Syringe) 50 ml Q15M PRN IV DECREASED GLUCOSE; Start 02/05/19 at 19:00 Glucagon (Glucagen) 1 mg Q15M PRN IM DECREASED GLUCOSE; Start 02/05/19 at 19:00 Glucose (Glutose) 15 gm Q15M PRN BUCCAL DECREASED GLUCOSE; Start 02/05/19 at 19:00 Acetaminophen/ Butalbital/ Caffeine (Fioricet) 1 tab Q6H PRN PO PAIN Last a dministered on 02/14/19at 08:44; Admin Dose 1 TAB; Start 02/06/19 at 12:00 Morphine Sulfate (morphine) 2 mg Q4H PRN IV SEVERE PAIN LEVEL 7-10 Last administered on 02/18/19 08:05; Admin Dose 2 MG; Start 02/07/19 at 11:30 Metoclopramide HCl (Reglan) 5 mg Q6H PRN IV nausea Last administered on 02/18/19at 00:36; Admin Dose 5 MG; Start 02/10/19 at 08:00 Methylprednisolone (Medrol Dose Pack) 1 ea STD DOSE PACK PO ; Start 02/10/19 at 08:00 Insulin Aspart (Novolog Insulin Pen) 6 unit WITH MEALS SC Last administered on 02/18/19 08:03; Admin Dose 6 UNIT; Start 02/10/19 at 17:55 Insulin Glargine (Lantus) 25 units BID SC Last administered on 02/18/19 08:04; Admin Dose 25 UNITS; Start 02/10/19 at 21:00 Polyethylene Glycol (Miralax) 17 gm DAILY PO Last administered on 02/18/19 08:07; Admin Dose 17 GM; Start 02/12/19 at 10:00 Al Hydrox/Mg Hydrox/Simethicone (Mag-Al Plus) 30 ml Q6H PRN PO GASTROINTESTINAL UPSET; Start 02/12/19 at 22:30 Hydralazine HCl (Apresoline) 10 mg Q4H PRN PO ELEVATED BLOOD PRESSURE Last administered on 02/13/19 04:58; Admin Dose 10 MG; Start 02/13/19 at 04:30 Metoprolol Tartrate (Lopressor) 12.5 mg BID PO Last administered on 02/17/19 21:35; Admin Dose 12.5 MG; Start 02/14/19 at 09:00 Senna/Docusate Sodium (Senokot-S) 1 tab BID PO Last administered on 02/18/19 08:07; Admin Dose 1 TAB; Start 02/14/19 at 21:00 Meropenem/Sodium Chloride 50 ml @ 100 mls/hr Q12H IVPB Last administered on 02/18/19 00:36; Admin Dose 100 MLS/HR; Start 02/15/19 at 13:00 Pantoprazole (Protonix Tab) 40 mg BID@0600,1800 PO Last administered on 02/18/19 06:17; Admin Dose 40 MG; Start 02/15/19 at 18:00 Phenazopyridine HCl (Pyridium) 100 mg WITH MEALS PO Last administered on 02/18/19 08:05; Admin Dose 100 MG; Start 02/15/19 at 13:30 Sucralfate (Carafate) 1 gm Q6 PO Last administered on 02/18/19 06:17; Admin Dose 1 GM; Start 02/15/19 at 13:30 Insulin Aspart (Novolog Insulin Pen) (Adult SC Insulin - Moder... WITH MEALS BEDTIME SC Last administered on 02/17/19 12:08; Admin Dose 2 UNIT; Start 02/16/19 at 07:55 Apixaban (Eliquis) 10 mg BID PO Last administered on 02/18/19at 08:05; Admin Dose 10 MG; Start 02/16/19 at 13:00; Stop 02/23/19 at 12:59 Apixaban (Eliquis) 5 mg BID PO ; Start 02/23/19 at 21:00 Nifedipine (Procardia Xl) 60 mg BID PO Last administered on 02/18/19at 08:06; Admin Dose 60 MG; Start 02/17/19 at 09:00 VIJAYA SCHMIDT MD Feb 18, 2019 12:28
[2019-02-18 14:00] VITALS: BP 126/76; PULSE 73; RESP 19
--- NOTE | 2019-02-18 14:53 | CONS ---
Assessment/Plan Assessment/Plan Hospital Course (Demo Recall) Patient is alert still with significant pain on urination and bilateral flank pain more on the left no fevers WBC 9.6 no shift no bands BUN 21 creatinine 1.14 Antimicrobials: Patient is on meropenem day #4 Microbiology: Urine culture grew E. coli ESBL Physical examination: Well-developed obese elderly woman who is alert in no distress. Head atraumatic normocephalic sclera nonicteric vehicle mucosa dry neck is supple chest rise symmetrical breath sounds clear heart: S1-S2 abdom en obese soft patient has tenderness over suprapubic area on palpation and bilateral CVA tenderness. Bowel sounds present. Extremities without cyanosis Assessment: 1. E. coli ESBL UTI 2. Diabetes 3. Hypertension 4. Obesity 5. Acute kidney insufficiency Plan: Patient remains stable, on appropriate antibiotic coverage but, will rule check still with dysuria we will order bladder scan to make sure she is not retaining, continue supportive care and repeat urine culture Consultation Date/Type/Reason Admit Date/Time Feb 06, 2019 at 15:49 Initial Consult Date Type of Consult id Requesting Provider: ISABELA TORIBIO Date/Time of Note DATE: 02/18/19 TIME: 14:51 Exam/Review of Systems Exam Vitals Vital Signs Date Temp Pulse Resp B/P (MAP) Pulse Ox O2 O2 Flow FiO2 Time Delivery Rate 02/18/19 98.3 57 18 141/80 97 Room Air 08:00 (100) 02/14/19 2.0 16:45 Intake and Output 02/17/19 02/17/19 02/18/19 1515:00 23:00 07:00 IntakeIntake Total 400 ml 1120 ml 400 ml OutputOutput Total 800 ml BalanceBalance 400 ml 320 ml 400 ml Results Result Diagram: 02/18/19 0530 02/18/19 0530 Results 24hrs Laboratory Tests Test 02/17/19 17:23 02/17/19 21:32 02/18/19 05:30 02/18/19 07:56 Bedside Glucose 87 123 77 White Blood Count 9.6 Red Blood Count 4.61 Hemoglobin 12.5 Hematocrit 39.8 Mean Corpuscular 86.3 Volume Mean Corpuscular 27.1 L Hemoglobin Mean Corpuscular 31.4 L Hemoglobin Concent Red Cell 13.8 Distribution Width Platelet Count 244 Mean Platelet Volume 10.0 Immature 1.500 H Granulocytes % Neutrophils % 71.7 Lymphocytes % 16.3 Monocytes % 6.6 Eosinophils % 3.5 Basophils % 0.4 Nucleated Red Blood 0.0 Cells % Immature 0.140 H Granulocytes # Neutrophils # 6.9 Lymphocytes # 1.6 Monocytes # 0.6 Eosinophils # 0.3 Basophils # 0.0 Nucleated Red Blood 0.0 Cells # Sodium Level 142 Potassium Level 4.0 Chloride Level 104 Carbon Dioxide Level 30 Anion Gap 8 Blood Urea Nitrogen 21 H Creatinine 1.14 H Est Glomerular 48 L Filtrat Rate mL/min Glucose Level 97 Calcium Level 8.5 Phosphorus Level 4.3 Magnesium Level 2.0 Test 02/18/19 12:23 Bedside Glucose 112 Medications Medication Current Medications IV Flush (NS 3 ml) 3 ml PER PROTOCOL IV ; Start 02/05/19 at 17:00 Aspirin (Aspirin) 81 mg DAILY PO Last administered on 02/18/19 08:41; Admin Dose 81 MG; Start 02/06/19 at 09:00 Nitroglycerin (Nitroglycerin (Sl Tab) 0.4 Mg) 1 tab Q5M PRN SL .CHEST PAIN Last administered on 02/17/19 06:02; Admin Dose 1 TAB; Start 02/05/19 at 17:00 Acetaminophen (Tylenol Tab) 650 mg Q6H PRN PO .PAIN 1-3 OR TEMP Last administered on 02/08/19 12:15; Admin Dose 650 MG; Start 02/05/19 at 17:00 Atorvastatin Calcium (Lipitor) 80 mg QHS PO Last administered on 02/17/19 21:33; Admin Dose 80 MG; Start 02/05/19 at 21:00 Benazepril HCl (Lotensin) 10 mg DAILY PO Last administered on 02/09/19 08:43; Admin Dose 10 MG; Start 02/06/19 at 09:00; Status Hold Clopidogrel Bisulfate (plaVIX) 75 mg DAILY PO Last administered on 02/18/19 08:06; Admin Dose 75 MG; Start 02/06/19 at 09:00 Hydrochlorothiazide (Hydrochlorothiazide) 25 mg DAILY PO Last administered on 02/09/19 08:43; Admin Dose 25 MG; Start 02/06/19 at 09:00; Status Hold Levothyroxine Sodium (Synthroid) 75 mcg BEFORE BREAKFAST PO Last administered on 02/18/19 06:17; Admin Dose 75 MCG; Start 02/06/19 at 07:00 Sertraline HCl (Zoloft) 100 mg QAM PO Last administered on 02/18/19 08:05; Admin Dose 100 MG; Start 02/06/19 at 09:00 Trazodone HCl (Desyrel) 50 mg QHS PRN PO insomnia Last administered on 02/18/19 02:51; Admin Dose 50 MG; Start 02/05/19 at 17:30 Phenol (Cepastat Lozenge) 1 lozenge Q1H PRN MT sore throat Last administered on 02/18/19 00:36; Admin Dose 1 LOZENGE; Start 02/05/19 at 17:30 Miscellaneous Information 1 ea NOTE XX ; Start 02/05/19 at 19:00 Glucose (Glutose) 15 gm Q15M PRN PO DECREASED GLUCOSE; Start 02/05/19 at 19:00 Glucose (Glutose) 22.5 gm Q15M PRN PO DECREASED GLUCOSE; Start 02/05/19 at 19:00 Dextrose (D50w Syringe) 25 ml Q15M PRN IV DECREASED GLUCOSE; Start 02/05/19 at 19:00 Dextrose (D50w Syringe) 50 ml Q15M PRN IV DECREASED GLUCOSE; Start 02/05/19 at 19:00 Glucagon (Glucagen) 1 mg Q15M PRN IM DECREASED GLUCOSE; Start 02/05/19 at 19:00 Glucose (Glutose) 15 gm Q15M PRN BUCCAL DECREASED GLUCOSE; Start 02/05/19 at 19:00 Acetaminophen/ Butalbital/ Caffeine (Fioricet) 1 tab Q6H PRN PO PAIN Last administered on 02/14/19 08:44; Admin Dose 1 TAB; Start 02/06/19 at 12:00 Morphine Sulfate (morphine) 2 mg Q4H PRN IV SEVERE PAIN LEVEL 7-10 Last administered on 02/18/19 14:33; Admin Dose 2 MG; Start 02/07/19 at 11:30 Metoclopramide HCl (Reglan) 5 mg Q6H PRN IV nausea Last administered on 02/18/19 00:36; Admin Dose 5 MG; Start 02/10/19 at 08:00 Methylprednisolone (Medrol Dose Pack) 1 ea STD DOSE PACK PO ; Start 02/10/19 at 08:00 Insulin Aspart (Novolog Insulin Pen) 6 unit WITH MEALS SC Last administered on 02/18/19 12:25; Admin Dose 6 UNIT; Start 02/10/19 at 17:55 Insulin Glargine (Lantus) 25 units BID SC Last administered on 02/18/19 08:04; Admin Dose 25 UNITS; Start 02/10/19 at 21:00 Polyethylene Glycol (Miralax) 17 gm DAILY PO Last administered on 02/18/19 08:07; Admin Dose 17 GM; Start 02/12/19 at 10:00 Al Hydrox/Mg Hydrox/Simethicone (Mag-Al Plus) 30 ml Q6H PRN PO GASTROINTESTINAL UPSET; Start 02/12/19 at 22:30 Hydralazine HCl (Apresoline) 10 mg Q4H PRN PO ELEVATED BLOOD PRESSURE Last administered on 02/13/19 04:58; Admin Dose 10 MG; Start 02/13/19 at 04:30 Metoprolol Tartrate (Lopressor) 12.5 mg BID PO Last administered on 02/17/19 21:35; Admin Dose 12.5 MG; Start 02/14/19 at 09:00 Senna/Docusate Sodium (Senokot-S) 1 tab BID PO Last administered on 02/18/19 08:07; Admin Dose 1 TAB; Start 02/14/19 at 21:00 Meropenem/Sodium Chloride 50 ml @ 100 mls/hr Q12H IVPB Last administered on 02/18/19 12:18; Admin Dose 100 MLS/HR; Start 02/15/19 at 13:00 Pantoprazole (Protonix Tab) 40 mg BID@0600,1800 PO Last administered on 02/18/19 06:17; Admin Dose 40 MG; Start 02/15/19 at 18:00 Phenazopyridine HCl (Pyridium) 100 mg WITH MEALS PO Last administered on 02/18/19 12:18; Admin Dose 100 MG; Start 02/15/19 at 13:30 Sucralfate (Carafate) 1 gm Q6 PO Last administered on 02/18/19 12:18; Admin Dose 1 GM; Start 02/15/19 at 13:30 Insulin Aspart (Novolog Insulin Pen) (Adult SC Insulin - Moder... WITH MEALS BEDTIME SC Last administered on 02/17/19at 12:08; Admin Dose 2 UNIT; Start 02/16/19 at 07:55 Apixaban (Eliquis) 10 mg BID PO Last administered on 02/18/19at 08:05; Admin Dose 10 MG; Start 02/16/19 at 13:00; Stop 02/23/19 at 12:59 Apixaban (Eliquis) 5 mg BID PO ; Start 02/23/19 at 21:00 Nifedipine (Procardia Xl) 60 mg BID PO Last administered on 02/18/19at 08:06; Admin Dose 60 MG; Start 02/17/19 at 09:00 MARY MUÑOZ NP Feb 18, 2019 14:53
--- NOTE | 2019-02-18 17:10 | CONS ---
Consult Date/Type/Reason Admit Date/Time Feb 06, 2019 at 15:49 Initial Consult Date Requesting Provider: ISABELA TORIBIO Date/Time of Note DATE: 02/18/19 TIME: 17:09 Subjective continues good uo. patient had straight cath urine sent. OBJECTIVE: HEENT: Head is normocephalic. NECK: Supple. HEART: Regular rate. LUNGS: Show diminished breath sounds at the base. ABDOMEN: Soft, nontender to palpation without rebound or guarding. EXTREMITIES: Negative for clubbing, cyanosis, no edema. DERMATOLOGIC: No rashes. MUSCULOSKELETAL: No joint effusion. NEUROLOGIC: No change in exam. MEDICATIONS: Reviewed. Objective Vitals Vital Signs Date Temp Pulse Resp B/P (MAP) Pulse Ox O2 O2 Flow FiO2 Time Delivery Rate 02/18/19 98.0 73 19 126/76 99 Room Air 14:00 (93) 02/14/19 2.0 16:45 Intake and Output 02/17/19 02/17/19 02/18/19 1515:00 23:00 07:00 IntakeIntake Total 400 ml 1120 ml 400 ml OutputOutput Total 800 ml BalanceBalance 400 ml 320 ml 400 ml Results/Medications Result Diagram: 02/18/19 0530 02/18/19 0530 Results 24 hrs Laboratory Tests Test 02/17/19 17:23 02/17/19 21:32 02/18/19 05:30 02/18/19 07:56 Bedside Glucose 87 123 77 White Blood Count 9.6 Red Blood Count 4.61 Hemoglobin 12.5 Hematocrit 39.8 Mean Corpuscular 86.3 Volume Mean Corpuscular 27.1 L Hemoglobin Mean Corpuscular 31.4 L Hemoglobin Concent Red Cell 13.8 Distribution Width Platelet Count 244 Mean Platelet Volume 10.0 Immature 1.500 H Granulocytes % Neutrophils % 71.7 Lymphocytes % 16.3 Monocytes % 6.6 Eosinophils % 3.5 Basophils % 0.4 Nucleated Red Blood 0.0 Cells % Immature 0.140 H Granulocytes # Neutrophils # 6.9 Lymphocytes # 1.6 Monocytes # 0.6 Eosinophils # 0.3 Basophils # 0.0 Nucleated Red Blood 0.0 Cells # Sodium Level 142 Potassium Level 4.0 Chloride Level 104 Carbon Dioxide Level 30 Anion Gap 8 Blood Urea Nitrogen 21 H Creatinine 1.14 H Est Glomerular 48 L Filtrat Rate mL/min Glucose Level 97 Calcium Level 8.5 Phosphorus Level 4.3 Magnesium Level 2.0 Test 02/18/19 12:23 Bedside Glucose 112 Home Meds Active Scripts Apixaban* (Eliquis*) 5 Mg Tablet, 5 MG PO BID for 42 Days, #42 TAB continue after complete 10mg BID Prov:ERICK BROWN MD 02/17/19 Apixaban* (Eliquis*) 5 Mg Tablet, 10 MG PO BID for 5 Days, #20 TAB Prov:ERICK BROWN MD 02/17/19 Reported Medications Insulin Glargine* (Lantus*) 100 Unit/Ml Soln, 17 UNIT SC BID, #1 VIAL 02/05/19 Insulin Lispro (Humalog) 100 Unit/1 Ml Cartridge, 5 UNIT SQ BEFORE MEALS, EA 02/05/19 Metoprolol Tartrate* (Lopressor*) 25 Mg Tab, 25 MG PO BID, #60 TAB 02/05/19 Docusate Sodium* (Colace*) 100 Mg Capsule, 100 MG PO BID, #60 CAP 02/05/19 Sertraline Hcl* (Sertraline Hcl*) 100 Mg Tablet, 100 MG PO QAM, #30 TAB 02/05/19 Trazodone Hcl* (Desyrel*) 50 Mg Tab, 50 MG PO QHS, #30 TAB 02/05/19 Benazepril Hcl* (Benazepril Hcl*) 10 Mg Tablet, 10 MG PO DAILY, #30 TAB 02/05/19 Clopidogrel Bisulfate* (Clopidogrel Bisulfate*) 75 Mg Tablet, 75 MG PO DAILY, #30 TAB 02/05/19 Gabapentin* (Gabapentin*) 300 Mg Capsule, 300 MG PO DAILY, #60 CAP 02/05/19 Levothyroxine Sodium* (Levothyroxine Sodium*) 75 Mcg Tablet, 75 MCG PO BEFORE BREAKFAST, #30 TAB 02/05/19 Atorvastatin* (Atorvastatin*) 80 Mg Tablet, 80 MG PO QHS, #30 TAB 02/05/19 Isosorbide Mononitrate* (Isosorbide Mononitrate*) 60 Mg Tab.er.24h, 60 MG PO DAILY, TAB 02/05/19 Aspirin* (Aspirin* EC) 81 Mg Tablet.dr, 81 MG PO DAILY, TAB 02/05/19 Amlodipine Besylate* (Amlodipine Besylate*) 10 Mg Tablet, 10 MG PO DAILY, #30 TAB 02/05/19 Hydrochlorothiazide* (Hydrochlorothiazide*) 25 Mg Tab, 25 MG PO DAILY, #30 TAB 02/05/19 Medications Current Medications IV Flush (NS 3 ml) 3 ml PER PROTOCOL IV ; Start 02/05/19 at 17:00 Aspirin (Aspirin) 81 mg DAILY PO Last administered on 02/18/19 08:41; Admin Dose 81 MG; Start 02/06/19 at 09:00 Nitroglycerin (Nitroglycerin (Sl Tab) 0.4 Mg) 1 tab Q5M PRN SL .CHEST PAIN Last administered on 02/17/19 06:02; Admin Dose 1 TAB; Start 02/05/19 at 17:00 Acetaminophen (Tylenol Tab) 650 mg Q6H PRN PO .PAIN 1-3 OR TEMP Last administered on 02/08/19 12:15; Admin Dose 650 MG; Start 02/05/19 at 17:00 Atorvastatin Calcium (Lipitor) 80 mg QHS PO Last administered on 02/17/19 21:33; Admin Dose 80 MG; Start 02/05/19 at 21:00 Benazepril HCl (Lotensin) 10 mg DAILY PO Last administered on 02/09/19 08:43; Admin Dose 10 MG; Start 02/06/19 at 09:00; Status Hold Clopidogrel Bisulfate (plaVIX) 75 mg DAILY PO Last administered on 02/18/19 08:06; Admin Dose 75 MG; Start 02/06/19 at 09:00 Hydrochlorothiazide (Hydrochlorothiazide) 25 mg DAILY PO Last administered on 02/09/19 08:43; Admin Dose 25 MG; Start 02/06/19 at 09:00; Status Hold Levothyroxine Sodium (Synthroid) 75 mcg BEFORE BREAKFAST PO Last administered on 02/18/19 06:17; Admin Dose 75 MCG; Start 02/06/19 at 07:00 Sertraline HCl (Zoloft) 100 mg QAM PO Last administered on 02/18/19 08:05; Admin Dose 100 MG; Start 02/06/19 at 09:00 Trazodone HCl (Desyrel) 50 mg QHS PRN PO insomnia Last administered on 02/18/19 02:51; Admin Dose 50 MG; Start 02/05/19 at 17:30 Phenol (Cepastat Lozenge) 1 lozenge Q1H PRN MT sore throat Last administered on 02/18/19at 00:36; Admin Dose 1 LOZENGE; Start 02/05/19 at 17:30 Miscellaneous Information 1 ea NOTE XX ; Start 02/05/19 at 19:00 Glucose (Glutose) 15 gm Q15M PRN PO DECREASED GLUCOSE; Start 02/05/19 at 19:00 Glucose (Glutose) 22.5 gm Q15M PRN PO DECREASED GLUCOSE; Start 02/05/19 at 19:00 Dextrose (D50w Syringe) 25 ml Q15M PRN IV DECREASED GLUCOSE; Start 02/05/19 at 19:00 Dextrose (D50w Syringe) 50 ml Q15M PRN IV DECREASED GLUCOSE; Start 02/05/19 at 19:00 Glucagon (Glucagen) 1 mg Q15M PRN IM DECREASED GLUCOSE; Start 02/05/19 at 19:00 Glucose (Glutose) 15 gm Q15M PRN BUCCAL DECREASED GLUCOSE; Start 02/05/19 at 19:00 Acetaminophen/ Butalbital/ Caffeine (Fioricet) 1 tab Q6H PRN PO PAIN Last administered on 02/14/19 08:44; Admin Dose 1 TAB; Start 02/06/19 at 12:00 Morphine Sulfate (morphine) 2 mg Q4H PRN IV SEVERE PAIN LEVEL 7-10 Last administered on 02/18/19at 14:33; Admin Dose 2 MG; Start 02/07/19 at 11:30 Metoclopramide HCl (Reglan) 5 mg Q6H PRN IV nausea Last administered on 02/18/19at 00:36; Admin Dose 5 MG; Start 02/10/19 at 08:00 Methylprednisolone (Medrol Dose Pack) 1 ea STD DOSE PACK PO ; Start 02/10/19 at 08:00 Insulin Aspart (Novolog Insulin Pen) 6 unit WITH MEALS SC Last administered on 02/18/19at 12:25; Admin Dose 6 UNIT; Start 02/10/19 at 17:55 Insulin Glargine (Lantus) 25 units BID SC Last administered on 02/18/19at 08:04; Admin Dose 25 UNITS; Start 02/10/19 at 21:00 Polyethylene Glycol (Miralax) 17 gm DAILY PO Last administered on 02/18/19 08:07; Admin Dose 17 GM; Start 02/12/19 at 10:00 Al Hydrox/Mg Hydrox/Simethicone (Mag-Al Plus) 30 ml Q6H PRN PO GASTROINTESTINAL UPSET; Start 02/12/19 at 22:30 Hydralazine HCl (Apresoline) 10 mg Q4H PRN PO ELEVATED BLOOD PRESSURE Last administered on 02/13/19 04:58; Admin Dose 10 MG; Start 02/13/19 at 04:30 Metoprolol Tartrate (Lopressor) 12.5 mg BID PO Last administered on 02/17/19 21:35; Admin Dose 12.5 MG; Start 02/14/19 at 09:00 Senna/Docusate Sodium (Senokot-S) 1 tab BID PO Last administered on 02/18/19 08:07; Admin Dose 1 TAB; Start 02/14/19 at 21:00 Meropenem/Sodium Chloride 50 ml @ 100 mls/hr Q12H IVPB Last administered on 02/18/19 12:18; Admin Dose 100 MLS/HR; Start 02/15/19 at 13:00 Pantoprazole (Protonix Tab) 40 mg BID@0600,1800 PO Last administered on 02/18/19 06:17; Admin Dose 40 MG; Start 02/15/19 at 18:00 Phenazopyridine HCl (Pyridium) 100 mg WITH MEALS PO Last administered on 02/18/19 12:18; Admin Dose 100 MG; Start 02/15/19 at 13:30 Sucralfate (Carafate) 1 gm Q6 PO Last administered on 02/18/19 12:18; Admin Dose 1 GM; Start 02/15/19 at 13:30 Insulin Aspart (Novolog Insulin Pen) (Adult SC Insulin - Moder... WITH MEALS B EDTIME SC Last administered on 02/17/19 12:08; Admin Dose 2 UNIT; Start 02/16/19 at 07:55 Apixaban (Eliquis) 10 mg BID PO Last administered on 02/18/19 08:05; Admin Dose 10 MG; Start 02/16/19 at 13:00; Stop 02/23/19 at 12:59 Apixaban (Eliquis) 5 mg BID PO ; Start 02/23/19 at 21:00 Nifedipine (Procardia Xl) 60 mg BID PO Last administered on 02/18/19at 08:06; Admin Dose 60 MG; Start 02/17/19 at 09:00 Assessment/Plan Hospital Course (Demo Recall) 1. Nonoliguric acute kidney injury on top of chronic kidney disease, unknown baseline creatinine. Etiology is secondary to hemodynamics. Renal function is worsening today with unknown significance. continue monitoring. Continue current treatment plans, supportive care, renally dose all medicines. 2. Mineral bone disorder. Monitor calcium and phosphorus levels. 3. Hypertension. Continue current blood pressure regimen.If cr worsens, may need to hold benazepril. 4. Chest pain. The patient is sp stress test per cardiology. Continue morphine. 5. Migraine headaches, stab;e. possibly due to underlying Imdur. 6. Diabetes. Continue current insulin regimen. 7. ESBL Ecoli UTI- on abx. OG EVANS MD Feb 18, 2019 17:10
[2019-02-18 20:00] VITALS: BP 139/74; PULSE 73; RESP 18
[2019-02-18] MEDS: ATORVASTATIN 80 MG TAB PO SCH (21:22)
[2019-02-19] MEDS: SUCRALFATE 1 GM TAB PO SCH ×4 (00:05→17:50)
[2019-02-19] MEDS: morphine 2 MG INJ IV PRN ×5 (00:05→20:34)
[2019-02-19] MEDS: MEROPENEM 1 GM/50ML(PMX) 50 ML IVPB SCH ×2 (00:05→12:29)
[2019-02-19] MEDS: traZODone 50 MG TAB PO PRN (01:58)
[2019-02-19 02:00] VITALS: BP 131/77; PULSE 59; RESP 17
[2019-02-19] MEDS: PANTOPRAZOLE (EC) 40 MG TAB PO SCH ×2 (05:33→17:52)
[2019-02-19] MEDS: LEVOTHYROXINE 75 MCG TAB PO SCH (05:34)
[2019-02-19 07:26] VITALS: BP 114/66; PULSE 57; RESP 16
[2019-02-19] MEDS: INSULIN ASPART [NOVOLOG] 3 ML PEN SC SCH ×3 (07:35→17:35)
[2019-02-19] MEDS: Insulin NOVOLOG SS MODERATE Algorithm (SS with meals and bedtime) SC SCH ×4 (08:00→20:44)
[2019-02-19] MEDS: CLOPIDOGREL 75 MG TAB PO SCH (08:38)
[2019-02-19] MEDS: PHENAZOPYRIDINE 100 MG TAB PO SCH ×3 (08:39→17:50)
[2019-02-19] MEDS: METOPROLOL 25 MG TAB PO SCH (08:39)
[2019-02-19] MEDS: SERTRALINE 100 MG TAB PO SCH (08:39)
[2019-02-19] MEDS: SENNA/DOCUSATE NA (8.6MG/50MG) TAB PO SCH (08:39)
[2019-02-19] MEDS: ASPIRIN 81 MG TAB PO SCH (08:39)
[2019-02-19] MEDS: APIXABAN 5 MG TABLET PO SCH ×2 (08:39→20:47)
[2019-02-19] MEDS: NIFEdipine (XL) 60 MG TAB PO SCH (08:40)
[2019-02-19] MEDS: POLYETHYLENE GLYCOL 17 GM PACKET PO SCH (08:40)
[2019-02-19] MEDS: ACETAMINOPHEN 325 MG TAB PO PRN (08:47)
[2019-02-19] MEDS: INSULIN GLARGINE [LANTus] (100 UNITS/ML) SYG SC SCH ×2 (08:47→22:11)
--- NOTE | 2019-02-19 10:39 | CONS ---
Consult Date/Type/Reason Admit Date/Time Feb 06, 2019 at 15:49 Initial Consult Date Requesting Provider: ISABELA TORIBIO Date/Time of Note DATE: 02/19/19 TIME: 10:38 Subjective continues good uo. PVR checked and normal. OBJECTIVE: HEENT: Head is normocephalic. NECK: Supple. HEART: Regular rate. LUNGS: Show diminished breath sounds at the base. ABDOMEN: Soft, nontender to palpation without rebound or guarding. EXTREMITIES: Negative for clubbing, cyanosis, no edema. DERMATOLOGIC: No rashes. MUSCULOSKELETAL: No joint effusion. NEUROLOGIC: No change in exam. MEDICATIONS: Reviewed. Objective Vitals Vital Signs Date Temp Pulse Resp B/P (MAP) Pulse Ox O2 O2 Flow FiO2 Time Delivery Rate 02/19/19 98.0 57 16 114/66 98 Room Air 07:26 (82) Intake and Output 02/18/19 02/18/19 02/19/19 1515:00 23:00 07:00 IntakeIntake Total 360 ml 600 ml 290 ml BalanceBalance 360 ml 600 ml 290 ml Results/Medications Result Diagram: 02/19/19 0713 02/19/19 0713 Results 24 hrs Laboratory Tests Test 02/18/19 12:23 02/18/19 17:12 02/18/19 21:26 02/19/19 07:13 Bedside Glucose 112 81 144 White Blood Count 7.6 # Red Blood Count 4.50 Hemoglobin 12.2 Hematocrit 39.1 Mean Corpuscular 86.9 Volume Mean Corpuscular 27.1 L Hemoglobin Mean Corpuscular 31.2 L Hemoglobin Concent Red Cell 13.8 Distribution Width Platelet Count 256 Mean Platelet Volume 10.2 Immature 1.200 H Granulocytes % Neutrophils % 60.1 Lymphocytes % 23.8 Monocytes % 8.0 Eosinophils % 6.2 Basophils % 0.7 Nucleated Red Blood 0.0 Cells % Immature 0.090 H Granulocytes # Neutrophils # 4.6 Lymphocytes # 1.8 Monocytes # 0.6 Eosinophils # 0.5 Basophils # 0.1 Nucleated Red Blood 0.0 Cells # Sodium Level 139 Potassium Level 3.7 Chloride Level 103 Carbon Dioxide Level 30 Anion Gap 6 Blood Urea Nitrogen 19 Creatinine 1.18 H Est Glomerular 46 L Filtrat Rate mL/min Glucose Level 77 Calcium Level 8.7 Test 02/19/19 08:31 02/19/19 08:51 02/19/19 09:07 Bedside Glucose 62 L 184 186 Home Meds Active Scripts Apixaban* (Eliquis*) 5 Mg Tablet, 5 MG PO BID for 42 Days, #42 TAB continue after complete 10mg BID Prov:ERICK BROWN MD 02/17/19 Apixaban* (Eliquis*) 5 Mg Tablet, 10 MG PO BID for 5 Days, #20 TAB Prov:ERICK BROWN MD 02/17/19 Reported Medications Insulin Glargine* (Lantus*) 100 Unit/Ml Soln, 17 UNIT SC BID, #1 VIAL 02/05/19 Insulin Lispro (Humalog) 100 Unit/1 Ml Cartridge, 5 UNIT SQ BEFORE MEALS, EA 02/05/19 Metoprolol Tartrate* (Lopressor*) 25 Mg Tab, 25 MG PO BID, #60 TAB 02/05/19 Docusate Sodium* (Colace*) 100 Mg Capsule, 100 MG PO BID, #60 CAP 02/05/19 Sertraline Hcl* (Sertraline Hcl*) 100 Mg Tablet, 100 MG PO QAM, #30 TAB 02/05/19 Trazodone Hcl* (Desyrel*) 50 Mg Tab, 50 MG PO QHS, #30 TAB 02/05/19 Benazepril Hcl* (Benazepril Hcl*) 10 Mg Tablet, 10 MG PO DAILY, #30 TAB 02/05/19 Clopidogrel Bisulfate* (Clopidogrel Bisulfate*) 75 Mg Tablet, 75 MG PO DAILY, #30 TAB 02/05/19 Gabapentin* (Gabapentin*) 300 Mg Capsule, 300 MG PO DAILY, #60 CAP 02/05/19 Levothyroxine Sodium* (Levothyroxine Sodium*) 75 Mcg Tablet, 75 MCG PO BEFORE BREAKFAST, #30 TAB 02/05/19 Atorvastatin* (Atorvastatin*) 80 Mg Tablet, 80 MG PO QHS, #30 TAB 02/05/19 Isosorbide Mononitrate* (Isosorbide Mononitrate*) 60 Mg Tab.er.24h, 60 MG PO DAILY, TAB 02/05/19 Aspirin* (Aspirin* EC) 81 Mg Tablet.dr, 81 MG PO DAILY, TAB 02/05/19 Amlodipine Besylate* (Amlodipine Besylate*) 10 Mg Tablet, 10 MG PO DAILY, #30 TAB 02/05/19 Hydrochlorothiazide* (Hydrochlorothiazide*) 25 Mg Tab, 25 MG PO DAILY, #30 TAB 02/05/19 Medications Current Medications IV Flush (NS 3 ml) 3 ml PER PROTOCOL IV ; Start 02/05/19 at 17:00 Aspirin (Aspirin) 81 mg DAILY PO Last administered on 02/19/19 08:39; Admin Dose 81 MG; Start 02/06/19 at 09:00 Nitroglycerin (Nitroglycerin (Sl Tab) 0.4 Mg) 1 tab Q5M PRN SL .CHEST PAIN Last administered on 02/17/19 06:02; Admin Dose 1 TAB; Start 02/05/19 at 17:00 Acetaminophen (Tylenol Tab) 650 mg Q6H PRN PO .PAIN 1-3 OR TEMP Last admini stered on 02/19/19 08:47; Admin Dose 650 MG; Start 02/05/19 at 17:00 Atorvastatin Calcium (Lipitor) 80 mg QHS PO Last administered on 02/18/19 21:22; Admin Dose 80 MG; Start 02/05/19 at 21:00 Benazepril HCl (Lotensin) 10 mg DAILY PO Last administered on 02/09/19 08:43; Admin Dose 10 MG; Start 02/06/19 at 09:00; Status Hold Clopidogrel Bisulfate (plaVIX) 75 mg DAILY PO Last administered on 02/19/19 08:38; Admin Dose 75 MG; Start 02/06/19 at 09:00 Hydrochlorothiazide (Hydrochlorothiazide) 25 mg DAILY PO Last administered on 02/09/19 08:43; Admin Dose 25 MG; Start 02/06/19 at 09:00; Status Hold Levothyroxine Sodium (Synthroid) 75 mcg BEFORE BREAKFAST PO Last administered on 02/19/19 05:34; Admin Dose 75 MCG; Start 02/06/19 at 07:00 Sertraline HCl (Zoloft) 100 mg QAM PO Last administered on 02/19/19 08:39; Admin Dose 100 MG; Start 02/06/19 at 09:00 Trazodone HCl (Desyrel) 50 mg QHS PRN PO insomnia Last administered on 02/19/19 01:58; Admin Dose 50 MG; Start 02/05/19 at 17:30 Phenol (Cepastat Lozenge) 1 lozenge Q1H PRN MT sore throat Last administered on 02/18/19at 00:36; Admin Dose 1 LOZENGE; Start 02/05/19 at 17:30 Miscellaneous Information 1 ea NOTE XX ; Start 02/05/19 at 19:00 Glucose (Glutose) 15 gm Q15M PRN PO DECREASED GLUCOSE; Start 02/05/19 at 19:00 Glucose (Glutose) 22.5 gm Q15M PRN PO DECREASED GLUCOSE; Start 02/05/19 at 19:00 Dextrose (D50w Syringe) 25 ml Q15M PRN IV DECREASED GLUCOSE; Start 02/05/19 at 19:00 Dextrose (D50w Syringe) 50 ml Q15M PRN IV DECREASED GLUCOSE; Start 02/05/19 at 19:00 Glucagon (Glucagen) 1 mg Q15M PRN IM DECREASED GLUCOSE; Start 02/05/19 at 19:00 Glucose (Glutose) 15 gm Q15M PRN BUCCAL DECREASED GLUCOSE; Start 02/05/19 at 19:00 Acetaminophen/ Butalbital/ Caffeine (Fioricet) 1 tab Q6H PRN PO PAIN Last administered on 02/14/19at 08:44; Admin Dose 1 TAB; Start 02/06/19 at 12:00 Morphine Sulfate (morphine) 2 mg Q4H PRN IV SEVERE PAIN LEVEL 7-10 Last administered on 02/19/19 05:34; Admin Dose 2 MG; Start 02/07/19 at 11:30 Metoclopramide HCl (Reglan) 5 mg Q6H PRN IV nausea Last administered on 02/18/19at 00:36; Admin Dose 5 MG; Start 02/10/19 at 08:00 Methylprednisolone (Medrol Dose Pack) 1 ea STD DOSE PACK PO ; Start 02/10/19 at 08:00 Insulin Aspart (Novolog Insulin Pen) 6 unit WITH MEALS SC Last administered on 02/18/19 17:14; Admin Dose 6 UNIT; Start 02/10/19 at 17:55 Insulin Glargine (Lantus) 25 units BID SC Last administered on 02/19/19 08:47; Admin Dose 25 UNITS; Start 02/10/19 at 21:00 Polyethylene Glycol (Miralax) 17 gm DAILY PO Last administered on 02/18/19 08:07; Admin Dose 17 GM; Start 02/12/19 at 10:00 Al Hydrox/Mg Hydrox/Simethicone (Mag-Al Plus) 30 ml Q6H PRN PO GASTROINTESTINAL UPSET Last administered on 02/19/19 00:22; Admin Dose 30 ML; Start 02/12/19 at 22:30 Hydralazine HCl (Apresoline) 10 mg Q4H PRN PO ELEVATED BLOOD PRESSURE Last administered on 02/13/19 04:58; Admin Dose 10 MG; Start 02/13/19 at 04:30 Metoprolol Tartrate (Lopressor) 12.5 mg BID PO Last administered on 02/18/19 21:22; Admin Dose 12.5 MG; Start 02/14/19 at 09:00 Senna/Docusate Sodium (Senokot-S) 1 tab BID PO Last administered on 02/19/19 08:39; Admin Dose 1 TAB; Start 02/14/19 at 21:00 Meropenem/Sodium Chloride 50 ml @ 100 mls/hr Q12H IVPB Last administered on 02/19/19 00:05; Admin Dose 100 MLS/HR; Start 02/15/19 at 13:00 Pantoprazole (Protonix Tab) 40 mg BID@0600,1800 PO Last administered on 02/19/19 05:33; Admin Dose 40 MG; Start 02/15/19 at 18:00 Phenazopyridine HCl (Pyridium) 100 mg WITH MEALS PO Last administered on 02/19/19 08:39; Admin Dose 100 MG; Start 02/15/19 at 13:30 Sucralfate (Carafate) 1 gm Q6 PO Last administered on 02/19/19 05:33; Admin Dose 1 GM; Start 02/15/19 at 13:30 Insulin Aspart (Novolog Insulin Pen) (Adult SC Insulin - Moder... WITH MEALS BEDTIME SC Last administered on 02/17/19 12:08; Admin Dose 2 UNIT; Start 02/16/19 at 07:55 Apixaban (Eliquis) 10 mg BID PO Last administered on 02/19/19 08:39; Admin Dose 10 MG; Start 02/16/19 at 13:00; Stop 02/23/19 at 12:59 Apixaban (Eliquis) 5 mg BID PO ; Start 02/23/19 at 21:00 Nifedipine (Procardia Xl) 60 mg BID PO Last administered on 02/19/19at 08:40; Admin Dose 60 MG; Start 02/17/19 at 09:00 Assessment/Plan Hospital Course (Demo Recall) 1. Nonoliguric acute kidney injury on top of chronic kidney disease, unknown baseline creatinine. Etiology is secondary to hemodynamics. Renal function is stable today. - continue monitoring. Continue current treatment plans, supportive care - renally dose all medicines. 2. Mineral bone disorder. Monitor calcium and phosphorus levels. 3. Hypertension. Continue current blood pressure regimen.If cr worsens, may need to hold benazepril. 4. Chest pain. The patient is sp stress test per cardiology. 5. Migraine headaches, stable. possibly due to underlying Imdur. 6. Diabetes. Continue current insulin regimen. 7. ESBL Ecoli UTI- on abx. OG EVANS MD Feb 19, 2019 10:39
--- NOTE | 2019-02-19 13:17 | PN ---
Date/Time of Note Date/Time of Note DATE: 02/19/19 TIME: 13:00 Assessment/Plan VTE Prophylaxis Risk score (from [facility])>0 risk: 4 SCD applied (from [facility]): No SCD contraindicated: DVT Pharmacological prophylaxis: apixaban Lines/Catheters IV Catheter Type (from [facility]): [place] [facility] Urinary Cath still in place: No Assessment/Plan Assessment/Plan 1. ESBL UTI, on meropenem started on 02/15/2019 2. Acute left LE DVT, on eliquis 3. Chest pain, muscular with tenderness, negative for ischemia per stress thallium test 4. CAD, s/p PCI/stent in 2014, on aspirin, plavix, statin and metoprolol 5. Headache, steroid per neurology 6. Mood disorder, stable on sertraline 7. Hypothyroidism, on synthroid 8. Diabetes mellitus, on insulins 9. GERD, PPI 10. Hypertension, controlled 11. Patient cannot get home health for iv meropenem and no SNF is available, patient will stay in the hospital to finish 7 days meropenem Result Diagram: 02/19/1971202/19/1913 Results 24hrs Laboratory Tests Test 02/18/19 17:12 02/18/19 21:26 02/19/19 07:13 02/19/19 08:31 Bedside Glucose 81 144 62 L White Blood Count 7.6 # Red Blood Count 4.50 Hemoglobin 12.2 Hematocrit 39.1 Mean Corpuscular 86.9 Volume Mean Corpuscular 27.1 L Hemoglobin Mean Corpuscular 31.2 L Hemoglobin Concent Red Cell 13.8 Distribution Width Platelet Count 256 Mean Platelet Volume 10.2 Immature 1.200 H Granulocytes % Neutrophils % 60.1 Lymphocytes % 23.8 Monocytes % 8.0 Eosinophils % 6.2 Basophils % 0.7 Nucleated Red Blood 0.0 Cells % Immature 0.090 H Granulocytes # Neutrophils # 4.6 Lymphocytes # 1.8 Monocytes # 0.6 Eosinophils # 0.5 Basophils # 0.1 Nucleated Red Blood 0.0 Cells # Sodium Level 139 Potassium Level 3.7 Chloride Level 103 Carbon Dioxide Level 30 Anion Gap 6 Blood Urea Nitrogen 19 Creatinine 1.18 H Est Glomerular 46 L Filtrat Rate mL/min Glucose Level 77 Calcium Level 8.7 Test 02/19/19 08:51 02/19/19 09:07 02/19/19 12:21 Bedside Glucose 184 186 135 Subjective 24 Hr Interval Summary Free Text/Dictation afebrile Exam/Review of Systems Exam Vitals Vital Signs Date Temp Pulse Resp B/P (MAP) Pulse Ox O2 O2 Flow FiO2 Time Delivery Rate 02/19/19 98.0 57 16 114/66 98 Room Air 07:26 (82) Intake and Output 02/18/19 02/18/19 02/19/19 1515:00 23:00 07:00 IntakeIntake Total 360 ml 600 ml 290 ml BalanceBalance 360 ml 600 ml 290 ml Constitutional: alert, oriented, well developed Psych: no complaints, nl mood/affect Head: normocephalic, atraumatic Eyes: nl conjunctiva, EOMI, nl lids ENMT: nl external ears & nose, nl lips & teeth, nl nasal mucosa & septum Neck: supple, non-tender Respiratory: clear to auscultation, normal air movement; No congested cough, No crackles/rales, No diminished breath sounds, No intercostal retraction, No labored breathing, No respirations, No tactile fremit us, No wheezing, No other Cardiovascular: regular rate and rhythm, nl pulses; No bruits, No diastolic murmur, No edema, No gallop, No irregular rhythm, No jugular venous distention (JVD), No murmurs/extra sounds, No rub, No systolic murmur, No S3, No S4, No other Gastrointestinal: soft, nl liver, spleen, non-tender Musculoskeletal: nl extremities to inspection Extremities: normal pulses, edema (minimal edema on left lower extremity); No calf tenderness, No cyanosis, No clubbing, No pitting pedal edema, No palpable cord, No tenderness, No other Neurological: INFORMATION RECEPTIONIST II-XII intact, nl mental status, nl speech, nl strength Results Results 24hrs Laboratory Tests Test 02/18/19 17:12 02/18/19 21:26 02/19/19 07:13 02/19/19 08:31 Bedside Glucose 81 144 62 L White Blood Count 7.6 # Red Blood Count 4.50 Hemoglobin 12.2 Hematocrit 39.1 Mean Corpuscular 86.9 Volume Mean Corpuscular 27.1 L Hemoglobin Mean Corpuscular 31.2 L Hemoglobin Concent Red Cell 13.8 Distribution Width Platelet Count 256 Mean Platelet Volume 10.2 Immature 1.200 H Granulocytes % Neutrophils % 60.1 Lymphocytes % 23.8 Monocytes % 8.0 Eosinophils % 6.2 Basophils % 0.7 Nucleated Red Blood 0.0 Cells % Immature 0.090 H Granulocytes # Neutrophils # 4.6 Lymphocytes # 1.8 Monocytes # 0.6 Eosinophils # 0.5 Basophils # 0.1 Nucleated Red Blood 0.0 Cells # Sodium Level 139 Potassium Level 3.7 Chloride Level 103 Carbon Dioxide Level 30 Anion Gap 6 Blood Urea Nitrogen 19 Creatinine 1.18 H Est Glomerular 46 L Filtrat Rate mL/min Glucose Level 77 Calcium Level 8.7 Test 02/19/19 08:51 02/19/19 09:07 02/19/19 12:21 Bedside Glucose 184 186 135 Medications Medication Current Medications IV Flush (NS 3 ml) 3 ml PER PROTOCOL IV ; Start 02/05/19 at 17:00 Aspirin (Aspirin) 81 mg DAILY PO Last administered on 02/19/19 08:39; Admin Dose 81 MG; Start 02/06/19 at 09:00 Nitroglycerin (Nitroglycerin (Sl Tab) 0.4 Mg) 1 tab Q5M PRN SL .CHEST PAIN Last administered on 02/17/19 06:02; Admin Dose 1 TAB; Start 02/05/19 at 17:00 Acetaminophen (Tylenol Tab) 650 mg Q6H PRN PO .PAIN 1-3 OR TEMP Last administered on 02/19/19 08:47; Admin Dose 650 MG; Start 02/05/19 at 17:00 Atorvastatin Calcium (Lipitor) 80 mg QHS PO Last administered on 02/18/19at 21:22; Admin Dose 80 MG; Start 02/05/19 at 21:00 Benazepril HCl (Lotensin) 10 mg DAILY PO Last administered on 02/09/19 08:43; Admin Dose 10 MG; Start 02/06/19 at 09:00; Status Hold Clopidogrel Bisulfate (plaVIX) 75 mg DAILY PO Last administered on 02/19/19 08:38; Admin Dose 75 MG; Start 02/06/19 at 09:00 Hydrochlorothiazide (Hydrochlorothiazide) 25 mg DAILY PO Last administered on 02/09/19 08:43; Admin Dose 25 MG; Start 02/06/19 at 09:00; Status Hold Levothyroxine Sodium (Synthroid) 75 mcg BEFORE BREAKFAST PO Last administered on 02/19/19 05:34; Admin Dose 75 MCG; Start 02/06/19 at 07:00 Sertraline HCl (Zoloft) 100 mg QAM PO Last administered on 02/19/19 08:39; Admin Dose 100 MG; Start 02/06/19 at 09:00 Trazodone HCl (Desyrel) 50 mg QHS PRN PO insomnia Last administered on 02/19/19 01:58; Admin Dose 50 MG; Start 02/05/19 at 17:30 Phenol (Cepastat Lozenge) 1 lozenge Q1H PRN MT sore throat Last administered on 02/18/19 00:36; Admin Dose 1 LOZENGE; Start 02/05/19 at 17:30 Miscellaneous Information 1 ea NOTE XX ; Start 02/05/19 at 19:00 Glucose (Glutose) 15 gm Q15M PRN PO DECREASED GLUCOSE; Start 02/05/19 at 19:00 Glucose (Glutose) 22.5 gm Q15M PRN PO DECREASED GLUCOSE; Start 02/05/19 at 19:00 Dextrose (D50w Syringe) 25 ml Q15M PRN IV DECREASED GLUCOSE; Start 02/05/19 at 19:00 Dextrose (D50w Syringe) 50 ml Q15M PRN IV DECREASED GLUCOSE; Start 02/05/19 at 19:00 Glucagon (Glucagen) 1 mg Q15M PRN IM DECREASED GLUCOSE; Start 02/05/19 at 19:00 Glucose (Glutose) 15 gm Q15M PRN BUCCAL DECREASED GLUCOSE; Start 02/05/19 at 19:00 Acetaminophen/ Butalbital/ Caffeine (Fioricet) 1 tab Q6H PRN PO PAIN Last administered on 02/14/19 08:44; Admin Dose 1 TAB; Start 02/06/19 at 12:00 Morphine Sulfate (morphine) 2 mg Q4H PRN IV SEVERE PAIN LEVEL 7-10 Last administered on 02/19/19 10:37; Admin Dose 2 MG; Start 02/07/19 at 11:30 Metoclopramide HCl (Reglan) 5 mg Q6H PRN IV nausea Last administered on 02/18/19 00:36; Admin Dose 5 MG; Start 02/10/19 at 08:00 Insulin Aspart (Novolog Insulin Pen) 6 unit WITH MEALS SC Last administered on 02/18/19 17:14; Admin Dose 6 UNIT; Start 02/10/19 at 17:55 Insulin Glargine (Lantus) 25 units BID SC Last administered on 02/19/19 08:47; Admin Dose 25 UNITS; Start 02/10/19 at 21:00 Polyethylene Glycol (Miralax) 17 gm DAILY PO Last administered on 02/18/19 08:07; Admin Dose 17 GM; Start 02/12/19 at 10:00 Al Hydrox/Mg Hydrox/Simethicone (Mag-Al Plus) 30 ml Q6H PRN PO GASTROINTESTINAL UPSET Last administered on 02/19/19 00:22; Admin Dose 30 ML; Start 02/12/19 at 22:30 Hydralazine HCl (Apresoline) 10 mg Q4H PRN PO ELEVATED BLOOD PRESSURE Last administered on 02/13/19 04:58; Admin Dose 10 MG; Start 02/13/19 at 04:30 Metoprolol Tartrate (Lopressor) 12.5 mg BID PO Last administered on 02/18/19 21:22; Admin Dose 12.5 MG; Start 02/14/19 at 09:00 Senna/Docusate Sodium (Senokot-S) 1 tab BID PO Last administered on 02/19/19 08:39; Admin Dose 1 TAB; Start 02/14/19 at 21:00 Meropenem/Sodium Chloride 50 ml @ 100 mls/hr Q12H IVPB Last administered on 02/19/19 12:29; Admin Dose 100 MLS/HR; Start 02/15/19 at 13:00 Pantoprazole (Protonix Tab) 40 mg BID@0600,1800 PO Last administered on 02/19/19 05:33; Admin Dose 40 MG; Start 02/15/19 at 18:00 Phenazopyridine HCl (Pyridium) 100 mg WITH MEALS PO Last administered on 02/19/19 12:29; Admin Dose 100 MG; Start 02/15/19 at 13:30 Sucralfate (Carafate) 1 gm Q6 PO Last administered on 02/19/19 12:29; Admin Dose 1 GM; Start 02/15/19 at 13:30 Insulin Aspart (Novolog Insulin Pen) (Adult SC Insulin - Moder... WITH MEALS BEDTIME SC Last administered on 02/17/19at 12:08; Admin Dose 2 UNIT; Start 02/16/19 at 07:55 Apixaban (Eliquis) 10 mg BID PO Last administered on 02/19/19at 08:39; Admin Dose 10 MG; Start 02/16/19 at 13:00; Stop 02/23/19 at 12:59 Apixaban (Eliquis) 5 mg BID PO ; Start 02/23/19 at 21:00 Nifedipine (Procardia Xl) 60 mg BID PO Last administered on 02/19/19at 08:40; Admin Dose 60 MG; Start 02/17/19 at 09:00 VIJAYA SCHMIDT MD Feb 19, 2019 13:11
[2019-02-19 14:07] VITALS: BP 119/73; PULSE 33; RESP 16
--- NOTE | 2019-02-19 14:41 | CONS ---
Assessment/Plan Assessment/Plan Hospital Course (Demo Recall) Patient is alert looks comfortable, no fevers Antimicrobials: Patient is on meropenem day #5 Microbiology: Urine culture grew E. coli ESBL Physical examination: Well-developed obese elderly woman who is alert in no distress. Head atraumatic normocephalic sclera nonicteric vehicle mucosa dry neck is supple chest rise symmetrical breath sounds clear heart: S1-S2 abdomen obese soft patient has tenderness over suprapubic area on palpation and bilateral CVA tenderness. Bowel sounds present. Extremities without cyanosis Assessment: 1. E. coli ESBL UTI 2. Diabetes 3. Hypertension 4. Obesity 5. Acute kidney insufficiency Plan: Patient remains stable, still w c/o dysuria, repeat urine cx neg, continue abx to complete 2 weeks Consultation Date/Type/Reason Admit Date/Time Feb 06, 2019 at 15:49 Initial Consult Date Type of Consult id Requesting Provider: ISABELA TORIBIO Date/Time of Note DATE: 02/19/19 TIME: 14:40 Exam/Review of Systems Exam Vitals Vital Signs Date Temp Pulse Resp B/P (MAP) Pulse Ox O2 O2 Flow FiO2 Time Delivery Rate 02/19/19 98.3 33 16 119/73 95 Room Air 14:07 (88) Intake and Output 02/18/19 02/18/19 02/19/19 1515:00 23:00 07:00 IntakeIntake Total 360 ml 600 ml 290 ml BalanceBalance 360 ml 600 ml 290 ml Results Result Diagram: 02/19/19 0713 02/19/19 0713 Results 24hrs Laboratory Tests Test 02/18/19 17:12 02/18/19 21:26 02/19/19 07:13 02/19/19 08:31 Bedside Glucose 81 144 62 L White Blood Count 7.6 # Red Blood Count 4.50 Hemoglobin 12.2 Hematocrit 39.1 Mean Corpuscular 86.9 Volume Mean Corpuscular 27.1 L Hemoglobin Mean Corpuscular 31.2 L Hemoglobin Concent Red Cell 13.8 Distribution Width Platelet Count 256 Mean Platelet Volume 10.2 Immature 1.200 H Granulocytes % Neutrophils % 60.1 Lymphocytes % 23.8 Monocytes % 8.0 Eosinophils % 6.2 Basophils % 0.7 Nucleated Red Blood 0.0 Cells % Immature 0.090 H Granulocytes # Neutrophils # 4.6 Lymphocytes # 1.8 Monocytes # 0.6 Eosinophils # 0.5 Basophils # 0.1 Nucleated Red Blood 0.0 Cells # Sodium Level 139 Potassium Level 3.7 Chloride Level 103 Carbon Dioxide Level 30 Anion Gap 6 Blood Urea Nitrogen 19 Creatinine 1.18 H Est Glomerular 46 L Filtrat Rate mL/min Glucose Level 77 Calcium Level 8.7 Test 02/19/19 08:51 02/19/19 09:07 02/19/19 12:21 Bedside Glucose 184 186 135 Medications Medication Current Medications IV Flush (NS 3 ml) 3 ml PER PROTOCOL IV ; Start 02/05/19 at 17:00 Aspirin (Aspirin) 81 mg DAILY PO Last administered on 02/19/19 08:39; Admin Dose 81 MG; Start 02/06/19 at 09:00 Nitroglycerin (Nitroglycerin (Sl Tab) 0.4 Mg) 1 tab Q5M PRN SL .CHEST PAIN Last administered on 02/17/19 06:02; Admin Dose 1 TAB; Start 02/05/19 at 17:00 Acetaminophen (Tylenol Tab) 650 mg Q6H PRN PO .PAIN 1-3 OR TEMP Last administered on 02/19/19 08:47; Admin Dose 650 MG; Start 02/05/19 at 17:00 Atorvastatin Calcium (Lipitor) 80 mg QHS PO Last administered on 02/18/19 21:22; Admin Dose 80 MG; Start 02/05/19 at 21:00 Benazepril HCl (Lotensin) 10 mg DAILY PO Last administered on 02/09/19 08:43; Admin Dose 10 MG; Start 02/06/19 at 09:00; Status Hold Clopidogrel Bisulfate (plaVIX) 75 mg DAILY PO Last administered on 02/19/19 08:38; Admin Dose 75 MG; Start 02/06/19 at 09:00 Hydrochlorothiazide (Hydrochlorothiazide) 25 mg DAILY PO Last administered on 02/09/19 08:43; Admin Dose 25 MG; Start 02/06/19 at 09:00; Status Hold Levothyroxine Sodium (Synthroid) 75 mcg BEFORE BREAKFAST PO Last administered on 02/19/19 05:34; Admin Dose 75 MCG; Start 02/06/19 at 07:00 Sertraline HCl (Zoloft) 100 mg QAM PO Last administered on 02/19/19 08:39; Admin Dose 100 MG; Start 02/06/19 at 09:00 Trazodone HCl (Desyrel) 50 mg QHS PRN PO insomnia Last administered on 02/19/19 01:58; Admin Dose 50 MG; Start 02/05/19 at 17:30 Phenol (Cepastat Lozenge) 1 lozenge Q1H PRN MT sore throat Last administered on 02/18/19 00:36; Admin Dose 1 LOZENGE; Start 02/05/19 at 17:30 Miscellaneous Information 1 ea NOTE XX ; Start 02/05/19 at 19:00 Glucose (Glutose) 15 gm Q15M PRN PO DECREASED GLUCOSE; Start 02/05/19 at 19:00 Glucose (Glutose) 22.5 gm Q15M PRN PO DECREASED GLUCOSE; Start 02/05/19 at 19:00 Dextrose (D50w Syringe) 25 ml Q15M PRN IV DECREASED GLUCOSE; Start 02/05/19 at 19:00 Dextrose (D50w Syringe) 50 ml Q15M PRN IV DECREASED GLUCOSE; Start 02/05/19 at 19:00 Glucagon (Glucagen) 1 mg Q15M PRN IM DECREASED GLUCOSE; Start 02/05/19 at 19:00 Glucose (Glutose) 15 gm Q15M PRN BUCCAL DECREASED GLUCOSE; Start 02/05/19 at 19:00 Acetaminophen/ Butalbital/ Caffeine (Fioricet) 1 tab Q6H PRN PO PAIN Last administered on 02/14/19 08:44; Admin Dose 1 TAB; Start 02/06/19 at 12:00 Morphine Sulfate (morphine) 2 mg Q4H PRN IV SEVERE PAIN LEVEL 7-10 Last administered on 02/19/19 10:37; Admin Dose 2 MG; Start 02/07/19 at 11:30 Metoclopramide HCl (Reglan) 5 mg Q6H PRN IV nausea Last administered on 02/18/19 00:36; Admin Dose 5 MG; Start 02/10/19 at 08:00 Insulin Aspart (Novolog Insulin Pen) 6 unit WITH MEALS SC Last administered on 02/18/19 17:14; Admin Dose 6 UNIT; Start 02/10/19 at 17:55 Insulin Glargine (Lantus) 25 units BID SC Last administered on 02/19/19 08:47; Admin Dose 25 UNITS; Start 02/10/19 at 21:00 Al Hydrox/Mg Hydrox/Simethicone (Mag-Al Plus) 30 ml Q6H PRN PO GASTROINTESTINAL UPSET Last administered on 02/19/19 00:22; Admin Dose 30 ML; Start 02/12/19 at 22:30 Hydralazine HCl (Apresoline) 10 mg Q4H PRN PO ELEVATED BLOOD PRESSURE Last administered on 02/13/19 04:58; Admin Dose 10 MG; Start 02/13/19 at 04:30 Metoprolol Tartrate (Lopressor) 12.5 mg BID PO Last administered on 02/18/19 21:22; Admin Dose 12.5 MG; Start 02/14/19 at 09:00 Meropenem/Sodium Chloride 50 ml @ 100 mls/hr Q12H IVPB Last administered on 02/19/19 12:29; Admin Dose 100 MLS/HR; Start 02/15/19 at 13:00 Pantoprazole (Protonix Tab) 40 mg BID@0600,1800 PO Last administered on 02/19/19 05:33; Admin Dose 40 MG; Start 02/15/19 at 18:00 Phenazopyridine HCl (Pyridium) 100 mg WITH MEALS PO Last administered on 02/19/19 12:29; Admin Dose 100 MG; Start 02/15/19 at 13:30 Sucralfate (Carafate) 1 gm Q6 PO Last administered on 02/19/19 12:29; Admin Dose 1 GM; Start 02/15/19 at 13:30 Insulin Aspart (Novolog Insulin Pen) (Adult SC Insulin - Moder... WITH MEALS BEDTIME SC Last administered on 02/17/19 12:08; Admin Dose 2 UNIT; Start 02/16/19 at 07:55 Apixaban (Eliquis) 10 mg BID PO Last administered on 02/19/19 08:39; Admin Dose 10 MG; Start 02/16/19 at 13:00; Stop 02/23/19 at 12:59 Apixaban (Eliquis) 5 mg BID PO ; Start 02/23/19 at 21:00 Nifedipine (Procardia Xl) 60 mg BID PO Last administered on 02/19/19 08:40; Admin Dose 60 MG; Start 02/17/19 at 09:00 MARY MUÑOZ NP Feb 19, 2019 14:41
[2019-02-19] MEDS ORDERED: NIFE90TA11 PO (14:59)
[2019-02-19] MEDS ORDERED: MERO1PIG2 IV (15:03)
[2019-02-19] MEDS ORDERED: MERO500P2 IV (15:05)
--- NOTE | 2019-02-19 15:12 | DS ---
Date/Time of Note Date/Time of Note DATE: 02/19/19 TIME: 15:05 Discharge Summary Admission/Discharge Info Admit Date/Time Feb 06, 2019 at 15:49 Discharge Date/Time Discharge Diagnosis 1. ESBL UTI, on meropenem for 10 days 2. Acute left LE DVT, on eliquis for 3 months 3. Chest pain, muscular with tenderness, negative for ischemia per stress thallium test 4. CAD, s/p PCI/stent in 2014, on aspirin, plavix, statin 5. Headache, improved 6. Mood disorder, stable on sertraline 7. Hypothyroidism, on synthroid 8. Diabetes mellitus, on insulins 9. GERD, PPI 10. Hypertension, controlled Patient Condition: Stable Procedures PROCEDURE: Nuclear medicine myocardial perfusion scan CLINICAL INDICATION: Chest pain TECHNIQUE: 29.8 mCi of technetium 99m Cardiolite was administered for the stress study. 10.1 mCi of technetium 99m Cardiolite was administered for the resting study. The patient was stressed with 0.4 mg of Lexiscan. Images were reviewed in the short axis, vertical long axis, and horizontal long axis views. Wall motion was assessed and ejection fraction was calculated as well. Images were reviewed on a high-resolution PACS workstation. COMPARISON: None available FINDINGS: Left ventricular size: Normal. Attenuation artifact: Moderate. Stress images: Normal perfusion. Rest images: Similar pattern. Wall motion: Normal. Ejection fraction: 75%. IMPRESSION: 1. Negative myocardial perfusion scan. 2. There is no evidence for reversible ischemia. 3. Normal wall motion with normal ejection fraction of 75%. RPTAT: HMJB .Ger Pierce MD, Date Time Electronically viewed and signed by .Ger Pierce MD, MD on 02/15/2019 11:18 .B/ CC: Philipp Mcdonnell DO Hospital Course Patient is a female with a past medical history significant for coronary artery disease status post drug-eluting stent in 2014, diabetes mellitus, hypertension, mood disorder, hypothyroidism who presents to [facility] for chest pain. Patient developed chest pain this morning and went to her primary care doctor's office and complained of recurrent chest pain there. Patient was given aspirin, nitroglycerin at the doctor's office and she subsequently developed sudden onset headache. Currently patient is chest pain-free and has very mild headache symptoms but otherwise feels completely normal. Patient of denies any shortness of breath, nausea, vomiting, abdominal pain, bowel or bladder dysfunction, leg pain. For chest pain patient got a negative stress thallium test. Chest pain is considered musculoskeletal. Patient is found of having Acute occlusive deep venous thrombosis left popliteal and peroneal vein that she is on eliquis. She is instructed to continue eliquis as instructed for 3 months. Urine culture is positive with ESBL E. Coli that she in on meropenem that will be continued for 10 more days per home health. Home Meds Active Scripts Meropenem-0.9% Sodium Chloride (Meropenem-0.9% NaCl 500 mg/50) 500 Mg/50 Ml Piggyback, 500 MG IV BID for 10 Days Prov:VIJAYA SCHMIDT MD 02/19/19 Nifedipine* (Nifedipine ER*) 90 Mg Tablet.er, 90 MG PO DAILY for 30 Days, TAB Prov:VIJAYA SCHMIDT MD 02/19/19 Apixaban* (Eliquis*) 5 Mg Tablet, 5 MG PO BID for 42 Days, #42 TAB continue after complete 10mg BID Prov:ERICK BROWN MD 02/17/19 Apixaban* (Eliquis*) 5 Mg Tablet, 10 MG PO BID for 5 Days, #20 TAB Prov:ERICK BROWN MD 02/17/19 Reported Medications Insulin Glargine* (Lantus*) 100 Unit/Ml Soln, 17 UNIT SC BID, #1 VIAL 02/05/19 Insulin Lispro (Humalog) 100 Unit/1 Ml Cartridge, 5 UNIT SQ BEFORE MEALS, EA 02/05/19 Docusate Sodium* (Colace*) 100 Mg Capsule, 100 MG PO BID, #60 CAP 02/05/19 Sertraline Hcl* (Sertraline Hcl*) 100 Mg Tablet, 100 MG PO QAM, #30 TAB 02/05/19 Trazodone Hcl* (Desyrel*) 50 Mg Tab, 50 MG PO QHS, #30 TAB 02/05/19 Benazepril Hcl* (Benazepril Hcl*) 10 Mg Tablet, 10 MG PO DAILY, #30 TAB 02/05/19 Clopidogrel Bisulfate* (Clopidogrel Bisulfate*) 75 Mg Tablet, 75 MG PO DAILY, #30 TAB 02/05/19 Gabapentin* (Gabapentin*) 300 Mg Capsule, 300 MG PO DAILY, #60 CAP 02/05/19 Levothyroxine Sodium* (Levothyroxine Sodium*) 75 Mcg Tablet, 75 MCG PO BEFORE BREAKFAST, #30 TAB 02/05/19 Atorvastatin* (Atorvastatin*) 80 Mg Tablet, 80 MG PO QHS, #30 TAB 02/05/19 Aspirin* (Aspirin* EC) 81 Mg Tablet.dr, 81 MG PO DAILY, TAB 02/05/19 Hydrochlorothiazide* (Hydrochlorothiazide*) 25 Mg Tab, 25 MG PO DAILY, #30 TAB 02/05/19 Discontinued Reported Medications Metoprolol Tartrate* (Lopressor*) 25 Mg Tab, 25 MG PO BID, #60 TAB 02/05/19 Isosorbide Mononitrate* (Isosorbide Mononitrate*) 60 Mg Tab.er.24h, 60 MG PO DAILY, TAB 02/05/19 Amlodipine Besylate* (Amlodipine Besylate*) 10 Mg Tablet, 10 MG PO DAILY, #30 TAB 02/05/19 Follow-up Plan home health for iv meropenem for 10 days PCP in one week Primary Care Provider Not On Staff Doctor Pending Labs Laboratory Tests Test 02/18/19 17:12 02/18/19 21:26 02/19/19 07:13 02/19/19 08:31 Bedside 81 144 62 Glucose mg/dL (70-220) mg/dL (70-220) mg/dL (70-220) White Blood 7.6 Count 10^3/ul (4.8-1 0.8) Red Blood 4.50 Count 10^6/ul (4.20- 5.40) Hemoglobin 12.2 g/dl (12.0-16. 0) Hematocrit 39.1 % (37.0-47.0) Mean 86.9 Corpuscular fl (82.0-101.0 Volume ) Mean 27.1 Corpuscular pg (29.0-33.0) Hemoglobin Mean 31.2 Corpuscular g/dl (32.0-37. Hemoglobin Conc 0) ent Red Cell 13.8 Distribution % (11.5-14.5) Width Platelet Count 256 10^3/UL (140-4 15) Mean Platelet 10.2 Volume fl (7.4-10.4) Immature 1.200 Granulocytes % % (0.001-0.429 ) Neutrophils % 60.1 % (39.0-77.0) Lymphocytes % 23.8 % (15.0-51.0) Monocytes % 8.0 % (0.0-11.0) Eosinophils % 6.2 % (0.0-7.0) Basophils % 0.7 % (0.0-2.0) Nucleated Red 0.0 Blood Cells % /100WBC (0.0-0 .0) Immature 0.090 Granulocytes # 10^3/ul (0.0-0 .031) Neutrophils # 4.6 10^3/ul (1.6-7 .5) Lymphocytes # 1.8 10^3/ul (0.8-2 .9) Monocytes # 0.6 10^3/ul (0.3-0 .9) Eosinophils # 0.5 10^3/ul (0.0-0 .5) Basophils # 0.1 10^3/ul (0.0-0 .1) Nucleated Red 0.0 Blood Cells # 10^3/ul (0.0-0 .0) Sodium Level 139 mmol/L (135-14 4) Potassium 3.7 Level mmol/L (3.5-5. 1) Chloride Level 103 mmol/L (97-110 ) Carbon Dioxide 30 Level mmol/L (21-31) Anion Gap 6 (5-13) Blood Urea 19 Nitrogen mg/dl (7-20) Creatinine 1.18 mg/dl (0.44-1. 00) Est Glomerular 46 Filtrat mL/min (>60) Rate mL/min Glucose Level 77 mg/dl (70-220) Calcium Level 8.7 mg/dl (8.4-10. 2) Test 02/19/19 08:51 02/19/19 09:07 02/19/19 12:21 Bedside 184 186 135 Glucose mg/dL (70-220) mg/dL (70-220) mg/dL (70-220) Microbiology Date/Time Source Procedure Growth Status 02/18/19 16:15 Straight Cath Urine Urine Culture - Preliminary NO Resulted GROWTH AFTER 24 HOURS VIJAYA SCHMIDT MD Feb 19, 2019 15:12
[2019-02-19] MEDS: ATORVASTATIN 80 MG TAB PO SCH (20:46)
[2019-02-19 21:16] VITALS: BP 108/64; PULSE 68; RESP 20
[2019-02-20] MEDS: SUCRALFATE 1 GM TAB PO SCH ×3 (00:24→12:10)
[2019-02-20] MEDS: traZODone 50 MG TAB PO PRN (00:24)
[2019-02-20] MEDS: MEROPENEM 1 GM/50ML(PMX) 50 ML IVPB SCH ×2 (00:24→12:11)
[2019-02-20] MEDS: morphine 2 MG INJ IV PRN ×3 (00:37→12:10)
[2019-02-20 03:02] VITALS: BP 133/70; PULSE 65; RESP 16
[2019-02-20] MEDS: LEVOTHYROXINE 75 MCG TAB PO SCH (06:16)
[2019-02-20] MEDS: PANTOPRAZOLE (EC) 40 MG TAB PO SCH (06:16)
[2019-02-20 08:00] VITALS: BP_SYST 142; BP_SYST 162; BP_DIAS 71; BP_DIAS 83; PULSE 63; PULSE 81; RESP 18; RESP 20
[2019-02-20] MEDS: Insulin NOVOLOG SS MODERATE Algorithm (SS with meals and bedtime) SC SCH ×2 (08:00→12:00)
[2019-02-20] MEDS: INSULIN GLARGINE [LANTus] (100 UNITS/ML) SYG SC SCH (08:03)
[2019-02-20] MEDS: INSULIN ASPART [NOVOLOG] 3 ML PEN SC SCH ×2 (08:04→12:00)
[2019-02-20] MEDS: APIXABAN 5 MG TABLET PO SCH (08:05)
[2019-02-20] MEDS: CLOPIDOGREL 75 MG TAB PO SCH (08:05)
[2019-02-20] MEDS: ASPIRIN 81 MG TAB PO SCH (08:05)
[2019-02-20] MEDS: PHENAZOPYRIDINE 100 MG TAB PO SCH ×2 (08:05→12:09)
[2019-02-20] MEDS ORDERED: NIFEdipine (XL) 90 MG TAB PO SCH (09:00)
[2019-02-20] MEDS: SERTRALINE 100 MG TAB PO SCH (09:35)
--- NOTE | 2019-02-20 11:27 | CONS ---
Assessment/Plan Assessment/Plan Hospital Course (Demo Recall) Mo acute events, looks comfortable, no fevers Antimicrobials: Patient is on meropenem day #5 Microbiology: Urine culture grew E. coli ESBL Physical examination: Well-developed obese elderly woman who is alert in no distress. Head atraumatic normocephalic sclera nonicteric vehicle mucosa dry neck is supple chest rise symmetrical breath sounds clear heart: S1-S2 abdomen obese soft patient has tenderness over suprapubic area on palpation and bilateral CVA tenderness. Bowel sounds present. Extremities without cyanosis Assessment: 1. E. coli ESBL UTI 2. Diabetes 3. Hypertension 4. Obesity 5. Acute kidney insufficiency 6. Retention Plan: Patient remains stable, add Bethanechol, continue abx to complete 2 weeks Consultation Date/Type/Reason Admit Date/Time Feb 06, 2019 at 15:49 Initial Consult Date Type of Consult id Requesting Provider: ISABELA TORIBIO Date/Time of Note DATE: 02/20/19 TIME: 11:25 Exam/Review of Systems Exam Vitals Vital Signs Date Temp Pulse Resp B/P (MAP) Pulse Ox O2 O2 Flow FiO2 Time Delivery Rate 02/20/19 98.8 81 18 162/71 96 08:00 (101) 02/19/19 Room Air 14:07 Intake and Output 02/19/19 02/19/19 02/20/19 1515:00 23:00 07:00 IntakeIntake Total 350 ml 240 ml 50 ml BalanceBalance 350 ml 240 ml 50 ml Results Result Diagram: 02/19/19 0713 02/19/19 0713 Results 24hrs Laboratory Tests Test 02/19/19 12:21 02/19/19 17:38 02/19/19 20:39 02/20/19 08:01 Bedside Glucose 135 114 158 79 Medications Medication Current Medications IV Flush (NS 3 ml) 3 ml PER PROTOCOL IV ; Start 02/05/19 at 17:00 Aspirin (Aspirin) 81 mg DAILY PO Last administered on 02/20/19at 08:05; Admin Dose 81 MG; Start 02/06/19 at 09:00 Nitroglycerin (Nitroglycerin (Sl Tab) 0.4 Mg) 1 tab Q5M PRN SL .CHEST PAIN Last administered on 02/17/19at 06:02; Admin Dose 1 TAB; Start 02/05/19 at 17:00 Acetaminophen (Tylenol Tab) 650 mg Q6H PRN PO .PAIN 1-3 OR TEMP Last administered on 02/19/19 08:47; Admin Dose 650 MG; Start 02/05/19 at 17:00 Atorvastatin Calcium (Lipitor) 80 mg QHS PO Last administered on 02/19/19 20:46; Admin Dose 80 MG; Start 02/05/19 at 21:00 Benazepril HCl (Lotensin) 10 mg DAILY PO Last administered on 02/09/19 08:43; Admin Dose 10 MG; Start 02/06/19 at 09:00; Status Hold Clopidogrel Bisulfate (plaVIX) 75 mg DAILY PO Last administered on 02/20/19 08:05; Admin Dose 75 MG; Start 02/06/19 at 09:00 Hydrochlorothiazide (Hydrochlorothiazide) 25 mg DAILY PO Last administered on 02/09/19 08:43; Admin Dose 25 MG; Start 02/06/19 at 09:00; Status Hold Levothyroxine Sodium (Synthroid) 75 mcg BEFORE BREAKFAST PO Last administered on 02/20/19 06:16; Admin Dose 75 MCG; Start 02/06/19 at 07:00 Sertraline HCl (Zoloft) 100 mg QAM PO Last administered on 02/20/19 09:35; Admin Dose 100 MG; Start 02/06/19 at 09:00 Trazodone HCl (Desyrel) 50 mg QHS PRN PO insomnia Last administered on 02/20/19 00:24; Admin Dose 50 MG; Start 02/05/19 at 17:30 Phenol (Cepastat Lozenge) 1 lozenge Q1H PRN MT sore throat Last administered on 02/18/19 00:36; Admin Dose 1 LOZENGE; Start 02/05/19 at 17:30 Miscellaneous Information 1 ea NOTE XX ; Start 02/05/19 at 19:00 Glucose (Glutose) 15 gm Q15M PRN PO DECREASED GLUCOSE; Start 02/05/19 at 19:00 Glucose (Glutose) 22.5 gm Q15M PRN PO DECREASED GLUCOSE; Start 02/05/19 at 19:00 Dextrose (D50w Syringe) 25 ml Q15M PRN IV DECREASED GLUCOSE; Start 02/05/19 at 19:00 Dextrose (D50w Syringe) 50 ml Q15M PRN IV DECREASED GLUCOSE; Start 02/05/19 at 19:00 Glucagon (Glucagen) 1 mg Q15M PRN IM DECREASED GLUCOSE; Start 02/05/19 at 19:00 Glucose (Glutose) 15 gm Q15M PRN BUCCAL DECREASED GLUCOSE; Start 02/05/19 at 19:00 Acetaminophen/ Butalbital/ Caffeine (Fioricet) 1 tab Q6H PRN PO PAIN Last administered on 02/14/19 08:44; Admin Dose 1 TAB; Start 02/06/19 at 12:00 Morphine Sulfate (morphine) 2 mg Q4H PRN IV SEVERE PAIN LEVEL 7-10 Last administered on 02/20/19 08:06; Admin Dose 2 MG; Start 02/07/19 at 11:30 Metoclopramide HCl (Reglan) 5 mg Q6H PRN IV nausea Last administered on 02/18/19 00:36; Admin Dose 5 MG; Start 02/10/19 at 08:00 Insulin Aspart (Novolog Insulin Pen) 6 unit WITH MEALS SC Last administered on 02/20/19at 08:04; Admin Dose 6 UNIT; Start 02/10/19 at 17:55 Insulin Glargine (Lantus) 25 units BID SC Last administered on 02/20/19 08:03; Admin Dose 25 UNITS; Start 02/10/19 at 21:00 Al Hydrox/Mg Hydrox/Simethicone (Mag-Al Plus) 30 ml Q6H PRN PO GASTROINTESTINAL UPSET Last administered on 02/19/19 00:22; Admin Dose 30 ML; Start 02/12/19 at 22:30 Hydralazine HCl (Apresoline) 10 mg Q4H PRN PO ELEVATED BLOOD PRESSURE Last administered on 02/13/19 04:58; Admin Dose 10 MG; Start 02/13/19 at 04:30 Meropenem/Sodium Chloride 50 ml @ 100 mls/hr Q12H IVPB Last administered on 02/20/19at 00:24; Admin Dose 100 MLS/HR; Start 02/15/19 at 13:00 Pantoprazole (Protonix Tab) 40 mg BID@0600,1800 PO Last administered on 02/20/19 06:16; Admin Dose 40 MG; Start 7/12/19 at 18:00 Phenazopyridine HCl (Pyridium) 100 mg WITH MEALS PO Last administered on 02/20/19 08:05; Admin Dose 100 MG; Start 02/15/19 at 13:30 Sucralfate (Carafate) 1 gm Q6 PO Last administered on 02/20/19at 06:16; Admin Dose 1 GM; Start 02/15/19 at 13:30 Insulin Aspart (Novolog Insulin Pen) (Adult SC Insulin - Moder... WITH MEALS BEDTIME SC Last administered on 02/17/19at 12:08; Admin Dose 2 UNIT; Start 02/16/19 at 07:55 Apixaban (Eliquis) 10 mg BID PO Last administered on 02/20/19 08:05; Admin Dose 10 MG; Start 02/16/19 at 13:00; Stop 02/23/19 at 12:59 Apixaban (Eliquis) 5 mg BID PO ; Start 02/23/19 at 21:00 Nifedipine (Procardia Xl) 90 mg DAILY PO Last administered on 02/20/19at 09:36; Admin Dose 90 MG; Start 02/20/19 at 09:00 MARY MUÑOZ NP Feb 20, 2019 11:27
[2019-02-20] MEDS ORDERED: BETHANECHOL 10 MG TAB PO SCH (13:00)
[2019-02-20 14:00] VITALS: BP 154/88; PULSE 88; RESP 18
[2019-02-20] MEDS ORDERED: BETH10TA16 PO (14:36)
--- NOTE | 2019-02-20 14:40 | DS ---
Date/Time of Note Date/Time of Note DATE: 02/20/19 TIME: 14:38 Discharge Summary Admission/Discharge Info Admit Date/Time Feb 06, 2019 at 15:49 Discharge Date/Time Discharge Diagnosis 1. ESBL UTI, on meropenem for 10 days 2. Acute left LE DVT, on eliquis for 3 months 3. Chest pain, muscular with tenderness, negative for ischemia per stress thallium test 4. CAD, s/p PCI/stent in 2014, on aspirin, plavix, statin 5. Headache, improved 6. Mood disorder, stable on sertraline 7. Hypothyroidism, on synthroid 8. Diabetes mellitus, on insulins 9. GERD, PPI 10. Hypertension, controlled Patient Condition: Stable Hospital Course Patient is a female with a past medical history significant for coronary artery disease status post drug-eluting stent in 2014, diabetes mellitus, hypertension, mood disorder, hypothyroidism who presents to [facility] for chest pain. Patient developed chest pain this morning and went to her primary care doctor's office and complained of recurrent chest pain there. Patient was given aspirin, nitroglycerin at the doctor's office and she subsequently developed sudden onset headache. Currently patient is chest pain-free and has very mild headache symptoms but otherwise feels completely normal. Patient of denies any shortness of breath, nausea, vomiting, abdominal pain, bowel or bladder dysfunction, leg pain. For chest pain patient got a negative stress thallium test. Chest pain is considered musculoskeletal. Patient is found of having Acute occlusive deep venous thrombosis left popliteal and peroneal vein that she is on eliquis. She is instructed to continue eliquis as instructed for 3 months. Urine culture is positive with ESBL E. Coli that she in on meropenem that will be continued for 10 more days per home health. No event last night. Patient is discharged with stable condition. Home Meds Active Scripts Bethanechol Chloride* (Bethanechol Chloride*) 10 Mg Tablet, 10 MG PO TID for 30 Days, TAB Prov:VIJAYA SCHMIDT MD 02/20/19 Meropenem-0.9% Sodium Chloride (Meropenem-0.9% NaCl 500 mg/50) 500 Mg/50 Ml Piggyback, 500 MG IV BID for 10 Days Prov:VIJAYA SCHMIDT MD 02/19/19 Nifedipine* (Nifedipine ER*) 90 Mg Tablet.er, 90 MG PO DAILY for 30 Days, TAB Prov:VIJAYA SCHMIDT MD 02/19/19 Apixaban* (Eliquis*) 5 Mg Tablet, 5 MG PO BID for 42 Days, #42 TAB continue after complete 10mg BID Prov:ERICK BROWN MD 02/17/19 Apixaban* (Eliquis*) 5 Mg Tablet, 10 MG PO BID for 5 Days, #20 TAB Prov:ERICK BROWN MD 02/17/19 Reported Medications Insulin Glargine* (Lantus*) 100 Unit/Ml Soln, 17 UNIT SC BID, #1 VIAL 02/05/19 Insulin Lispro (Humalog) 100 Unit/1 Ml Cartridge, 5 UNIT SQ BEFORE MEALS, EA 02/05/19 Docusate Sodium* (Colace*) 100 Mg Capsule, 100 MG PO BID, #60 CAP 02/05/19 Sertraline Hcl* (Sertraline Hcl*) 100 Mg Tablet, 100 MG PO QAM, #30 TAB 02/05/19 Trazodone Hcl* (Desyrel*) 50 Mg Tab, 50 MG PO QHS, #30 TAB 02/05/19 Benazepril Hcl* (Benazepril Hcl*) 10 Mg Tablet, 10 MG PO DAILY, #30 TAB 02/05/19 Clopidogrel Bisulfate* (Clopidogrel Bisulfate*) 75 Mg Tablet, 75 MG PO DAILY, #30 TAB 02/05/19 Gabapentin* (Gabapentin*) 300 Mg Capsule, 300 MG PO DAILY, #60 CAP 02/05/19 Levothyroxine Sodium* (Levothyroxine Sodium*) 75 Mcg Tablet, 75 MCG PO BEFORE BREAKFAST, #30 TAB 02/05/19 Atorvastatin* (Atorvastatin*) 80 Mg Tablet, 80 MG PO QHS, #30 TAB 02/05/19 Aspirin* (Aspirin* EC) 81 Mg Tablet.dr, 81 MG PO DAILY, TAB 02/05/19 Hydrochlorothiazide* (Hydrochlorothiazide*) 25 Mg Tab, 25 MG PO DAILY, #30 TAB 02/05/19 Discontinued Reported Medications Metoprolol Tartrate* (Lopressor*) 25 Mg Tab, 25 MG PO BID, #60 TAB 02/05/19 Isosorbide Mononitrate* (Isosorbide Mononitrate*) 60 Mg Tab.er.24h, 60 MG PO DAILY, TAB 7/2/19 Amlodipine Besylate* (Amlodipine Besylate*) 10 Mg Tablet, 10 MG PO DAILY, #30 TAB 02/05/19 Follow-up Plan home health for iv meropenem for 10 days PCP in one week Primary Care Provider Not On Staff Doctor Pending Labs Laboratory Tests Test 02/19/19 17:38 02/19/19 20:39 02/20/19 08:01 02/20/19 11:59 Bedside 114 158 79 123 Glucose mg/dL (70-220) mg/dL (70-220) mg/dL (70-220) mg/dL (70-220) VIJAYA SCHMIDT MD Feb 20, 2019 14:40
[2019-02-23] MEDS ORDERED: APIXABAN 5 MG TABLET PO SCH (21:00)
== END 2019-02-20 15:41 | disposition home health service (06) | DRG 313 ==
LOC: E/R 15:05 → TEL 16:45 → OBSVTOIN 02-06 15:49 → TEL 02-09 08:48 → PP2 02-17 15:00
PROVIDERS: ADMIT Internal Medicine; ATTEND Internal Medicine
DX: R07.89 Other chest pain (principal); N17.9 Acute kidney failure, unspecified; N39.0 Urinary tract infection, site not specified; I82.432 Acute embolism and thrombosis of left popliteal vein; I82.492 Acute embolism and thrombosis of other specified deep vein of left lower extremity; E03.9 Hypothyroidism, unspecified; E78.5 Hyperlipidemia, unspecified; E66.9 Obesity, unspecified; E11.22 Type 2 diabetes mellitus with diabetic chronic kidney disease; I12.9 Hypertensive chronic kidney disease with stage 1 through stage 4 chronic kidney disease, or unspecified chronic kidney disease; E11.9 Type 2 diabetes mellitus without complications; F39 Unspecified mood [affective] disorder; G43.909 Migraine, unspecified, not intractable, without status migrainosus; I25.10 Atherosclerotic heart disease of native coronary artery without angina pectoris; J02.9 Acute pharyngitis, unspecified; K21.9 Gastro-esophageal reflux disease without esophagitis; N18.9 Chronic kidney disease, unspecified; K59.00 Constipation, unspecified; B96.20 Unspecified Escherichia coli [E. coli] as the cause of diseases classified elsewhere; Z16.12 Extended spectrum beta lactamase (ESBL) resistance; Z95.5 Presence of coronary angioplasty implant and graft; Z68.32 Body mass index [BMI] 32.0-32.9, adult; Z90.49 Acquired absence of other specified parts of digestive tract; Z79.02 Long term (current) use of antithrombotics/antiplatelets; Z79.82 Long term (current) use of aspirin; Z79.4 Long term (current) use of insulin
CPT/HCPCS: 36415; 70450; 71045; 74176; 76775; 78452; 80048; 80053; 80061; 80069; 81001; 81003; 82043; 82550; 82553; 82962; 83036; 83735; 83880; 84100; 84155; 84300; 84443; 84484; 85025; 85610; 87086; 93005; 93017; 93306; 93971; 96374; 96375; 97116; 97162; 97530; 99217; A4310; A9500; A9505; G0378; J0696; J1200; J1815; J1885; J2185; J2270; J2405; J2765; J2785; J2930; J7030; J7509